=== PATIENT | female | born 1955 | race African-American/Black ===

== ENCOUNTER 2017-08-17 18:23 | Observation (INO) | payer SELFPAY ==
[2017-08-17 18:47] LABS: Bilirubin Negative (Negative); Blood, Urine Trace (Negative); Clarity CLEAR (Clear); Glucose, Urine (Dipstick) >=1000 mg/dL (Negative); Leukocyte Moderate (Negative); Nitrite Negative (Negative); Protein, Urine (Dipstick) Negative (Neg-Trace); Specific Gravity, Urine 1.017 (1.002-1.036); Urobilinogen 0.2 mg/dL (0.2-1.0)
[2017-08-17 18:52] LABS: Bacteria/HPF None Seen HPF (None Seen); Hyaline Casts/LPF 0-3 HYALINE CAST LPF (0-3 Hyaline); Squamous Epithelial 0-3 HPF (0-3)
[2017-08-17 19:12] LABS: #Basophils 0.1 thou/uL (0.0-0.2); #Eosinphils 0.2 thou/uL (0.0-0.7); #Lymphocytes 1.9 thou/uL (1.20-3.40); #Monocytes 1.7 thou/uL (0.11-0.59); #Neutrophils 8.6 thou/uL (1.40-6.50); %Basophils 0.5 % (0.0-1.0); %Eosinophils 1.5 % (0.0-10.0); %Monocytes 13.6 % (0.0-10.0); %Neutrophils 69.3 % (42.0-75.0); Hemoglobin 11.9 g/dL (12.0-16.0); Mean Corpuscular HGB CONC 33.3 g/dL (32.0-36.0); Mean Platelet Volume 9.8 fL (7.4-10.4); Platelet Count 240 thou/uL (130-400); RBC Distribution Width 11.5 % (11.5-14.5); Red Blood Cell (RBC) Count 3.72 mill/uL (4.20-5.40); White Blood Cell (WBC) Count 12.3 thou/uL (4.8-10.8)
[2017-08-17 19:35] LABS: ALT (SGPT) 30 U/L (8-55); AST (SGOT) 19 U/L (5-34); Albumin 3.5 g/dL (3.5-5.0); Alkaline Phosphatase 124 U/L (40-150); Anion Gap 18 mmol/L (10-20); BUN (Urea Nitrogen) 67 mg/dL (9.8-20.1); Bilirubin, Total 0.5 mg/dL (0.2-1.2); Calc. Creatinine Clearance 0 mL/min (70-130); Calcium 9.3 mg/dL (7.8-10.44); Carbon Dioxide 22 mmol/L (22-29); Chloride 90 mmol/L (98-107); Estimated GFR-MDRD 25; Globulin 3.7 g/dL (2.4-3.5); Potassium 4.6 mmol/L (3.5-5.1); Protein, Total 7.2 g/dL (6.0-8.3); Sodium 125 mmol/L (136-145)
[2017-08-17 19:47] LABS: Glucose 789 mg/dL (70-105)
[2017-08-17 21:17] LABS: Base Excess-Venous 0.8 mmol/L (0 (+/- 2.5)); Bicarbonate (HCO3v) 25.6 mmol/L (1.0-85.0); CO2 Tension (PvCO2) 40.6 mmHg (41.0-51.0); Calcium, Ionized 1.04 mmol/L (1.12-1.32); Hemoglobin - Calc 12.4 g/dL (12.0-18.0); O2 Tension (PvO2) 53.8 mmHg (35.0-45.0); Potassium 4.6 mmol/L (3.4-4.7); T. Carbon Dioxide 26.8 mmol/L (1.0-85.0); pH (Venous) 7.407 (7.35-7.45); vO2 Saturation-calc 87.7 % (94-98)
[2017-08-17] MEDS ORDERED: Insulin Regular 300 UNITS/3 ML VIAL ONE (21:44)
[2017-08-17] MEDS ORDERED: cefTRIAXone\\ROCEPHIN 1 GM VIAL ONE (22:46)
[2017-08-17 23:26] LABS: Magnesium 2.3 mg/dL (1.6-2.6); Phosphorus 3.2 mg/dL (2.3-4.7)
[2017-08-18 01:32] VITALS: BMI 29.5
[2017-08-18] MEDS ORDERED: Ondansetron HCl/PF 4 MG/2 ML Vial IVP PRN ×2 (01:46→17:46)
[2017-08-18] MEDS ORDERED: Acetaminophen 325 MG TAB PO PRN ×2 (01:46→17:47)
[2017-08-18] MEDS ORDERED: Ondansetron ODT 4 MG TAB SL PRN ×2 (01:46→17:47)
[2017-08-18] MEDS ORDERED: Dextrose 5% in Water 1,000 ML IV PRN ×2 (01:47→17:48)
[2017-08-18] MEDS ORDERED: Insulin Regular 300 UNITS/3 ML VIAL SC PRN ×4 (01:47→17:49)
[2017-08-18] MEDS ORDERED: Dextrose 50% Abboject 50 ML SYRINGE IVP PRN ×2 (01:47→17:47)
[2017-08-18] MEDS: Sodium Chloride 0.9% 1,000 ML IV SCH ×3 (02:22→18:15)
[2017-08-18] MEDS ORDERED: Insulin Glargine 60 UNITS in Pre-Filled Syringe 1 EACH SC SCH (09:00)
[2017-08-18] MEDS ORDERED: cefTRIAXone\\ROCEPHIN 1 GM in Sodium Chloride 0.9% 100 ML IVPB SCH (10:00)
[2017-08-18] MEDS: HumaLOG 300 UNITS/3 ML VIAL SC SCH ×2 (12:10→17:43)
[2017-08-18] MEDS ORDERED: Sodium Chloride 0.9% 1,000 ML IV SCH (18:00)
[2017-08-18] MEDS: Carvedilol 6.25 MG TAB PO SCH (21:39)
[2017-08-18] MEDS: cefTRIAXone\\ROCEPHIN 1 GM in Sodium Chloride 0.9% 100 ML IVPB SCH (21:40)
--- NOTE | 2017-08-18 21:59 | ULT ---
ULTRASOUND RENAL BILATERAL STANDARD 08/18/17 HISTORY: Urinary tract infection. Right flank pain. FINDINGS: Right kidney measures 11.8 x 4.6 x 4.5 cm and left kidney measures 11.4 x 5 x 4.6 cm. No renal mass, hydronephrosis or abnormal calcifications. Urinary bladder is unremarkable. Left ureteral jets are vi sualized. Bladder volume is 241 mL. IMPRESSION: No evidence for obstructive uropathy. POS: [facility]
[2017-08-19 04:57] LABS: #Eosinphils 0.2 thou/uL (0.0-0.7); #Lymphocytes 3.2 thou/uL (1.20-3.40); #Monocytes 1.3 thou/uL (0.11-0.59); #Neutrophils 6.3 thou/uL (1.40-6.50); %Basophils 0.3 % (0.0-1.0); %Eosinophils 2.2 % (0.0-10.0); %Lymphocytes 28.5 % (21.0-51.0); %Neutrophils 57.1 % (42.0-75.0); Hemoglobin 10.6 g/dL (12.0-16.0); Mean Corpuscular HGB CONC 33.4 g/dL (32.0-36.0); Mean Corpuscular Hemoglobin 31.1 pg (27.0-31.0); Mean Corpuscular Volume 93.3 fl (81.0-99.0); Mean Platelet Volume 9.1 fL (7.4-10.4); Platelet Count 257 thou/uL (130-400); RBC Distribution Width 11.2 % (11.5-14.5); Red Blood Cell (RBC) Count 3.39 mill/uL (4.20-5.40); White Blood Cell (WBC) Count 11.1 thou/uL (4.8-10.8)
[2017-08-19 05:33] LABS: Anion Gap 10 mmol/L (10-20); BUN (Urea Nitrogen) 29 mg/dL (9.8-20.1); Calc. Creatinine Clearance 80 mL/min (70-130); Calcium 8.6 mg/dL (7.8-10.44); Carbon Dioxide 25 mmol/L (22-29); Chloride 109 mmol/L (98-107); Estimated GFR-MDRD 68; Glucose 166 mg/dL (70-105); Potassium 3.8 mmol/L (3.5-5.1); Sodium 140 mmol/L (136-145)
[2017-08-19] MEDS: HumaLOG 300 UNITS/3 ML VIAL SC SCH ×3 (05:36→16:48)
[2017-08-19] MEDS: Sodium Chloride 0.9% 1,000 ML IV SCH ×2 (05:36→15:05)
[2017-08-19] MEDS ORDERED: HumaLOG 300 UNITS/3 ML VIAL SC SCH (06:00)
--- NOTE | 2017-08-19 06:27 | HP ---
DATE OF ADMISSION: 08/17/2017 CHIEF COMPLAINT: Weakness, abdominal pain. HISTORY OF PRESENT ILLNESS: Ms. Soni is a 61-year-old female with past medical history of diabetes mellitus, which is poorly controlled, came with complaining of pain in the back and abdomen and feeling weak as well. The patient states she has been taking her insulin regularly, but does not follow the diet. The patient also has back pain, so came to the emergency room, where she was found to be markedly elevated blood sugar of more than 700 and severely dehydrated. She was started on IV fluid boluses as well as given insulin and she was not in DKA, also found to have urinary tract infection and was admitted for further evaluation and management. PAST MEDICAL HISTORY: 1. Insulin-dependent diabetes mellitus. 2. Hypertension. 3. Cardiomyopathy, nonischemic. 4. Hyperlipidemia. 5. Noncompliant with diet. 6. History of COPD. PAST SURGICAL HISTORY: Nothing significant. CURRENT MEDICATIONS: The patient is on Levemir insulin 60/60 units daily, NovoLog FlexPen 20 units t.i.d., Lasix 40 mg daily, Coreg 6.25 b.i.d., losartan with hydrochlorothiazide 100/12.5 daily, multivitamin daily, spironolactone 100 mg daily. ALLERGIES: LEVOTHYROXINE. FAMILY HISTORY: Nothing of interest. SOCIAL HISTORY: The patient lives alone. No history of smoking. No history of alcohol intake. REVIEW OF SYSTEMS: Unremarkable except for the back pain, flank pain, abdominal pain, and weakness. PHYSICAL EXAMINATION: GENERAL: The patient is alert, awake, oriented x3. VITAL SIGNS: Temperature 98, pulse 100 , respirations 20, blood pressure 120/ 60. HEENT: Head is normocephalic, atraumatic. Pupils are equal and reactive to light. Nasopharynx is pale and dry. Hard and soft palate, no lesions seen. SKIN: Skin turgor decreased. NECK: Supple. No JVD LUNGS: Bilateral air entry present. No rhonchi. HEART: S1, S2 regular. ABDOMEN: Soft, no distention, no diffusely tender. No guarding, no S3, bowel sounds present. RECTAL: Deferred. CENTRAL NERVOUS SYSTEM: No focal deficit. LABORATORY AND X-RAY FINDINGS: CBC shows WBC 12.3, hemoglobin 11.9, hematocrit 33, platelets 240,000. Metabolic panel: Sodium 125, potassium 4.6, chloride 90 , CO2 of 22, BUN 67, creatinine 2.4, glucose 189. Urinalysis showed wbc's greater than 50, leukocyte esterase moderate. ABG shows a pH 7.4, pCO2 of 40, pO2 of 53, saturation of 88 %, beta hydroxybutyrate is 0.42. EKG shows normal sinus rhythm, no acute ST-T wave changes seen. ASSESSMENT: 1. Diabetes mellitus, uncontrolled. 2. Urinary tract infection. 3. Abdominal pain, flank pain, possibly due to urinary tract infection. 4. Severe dehydration with acute kidney injury. 5. Cardiomyopathy. 6. Hypertension. PLAN: 1. Vital signs q.4 hours. 2. Activity: As tolerated. 3. Allergies: LEVAQUIN. 4. ADA diet. 5. IV fluids, normal saline at 100 mL per hour. 6. Accu-Chek a.c. and at bedtime, sliding scale and Rocephin 1 gram IV piggyback b.i.d. 7. Continue home medication. 8. Diabetic education. [facility]
[2017-08-19] MEDS: Spironolactone 25 MG TAB PO SCH ×2 (08:33→17:34)
[2017-08-19] MEDS: Carvedilol 6.25 MG TAB PO SCH (08:33)
[2017-08-19] MEDS: cefTRIAXone\\ROCEPHIN 1 GM in Sodium Chloride 0.9% 100 ML IVPB SCH (08:36)
[2017-08-19] MEDS ORDERED: Insulin Glargine 65 UNITS in Pre-Filled Syringe 1 EACH SC SCH (09:00)
[2017-08-19] MEDS ORDERED: Losartan 25 MG TAB PO SCH (09:00)
[2017-08-19] MEDS ORDERED: Hydrochlorothiazide 25 MG TAB PO SCH (09:00)
[2017-08-19] MEDS ORDERED: Multivitamin W/ Minerals 1 TAB PO SCH (09:00)
[2017-08-19 17:44] VITALS: BP 161/83; TEMP 97.9
--- NOTE | 2017-08-22 10:12 | DIS ---
DATE OF ADMISSION: 08/17/2017 DATE OF DISCHARGE: 08/19/2017 ADMITTING DIAGNOSES: 1. Diabetes mellitus, uncontrolled. 2. Urinary tract infection. 3. Abdominal pain and flank pain due to urinary tract infection. 4. Severe dehydration with acute kidney injury. 5. Cardiomyopathy. 6. Hypertension. FINAL DIAGNOSES: 1. Diabetes mellitus, uncontrolled, improved. 2. Urinary tract infection. 3. Abdominal pain, resolved. 4. Severe dehydration with acute kidney injury, improved. 5. Cardiomyopathy. 6. Hypertension. BRIEF SUMMARY OF HOSPITAL COURSE: Ms. Soni is a 61-year-old female who presented with markedly elevated blood sugar of more than 700. She was also dehydrated. She has evidence of UTI as well. The patient was given an insulin and other medications. Started on antibiotic Rocephin for UTI. Urine cultures were done that revealed no growth. Her Accu-Cheks improved in the next few days after increasing the dose of insulin. It came down from more than 700 to 150, 200. The patient's abdominal pain, flank pain also improved. She did not have any more fever. In view of improvement , patient was discharged. At the time of discharge, she was stable. Her vital signs were stable. Lungs were clear. Heart sounds regular. Abdomen is soft, nontender. Bowel sounds present. DISCHARGE MEDICATIONS: Include Macrobid 100 b.i.d. for 10 days, Levemir insulin 65 units daily, Coreg 6.25 b.i.d., multivitamin daily, NovoLog FlexPen 20 units 3 times daily before meals, losartan with hydrochlorothiazide 100/12.5 daily, spironolactone 25 b.i.d. and the patient was advised to follow strict ADA diet and come for followup in 2 weeks. [facility]
== END 2017-08-19 19:00 | disposition home or self-care (01) ==
LOC: ERS 18:23 → T4-B 23:05
PROVIDERS: ADMIT Internal Medicine; ATTEND Internal Medicine
DX: R10.9 Unspecified abdominal pain (principal); E11.65 Type 2 diabetes mellitus with hyperglycemia; N39.0 Urinary tract infection, site not specified; I11.0 Hypertensive heart disease with heart failure; I50.9 Heart failure, unspecified; I42.8 Other cardiomyopathies; E78.5 Hyperlipidemia, unspecified; J44.9 Chronic obstructive pulmonary disease, unspecified; E86.0 Dehydration; N17.9 Acute kidney failure, unspecified; Z79.4 Long term (current) use of insulin; Z79.899 Other long term (current) drug therapy; Z88.8 Allergy status to other drugs, medicaments and biological substances; Z88.2 Allergy status to sulfonamides
CPT/HCPCS: 36415; 36416; 76770; 80048; 80053; 81003; 81015; 82010; 82330; 82803; 83735; 84100; 85025; 87086; 96361; 96365; 96366; 96372; 96375; A4216; G0378; J0696; J1815; J7050

== ENCOUNTER 2018-01-26 09:55 | Observation (INO) | payer MEDICARE, SELFPAY ==
[2018-01-26 10:29] LABS: #Eosinphils 0.2 thou/uL (0.0-0.7); #Lymphocytes 2.3 thou/uL (1.20-3.40); #Monocytes 0.6 thou/uL (0.11-0.59); #Neutrophils 4.8 thou/uL (1.40-6.50); %Basophils 0.6 % (0.0-1.0); %Lymphocytes 29.5 % (21.0-51.0); %Monocytes 7.1 % (0.0-10.0); %Neutrophils 60.9 % (42.0-75.0); Hemoglobin 11.6 g/dL (12.0-16.0); Mean Corpuscular HGB CONC 32.5 g/dL (32.0-36.0); Mean Corpuscular Hemoglobin 30.9 pg (27.0-31.0); Mean Corpuscular Volume 95.1 fL (78.0-98.0); Mean Platelet Volume 9.4 fL (7.4-10.4); Platelet Count 274 thou/uL (130-400); RBC Distribution Width 12.2 % (11.5-14.5); Red Blood Cell (RBC) Count 3.75 mill/uL (4.20-5.40); White Blood Cell (WBC) Count 7.9 thou/uL (4.8-10.8)
[2018-01-26 10:57] LABS: CKMB 2.6 ng/mL (0-6.6)
[2018-01-26 11:02] LABS: ALT (SGPT) 44 U/L (8-55); AST (SGOT) 33 U/L (5-34); Albumin 3.2 g/dL (3.4-4.8); Alkaline Phosphatase 103 U/L (40-150); Anion Gap 11 mmol/L (10-20); BUN (Urea Nitrogen) 44 mg/dL (9.8-20.1); Bilirubin, Total 0.3 mg/dL (0.2-1.2); CK (CPK) 94 U/L (29-168); Calc. Creatinine Clearance 0 mL/min (70-130); Calcium 8.6 mg/dL (7.8-10.44); Carbon Dioxide 19 mmol/L (23-31); Chloride 111 mmol/L (98-107); Estimated GFR-MDRD 36; Globulin 3.1 g/dL (2.4-3.5); Glucose 278 mg/dL (80-115); Lipase 11 U/L (8-78); Potassium 4.4 mmol/L (3.5-5.1); Protein, Total 6.3 g/dL (6.0-8.3); Sodium 137 mmol/L (136-145)
--- NOTE | 2018-01-26 11:17 | RAD ---
PORTABLE CHEST: Date: 01/26/18 HISTORY: Chest pain. FINDINGS: Lung jones are clear of infiltrate. No evidence of vascular congestion or edema. There is a calcifie d granuloma in the left upper lung and there are calcified left hilar lymph nodes. IMPRESSION: No acute process. POS: [facility]
[2018-01-26 13:52] LABS: Troponin I 0.059 ng/mL (< 0.028)
[2018-01-26 17:04] LABS: Troponin I 0.049 ng/mL (< 0.028)
[2018-01-26] MEDS ORDERED: Dextrose 50% Abboject 50 ML SYRINGE IVP PRN (18:07)
[2018-01-26] MEDS ORDERED: Dextrose 5% in Water 1,000 ML IV PRN (18:07)
[2018-01-26] MEDS ORDERED: Acetaminophen 325 MG TAB PO PRN (18:08)
[2018-01-26] MEDS ORDERED: Carvedilol 25 MG TAB PO SCH (18:15)
[2018-01-26] MEDS ORDERED: Spironolactone 25 MG TAB PO SCH (18:15)
[2018-01-26 19:12] LABS: Glucose Accucheck Confirmation 353 mg/dl (80-115)
[2018-01-26] MEDS: Insulin Regular 300 UNITS/3 ML VIAL SC PRN (21:17)
[2018-01-27] MEDS ORDERED: cloNIDine 0.1 MG TAB PO PRN (00:13)
[2018-01-27 05:28] LABS: Anion Gap 11 mmol/L (10-20); BUN (Urea Nitrogen) 38 mg/dL (9.8-20.1); Calc. Creatinine Clearance 50 mL/min (70-130); Calcium 8.6 mg/dL (7.8-10.44); Carbon Dioxide 20 mmol/L (23-31); Chloride 108 mmol/L (98-107); Estimated GFR-MDRD 38; Glucose 332 mg/dL (80-115); Potassium 4.3 mmol/L (3.5-5.1); Sodium 135 mmol/L (136-145)
[2018-01-27] MEDS: Insulin Regular 300 UNITS/3 ML VIAL SC PRN ×2 (06:14→12:16)
--- NOTE | 2018-01-27 07:44 | HP ---
DATE OF ADMISSION: 01/26/2018 CHIEF COMPLAINT: Chest pain. HISTORY OF PRESENT ILLNESS: Ms. Soni is a 62-year-old, -[place] female with past medical history of diabetes mellitus, hypertension, came because of chest pain developed this morning. The patient says pain in the chest area and pressure-like, nonradiating, associated with some nausea, but no shortness of breath, no diaphoresis. She also had some dizziness. Patient's pain lasted more than 30 minutes, so she called the EMS. The EMS found the patient with chest pain. She was given sublingual nitro as well as aspirin 325 mg and morphine as well by the EMS. She says the chest pain partially resolved by the time she came to the emergency room. Currently, the patient is chest pain free. She was evaluated in the ER and had normal cardiac enzymes and EKG. She was admitted to rule out myocardial infarction. PAST MEDICAL HISTORY: 1. Insulin-dependent diabetes mellitus. 2. Hypertension. 3. Hyperlipidemia. 4. Nonischemic cardiomyopathy by history. 5. History of COPD as well. PAST SURGICAL HISTORY: Nothing contributory. CURRENT MEDICATIONS: The patient is on Coreg 25 mg b.i.d., Lasix 40 mg daily, Levemir insulin 70 units daily, losartan with hydrochlorothiazide 100/12.5 daily , spironolactone 25 b.i.d., and also sliding scale of NovoLog insulin. ALLERGIES: LEVOTHYROXINE. FAMILY HISTORY: Nothing of interest. SOCIAL HISTORY: The patient lives alone. No history of smoking. No history of alcohol intake. REVIEW OF SYSTEMS: Unremarkable except for the chest pain. PHYSICAL EXAMINATION: GENERAL: The patient is alert, awake, oriented x3. VITAL SIGNS: Temperature 98, pulse 85, respiration 20, blood pressure 168/80. HEENT: Head is normocephalic, atraumatic. Pupils equal and reactive to light. Nasopharynx is pink and moist. NECK: Supple. No JVD. LUNGS: Bilateral air entry present, no rales, no rhonchi. CARDIAC: S1, S2 regular. ABDOMEN: Soft, nontender. Bowel sounds present. RECTAL: Deferred. NEUROLOGIC: No focal deficits. LABORATORY AND X-RAY FINDINGS: CBC shows WBC 7.8, hemoglobin 11.7, hematocrit 35, platelets 274. Metabolic panel: Sodium 137, potassium 4.4, chloride 111, CO2 of 19, BUN 44, creatinine 1.7, glucose 278. CK-MB 2.6. Troponin 0.040. Chest x-ray negative. EKG shows normal sinus rhythm, no acute ST-T wave changes. ASSESSMENT: 1. Chest pain, rule out myocardial infarction. 2. Hypertension, uncontrolled. 3. Insulin-dependent diabetes mellitus. 4. Hyperlipidemia. 5. Acute kidney injury. PLAN: 1. Vital signs q.4 hours. 2. Activity: As tolerated. 3. Allergies: LEVOTHYROXINE. 4. Hep-Lock. 5. Diet: ADA cardiac. 6. Troponin I q 6hrs x2. 7. Cardiolite stress test in the morning. 8. Continue home medication. 9. Accu-Chek a.c. and at bedtime, sliding scale, mild with regular insulin. 10. Aspirin 325 mg daily. [facility]D
[2018-01-27] MEDS ORDERED: Naproxen 500 MG TAB PO SCH (09:00)
[2018-01-27] MEDS: Losartan 25 MG TAB PO SCH (09:02)
[2018-01-27] MEDS: Spironolactone 25 MG TAB PO SCH ×2 (09:02→16:19)
[2018-01-27] MEDS: Aspirin 325 MG TAB PO SCH (09:03)
[2018-01-27] MEDS: Carvedilol 25 MG TAB PO SCH ×3 (09:04→16:18)
[2018-01-27 12:59] VITALS: BMI 30.7
--- NOTE | 2018-01-27 13:47 | NM ---
NUCLEAR MEDICINE CARDIAC SPECT WITH EF AND WALL MOTION: History: 62-year-old female presents with chest pain. History of CMP and COPD, prior cardiac cath. Lexiscan Sestamibi study is performed. FINDINGS: Patient was injected with 28.8 mCi Technetium 99M Sestamibi intravenously for stress images and 9.6 m Ci Technetium 99M Sestamibi intravenously for resting images. Multiple SPECT images in the short axis, vertical long axis, and horizontal long axis demonstrates no scan evidence for infarct or ischemia. TID: 0.94 LHR: 0.36 EDV: Elevated at 164 ml EF: 39% MYOCARDIAL PERFUSION WALL MOTION: Wall motion demonstrates some generalized hypokinesis. IMPRESSION: Elevated EDV Of 164 ml with EF of 39% and mild generalized hypokinesis. POS: [facility]
[2018-01-27] MEDS ORDERED: Insulin Regular 300 UNITS/3 ML VIAL SC SCH ×2 (14:45→16:15)
[2018-01-27] MEDS ORDERED: Ketorolac Tromethamine 30 MG/ML VIAL IVP PRN (14:48)
[2018-01-27] MEDS ORDERED: Regadenoson 0.4 MG/5 ML SYRINGE ONE (16:04)
[2018-01-27] MEDS ORDERED: cloNIDine 0.1 MG TAB PO SCH (17:15)
[2018-01-28] MEDS: Insulin Regular 300 UNITS/3 ML VIAL SC PRN (05:38)
[2018-01-28 08:06] VITALS: BP 155/70; TEMP 97.7
[2018-01-28] MEDS: Carvedilol 25 MG TAB PO SCH (08:26)
[2018-01-28] MEDS: Losartan 25 MG TAB PO SCH (08:26)
[2018-01-28] MEDS: Spironolactone 25 MG TAB PO SCH (08:26)
[2018-01-28] MEDS: Aspirin 325 MG TAB PO SCH (08:26)
--- NOTE | 2018-01-30 13:34 | STRESS ---
Acquisition Time: 2018-01-27 10:35:42 Total Exercise Time: 00:01:00 Test Indications: CHEST PAIN Medications: Protocol: LEXISCAN Max HR: 103 BPM 64% of Pred: 159 BPM Max BP: 170/080 mmHG Max Work Load: 1.0 METS RESTING ECG: NORMAL SINUS RHYTHM AT 75 BPM WITH NON-SPECIFIC T-WAVE CHANGES SYMPTOMS: DYSPNEA NORMAL BP RESPONSE ECTOPY: NONE ECG STRESS: NO SIGNIFICANT CHANGES INTERPRETATION: AWAIT NUCLEAR IMAGES FOR DEFINITIVE DIAGNOSIS Confirmed by ALLAN MIN ([id number]), editor trade journal DIEGO CALDERON ([id number]) on 01/30/2018 1:34:34 PM Referred By: MD Yocasta WALSH Confirmed By:ALLAN MIN
--- NOTE | 2018-01-30 14:40 | DIS ---
DATE OF ADMISSION: 01/26/2018 DATE OF DISCHARGE: 01/28/2018 ADMITTING DIAGNOSES: 1. Chest pain, rule out myocardial infarction. 2. Hypertension, uncontrolled. 3. Insulin-dependent diabetes mellitus, uncontrolled. 4. Hyperlipidemia. 5. Acute kidney injury. FINAL DIAGNOSES: 1. Chest pain, atypical. No evidence of acute myocardial infarction, negative stress test. 2. Hypertension, uncontrolled, improved. 3. Insulin-dependent diabetes mellitus, uncontrolled, improved. 4. Hyperlipidemia. 5. Acute kidney injury, improved. BRIEF SUMMARY OF HOSPITAL COURSE: Ms. Soni is a 62-year-old - [place] female admitted because of chest pain. The patient had multiple risk factors and the patient was admitted to rule out [place]. Serial cardiac enzymes are normal. Cardiolite stress test was reported as negative for ischemia, but had EF decreased to around 39% with mild generalized hypokinesis, which is due to her cardiomyopathy. The patient's blood pressure was markedly elevated, but it came down since she missed her doses. After, we starting her medication, her blood pressure improved. Blood sugar was also elevated secondary to not getting insulin due to the patient being n.p.o. After given insulin, the patient's blood sugar also improved. In view of improvement, the patient is being discharged. At the time of discharge, she was stable. Her vital signs stable. Lungs clear. Heart sounds regular. Abdomen is soft, nontender. Bowel sounds present. DISCHARGE MEDICATIONS: Include Lasix 40 mg daily, spironolactone 25 mg b.i.d., losartan/hydrochlorothiazide 100/12.5 daily, Coreg 25 b.i.d., Tylenol p.r.n., Levemir insulin 70 units daily. Also, NovoLog FlexPen regular insulin 20 units before each meal. The patient will continue ADA diet and come for followup next week and we will check her blood pressure again at that time and blood sugar as well. [facility]
== END 2018-01-28 10:19 | disposition home or self-care (01) ==
LOC: ERS 09:55 → ERHOLD 12:30 → 2SW 15:28
PROVIDERS: ADMIT Internal Medicine; ATTEND Internal Medicine
DX: R07.9 Chest pain, unspecified (principal); I10 Essential (primary) hypertension; E11.9 Type 2 diabetes mellitus without complications; E78.5 Hyperlipidemia, unspecified; N17.9 Acute kidney failure, unspecified; Z79.82 Long term (current) use of aspirin; Z79.899 Other long term (current) drug therapy
CPT/HCPCS: 71045; 78452; 80048; 80053; 82550; 82553; 82947; 82962 ×3; 83690; 84484 ×2; 85025; 90686; 90732; 93005; 93017; 94760; 96360; 99285; A9500; G0008; G0009; G0378 ×2; 36415; 36416; 90471; J2785

== ENCOUNTER 2018-05-03 18:44 | Emergency (ER) | payer MEDICARE ==
[2018-05-03 20:33] LABS: #Basophils 0.1 thou/uL (0.0-0.2); #Eosinphils 0.3 thou/uL (0.0-0.7); #Lymphocytes 2.5 thou/uL (1.20-3.40); #Monocytes 0.8 thou/uL (0.11-0.59); #Neutrophils 5.3 thou/uL (1.40-6.50); %Eosinophils 3.6 % (0.0-10.0); %Lymphocytes 27.4 % (21.0-51.0); %Monocytes 8.4 % (0.0-10.0); %Neutrophils 59.6 % (42.0-75.0); Hemoglobin 11.9 g/dL (12.0-16.0); Mean Corpuscular HGB CONC 33.5 g/dL (32.0-36.0); Mean Corpuscular Hemoglobin 31.5 pg (27.0-31.0); Mean Corpuscular Volume 93.9 fL (78.0-98.0); Mean Platelet Volume 10.1 fL (7.4-10.4); Platelet Count 291 thou/uL (130-400); RBC Distribution Width 12.2 % (11.5-14.5); Red Blood Cell (RBC) Count 3.78 mill/uL (4.20-5.40)
--- NOTE | 2018-05-03 20:51 | RAD ---
FRONTAL VIEW CHEST: Date: 05/03/18 COMPARISON: 01/26/18. INDICATION: Shortness of breath. CHF. FINDINGS: Stable high density nodule at the left upper lung zone favors granulomatous calcification. There is e nlargement of the cardiac silhouette. No consolidation, effusion, or pneumothorax. IMPRESSION: 1. Prominent cardiac silhouette. 2. No lobar consolidation. POS: H
[2018-05-03 20:57] LABS: ALT (SGPT) 25 U/L (8-55); AST (SGOT) 21 U/L (5-34); Albumin 2.9 g/dL (3.4-4.8); Alkaline Phosphatase 125 U/L (40-150); Anion Gap 13 mmol/L (10-20); BUN (Urea Nitrogen) 48 mg/dL (9.8-20.1); Bilirubin, Total 0.2 mg/dL (0.2-1.2); CK (CPK) 195 U/L (29-168); Calc. Creatinine Clearance 0 mL/min (70-130); Calcium 8.8 mg/dL (7.8-10.44); Carbon Dioxide 23 mmol/L (23-31); Chloride 105 mmol/L (98-107); Estimated GFR-MDRD 24; Globulin 3.4 g/dL (2.4-3.5); Glucose 439 mg/dL (80-115); Potassium 3.9 mmol/L (3.5-5.1); Protein, Total 6.3 g/dL (6.0-8.3); Sodium 137 mmol/L (136-145)
[2018-05-03 21:17] LABS: CKMB 3.5 ng/mL (0-6.6)
[2018-05-03] MEDS ORDERED: Furosemide 40 MG/4 ML VIAL ONE (21:54)
[2018-05-03] MEDS ORDERED: cloNIDine 0.1 MG TAB ONE (22:43)
== END 2018-05-03 23:22 | disposition home or self-care (01) ==
LOC: ERS 18:44
DX: I11.0 Hypertensive heart disease with heart failure (principal); I50.9 Heart failure, unspecified; E11.9 Type 2 diabetes mellitus without complications; J44.9 Chronic obstructive pulmonary disease, unspecified; Z79.4 Long term (current) use of insulin; Z79.899 Other long term (current) drug therapy
CPT/HCPCS: 36415; 71045; 80053; 82550; 82553; 83880; 84484; 85025; 93005; 96374; J1940

== ENCOUNTER 2018-08-07 20:49 | Inpatient (IN) | payer MEDICARE ==
--- NOTE | 2018-08-07 21:28 | RAD ---
XR Chest Pa Lat STANDARD History: [Cough] Comparison: Radiograph May 03, 2018 Findings: New left upper lobe airspace opacity. Remainder the lungs are clear. Cardiac silhouette and mediastinal contours are similar. Calcified granuloma left upper lobe. Impression: New left upper lobe airspace opacity concerning for infection. Follow-up after treatment recommended.
[2018-08-08 00:16] LABS: Band 1 % (5-11); Eosinophils 7 % (0-10); Hemoglobin 10.9 g/dL (12.0-16.0); Lymphocytes 26 % (21-51); MDiff Complete? YES; Mean Corpuscular Hemoglobin 30.6 pg (27.0-31.0); Mean Corpuscular Volume 92.8 fL (78.0-98.0); Mean Platelet Volume 9.7 fL (7.4-10.4); Monocytes 20 % (0-10); Neutrophil 46 % (42-75); Platelet Count 213 thou/uL (130-400); Platelet Morphology Comment Appears Adequate; RBC Distribution Width 12.1 % (11.5-14.5); Red Blood Cell (RBC) Count 3.55 mill/uL (4.20-5.40); White Blood Cell (WBC) Count 7.7 thou/uL (4.8-10.8)
[2018-08-08 00:34] LABS: ALT (SGPT) 29 U/L (8-55); AST (SGOT) 23 U/L (5-34); Albumin 2.9 g/dL (3.4-4.8); Alkaline Phosphatase 130 U/L (40-150); Anion Gap 14 mmol/L (10-20); BUN (Urea Nitrogen) 44 mg/dL (9.8-20.1); Bilirubin, Total 0.4 mg/dL (0.2-1.2); Calc. Creatinine Clearance 0 mL/min (70-130); Calcium 8.5 mg/dL (7.8-10.44); Carbon Dioxide 21 mmol/L (23-31); Chloride 109 mmol/L (98-107); Estimated GFR-MDRD 22; Glucose 306 mg/dL (80-115); Potassium 3.7 mmol/L (3.5-5.1); Protein, Total 5.9 g/dL (6.0-8.3); Sodium 140 mmol/L (136-145)
[2018-08-08 01:25] LABS: CKMB 3.1 ng/mL (0-6.6)
[2018-08-08] MEDS ORDERED: Azithromycin 500 MG VIAL ONE (02:27)
[2018-08-08 03:28] LABS: Bilirubin Negative (Negative); Blood, Urine Moderate (Negative); Clarity CLEAR (Clear); Glucose, Urine (Dipstick) 500 mg/dL (Negative); Leukocyte Trace (Negative); Nitrite Negative (Negative); Protein, Urine (Dipstick) > or equal to 300 mg/dL (Neg-Trace); Specific Gravity, Urine 1.017 (1.002-1.036); pH, Urine 6.5 (5.0-9.0)
[2018-08-08 03:31] LABS: Bacteria/HPF None Seen HPF (None Seen); Hyaline Casts/LPF 7-10 HYALINE CAST LPF (0-3 Hyaline); Pathc Cast-AUWi Flag 1.76 (0-2.49); RBC/HPF 21-50 HPF (0-3); Squamous Epithelial 0-3 HPF (0-3)
[2018-08-08 03:52] LABS: Oval Fat Bodies/HPF None Seen HPF (None Seen); Renal Epithelial None Seen HPF (0-3); Sperm/HPF None Seen HPF (None Seen); Transitional Epithelial NONE SEEN HPF (0-3); Trichomonas/HPF None Seen HPF (None Seen); Yeast-All Forms None Seen HPF (None Seen)
[2018-08-08] MEDS ORDERED: cefTRIAXone\\ROCEPHIN 1 GM VIAL ONE (05:50)
--- NOTE | 2018-08-08 07:46 | CT ---
CT CHEST WITHOUT CONTRAST: Date: 08/08/18 HISTORY: Lung mass. COMPARISON: Radiograph prior day. FINDINGS: There are multifocal opacities within the left upper lobe, as well as of the superior segment left lo wer lobe. Calcified granuloma left upper lobe. Small left effusion. Multiple calcified left hilar lymph nodes. No mediastinal adenopathy. Small volume of pericardial fluid. Limited evaluation of the upper abdomen appears unremarkable. No thoracic spine compression deformity . No acute osseous abnormality. IMPRESSION: Findings most suggestive of multifocal left upper lobe and left lower lobe bronchopneumonia. Follow-u p after treatment is recommended to resolution. POS: [facility]
[2018-08-08 10:20] VITALS: BMI 34.6
[2018-08-08] MEDS ORDERED: Dextrose 50% Abboject 50 ML SYRINGE IVP PRN (12:30)
[2018-08-08] MEDS ORDERED: Dextrose 5% in Water 1,000 ML IV PRN (12:30)
[2018-08-08] MEDS: Sodium Chloride 0.45% 1,000 ML IV SCH (12:39)
[2018-08-08] MEDS ORDERED: HumaLOG 300 UNITS/3 ML VIAL ONE (13:51)
[2018-08-08] MEDS: HumaLOG 300 UNITS/3 ML VIAL SC PRN (13:54)
[2018-08-08] MEDS: cefTRIAXone\\ROCEPHIN 2 GM in Sodium Chloride 0.9% 100 ML IVPB SCH (17:16)
[2018-08-08] MEDS: Spironolactone 25 MG TAB PO SCH (17:21)
[2018-08-08] MEDS ORDERED: cloNIDine 0.1 MG TAB PO SCH (19:00)
[2018-08-08] MEDS: Carvedilol 25 MG TAB PO SCH (19:32)
[2018-08-09] MEDS: Sodium Chloride 0.45% 1,000 ML IV SCH ×3 (01:38→17:02)
[2018-08-09] MEDS: Azithromycin 500 MG in Sodium Chloride 0.9% 250 ML 250 ML IVPB SCH (03:35)
[2018-08-09] MEDS: Acetaminophen 325 MG TAB PO PRN ×3 (04:45→20:20)
[2018-08-09] MEDS: HumaLOG 300 UNITS/3 ML VIAL SC PRN ×2 (05:21→13:38)
[2018-08-09 06:17] LABS: #Monocytes 0.7 thou/uL (0.11-0.59); #Neutrophils 7.5 thou/uL (1.40-6.50); %Basophils 0.1 % (0.0-1.0); %Eosinophils 0.5 % (0.0-10.0); %Lymphocytes 10.7 % (21.0-51.0); %Monocytes 7.7 % (0.0-10.0); Hemoglobin 10.2 g/dL (12.0-16.0); Mean Corpuscular Hemoglobin 31.6 pg (27.0-31.0); Mean Corpuscular Volume 92.7 fL (78.0-98.0); Mean Platelet Volume 9.8 fL (7.4-10.4); Platelet Count 196 thou/uL (130-400); Red Blood Cell (RBC) Count 3.24 mill/uL (4.20-5.40); White Blood Cell (WBC) Count 9.2 thou/uL (4.8-10.8)
[2018-08-09 06:41] LABS: Anion Gap 16 mmol/L (10-20); BUN (Urea Nitrogen) 37 mg/dL (9.8-20.1); Calc. Creatinine Clearance 37 mL/min (70-130); Calcium 8.2 mg/dL (7.8-10.44); Carbon Dioxide 18 mmol/L (23-31); Chloride 109 mmol/L (98-107); Estimated GFR-MDRD 24; Glucose 302 mg/dL (80-115); Potassium 3.7 mmol/L (3.5-5.1); Sodium 139 mmol/L (136-145)
--- NOTE | 2018-08-09 07:34 | HP ---
CHIEF COMPLAINT: Cough, shortness of breath, feeling weak. HISTORY OF PRESENT ILLNESS: Ms. Soni is a 62-year-old female with past medical history of hypertension, diabetes, started having cough, fever, few weeks ago. Cough is productive of a greenish sputum and she has been feeling very weak for the last 2-3 days and she has some shortness of breath as well. She has some pleuritic chest pain while coughing. Because of her worsening cough, feeling weak, the patient decided to come to the hospital. In the ER, the patient was evaluated and found to have pneumonia in the left lung, also elevated D-dimer. She also had hypertensive emergency with blood pressure of 220/112. The patient received Rocephin and Zithromax and fluids in the ER. She was also found to have acute kidney injury. The patient is admitted for further evaluation and management. PAST MEDICAL HISTORY: 1. Hypertension. 2. Diabetes mellitus. 3. Nonischemic cardiomyopathy with a decrease in LV function with ejection fraction of 39%. 4. Hyperlipidemia. 5. History of chronic obstructive pulmonary disease. PAST SURGICAL HISTORY: Nothing contributory. CURRENT MEDICATIONS: The patient is on: 1. Coreg 25 b.i.d. 2. Lasix 40 mg daily. 3. Levemir insulin 70 units daily. 4. Losartan/hydrochlorothiazide 100/12.5 mg daily. 5. Spironolactone 25 b.i.d. 6. NovoLog FlexPen 20 units before each meal. 7. Tylenol p.r.n. ALLERGIES: LEVOTHYROXINE. FAMILY HISTORY: Nothing contributory. SOCIAL HISTORY: Lives alone. No history of smoking, no history of alcohol. REVIEW OF SYSTEMS: CARDIOVASCULAR: Has pleuritic chest pain and shortness of breath. RESPIRATORY: Cough, fever and weakness. GASTROINTESTINAL: No nausea or vomiting. CENTRAL NERVOUS SYSTEM: No headache. PHYSICAL EXAMINATION: GENERAL: The patient is alert, awake, oriented x3. VITAL SIGNS: Temperature 99, pulse 108, respiratory rate 20, blood pressure 180/90. HEENT: Head is normocephalic and atraumatic. Nasopharynx is pale and dry. Hard and soft palate. No lesions. SKIN: Turgor decreased. NECK: Supple. No JVD. LUNGS: Breath sounds diminished bilaterally. Percussion dull bilaterally. cardiac Normal is skin turgor is decreased. NECK: Supple. No JVD. LUNGS: Sound diminished bilaterally dull bilaterally. Crackles present on left side. HEART: S1, S2. Regular. ABDOMEN: Soft. No distention. No tenderness. Normal bowel sounds. RECTAL: Deferred. CENTRAL NERVOUS SYSTEM: No focal neurological deficits. LABORATORY DATA: CBC shows WBC 7.7, hemoglobin 10.9, hematocrit 33, and platelets 213. D-dimer 1.24. Metabolic panel; sodium 140, potassium 3.7, chloride 109, CO2 of 21, BUN 44, creatinine 2.6, glucose 306. Troponin I 0.084. Urinalysis negative. IMAGING: Chest x-ray, left upper lobe opacity. CT scan of the chest revealed left upper and lower lobe bronchopneumonia and also showed left upper lobe granuloma, calcified. EKG shows normal sinus rhythm. No acute ST-T changes seen, but showed left ventricular hypertrophy. ASSESSMENT: 1. Pneumonia, left lung. Possible bronchopneumonia left upper lobe and left lower lobe. 2. Diabetes mellitus. 3. Hypertensive emergency with uncontrolled hypertension. 4. Diabetes mellitus, uncontrolled. 5. Nonischemic cardiomyopathy with a decreased EF of 39%. 6. Echo done about 2-3 years ago, it was done in 2016. 7. Elevated D-dimer, rule out pulmonary embolus. 8. Elevated troponin I, rule out myocardial infarction. PLAN: 1. Vital signs q.4 hours. 2. Activity as tolerated. 3. Allergies: Levothyroxine. 4. Diet, ADA. 5. IV fluids, half normal at 60 mL/hour. 6. Rocephin 2 g IV piggyback daily. 7. Azithromycin 500 mg IV piggyback daily. 8. Continue Accu-Chek a.c. and at bedtime with sliding scale mildly with regular insulin. 9. Continue home medications. 10. Troponin I q.6 hours x2. 11. Echocardiogram. 12. V/Q scan. 13. Clonidine p.r.n. 14. BMP and CBC in the morning. Job ID: [id number]
[2018-08-09] MEDS: Hydrochlorothiazide 25 MG TAB PO SCH (08:55)
[2018-08-09] MEDS: Carvedilol 25 MG TAB PO SCH ×2 (08:56→20:20)
[2018-08-09] MEDS: Spironolactone 25 MG TAB PO SCH ×2 (08:56→20:20)
[2018-08-09] MEDS: Losartan 25 MG TAB PO SCH (08:56)
[2018-08-09] MEDS ORDERED: Insulin Glargine 75 UNITS in Pre-Filled Syringe 1 EACH SC SCH (09:00)
[2018-08-09] MEDS ORDERED: Furosemide 40 MG TAB PO SCH (09:00)
--- NOTE | 2018-08-09 13:44 | RAD ---
CHEST TWO VIEWS: 08/09/2018 HISTORY: Respiratory distress. COMPARISON: 08/07/2018 TECHNIQUE: PA and lateral views of the chest are obtained. FINDINGS: PA and lateral views chest demonstrates interval development of increasing air space opacities in the right upper lobe and right lung base, as well as left hilar regions. The left hilar opacity has inc reased, while the right lung air space opacities have developed in the interim. IMPRESSION: Increasing bilateral air space opacities, compatible with pneumonia. POS: [facility]
--- NOTE | 2018-08-09 15:34 | NM ---
VENTILATION PERFUSION LUNG SCAN: HISTORY: Lung mass, pneumonia. FINDINGS: VENTILATION SCAN: The patient inhaled 19.1 mCi Xenon 133 gas. Patchy inhalation with some initial decreased ventilatio n in the left mid lung with some patchy mid lung zone trapping, left greater than right. PERFUSION LUNG SCAN: The patient was injected with 5.4 mCi Technetium 99m-MAA intravenously. Very patchy tracer distribut ion noted bilaterally with some overall decreased perfusion in a nonsegmental distribution in the lef t mid lung zone and also in the right mid lung zone particularly. These areas appear to be at least partially matched to the abnormal opacity changes on x-ray. IMPRESSION: Intermediate to indeterminate probability of acute PE with some patchy ventilation and perfusion defi cits bilaterally in a nonsegmental distribution. If there is clinical concern for acute PE, followup CT angiogram chest should be considered. POS: [facility]
[2018-08-09] MEDS ORDERED: Enoxaparin Sodium 100 MG/ML SYRINGE SC SCH (17:00)
[2018-08-09] MEDS: cefTRIAXone\\ROCEPHIN 2 GM in Sodium Chloride 0.9% 100 ML IVPB SCH (17:04)
[2018-08-09] MEDS: cloNIDine 0.1 MG TAB PO PRN (18:09)
[2018-08-09] MEDS ORDERED: Furosemide 40 MG/4 ML VIAL SLOW IVP SCH (18:15)
--- NOTE | 2018-08-09 18:26 | RAD ---
XR Chest 1 View Portable History: [Pulmonary embolism.] Comparison: Radiograph same day Findings: Patchy airspace infiltrates the lungs. No pneumothorax. No effusion. Impression: Slight interval increase bilateral pneumonia.
--- NOTE | 2018-08-10 00:05 | CT ---
CT Abdomen Pelvis WO Con History: [Right upper quadrant pain] Comparison: None. Findings: Multifocal bronchopneumonia in both lung bases. Moderate bilateral parapneumonic effusions. No pericardial effusion. Normal proximal small bowel rotation. No nephroureterolithiasis or hydronephrosis. No secondary evidence of a recently passed stone. Phlebo liths in the pelvis. No dilated loops of large or small bowel. The appendix is visualized and is normal. No retroperitoneal adenopathy. Noncontrast evaluation of the liver, spleen, pancreas are unremarkable. Advanced degenerative changes of the facets at L4/L5 with a circumferential disc bulge and narrowing of the thecal sac to approximately 4 mm. No acute osseous abnormality. Impression: Multifocal bronchopneumonia. No acute inflammatory process in the abdomen or pelvis. No n ephroureterolithiasis or hydronephrosis. No secondary evidence of a recently passed stone.
[2018-08-10] MEDS: Acetaminophen 325 MG TAB PO PRN ×2 (02:55→10:30)
[2018-08-10] MEDS: Azithromycin 500 MG in Sodium Chloride 0.9% 250 ML 250 ML IVPB SCH (02:55)
[2018-08-10 05:02] LABS: #Eosinphils 0.1 thou/uL (0.0-0.7); #Lymphocytes 1.4 thou/uL (1.20-3.40); #Neutrophils 5.5 thou/uL (1.40-6.50); %Basophils 0.2 % (0.0-1.0); %Eosinophils 1.6 % (0.0-10.0); %Lymphocytes 16.8 % (21.0-51.0); %Monocytes 12.7 % (0.0-10.0); %Neutrophils 68.7 % (42.0-75.0); Hemoglobin 9.3 g/dL (12.0-16.0); Mean Corpuscular HGB CONC 33.4 g/dL (32.0-36.0); Mean Corpuscular Hemoglobin 31.6 pg (27.0-31.0); Mean Corpuscular Volume 94.7 fL (78.0-98.0); Mean Platelet Volume 9.6 fL (7.4-10.4); Platelet Count 176 thou/uL (130-400); Red Blood Cell (RBC) Count 2.95 mill/uL (4.20-5.40)
[2018-08-10 05:05] LABS: INR-International Normal Ratio 1.3; Prothrombin Time 15.9 SEC (12.0-14.7)
[2018-08-10 05:17] LABS: Anion Gap 12 mmol/L (10-20); BUN (Urea Nitrogen) 37 mg/dL (9.8-20.1); Calc. Creatinine Clearance 34 mL/min (70-130); Calcium 7.9 mg/dL (7.8-10.44); Carbon Dioxide 21 mmol/L (23-31); Chloride 112 mmol/L (98-107); Estimated GFR-MDRD 21; Glucose 82 mg/dL (80-115); Potassium 3.2 mmol/L (3.5-5.1); Sodium 142 mmol/L (136-145)
[2018-08-10] MEDS ORDERED: Enoxaparin Sodium 100 MG/ML SYRINGE SC SCH (09:00)
[2018-08-10] MEDS: Insulin Glargine 40 UNITS in Pre-Filled Syringe SC SCH (09:35)
[2018-08-10] MEDS: Losartan 25 MG TAB PO SCH (09:38)
[2018-08-10] MEDS: Potassium Chloride 20 MEQ TAB PO SCH ×2 (09:39→13:16)
[2018-08-10] MEDS: Carvedilol 25 MG TAB PO SCH ×2 (09:39→21:23)
[2018-08-10] MEDS: Spironolactone 25 MG TAB PO SCH ×2 (09:40→21:23)
[2018-08-10] MEDS: Cefepime 1 GM in Sodium Chloride 0.9% 100 ML IVPB SCH ×2 (09:40→21:24)
[2018-08-10] MEDS: methylPREDNISolone Sod Succ 40 MG VIAL IVP SCH ×2 (09:40→21:24)
[2018-08-10] MEDS: Ketorolac Tromethamine 30 MG/ML VIAL IVP PRN (09:40)
--- NOTE | 2018-08-10 09:47 | ULT ---
Sonogram right upper quadrant HISTORY: Right upper quadrant pain. FINDINGS: Echogenic material layers within the dependent portion of the gallbladder lumen. No gallbla dder wall thickening or pericholecystic fluid. Common duct is 0.5 cm. Liver unremarkable without focal mass or intrahepatic biliary dilatation. No free fluid. IMPRESSION: Biliary sludge, consistent with chronic gallbladder dyskinesis. No evidence of acute bili christine obstruction.
--- NOTE | 2018-08-10 09:50 | CON ---
DATE OF CONSULTATION: HISTORY OF PRESENT ILLNESS: Yonis Soni is a 62-year-old female, who was admitted on the Tuesday, today is . I have been consulted after she was transferred to the MICU with significant right upper quadrant pain, hemoptysis, and cough. She initially presented to the ER on the day of admission 08/08, with greenish sputum. Worsening cough for 3 days, pleuritic chest pain, but no fever or chills. On the course of 3 days now, she has been complaining of bloody hemoptysis and apparently significant right upper quadrant pain, which now she states has been there since admission. Former smoker. She denies any difficulty breathing, leg pain. PAST MEDICAL HISTORY: Pertinent for congestive heart failure, EF is 35% to 40%, history of hypertension, history of diabetes, and history of renal failure. PAST SURGICAL HISTORY: Previous surgeries otherwise none. HOME MEDICATIONS: Apparently includes: 1. Insulin Levemir 75. 2. Lasix 40. 3. Coreg 25 b.i.d. 4. Tylenol. 5. Aldactone 25 twice a day. 6. Losartan one tablet a day. ALLERGIES: LEVAQUIN AND SULFA. SOCIAL HISTORY: Tobacco, a pack a day, quit smoking 3 years ago. Alcohol, none. REVIEW OF SYSTEMS: Otherwise, unremarkable. PHYSICAL EXAMINATION: GENERAL: She has significant pain. VITAL SIGNS: Temperature 97, blood pressure 163/78, saturations 90%, respiratory rate 25, and pulse 80. CHEST: Bilateral rhonchi and crackles. CARDIAC: Sinus tach. ABDOMEN: Tenderness in the right upper quadrant and epigastric area. EXTREMITIES: No edema. NEUROLOGIC: Awake, alert, and responsive. LABORATORY DATA: White count 8000, H and H 9 and 27, platelet count 176. Creatinine is 2.7 and glucose is 78. BNP is 806. DIAGNOSTIC DATA: She had emergently CT DONE of the abdomen last night, which showed evidence of pneumonia, but apparently no acute abnormalities were seen. X-ray showed bilateral bronchopneumonia. Lung scan shows indeterminate scan matched defects in both lungs. IMPRESSION: 1. Bilateral bronchopneumonia. 2. Congestive heart failure. 3. Renal failure, right upper quadrant pain, rule out gallbladder disease. PLAN: Antibiotic has been adjusted. Continue neb treatments, supportive care. Add steroids. If pain persists, will ask Surgery to evaluate her process. Consultation note, 70 minutes, 50% direct patient care. Job ID: [id number]
[2018-08-10] MEDS: Hydrochlorothiazide 25 MG TAB PO SCH (10:14)
[2018-08-10] MEDS: Clindamycin/D5W 600 MG in Premix Bag 1 BAG IVPB SCH ×2 (13:16→22:59)
[2018-08-10] MEDS: cloNIDine 0.1 MG TAB PO PRN (13:29)
[2018-08-10] MEDS: HumaLOG 300 UNITS/3 ML VIAL SC PRN ×2 (17:38→21:25)
[2018-08-10] MEDS ORDERED: Furosemide 40 MG/4 ML VIAL SLOW IVP SCH (17:45)
[2018-08-10] MEDS ORDERED: Potassium Chloride 20 MEQ TAB PO SCH (18:00)
[2018-08-10] MEDS: Enoxaparin Sodium 40 MG/0.4 ML SYRINGE SC SCH (21:24)
[2018-08-11] MEDS: Azithromycin 500 MG in Sodium Chloride 0.9% 250 ML 250 ML IVPB SCH (03:23)
[2018-08-11 05:54] LABS: #Monocytes 0.5 thou/uL (0.11-0.59); #Neutrophils 6.8 thou/uL (1.40-6.50); %Basophils 0.2 % (0.0-1.0); %Lymphocytes 11.6 % (21.0-51.0); %Monocytes 5.6 % (0.0-10.0); %Neutrophils 82.4 % (42.0-75.0); Mean Corpuscular Hemoglobin 31.3 pg (27.0-31.0); Mean Corpuscular Volume 94.9 fL (78.0-98.0); Platelet Count 198 thou/uL (130-400); RBC Distribution Width 12.1 % (11.5-14.5); White Blood Cell (WBC) Count 8.2 thou/uL (4.8-10.8)
[2018-08-11 06:12] LABS: Anion Gap 13 mmol/L (10-20); BUN (Urea Nitrogen) 49 mg/dL (9.8-20.1); Calc. Creatinine Clearance 27 mL/min (70-130); Carbon Dioxide 18 mmol/L (23-31); Chloride 108 mmol/L (98-107); Estimated GFR-MDRD 18; Glucose 365 mg/dL (80-115); Potassium 4.3 mmol/L (3.5-5.1); Sodium 135 mmol/L (136-145)
[2018-08-11] MEDS: Clindamycin/D5W 600 MG in Premix Bag 1 BAG IVPB SCH ×3 (06:37→21:11)
[2018-08-11] MEDS: HumaLOG 300 UNITS/3 ML VIAL SC PRN ×4 (06:38→21:20)
[2018-08-11] MEDS: Cefepime 1 GM in Sodium Chloride 0.9% 100 ML IVPB SCH ×2 (09:11→20:50)
[2018-08-11] MEDS: methylPREDNISolone Sod Succ 40 MG VIAL IVP SCH ×2 (09:12→20:50)
[2018-08-11] MEDS: Losartan 25 MG TAB PO SCH (09:12)
[2018-08-11] MEDS: Hydrochlorothiazide 25 MG TAB PO SCH (09:13)
[2018-08-11] MEDS: Insulin Glargine 40 UNITS in Pre-Filled Syringe SC SCH (09:15)
[2018-08-11] MEDS: Carvedilol 25 MG TAB PO SCH ×2 (09:15→20:50)
[2018-08-11] MEDS: Spironolactone 25 MG TAB PO SCH ×2 (09:15→20:50)
[2018-08-11] MEDS: Furosemide 40 MG/4 ML VIAL SLOW IVP SCH (09:15)
[2018-08-11] MEDS: Potassium Chloride 20 MEQ TAB PO SCH (09:15)
--- NOTE | 2018-08-11 10:03 | PRG ---
DATE OF SERVICE: 08/11/2018 SUBJECTIVE: The patient is doing better, had no acute complaints. OBJECTIVE: VITAL SIGNS: Temperature 99.2, pulse 94, blood pressure 145/74, O2 sat 99%. HEENT: Unremarkable. NECK: No JVD. LUNGS: Few crackles heard posteriorly. CARDIAC: S1 and S2. Regular. ABDOMEN: Soft. EXTREMITIES: No edema. LABORATORY DATA: White blood cell count 8.2, hematocrit 30, platelet count 198. Sodium 135, potassium 4.3, chloride 108, CO2 of 18, BUN 49, creatinine 3.2, and glucose 365. ASSESSMENT: 1. Pneumonia. 2. Diastolic cardiac dysfunction. 3. Possible chronic cholelithiasis. PLAN: 1. She can transfer to the medical floor. 2. Continue antibiotics. 3. Wean steroids. 4. Increase activity as tolerated. 5. Awaiting general surgical opinion. Job ID: [id number]
--- NOTE | 2018-08-11 15:04 | PQF ---
CLINICAL DOCUMENTATION IMPROVEMENT CLARIFICATION FORM: ICD-10 Updated PLEASE DO AN ADDENDUM TO THE PROGRESS NOTE WITH ANY DOCUMENTATION UPDATES OR ADDITIONS AND CARRY THROUGH TO DC SUMMARY. THANK YOU. DATE: 08/11/2018 ATTN: Dr. Seth Please exercise your independent, professional judgment in responding to the clarification form. Clinical indicators are provided on the bottom of this form for your review Please check appropriate box(s): HEART FAILURE: A. TYPE: [y ] Systolic / HFrEF [ ] Diastolic / HFpEF [ ] Combined Systolic / Diastolic B. ACUITY [ ] Acute [ y ] Acute on Chronic [ ] Chronic [ ] Other diagnosis [ ] Unable to determine In addition, please specify: Present on Admission (POA): [ y ] Yes [ ] No [ ] Unable to determine For continuity of documentation, please document condition throughout progress notes and discharge summary. Thank You. CLINICAL INDICATORS - SIGNS / SYMPTOMS / LABS 08/10 ([place]) PMH: EF is 35% to 40% BNP 806 Congestive heart failure RISKS: H&P: Hypertensive emergency with uncontrolled hypertension. DM. Nonischemic cardiomyopathy with a decreased EF of 39% TREATMENT: MAR: Order 08/10 Lasix 40 mg slow IVP daily Order 08/08 Coreg 25mg po BID Order 08/08 Aldactone 25 mg po BID Thank you, Kaylah (This form is maintained as a part of the permanent medical record) 2014 [employer]. All Rights Reserved Kaylah Alvares RN, [email or web address] [email or web address] Office: [phone] [facility]
--- NOTE | 2018-08-11 15:40 | NM ---
HEPATOBILIARY SCAN: HISTORY:Right upper quadrant pain, biliary sludge an ultrasound of previous day. RADIOPHARMACEUTICAL: 5.1 mCi Technetium 99m Mebrofenin injected intravenously FINDINGS: There is normal tracer extraction by the liver with normal excretion into the biliary tracts and smal l bowel loops and normal filling of the gallbladder. The calculated gallbladder ejection fraction following an oral fatty meal measures 33%. IMPRESSION: 1. No evidence of cystic duct obstruction or acute cholecystitis. 2. Borderline gallbladder ejection fraction.
[2018-08-11] MEDS: Enoxaparin Sodium 40 MG/0.4 ML SYRINGE SC SCH (20:52)
--- NOTE | 2018-08-11 21:55 | CON ---
DATE OF CONSULTATION: 08/11/2018 SURGEON: Geo Avalos DO CONSULTING PHYSICIAN: None. HISTORY OF PRESENT ILLNESS: Surgery service was consulted for the patient because she reported right upper quadrant pain around the time of admission. The patient reports that she did not previously have this type of discomfort at home. She had been tolerating a regular diet up until this morning when she was made n.p.o. by the surgical service. Her last bowel movement was yesterday. She denies nausea, vomiting, or diarrhea. REVIEW OF SYSTEMS: All additional 10-point review of systems negative except as indicated above. PAST MEDICAL HISTORY: Diabetes, hypertension, nonischemic cardiomyopathy with LVEF 39%, hyperlipidemia, and COPD. PAST SURGICAL HISTORY: None. SOCIAL HISTORY: The patient denies tobacco, drug, or alcohol abuse. She lives alone. MEDICATIONS: 1. Coreg. 2. Lasix. 3. Levemir insulin. 4. Losartan/hydrochlorothiazide. 5. Spironolactone. 6. NovoLog FlexPen. 7. Tylenol p.r.n. ALLERGIES: LEVOFLOXACIN AND SULFA DRUGS. PHYSICAL EXAMINATION: VITAL SIGNS: Temperature 97.4, heart rate 81, respirations 20, oxygen saturation 100% on room air, blood pressure 130/72. GENERAL: A well-appearing, middle-aged female, sitting up in bed with no signs of acute distress. CARDIAC: Regular rate and rhythm. No murmurs, gallops, or rubs. GASTROINTESTINAL: Soft, mildly tender to palpation of the right upper quadrant and nondistended. Positive active bowel sounds. PULMONARY: Equal chest rise and fall. Clear breath sounds bilaterally. No signs of acute respiratory distress. EXTREMITIES: 2+ pulses in all extremities. No significant swelling noted. Gross motor and sensation intact in all extremities. NEURO: GCS is 15. Pupils equal, round, reactive to light bilaterally. LABORATORY FINDINGS: White count 8.2, hemoglobin 10.0, hematocrit 30.4, platelets 198. Sodium 135, potassium 4.3, chloride 108, carbon dioxide 18, BUN 49, creatinine 3.15, glucose 365. DIAGNOSTIC FINDINGS: CT of the abdomen and pelvis completed on August 09 demonstrates multifocal bronchial pneumonia. No acute inflammatory process in the abdomen or pelvis. No nephrolithiasis or hydronephrosis. No secondary evidence of recently passed stones. Ultrasound of the abdomen completed on August 10, 2018, demonstrates biliary sludge consistent with chronic gallbladder dyskinesia. No evidence of acute biliary obstruction. ASSESSMENT: 1. Right upper quadrant tenderness, rule out acute cholecystitis. 2. Left upper lobe and left lower lobe bronchial pneumonia. 3. Acute kidney injury. 4. History of diabetes, hypertension, cardiomyopathy, hyperlipidemia, and chronic obstructive pulmonary disease. PLAN/RECOMMENDATIONS: The patient was placed n.p.o. this morning. She already had breakfast at that time. Surgery has ordered a HIDA scan for further evaluation of her gallbladder. We will make further operative interventions after the HIDA scan is completed. Please refrain from giving the patient morphine until the HIDA scan is completed. The patient was seen and examined by Dr. Avalos and myself this morning during rounds. Job ID: [id number]
[2018-08-12] MEDS: Azithromycin 500 MG in Sodium Chloride 0.9% 250 ML 250 ML IVPB SCH (02:03)
[2018-08-12] MEDS: methylPREDNISolone Sod Succ 40 MG VIAL IVP SCH (02:03)
[2018-08-12] MEDS: Clindamycin/D5W 600 MG in Premix Bag 1 BAG IVPB SCH ×2 (05:18→13:33)
[2018-08-12] MEDS: HumaLOG 300 UNITS/3 ML VIAL SC PRN ×4 (05:20→20:46)
[2018-08-12] MEDS ORDERED: predniSONE 20 MG TAB PO SCH (08:00)
[2018-08-12] MEDS: Losartan 25 MG TAB PO SCH (08:57)
[2018-08-12] MEDS: Potassium Chloride 20 MEQ TAB PO SCH (08:57)
[2018-08-12] MEDS: Spironolactone 25 MG TAB PO SCH ×2 (08:57→20:45)
[2018-08-12] MEDS: Carvedilol 25 MG TAB PO SCH ×2 (08:58→20:45)
[2018-08-12] MEDS: Furosemide 40 MG/4 ML VIAL SLOW IVP SCH (08:58)
[2018-08-12] MEDS: Cefepime 1 GM in Sodium Chloride 0.9% 100 ML IVPB SCH ×2 (08:58→20:45)
[2018-08-12] MEDS: Hydrochlorothiazide 25 MG TAB PO SCH (08:58)
[2018-08-12] MEDS: Insulin Glargine 40 UNITS in Pre-Filled Syringe SC SCH (08:58)
--- NOTE | 2018-08-12 12:15 | RAD ---
Chest AP view INDICATION: Pneumonia COMPARISON: August 09, 2018 FINDINGS: Lungs:Airspace opacities have improved. Mild residual opacities remain within the left suprahilar reg ion and left infrahilar region.. Cardiac silhouette pulmonary vasculature:Cardiomegaly persists. Pleural spaces:Small bilateral pleural effusions are again seen. Upper abdomen:No abnormality seen. Osseous structures: No acute osseous abnormality. Additional findings:None. IMPRESSION: Improving pneumonia. Left perihilar opacities still remain. Bilateral pleural effusions p ersist. Continued radiographic follow-up is recommended.
[2018-08-12] MEDS ORDERED: Insulin Glargine 20 UNITS in Pre-Filled Syringe SC SCH (12:45)
[2018-08-12] MEDS ORDERED: hydrALAZINE 25 MG TAB PO SCH (15:15)
--- NOTE | 2018-08-12 16:01 | PRG ---
DATE OF SERVICE: 08/12/2018 SUBJECTIVE: Ms. Soni has no complaints. She states she is feeling better when came in. OBJECTIVE: VITAL SIGNS: She is afebrile. Heart rate is 90, respiratory rate is 18, oximetry is 97% on room air, blood pressure is 154/84. LUNGS: Lung jones are clear. HEART: Regular rhythm. ABDOMEN: Soft. DIAGNOSTIC FINDINGS: Chest x-ray just shows faint infiltrate and I believe in the left base. Blood glucoses have been high at 466 this afternoon. IMPRESSION: Pneumonia. PLAN: She remains on cefepime and azithromycin. She can be converted to p.o. antimicrobial therapy. Her radiograph will take 2 to 4 weeks to return to normal. ADDENDUM: I went back in and requestioned Mr. Cameron. He says he took INH and B6 for many months, but he says he has never been told he had active tuberculosis or had a past pulmonary infection that was tuberculosis. He does report having pneumonia in the past. Job ID: [id number]
--- NOTE | 2018-08-12 19:38 | EKG ---
Test Reason : COUGH SOB Blood Pressure : / mmHG Vent. Rate : 094 BPM Atrial Rate : 094 BPM P-R Int : 126 ms QRS Dur : 094 ms QT Int : 366 ms P-R-T Axes : 061 009 137 degrees QTc Int : 457 ms Normal sinus rhythm Possible Left atrial enlargement Left ventricular hypertrophy Cannot rule out Septal infarct , age undetermined Abnormal ECG Confirmed by BRANDEN ROMEO DO ([id number]), makeup editor MAX BECKETT ([id number]) on 08/12/2018 7:37:21 PM Referred By: Confirmed By:BRANDEN ROMEO DO
[2018-08-12] MEDS: Enoxaparin Sodium 40 MG/0.4 ML SYRINGE SC SCH (20:45)
[2018-08-12] MEDS: hydrALAZINE 25 MG TAB PO SCH (20:45)
[2018-08-12] MEDS ORDERED: Cefdinir 300 MG CAP PO SCH (21:00)
--- NOTE | 2018-08-12 23:03 | PRG ---
DATE OF SERVICE: 08/12/2018 SUBJECTIVE: Ms. Soni is a 62-year-old woman, who is seen by my service in consultation regarding right upper quadrant abdominal pain. Recent abdominal ultrasound reveals no gallstones, pericholecystic fluid, gallbladder wall thickening or dilated common bile duct. HIDA scan was obtained, which revealed no evidence of biliary obstruction; however, ejection fraction was noted at 33%. In the interim, the patient is tolerating a general diet. She reports no abdominal pain at the time of my evaluation. She has no nausea or emesis in the last 24 hours. OBJECTIVE: VITAL SIGNS: This morning include blood pressure 145/74, pulse 81, respiratory rate is 25, temperature 98.1 degrees Fahrenheit, maximum temperature in the last 24 hours 99 degrees Fahrenheit, oxygen saturation 100% on room air. HEENT: She has no scleral icterus present. HEART: Reveals regular rate and rhythm. LUNGS: Clear to auscultation bilaterally. Her breathing is regular and nonlabored. ABDOMEN: Soft, nontender, nondistended. NEUROLOGIC: Reveals no focal deficits present. IMPRESSION: 1. Resolved right upper quadrant abdominal pain. 2. Biliary dyskinesia with no evidence of acute cholecystitis. RECOMMENDATIONS: 1. There is no acute surgical indication for this patient at this time. 2. She may be discharged home at the discretion of the primary service. 3. The patient may follow up with General Surgery on an outpatient basis with any recurrence of abdominal pain; at which time, consideration might be given to a laparoscopic cholecystectomy for presumed chronic acalculous cholecystitis. Above findings and plan has been discussed with the patient, who indicates understanding of information given. I have answered her questions. Job ID: [id number]
[2018-08-13 06:04] LABS: #Basophils 0.1 thou/uL (0.0-0.2); #Lymphocytes 1.8 thou/uL (1.20-3.40); #Monocytes 1.6 thou/uL (0.11-0.59); %Basophils 0.3 % (0.0-1.0); %Eosinophils 0.1 % (0.0-10.0); %Lymphocytes 11.4 % (21.0-51.0); %Monocytes 10.5 % (0.0-10.0); %Neutrophils 77.7 % (42.0-75.0); Hemoglobin 10.4 g/dL (12.0-16.0); Mean Corpuscular HGB CONC 33.5 g/dL (32.0-36.0); Mean Corpuscular Hemoglobin 30.7 pg (27.0-31.0); Mean Corpuscular Volume 91.8 fL (78.0-98.0); Mean Platelet Volume 10.1 fL (7.4-10.4); Platelet Count 267 thou/uL (130-400); RBC Distribution Width 11.9 % (11.5-14.5); Red Blood Cell (RBC) Count 3.38 mill/uL (4.20-5.40); White Blood Cell (WBC) Count 15.5 thou/uL (4.8-10.8)
[2018-08-13 06:18] LABS: Anion Gap 14 mmol/L (10-20); BUN (Urea Nitrogen) 69 mg/dL (9.8-20.1); Calc. Creatinine Clearance 31 mL/min (70-130); Calcium 8.3 mg/dL (7.8-10.44); Carbon Dioxide 18 mmol/L (23-31); Chloride 109 mmol/L (98-107); Estimated GFR-MDRD 20; Glucose 178 mg/dL (80-115); Sodium 137 mmol/L (136-145)
[2018-08-13] MEDS ORDERED: predniSONE 20 MG TAB PO SCH (08:00)
[2018-08-13] MEDS: Cefepime 1 GM in Sodium Chloride 0.9% 100 ML IVPB SCH (08:09)
[2018-08-13] MEDS: Hydrochlorothiazide 25 MG TAB PO SCH (08:10)
[2018-08-13] MEDS: Potassium Chloride 20 MEQ TAB PO SCH (08:10)
[2018-08-13] MEDS: Losartan 25 MG TAB PO SCH (08:10)
[2018-08-13] MEDS: Spironolactone 25 MG TAB PO SCH ×2 (08:11→20:08)
[2018-08-13] MEDS: hydrALAZINE 25 MG TAB PO SCH ×2 (08:11→20:08)
[2018-08-13] MEDS: Carvedilol 25 MG TAB PO SCH ×2 (08:12→20:08)
[2018-08-13] MEDS ORDERED: Insulin Glargine 60 UNITS in Pre-Filled Syringe SC SCH (09:00)
[2018-08-13] MEDS: HumaLOG 300 UNITS/3 ML VIAL SC PRN ×3 (12:36→20:13)
[2018-08-13] MEDS: Ketorolac Tromethamine 30 MG/ML VIAL IVP PRN (12:56)
--- NOTE | 2018-08-13 16:09 | PRG ---
DATE OF SERVICE: 08/13/2018 SUBJECTIVE: Ms. Soni went down for a HIDA scan. HIDA that did not show any biliary obstruction. General Surgery is recommended advancing her diet. She is having no pulmonary issues. Gas exchange indicates she will not need oxygen at home. OBJECTIVE: VITAL SIGNS: Her saturations are 95% to 100% on room air. Her vital signs have been stable. Blood pressure 146/87, heart rate is in 80s. She is afebrile. ASSESSMENT/PLAN: There is no change. Otherwise, she can be discharged home from a pulmonary standpoint. Job ID: [id number]
[2018-08-13] MEDS: Amoxicillin/Potassium Clav 875 MG TAB PO SCH (20:08)
[2018-08-13] MEDS: Enoxaparin Sodium 40 MG/0.4 ML SYRINGE SC SCH (20:12)
[2018-08-14 07:04] LABS: #Eosinphils 0.1 thou/uL (0.0-0.7); #Lymphocytes 2.9 thou/uL (1.20-3.40); #Monocytes 1.7 thou/uL (0.11-0.59); #Neutrophils 10.9 thou/uL (1.40-6.50); %Basophils 0.1 % (0.0-1.0); %Eosinophils 0.4 % (0.0-10.0); %Lymphocytes 18.5 % (21.0-51.0); %Monocytes 10.6 % (0.0-10.0); %Neutrophils 70.5 % (42.0-75.0); Hemoglobin 10.4 g/dL (12.0-16.0); Mean Corpuscular HGB CONC 33.1 g/dL (32.0-36.0); Mean Corpuscular Volume 93.7 fL (78.0-98.0); Mean Platelet Volume 9.1 fL (7.4-10.4); Platelet Count 287 thou/uL (130-400); RBC Distribution Width 12.1 % (11.5-14.5); Red Blood Cell (RBC) Count 3.35 mill/uL (4.20-5.40); White Blood Cell (WBC) Count 15.5 thou/uL (4.8-10.8)
[2018-08-14 07:22] LABS: Anion Gap 12 mmol/L (10-20); BUN (Urea Nitrogen) 74 mg/dL (9.8-20.1); Calc. Creatinine Clearance 31 mL/min (70-130); Calcium 8.3 mg/dL (7.8-10.44); Carbon Dioxide 19 mmol/L (23-31); Chloride 110 mmol/L (98-107); Estimated GFR-MDRD 21; Glucose 173 mg/dL (80-115); Sodium 137 mmol/L (136-145)
[2018-08-14] MEDS ORDERED: predniSONE 20 MG TAB PO SCH (08:00)
[2018-08-14] MEDS: Hydrochlorothiazide 25 MG TAB PO SCH (08:00)
[2018-08-14] MEDS: Potassium Chloride 20 MEQ TAB PO SCH (08:00)
[2018-08-14] MEDS: Carvedilol 25 MG TAB PO SCH (08:01)
[2018-08-14] MEDS: Amoxicillin/Potassium Clav 875 MG TAB PO SCH (08:01)
[2018-08-14] MEDS: Losartan 25 MG TAB PO SCH (08:01)
[2018-08-14] MEDS: hydrALAZINE 25 MG TAB PO SCH (08:02)
[2018-08-14] MEDS: Spironolactone 25 MG TAB PO SCH (08:02)
[2018-08-14] MEDS ORDERED: Insulin Glargine 70 UNITS in Pre-Filled Syringe SC SCH (09:00)
--- NOTE | 2018-08-14 10:20 | PRG ---
DATE OF SERVICE: 08/14/2018 SUBJECTIVE: She continues to complain of right upper quadrant abdominal pain. It is worse when she takes deep breath. PHYSICAL EXAMINATION: VITAL SIGNS: Temperature 98.3, pulse 88, blood pressure 134/75, and O2 saturations 100% on room air. HEENT: Unremarkable. NECK: No JVD. LUNGS: Clear to auscultation anteriorly. CARDIAC: S1 and S2. Regular. ABDOMEN: Point tenderness on palpating underneath the right costal margin. Abdomen is otherwise soft. EXTREMITIES: No edema. ASSESSMENT: 1. Suspected biliary dyskinesia with chronic right upper quadrant pain. 2. Pneumonia. 3. Diastolic cardiac dysfunction. PLAN: She is stable for discharge. She should be treated with antibiotics for about 10 days. No further Pulmonary recommendations. We will sign off. Job ID: [id number]
[2018-08-14 12:27] VITALS: BP 143/85; TEMP 97.7
--- NOTE | 2018-08-15 09:36 | DIS ---
DATE OF ADMISSION: 08/08/2018 DATE OF DISCHARGE: 08/14/2018 ADMITTING DIAGNOSES: 1. Pneumonia, left lung; possible bronchopneumonia, left upper lobe and left lower lobe. 2. Diabetes mellitus. 3. Hypertensive emergency with uncontrolled hypertension. 4. Diabetes mellitus. 5. Nonischemic cardiomyopathy with a decrease in LV function with ejection fraction of 39%. Echo done 2 to 3 years ago. 6. Elevated D-dimer, rule out pulmonary embolism. 7. Elevated troponin, rule out myocardial infarction. FINAL DIAGNOSES: 1. Pneumonia, bilateral bronchopneumonia. 2. Nonischemic cardiomyopathy, congestive heart failure. 3. Acute kidney injury. 4. Right upper quadrant pain due to chronic gallbladder disease, resolved. 5. Elevated D-dimer, but no evidence of pulmonary embolism. 6. Hypertension, uncontrolled, improved. 7. Diabetes mellitus, uncontrolled, improved. 8. Elevated troponin, no evidence of acute myocardial infarction. BRIEF SUMMARY OF HOSPITAL COURSE: Ms. Soni is a 62-year-old female admitted because of cough, shortness of breath, fever; the patient in respiratory distress initially, but improved later on. She was found to have pneumonia, bilateral. She had lot of pain in the chest from coughing. With the elevated D-dimers, the patient underwent V/Q scan, which was reported as indeterminate. Because of the respiratory distress, the patient was transferred from medical floor to [facility] for close monitoring. The patient was seen by Pulmonary. He felt that the patient has bronchopneumonia bilaterally and possible CHF. The patient was continued on two antibiotics and she was given few doses of Lasix in view of CHF. The patient also had acute kidney injury, so her Lasix dose was held and the renal function improved after that. The patient's shortness of breath improved, hypoxia improved, so she was transferred back to medical floor. The patient did have right upper quadrant pain and epigastric pain. Ultrasound revealed sludge. Surgical consult was obtained by Dr. Avalos. He suggested HIDA scan, which was done and showed no evidence of acute cholecystitis. Abdominal pain gradually resolved. The patient's shortness of breath improved, cough improved. Her blood pressure was uncontrolled; hydralazine was added, after which her blood pressure was better controlled. In view of symptoms, the patient was discharged. PHYSICAL EXAMINATION: GENERAL: At the time of discharge, she was stable. VITAL SIGNS: Stable. LUNGS: Clear. HEART: Heart sounds regular. ABDOMEN: Soft, nontender. Bowel sounds present. DISCHARGE MEDICATIONS: Include; 1. Lasix 40 mg daily. 2. Spironolactone 25 b.i.d. 3. Losartan with hydrochlorothiazide 100/12.5 daily. 4. Coreg 25 b.i.d. 5. Tylenol p.r.n. 6. Levemir insulin 75 units daily. 7. Augmentin 875 b.i.d. for 7 days. 8. Hydralazine 25 b.i.d. The patient will come for followup in a week. Job ID: [id number]
== END 2018-08-14 12:40 | disposition home or self-care (01) | DRG 291 ==
LOC: ERS 20:49 → ERHOLD 08-08 01:17 → OBSVTOIN 08-08 01:17 → T4-A 08-08 16:04 → IMCU/EMU 08-09 17:39 → T4-A 08-11 17:54
PROVIDERS: ADMIT Internal Medicine; ATTEND Internal Medicine
DX: I11.0 Hypertensive heart disease with heart failure (principal); J18.9 Pneumonia, unspecified organism; I16.1 Hypertensive emergency; J44.0 Chronic obstructive pulmonary disease with (acute) lower respiratory infection; N17.9 Acute kidney failure, unspecified; I50.23 Acute on chronic systolic (congestive) heart failure; I42.9 Cardiomyopathy, unspecified; E11.9 Type 2 diabetes mellitus without complications; K82.8 Other specified diseases of gallbladder; E78.5 Hyperlipidemia, unspecified; Z79.4 Long term (current) use of insulin; Z79.899 Other long term (current) drug therapy; Z88.1 Allergy status to other antibiotic agents; Z87.891 Personal history of nicotine dependence; Z88.2 Allergy status to sulfonamides
CPT/HCPCS: 36415; 36416; 71045; 71046; 71250; 74176; 76705; 78227; 78582; 80048; 80053; 81003; 81015; 82553; 83690; 83880; 84484; 85025; 85379; 85610; 93005; 93306; 94640; 96361; 96365; 96367; A9537; A9540; A9558; J0456; J0692; J0696; J1650; J1825; J1885; J1940; J2920; J3490; J7050; J7512; J7620

== ENCOUNTER 2019-05-09 06:32 | Inpatient (IN) | payer MEDICARE ==
[2019-05-09] MEDS ORDERED: Propofol 1,000 MG/100 ML VIAL IV ONE (06:40)
[2019-05-09 07:02] LABS: #Eosinphils 0.2 thou/uL (0.0-0.7); #Lymphocytes 1.1 thou/uL (1.20-3.40); #Monocytes 0.5 thou/uL (0.11-0.59); #Neutrophils 5.9 thou/uL (1.40-6.50); %Basophils 0.4 % (0.0-1.0); %Eosinophils 2.3 % (0.0-10.0); %Monocytes 6.4 % (0.0-10.0); Mean Corpuscular HGB CONC 32.5 g/dL (32.0-36.0); Mean Corpuscular Volume 95.3 fL (78.0-98.0); Mean Platelet Volume 10.2 fL (7.4-10.4); Platelet Count 306 thou/uL (130-400); RBC Distribution Width 12.9 % (11.5-14.5); Red Blood Cell (RBC) Count 2.58 mill/uL (4.20-5.40); White Blood Cell (WBC) Count 7.6 thou/uL (4.8-10.8)
[2019-05-09 07:04] LABS: Actual Bicarbonate (HCO3a) 17.4 mEq/L (22-28); Analyzer IN Cardio ER; Base Excess (BEa) -7.8 mEq/L (-2.0 to +3.0); CO2 Tension 34.4 mmHg (35.0-45.0); Calcium, Ionized 1.12 mmol/L (1.12-1.30); Carboxyhemoglobin (COHb) 0.3 gm% (0.0-3.0); Hemoglobin (Hb) 9.6 g/dL (12.0-16.0); O2 Tension (PaO2) 72.5 mmHg (> 80.0); Potassium - ABG Lab 5.03 mmol/L (3.70-5.30); Puncture Site RRA; pH, Arterial 7.32 (7.35-7.45)
[2019-05-09 07:19] LABS: ALT (SGPT) 25 U/L (8-55); AST (SGOT) 44 U/L (5-34); Albumin 2.8 g/dL (3.4-4.8); Alkaline Phosphatase 151 U/L (40-110); Anion Gap 13 mmol/L (10-20); BUN (Urea Nitrogen) 51 mg/dL (9.8-20.1); Bilirubin, Total 0.3 mg/dL (0.2-1.2); Calc. Creatinine Clearance 0 mL/min (70-130); Calcium 7.6 mg/dL (7.8-10.44); Carbon Dioxide 17 mmol/L (23-31); Chloride 119 mmol/L (98-107); Estimated GFR-MDRD 14; Globulin 2.8 g/dL (2.4-3.5); Glucose 181 mg/dL (80-115); Potassium 5.1 mmol/L (3.5-5.1); Protein, Total 5.6 g/dL (6.0-8.3); Sodium 144 mmol/L (136-145)
[2019-05-09 07:23] LABS: Troponin I 0.032 ng/mL (< 0.028)
[2019-05-09] MEDS ORDERED: Furosemide 40 MG/4 ML VIAL ONE (07:45)
[2019-05-09] MEDS ORDERED: Nitroglycerin 50 MG/250 ML BOT 250 ML ONE (08:13)
--- NOTE | 2019-05-09 08:13 | RAD ---
SINGLE VIEW OF THE CHEST: COMPARISON: 04/17/2019. HISTORY: Chest pain and shortness of breath. FINDINGS: A single view of the chest shows a cardiomediastinal silhouette which is upper limits of normal in si ze. There is an endotracheal tube with its tip approximately 1.4 cm from the bello. An NG tube cou rses off the inferior aspect of the film. There is a veil-like opacity overlying the right chest whi ch likely represents a layering moderate-sized pleural effusion. IMPRESSION: 1. Slightly low-lying endotracheal tube. Recommend withdrawing approximately 1 cm. 2. Moderate right pleural effusion. POS: CET
[2019-05-09 08:18] LABS: Actual Bicarbonate (HCO3a) 17.7 mEq/L (22-28); Analyzer IN Cardio ER; Base Excess (BEa) -6.7 mEq/L (-2.0 to +3.0); CO2 Tension 30.6 mmHg (35.0-45.0); Calcium, Ionized 1.11 mmol/L (1.12-1.30); Carboxyhemoglobin (COHb) 0.3 gm% (0.0-3.0); Hemoglobin (Hb) 8.6 g/dL (12.0-16.0); O2 Tension (PaO2) 120.1 mmHg (> 80.0); pH, Arterial 7.38 (7.35-7.45)
[2019-05-09 08:19] LABS: Puncture Site LRA
[2019-05-09] MEDS ORDERED: Ventilator Sedation Protocol 1 EACH FS ONE (08:50)
[2019-05-09] MEDS ORDERED: Lorazepam 2 MG/ML VIAL SLOW IVP PRN (08:58)
[2019-05-09] MEDS ORDERED: Propofol BOLUS 1,000 MG/100 ML VIAL IV PRN (08:58)
[2019-05-09] MEDS ORDERED: Morphine 2 MG/ML SYRINGE SLOW IVP PRN (08:58)
[2019-05-09] MEDS ORDERED: Fentanyl BOLUS 250 ML IVPB PRN (08:58)
[2019-05-09] MEDS ORDERED: Sodium Chloride 0.9% (PF) 10 ML VIAL FS PRN (08:58)
[2019-05-09] MEDS ORDERED: fentaNYL Citrate/PF 2,000 MCG in Sodium Chloride 0.9% 60 ML IV SCH (08:58)
[2019-05-09] MEDS ORDERED: DISCONTINUE PREVIOUS NARCOTIC PAIN MEDICATIONS AND BENZODIAZEPINES FS SCH (08:58)
[2019-05-09] MEDS ORDERED: Pantoprazole 40 MG VIAL IVP SCH ×2 (09:00)
[2019-05-09] MEDS ORDERED: niCARdipine 40MG In NaCl 40 MG/200 ML BAG IVPB SCH (09:00)
--- NOTE | 2019-05-09 09:26 | CON ---
DATE OF CONSULTATION: 05/09/2019 TIME SPENT: 35 minutes of critical care time. REASON FOR CONSULTATION: Acute respiratory failure related to pulmonary edema. HISTORY OF PRESENT ILLNESS: The patient is a 63-year-old female, who was intubated en route by EMS after demonstrating respiratory distress from hypertension and acute pulmonary edema. She is currently intubated and cannot give history. What I have is obtained from reading old records. She was recently in the hospital for severe hypertension. She is also noted to have chronic kidney disease. She has been intubated in the past for diastolic heart failure. PAST MEDICAL HISTORY: 1. Diastolic heart failure with EF 55% to 60% on recent echo with concentric left ventricular hypertrophy. 2. Diabetes mellitus. 3. Hypertension. 4. Hyperlipidemia. PAST SURGICAL HISTORY: None listed at this time. SOCIAL HISTORY: Formerly smoked one pack per day. Does not smoke in her most recent hospitalization. Does not consume alcohol. ALLERGIES: BACTRIM. MEDICATIONS: At discharge from last hospitalization; 1. Insulin sliding scale. 2. Levemir insulin 40 units daily. 3. Sodium bicarbonate 650 mg t.i.d. 4. Protonix 40 mg daily. 5. Minoxidil 5 mg daily. 6. Iron sulfate 325 mg b.i.d. 7. Clonidine 0.1 mg b.i.d. 8. Cipro 500 mg b.i.d. 9. Tylenol as needed. REVIEW OF SYSTEMS: Cannot be obtained as the patient is intubated on mechanical ventilation. PHYSICAL EXAMINATION: VITAL SIGNS: Temperature 95.1, pulse 95, blood pressure 223/125, O2 saturation 98%, and respiratory rate 22. GENERAL: The patient is currently intubated, paralyzed and sedated. HEENT: Pupils are 4 mm and reactive. Sclerae are anicteric. Oropharynx clear. NECK: She has no obvious JVD. She has full thyroid. LUNGS: Coarse rhonchi bilaterally. CARDIOVASCULAR: S1 and S2. Regular with summation gallop. ABDOMEN: Soft and nontender to palpation. EXTREMITIES: No clubbing or cyanosis. She has 3+ edema from her knees downward. LABORATORY DATA: Sodium 144, potassium 5.1, chloride 119, CO2 of 17, BUN 51, creatinine 3.8, glucose 181, AST 44, and ALT 25. Troponin 0.032. BNP 157. Albumin 2.8. PH of 7.38, pCO2 of 30, pO2 of 120 on SIMV rate 20, tidal volume 500, PEEP 5, pressure support 10, and FiO2 of 50%. White blood cell count of 7.6, hematocrit 24.6, and platelet count 306. IMAGING DATA: Chest x-ray shows bilateral pulmonary edema, right greater than left. ASSESSMENT: 1. Acute respiratory failure, requiring mechanical ventilation. 2. Acute diastolic heart failure. 3. Malignant hypertension, hypertensive emergency. 4. Chronic kidney disease, stage 4. PLAN: 1. The patient needs better hypertensive control. I will place her on a nicardipine drip with a goal systolic blood pressure between 170 and 180, not to lower it too much. 2. IV diuresis. 3. Continue mechanical ventilation until she is diuresed some. 4. Likely extubate tomorrow if she is stable. 5. Protonix for GI prophylaxis. 6. Heparin for DVT prophylaxis. Job ID: [id number]
[2019-05-09] MEDS: Furosemide 40 MG/4 ML VIAL SLOW IVP SCH ×2 (11:03→22:13)
[2019-05-09] MEDS: Heparin 5,000 UNITS/ML VIAL SC SCH ×2 (11:03→22:13)
[2019-05-09 11:05] LABS: Troponin I 0.038 ng/mL (< 0.028)
[2019-05-09] MEDS: niCARdipine 50 MG in Sodium Chloride 0.9% 250 ML 230 ML IVPB SCH (11:05)
[2019-05-09] MEDS ORDERED: Nitroglycerin 50 MG/250 ML BOT 250 ML IVPB SCH (11:15)
[2019-05-09] MEDS ORDERED: Dextrose 5% in Water 1,000 ML IV PRN (11:56)
[2019-05-09] MEDS ORDERED: Dextrose 50% Abboject 50 ML SYRINGE IVP PRN (11:56)
[2019-05-09] MEDS: Propofol 1,000 MG/100 ML VIAL IV PRN ×3 (12:57→22:13)
[2019-05-09] MEDS: Insulin Regular 300 UNITS/3 ML VIAL SC PRN ×2 (13:25→17:19)
[2019-05-09 13:38] LABS: Troponin I 0.032 ng/mL (< 0.028)
--- NOTE | 2019-05-09 14:46 | CON ---
DATE OF CONSULTATION: HISTORY OF PRESENT ILLNESS: The patient is a 63-year-old woman, who presented with dyspnea and was emergently intubated. The patient has a history of nonischemic cardiomyopathy. She underwent a cardiac catheterization in 2005 and was found to have a severe decrease in left ventricular systolic function with normal coronary arteries. The patient was placed on medical therapy. She also suffers from chronic poorly controlled hypertension and chronic renal insufficiency. She underwent a stress test in January of 2018, which revealed her ejection fraction improved to 39% and no evidence of ischemia. She was hospitalized recently with dyspnea. She underwent an echocardiogram, which revealed normal left ventricular systolic function, ejection fraction 55% to 60% with severe left ventricular hypertrophy. The patient presents again with increasing dyspnea and was noted to be markedly hypertensive. The patient was emergently intubated. The patient is unable to give a coherent history. PAST MEDICAL HISTORY: 1. History of cardiomyopathy. 2. Diabetes mellitus. 3. Poorly controlled hypertension. 4. Chronic renal failure. 5. Dyslipidemia. PAST SURGICAL HISTORY: None. SOCIAL HISTORY: Former smoker. ALLERGIES: BACTRIM. MEDICATIONS: See nursing list. REVIEW OF SYSTEMS: Not obtainable. PHYSICAL EXAMINATION: GENERAL: Intubated woman. VITAL SIGNS: With a blood pressure of 154/81. NECK: Showed no jugular venous distention. LUNGS: Have crackles in the right base. HEART: Regular rate and rhythm. Normal S1 and S2. ABDOMEN: Nondistended. EXTREMITIES: Showed moderate edema. LABORATORY RESULTS: White blood cell count 7.6, hemoglobin 8.0, hematocrit 24.6 , and platelets 306. Sodium was 144, potassium 5.1, chloride 119, bicarbonate 17 , BUN 51, and creatinine 3.88. Troponin 1.032 and BNP 157. Chest x-ray revealed a right-sided pleural effusion with EKG revealed a normal sinus rhythm with poor R-wave progression. No acute ST-T wave changes. IMPRESSION AND PLAN: 1. Hypertensive crisis. 2. History of cardiomyopathy. 3. Diabetes mellitus. 4. Renal failure, acute on chronic. 5. Dyslipidemia. 6. History of tobacco abuse. 7. Anemia. 8. Pleural effusion. 9. History of tobacco abuse. This patient presents with hypertensive crisis. She was emergently intubated and in congestive heart failure. The patient is being diuresed with Lasix. We will continue to use IV nitroglycerin to keep her blood pressure between 140 and 160. We will follow this patient with you through her hospitalization. Critical care time is 30 minutes. Job ID: [id number] MTDD
--- NOTE | 2019-05-09 19:50 | HP ---
CHIEF COMPLAINT: Respiratory failure, dyspnea. HISTORY OF PRESENT ILLNESS: Ms. Soni is a 63-year-old female with past medical history of hypertension, diabetes mellitus, diastolic heart failure, came with shortness of breath. The patient started having shortness of breath an hour ago, which got worse and within the short time, started having some wheezing as well. She did not have any chest pain, nausea, vomiting and EMS was called. EMS found the patient with respiratory distress with rales bilaterally and wheezing. They tried CPAP, but the patient did not tolerate, so she was intubated on the site and they brought to the ER, where she was found to have acute diastolic heart failure. She was then put on ventilator and received Lasix IV as well as the patient was found to be markedly elevated blood pressure of 233/120. The patient was started on nitroglycerin infusion to control the blood pressure. She is admitted for further evaluation and management. The patient also received Diprivan. According to family history, she did not have any chest pain, nausea, or vomiting. No headache. The patient was seen in the office 2 to 3 days ago. Did have some leg edema at that time, but no shortness of breath. PAST MEDICAL HISTORY: 1. Diastolic heart failure. 2. Cardiomyopathy. 3. Insulin-dependent diabetes mellitus. 4. Hypertension. 5. Hyperlipidemia. 6. Chronic kidney disease stage 4. PAST SURGICAL HISTORY: Nothing significant. CURRENT MEDICATIONS: The patient is on: 1. Clonidine 0.1 b.i.d. 2. Sodium bicarbonate 650 t.i.d. 3. Protonix 40 mg daily. 4. Minoxidil 5 mg daily. 5. Levemir insulin 40 units daily. 6. Lasix 40 mg daily. 7. Ferrous sulfate daily. 8. Coreg 25 b.i.d. 9. Tylenol p.r.n. ALLERGIES: LEVOFLOXACIN, SULFA. FAMILY HISTORY: Nothing contributory. SOCIAL HISTORY: The patient lives alone. No history of smoking. No history of alcohol or drug abuse. REVIEW OF SYSTEMS: Unable to obtain because the patient is intubated and sedated. PHYSICAL EXAMINATION: GENERAL: The patient is sedated. VITAL SIGNS: Temperature 98, pulse 95, respirations 20, blood pressure 220/ 125. HEENT: Head is normocephalic, atraumatic. Pupils equal and reactive. LUNGS: Rales present bilaterally. HEART: S1 and S2 regular. ABDOMEN: Soft. No distention. No tenderness. No organomegaly. Bowel sounds present. RECTAL: Deferred. CENTRAL NERVOUS SYSTEM: No focal deficits. LABORATORY DATA: CBC shows WBC 7.6, hemoglobin 8, hematocrit 24, platelets 306. Metabolic panel; sodium 144, potassium 5, chloride 119, CO2 17, BUN 15, creatinine 3.8, Troponin I 0.032. BNP 157. ABG showed pH 7.3, pCO2 34, PO2 72, saturation 92%. Chest x-ray shows pulmonary edema. Also showed right pleural effusion. EKG showed normal sinus rhythm, no acute ST-T changes seen. ASSESSMENT: 1. Hypertensive crisis. 2. Acute respiratory failure. 3. Acute on chronic diastolic heart failure. 4. Cardiomyopathy. 5. Acute on chronic renal failure. 6. Diabetes mellitus. 7. Dyslipidemia. 8. Chronic anemia. 9. Pleural effusion, right. 10. Tobacco abuse. PLAN: 1. Activity as tolerated. 2. Ventilator support. 3. Lasix 40 IVP daily. 4. Accu-Chek q.6 hours. 5. Sliding scale mild with regular insulin. 6. Sedation protocol. 7. Heparin for DVT prophylaxis, Protonix for GI prophylaxis. 8. Labetalol 20 IVP q.6 p.r.n. 9. Cardene infusion. 10. Consultation with Cardiology. 11. Consultation with Nephrology. Job ID: [id number] LUKAS
[2019-05-10] MEDS: Labetalol HCl 100 MG/20 ML VIAL SLOW IVP PRN (00:45)
[2019-05-10 04:07] LABS: #Eosinphils 0.2 thou/uL (0.0-0.7); #Lymphocytes 1.4 thou/uL (1.20-3.40); #Monocytes 1.2 thou/uL (0.11-0.59); #Neutrophils 8.2 thou/uL (1.40-6.50); %Basophils 0.2 % (0.0-1.0); %Lymphocytes 12.4 % (21.0-51.0); %Monocytes 10.9 % (0.0-10.0); %Neutrophils 74.5 % (42.0-75.0); Hemoglobin 8.5 g/dL (12.0-16.0); Mean Corpuscular HGB CONC 32.1 g/dL (32.0-36.0); Mean Corpuscular Hemoglobin 30.8 pg (27.0-31.0); Mean Platelet Volume 9.9 fL (7.4-10.4); Platelet Count 345 thou/uL (130-400); RBC Distribution Width 12.8 % (11.5-14.5); Red Blood Cell (RBC) Count 2.76 mill/uL (4.20-5.40)
[2019-05-10 04:32] LABS: Anion Gap 14 mmol/L (10-20); BUN (Urea Nitrogen) 53 mg/dL (9.8-20.1); Calc. Creatinine Clearance 24 mL/min (70-130); Calcium 8.3 mg/dL (7.8-10.44); Carbon Dioxide 19 mmol/L (23-31); Chloride 117 mmol/L (98-107); Estimated GFR-MDRD 14; Glucose 136 mg/dL (80-115); Magnesium 1.7 mg/dL (1.6-2.6); Phosphorus 4.3 mg/dL (2.3-4.7); Potassium 4.8 mmol/L (3.5-5.1); Sodium 145 mmol/L (136-145)
[2019-05-10] MEDS: niCARdipine 50 MG in Sodium Chloride 0.9% 250 ML 230 ML IVPB SCH (04:57)
[2019-05-10 07:05] LABS: Actual Bicarbonate (HCO3a) 18.2 mEq/L (22-28); Base Excess (BEa) -5.9 mEq/L (-2.0 to +3.0); CO2 Tension 30.5 mmHg (35.0-45.0); Carboxyhemoglobin (COHb) 0.7 gm% (0.0-3.0); Hemoglobin (Hb) 8.6 g/dL (12.0-16.0); O2 Tension (PaO2) 71.8 mmHg (> 80.0); Potassium - ABG Lab 4.45 mmol/L (3.70-5.30); pH, Arterial 7.39 (7.35-7.45)
[2019-05-10 07:07] LABS: Puncture Site RRA
[2019-05-10 07:08] LABS: ALV-art Gradient 175.275 (0-20)
[2019-05-10] MEDS ORDERED: DC Sedation Protocol FS ONE (07:22)
--- NOTE | 2019-05-10 07:38 | PRG ---
DATE OF SERVICE: 05/10/2019 TIME SPENT: 35 minutes of critical care time. SUBJECTIVE: The patient remains intubated on mechanical ventilation. She will wake up and follow commands. OBJECTIVE: VITAL SIGNS: Temperature 99.8, pulse 108, blood pressure 150/65, and O2 saturation 94%. Intake for 24 hours 776, output 3510. HEENT: Unremarkable. NECK: No adenopathy. No JVD. LUNGS: Clear to auscultation. CARDIAC: S1 and S2. Slightly tachycardic. ABDOMEN: Soft and nontender. EXTREMITIES: No clubbing or cyanosis. 1+ edema throughout. LABORATORY DATA: White blood cell count 11, hematocrit 26.5, and platelet count 345. PH of 7.39, pCO2 of 30, and pO2 of 71. Sodium 145, potassium 4.8, chloride 117, CO2 of 19, BUN 53, creatinine 3.9, and glucose 136. IMAGING STUDIES: Chest x-ray shows cardiomegaly, bilateral pulmonary edema, and small pleural effusions. ASSESSMENT: 1. Acute respiratory failure, requiring mechanical ventilation. 2. Acute diastolic heart failure. 3. Chronic kidney disease, stage 4. 4. Malignant hypertension with hypertensive emergency. PLAN: 1. Restart minoxidil and Coreg. 2. Extubate. 3. Increase activity as tolerated. Job ID: [id number]
--- NOTE | 2019-05-10 07:44 | RAD ---
XR Chest 1 View Portable HISTORY: Pneumonia. Respiratory failure COMPARISON: 08/22/2019 FINDINGS: Endotracheal and nasogastric tubes remain in place. The heart size is stable. No pneumothor aces are seen. There is consolidation/atelectatic changes at the left lung base with accompanying small bilateral pleural effusions. Evidence of old granulomatous disease is again seen.
[2019-05-10] MEDS: Furosemide 40 MG/4 ML VIAL SLOW IVP SCH ×2 (08:10→20:58)
[2019-05-10] MEDS: Minoxidil 2.5 MG TAB PO SCH (08:10)
[2019-05-10] MEDS: Heparin 5,000 UNITS/ML VIAL SC SCH ×2 (08:11→20:58)
[2019-05-10] MEDS: Ferrous Sulfate 325 MG TAB PO SCH ×2 (08:11→17:52)
[2019-05-10] MEDS: Carvedilol 25 MG TAB PO SCH ×2 (08:11→20:58)
--- NOTE | 2019-05-10 08:42 | PDOC.CPN ---
- Subjective Date: 05/10/19 Time: 08:39 Interval history: Awake and intubated. No complaints. BP better. On cardene - Objective Allergies/Adverse Reactions: Allergies Allergy/AdvReac Type Severity Reaction Status Date / Time levofloxacin [From Levaquin] Allergy Verified 05/09/19 16:51 Sulfa (Sulfonamide Allergy Verified 05/09/19 16:50 Antibiotics) Visit Medications: Current Medications Carvedilol (Coreg) 25 mg PO BID [facility] Last Admin: 05/10/19 08:11 Dose: 25 mg Dextrose/Water (Dextrose 50%) 25 gm IVP PRN PRN PRN Reason: HYPOGLYCEMIA PROTOCOL Ferrous Sulfate (Feosol) 325 mg PO BID-[facility] Last Admin: 05/10/19 08:11 Dose: 325 mg Furosemide (Lasix) 40 mg SLOW IVP BID [facility] Last Admin: 05/10/19 08:10 Dose: 40 mg Glucagon (Glucagon) 1 mg IM PRN PRN PRN Reason: HYPOGLYCEMIA PROTOCOL Heparin Sodium (Porcine) (Heparin) 5,000 units SC BID [facility] Last Admin: 05/10/19 08:11 Dose: 5,000 units Nicardipine HCl 50 mg/ Sodium (Chloride) 250 mls @ 0 mls/hr IVPB INF [facility]; Protocol Last Admin: 05/10/19 04:57 Dose: 250 mls Nitroglycerin/Dextrose (Nitroglycerin 50 Mg/250 Ml Bot) 250 mls @ 0 mls/hr IVPB INF [facility]; Protocol Dextrose/Water (D5w) 1,000 mls @ 0 mls/hr IV INF PRN PRN Reason: HYPOGLYCEMIA PROTOCOL Influenza Virus Vaccine Quadrival (Fluzone Quad Syringe) 60 mcg IM .ONCE ONE Stop: 05/10/19 16:16 Insulin Human Regular (Humulin R) 0 units SC .MODERATE SLIDING SC PRN; Protocol PRN Reason: MODERATE SLIDING SCALE Last Admin: 05/09/19 17:19 Dose: 2 units Labetalol HCl (Normodyne) 20 mg SLOW IVP Q6H PRN PRN Reason: SBP>180 Last Admin: 05/10/19 00:45 Dose: 20 mg Minoxidil (Minoxidil) 5 mg PO DAILY [facility] Last Admin: 05/10/19 08:10 Dose: 5 mg Pantoprazole Sodium (Protonix) 40 mg PO DAILY [facility] Last Admin: 05/10/19 08:10 Dose: 40 mg Pneumococcal Polyvalent Vaccine (Pneumovax 23) 0.5 ml IM .ONCE ONE Stop: 05/10/19 16:16 Sodium Chloride (Normal Saline Pf) 10 ml FS PRN PRN PRN Reason: RECONSTITUTION Vital Signs & Weight: Vital Signs Temp Pulse Resp BP 05/10/19 06:50 108 H 05/10/19 06:00 15 05/10/19 04:00 99.8 F H 14 05/10/19 02:00 14 05/10/19 00:45 93 175/92 H 05/10/19 00:00 14 05/09/19 22:00 13 Weight 219 lb 12.814 oz - Physical Exam General: alert & oriented x3 (intubated), no apparent distress, other (intubated ) Neck: no thromegaly - Labs Result Diagrams: 05/10/19 03:25 05/10/19 03:25 Troponin/CKMB Troponin I 0.032 ng/mL (< 0.028) H 05/09/19 13:00 - Telemetry Sinus rhythms and dysrhythmias: sinus rhythm - Assessment/Plan Assessment/Plan: Hypertensive urgency CKD stage 4 BP monitored by renal minoxodil restarted; on coreg Compliance has been a concern in the past Discussed with Dr. Ernst on seeking a secondary cause such as TERESA. Suspicion is it is CKD secondary to HTN and not felt to be TERESA. EF normal in the past with moderate to severe LVH on echo
--- NOTE | 2019-05-10 09:41 | CON ---
DATE OF CONSULTATION: SERVICE: Renal Medicine. HISTORY OF PRESENT ILLNESS: Ms. Soni is a 63-year-old black female with known history of chronic renal failure secondary to a presumed diabetic nephropathy. She was admitted due to acute respiratory failure and labile hypertension. She was noted to be in florid CHF and she was intubated. Her blood pressure was controlled with nicardipine drip. In addition, her pulmonary status is improving. She is now extubated. We are now being consulted for her chronic renal failure as well as labile hypertension. REVIEW OF SYSTEMS: Not obtainable since the patient is still semi-sedated. PAST MEDICAL HISTORY: 1. The patient has history of status post CHF from diastolic dysfunction. 2. Longstanding history of hypertension. 3. Chronic renal failure from diabetic nephropathy. 4. Type 2 diabetes mellitus, hyperlipidemia/cardiomyopathy. PAST SURGICAL HISTORY: No significant surgeries. SOCIAL HISTORY: The patient lives in [place]. She is single. She has 6 children, but lives with her daughter. She is medically disabled. 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 Smoked for 25 years at least 3/4 pack a day. Alcohol none. No IV drug abuse. Education, high school. ALLERGIES: BACTRIM. TRAUMA: None. IMMUNIZATIONS: Up-to-date. HOSPITALIZATIONS: Please see past medical history. PHYSICAL EXAMINATION: VITAL SIGNS: Blood pressure is currently at 135/70, heart rate is 70, respiratory rate 12. GENERAL: The patient is lethargic, not in overt distress. She is extubated. SKIN: Adequate turgor. HEENT: She has slightly pale conjunctivae. Anicteric sclerae. NECK: No neck mass. No carotid bruits. No JVD. CHEST: No deformities. LUNGS: Clear breath sounds. HEART: Normal sinus rhythm. No murmurs, gallops, or rubs. ABDOMEN: Globular, soft, nontender. No masses. EXTREMITIES: She does have edema, but no deformities. LABORATORY DATA: Laboratories of May 10, 2019; white count 11, hemoglobin 8.5. Sodium 145, potassium 4.8, chloride 117, carbon dioxide is 19, BUN is 53, creatinine 3.89, GFR is 14 mL/minute, phosphorus is 4.3, magnesium 1.7. Urinalysis of April 19, 2019, showed protein of 300. Chest x-ray of May 10, 2019, showed evidence of small bilateral pleural effusions. No overt CHF. Evidence of granulomatous disease. ASSESSMENT AND PLAN: 1. Labile hypertension-recheck renal ultrasound with Doppler studies. Continue current blood pressure medications. Minoxidil has been restarted. She was taking clonidine as an outpatient. My advice is to restart clonidine 0.1 mg p.o. b.i.d. 2. Status post acute respiratory failure, resolved. The patient is now extubated. 3. Chronic renal failure-higher creatinine. There may be a superimposed prerenal azotemia. She has underlying diabetic nephropathy. At this point in time, there is no indication for any dialytic intervention. Overall, agree with current management. Job ID: [id number]
[2019-05-10] MEDS ORDERED: FLU VACC QS2019-20(6MOS UP)/PF 60 MCG/0.5 ML SYRINGE IM ONE (16:15)
[2019-05-10] MEDS: cloNIDine 0.1 MG TAB PO SCH (20:58)
[2019-05-11 03:44] LABS: #Eosinphils 0.2 thou/uL (0.0-0.7); #Lymphocytes 2.4 thou/uL (1.20-3.40); #Monocytes 1.1 thou/uL (0.11-0.59); #Neutrophils 6.8 thou/uL (1.40-6.50); %Basophils 0.3 % (0.0-1.0); %Eosinophils 2.4 % (0.0-10.0); %Lymphocytes 23.1 % (21.0-51.0); %Monocytes 9.9 % (0.0-10.0); %Neutrophils 64.3 % (42.0-75.0); Hemoglobin 7.4 g/dL (12.0-16.0); Mean Corpuscular HGB CONC 31.9 g/dL (32.0-36.0); Mean Corpuscular Hemoglobin 30.4 pg (27.0-31.0); Mean Corpuscular Volume 95.2 fL (78.0-98.0); Mean Platelet Volume 9.6 fL (7.4-10.4); Platelet Count 330 thou/uL (130-400); RBC Distribution Width 12.6 % (11.5-14.5); Red Blood Cell (RBC) Count 2.43 mill/uL (4.20-5.40); White Blood Cell (WBC) Count 10.5 thou/uL (4.8-10.8)
[2019-05-11 04:05] LABS: Phosphorus 4.4 mg/dL (2.3-4.7)
[2019-05-11 04:08] LABS: Anion Gap 13 mmol/L (10-20); BUN (Urea Nitrogen) 55 mg/dL (9.8-20.1); Calc. Creatinine Clearance 20 mL/min (70-130); Calcium 7.7 mg/dL (7.8-10.44); Carbon Dioxide 19 mmol/L (23-31); Chloride 116 mmol/L (98-107); Estimated GFR-MDRD 12; Glucose 215 mg/dL (80-115); Magnesium 1.7 mg/dL (1.6-2.6); Potassium 4.4 mmol/L (3.5-5.1); Sodium 144 mmol/L (136-145)
[2019-05-11] MEDS: Insulin Regular 300 UNITS/3 ML VIAL SC PRN ×3 (06:35→17:45)
--- NOTE | 2019-05-11 07:46 | PDOC.CPN ---
- Subjective Date: 05/11/19 Time: 09:11 Interval history: Pt extubated No complaints BP better overall States she is taking meds and BP at home but no diary No CP noted - Objective Allergies/Adverse Reactions: Allergies Allergy/AdvReac Type Severity Reaction Status Date / Time levofloxacin [From Levaquin] Allergy Verified 05/09/19 16:51 Sulfa (Sulfonamide Allergy Verified 05/09/19 16:50 Antibiotics) Visit Medications: Current Medications Carvedilol (Coreg) 25 mg PO BID [facility] Last Admin: 05/10/19 20:58 Dose: 25 mg Clonidine (Catapres) 0.1 mg PO BID [facility] Last Admin: 05/10/19 20:58 Dose: 0.1 mg Dextrose/Water (Dextrose 50%) 25 gm IVP PRN PRN PRN Reason: HYPOGLYCEMIA PROTOCOL Ferrous Sulfate (Feosol) 325 mg PO BID[facility] Last Admin: 05/10/19 17:52 Dose: 325 mg Furosemide (Lasix) 40 mg SLOW IVP BID [facility] Last Admin: 05/10/19 20:58 Dose: 40 mg Glucagon (Glucagon) 1 mg IM PRN PRN PRN Reason: HYPOGLYCEMIA PROTOCOL Heparin Sodium (Porcine) (Heparin) 5,000 units SC BID [facility] Last Admin: 05/10/19 20:58 Dose: 5,000 units Nicardipine HCl 50 mg/ Sodium (Chloride) 250 mls @ 0 mls/hr IVPB INF [facility]; Protocol Last Admin: 05/10/19 04:57 Dose: 250 mls Nitroglycerin/Dextrose (Nitroglycerin 50 Mg/250 Ml Bot) 250 mls @ 0 mls/hr IVPB INF [facility]; Protocol Dextrose/Water (D5w) 1,000 mls @ 0 mls/hr IV INF PRN PRN Reason: HYPOGLYCEMIA PROTOCOL Insulin Human Regular (Humulin R) 0 units SC .MODERATE SLIDING SC PRN; Protocol PRN Reason: MODERATE SLIDING SCALE Last Admin: 05/11/19 06:35 Dose: 4 units Labetalol HCl (Normodyne) 20 mg SLOW IVP Q6H PRN PRN Reason: SBP>180 Last Admin: 05/10/19 00:45 Dose: 20 mg Minoxidil (Minoxidil) 5 mg PO DAILY [facility] Last Admin: 05/10/19 08:10 Dose: 5 mg Pantoprazole Sodium (Protonix) 40 mg PO DAILY [facility] Last Admin: 05/10/19 08:10 Dose: 40 mg Sodium Chloride (Normal Saline Pf) 10 ml FS PRN PRN PRN Reason: RECONSTITUTION Vital Signs & Weight: Vital Signs Temp BP 05/11/19 03:00 99.9 F H 05/10/19 20:58 186/89 H Weight 219 lb 12.814 oz - Physical Exam General: no apparent distress Neck: no JVD/HJR, no masses Cardiac: regular rate, regular rhythm Lungs: normal exam Neuro: grossly intact Abdomen: no masses, no pulsations/bruits Extremities: no edema Musculoskeletal: no pain - Labs Result Diagrams: 05/11/19 03:22 05/11/19 03:22 Troponin/CKMB Troponin I 0.032 ng/mL (< 0.028) H 05/09/19 13:00 - Telemetry Sinus rhythms and dysrhythmias: sinus rhythm - Assessment/Plan Assessment/Plan: Hypertensive urgency CKD stage 4 Anemia Respiratory failure Plan 05/11 HTN management per renal given renal dysfunction Anemia secondary to renal dysfunction Pt extubated EF normal with diastolic dysfunction on most recent echo Renal US pending No further CV recommendations I will be regional production manager this weekend if other questions arise Plan is to fu as outpatient Plan: 2/ BP monitored by renal minoxodil restarted; on coreg Compliance has been a concern in the past Discussed with Dr. Ernst on seeking a secondary cause such as TERESA. Suspicion is it is CKD secondary to HTN and not felt to be TERESA. EF normal in the past with moderate to severe LVH on echo
--- NOTE | 2019-05-11 08:35 | PRG ---
DATE OF SERVICE: 05/11/2019 SUBJECTIVE: The patient was extubated yesterday, so far has done well. She complains of edema. OBJECTIVE: VITAL SIGNS: Temperature 99.9, pulse 102, blood pressure 132/74, O2 saturation 96%. She is off the Cardene drip. Intake for 24 hours 795, output 1865. HEENT: Unremarkable. NECK: No adenopathy or JVD. LUNGS: Clear without wheezing or rhonchi. CARDIAC: S1 and S2, regular. ABDOMEN: Soft and nontender. EXTREMITIES: Trace edema in her arms. LABORATORY DATA: White blood cell count 10.5, hematocrit 23.1, and platelet count 330. Sodium 144, potassium 4.4, chloride 116, CO2 of 19, BUN 55, creatinine 4.5, and glucose 215. ASSESSMENT: 1. Hypertensive emergency. 2. Status post respiratory failure related to diastolic heart failure. 3. Chronic kidney disease, stage 4. PLAN: She will be transferred out to the telemetry floor. She seems to be doing well from a pulmonary standpoint. Further care will be per Internal Medicine and Cardiology. Pulmonary will be available as needed. Job ID: [id number]
[2019-05-11] MEDS: Furosemide 20 MG TAB PO SCH (09:44)
[2019-05-11] MEDS ORDERED: EPOETIN ALFA-EPBX (ESRD) 4,000 UNIT/ML VIAL SC SCH (09:45)
[2019-05-11] MEDS: Minoxidil 2.5 MG TAB PO SCH (09:45)
[2019-05-11] MEDS: cloNIDine 0.1 MG TAB PO SCH ×2 (09:45→21:55)
[2019-05-11] MEDS: Ferrous Sulfate 325 MG TAB PO SCH ×2 (09:46→17:43)
[2019-05-11] MEDS: Carvedilol 25 MG TAB PO SCH ×2 (09:46→21:55)
[2019-05-11] MEDS: Heparin 5,000 UNITS/ML VIAL SC SCH ×2 (09:46→21:55)
--- NOTE | 2019-05-11 10:04 | PRG ---
DATE OF SERVICE: 05/11/2019 SUBJECTIVE: Ms. Soni is a 63-year-old black female with chronic renal failure from diabetic nephropathy and was admitted for acute respiratory failure. She was also severely hypertensive that time. She went into acute respiratory failure and was intubated. She is doing better from pulmonary point of view. She has been extubated. We are following her up for her chronic renal failure. Her creatinine has been noted to have worsen from yesterday of 3.89 to 4.49. This could simply be a reflection of the current diuretic regimen and hemodynamic instability. Here, furosemide has been decreased by our peer feed mill lab technician. My bias is to give her albumin infusion. OBJECTIVE: VITAL SIGNS: Blood pressure is 135/68, heart rate 102, respiratory rate 19, and O2 sat 96%. GENERAL: The patient is awake, alert, comfortable, not in distress. SKIN: Adequate turgor. HEENT: She has a slightly pale conjunctivae. Anicteric sclerae. NECK: No neck mass. No carotid bruits. No JVD. CHEST: No deformities. LUNGS: Clear breath sounds. HEART: Normal sinus rhythm. No murmurs. No gallops. No rubs. ABDOMEN: Globular, soft, and nontender. No masses. EXTREMITIES: Trace edema. MEDICATIONS: Medications of May 11, 2019, was reviewed. LABORATORY DATA: May 11, 2019; white count 10.5, hemoglobin 7.4, sodium 144, potassium 4.4, chloride 116, carbon dioxide 19, BUN 55, and creatinine 4.49. Magnesium 1.7. ASSESSMENT AND PLAN: 1. Acute kidney injury/chronic renal failure, superimposed prerenal azotemia. Start albumin 25 g IV q.6. Agree with decreased dose of Lasix. 2. Anemia. We will start Epogen and iron supplementation. 3. Acute respiratory failure, resolved. 4. Labile hypertension, much improved. Continue current BP medications. Job ID: [id number]
[2019-05-11] MEDS: Albumin 25% 25 GM/100 ML BOT IVPB SCH ×3 (12:18→23:55)
[2019-05-12 05:23] LABS: Anion Gap 15 mmol/L (10-20); BUN (Urea Nitrogen) 50 mg/dL (9.8-20.1); Calc. Creatinine Clearance 22 mL/min (70-130); Calcium 8.6 mg/dL (7.8-10.44); Carbon Dioxide 17 mmol/L (23-31); Chloride 118 mmol/L (98-107); Estimated GFR-MDRD 13; Glucose 202 mg/dL (80-115); Potassium 4.4 mmol/L (3.5-5.1); Sodium 146 mmol/L (136-145)
[2019-05-12] MEDS: Albumin 25% 25 GM/100 ML BOT IVPB SCH ×3 (05:55→22:39)
[2019-05-12] MEDS: Carvedilol 25 MG TAB PO SCH ×2 (08:20→21:15)
[2019-05-12] MEDS: Heparin 5,000 UNITS/ML VIAL SC SCH ×2 (08:20→21:15)
[2019-05-12] MEDS: Furosemide 20 MG TAB PO SCH (08:20)
[2019-05-12] MEDS: Ferrous Sulfate 325 MG TAB PO SCH ×2 (08:20→15:39)
[2019-05-12] MEDS: Minoxidil 2.5 MG TAB PO SCH (08:20)
[2019-05-12] MEDS: cloNIDine 0.1 MG TAB PO SCH ×3 (08:21→21:14)
[2019-05-12] MEDS ORDERED: Sodium Bicarbonate Tab 325 MG TAB PO SCH (09:15)
[2019-05-12] MEDS: Insulin Regular 300 UNITS/3 ML VIAL SC PRN ×3 (09:28→16:58)
--- NOTE | 2019-05-12 11:22 | PRG ---
DATE OF SERVICE: 05/12/2019 SERVICE: Nephrology. SUBJECTIVE: A 63-year-old female with known history of hypertension and CKD, admitted due to respiratory failure as well as generalized edema, requiring intubation. Nephrology is seeing the patient for [id number]-[id number] renal failure as well as electrolyte derangements. The patient is feeling better. Complains of sore throat. Oral intake remains poor. Denied chest pain or fever. OBJECTIVE: VITAL SIGNS: Temperature 98.3, pulse 106, respiratory rate 18, SpO2 of 92 on room air, and blood pressure is 179/81. GENERAL: Middle-aged female, fatigued, but afebrile and anicteric. HEENT: Normocephalic and atraumatic. Oral mucosa is moist. CARDIOVASCULAR: Regular rhythm and rate, but tachycardic. RESPIRATORY: Fair air entry bilaterally with some transmitted breath sounds and crackles. work of breathing is increased mildly GI: Full, soft, nontender, and nondistended with normal bowel sounds. EXTREMITIES: Wkwhxiue-rl-vqsdbx edema of the extremities especially lower extremities noted. No erythema appreciated. RETAIL STORE MANAGER: Conscious, alert, and oriented x3 with appropriate mental status. Cranial nerves 2 through 12 are grossly intact. DIAGNOSTIC DATA: Chemistry today showed sodium 146, potassium 4.4, chloride 118 , CO2 of 17, BUN 50, creatinine 4.24, glucose 202, and calcium 8.6. ASSESSMENT: 1. Acute kidney injury, most likely due to hemodynamic factors. 2. Chronic kidney disease, stage 4. 3. Acute respiratory failure: Improved. 4. Metabolic acidosis: Due to renal failure. 5. Hypernatremia: Due to poor free water intake as well as diuretic therapy. 6. Anasarca: Due to hypoalbuminemia. 7. Hypertension: Control is suboptimal. PLAN: 1. We will increase clonidine to 0.1 mg t.i.d. to get better BP control. 2. We will continue diuretics. However, we will add albumin. [place] free water intake advised due to hypernatremia 3. We will also start the patient on sodium bicarbonate orally given metabolic acidosis. 4. We will recheck renal function test in the morning. Further treatment to follow depending on hospital course. Job ID: [id number] [facility]
[2019-05-12] MEDS: Cepastat Lozenges 1 LOZ PO PRN (11:35)
[2019-05-12] MEDS: Sodium Bicarbonate Tab 325 MG TAB PO SCH ×2 (15:39→21:20)
[2019-05-12] MEDS ORDERED: Hydrocortisone Sod Succ/PF 100 mg/2 ml Vial ONE (17:59)
[2019-05-12] MEDS ORDERED: Furosemide 40 MG/4 ML VIAL ONE (17:59)
[2019-05-12] MEDS ORDERED: Magnesium 5 GM/10 ML Abboject SYRINGE ONE (18:00)
[2019-05-12] MEDS ORDERED: Nitroglycerin 50 MG/250 ML BOT 250 ML ONE (18:01)
[2019-05-12] MEDS ORDERED: Propofol 1,000 MG/100 ML VIAL IV ONE (18:05)
[2019-05-12] MEDS ORDERED: Lorazepam 2 MG/ML VIAL ONE (18:12)
[2019-05-12] MEDS ORDERED: methylPREDNISolone Sod Succ/PF 125 MG/2 ML VIAL IVP SCH (18:15)
--- NOTE | 2019-05-12 18:28 | RAD ---
PORTABLE CHEST: 05/12/19 at 5:54 p.m. HISTORY: Respiratory failure. COMPARISON: 05/10/19. FINDINGS/IMPRESSION: The endotracheal and nasogastric tubes remain in place. The heart size is normal. Consolidation/atele ctatic change in the left lung base shows mild improvement. Small right pleural effusion is again see n. There is a calcified granuloma in the left upper lobe. There is mild pulmonary vascular congestion . No pneumothoraces are seen. POS: OFF
[2019-05-12 19:06] LABS: Actual Bicarbonate (HCO3a) 21.2 mEq/L (22-28); Base Excess (BEa) -4.3 mEq/L (-2.0 to +3.0); CO2 Tension 40.6 mmHg (35.0-45.0); Calcium, Ionized 1.17 mmol/L (1.12-1.30); Carboxyhemoglobin (COHb) 0.2 gm% (0.0-3.0); Hemoglobin (Hb) 8.9 g/dL (12.0-16.0); O2 Tension (PaO2) 107.6 mmHg (> 80.0); Potassium - ABG Lab 3.93 mmol/L (3.70-5.30); pH, Arterial 7.34 (7.35-7.45)
[2019-05-12] MEDS ORDERED: Fentanyl BOLUS 250 ML IVPB PRN (19:15)
[2019-05-12] MEDS ORDERED: Propofol BOLUS 1,000 MG/100 ML VIAL IV PRN (19:15)
[2019-05-12] MEDS ORDERED: DISCONTINUE PREVIOUS NARCOTIC PAIN MEDICATIONS AND BENZODIAZEPINES FS SCH (19:15)
[2019-05-12] MEDS ORDERED: Morphine 2 MG/ML SYRINGE SLOW IVP PRN (19:15)
[2019-05-12] MEDS ORDERED: Lorazepam 2 MG/ML VIAL SLOW IVP PRN (19:15)
[2019-05-12] MEDS ORDERED: fentaNYL Citrate/PF 2,000 MCG in Sodium Chloride 0.9% 60 ML IV SCH (19:15)
[2019-05-12 19:18] LABS: Puncture Site RRADIAL
[2019-05-12] MEDS ORDERED: Sodium Chloride 0.9% (PF) 10 ML VIAL FS PRN (19:25)
[2019-05-12] MEDS ORDERED: Dextrose 50% Abboject 50 ML SYRINGE IVP PRN (19:25)
[2019-05-12] MEDS ORDERED: Insulin Regular 300 UNITS/3 ML VIAL SC PRN (19:25)
[2019-05-12] MEDS ORDERED: Dextrose 5% in Water 1,000 ML IV PRN (19:25)
[2019-05-12] MEDS: Propofol 1,000 MG/100 ML VIAL IV PRN (21:56)
--- NOTE | 2019-05-13 01:26 | HP ---
This is a rapid response code green note. I responded from the emergency room to code green upstairs. When we arrived, the patient was just being pushed into the CCU by the nursing staff. She was in acute respiratory distress. She was not responsive to verbal stimuli or painful stimuli. She was breathing on her own with a significant increased work of breathing. She had a nonrebreather mask on. When we got into one of the CCU rooms, it was evident that she needed to have her airway controlled and we started getting set up to get her intubated. Prior to intubation, as I said before, her mental status was significantly decreased. She had a significant increased work of breathing. She had some very tight wheezing in her upper airways bilaterally with significant rales in both bases and then clinically in her lower extremities, she did also look fluid overload. We got a second IV established on her. She was given Solu-Medrol and magnesium and we got a nitro drip started for flash pulmonary edema. Her O2 sats during this whole process were unreadable. She was then intubated, so she was sedated with etomidate and succinylcholine. She was laid flat and intubated with a video laryngoscope on one attempt. She had a 7.5 ET tube, which was at 24 at the teeth. She had good quality breath sounds bilateral. Her O2 saturations appeared to have better waveform and were in the low 90s and she was easy to ventilate. She was placed on, as said before, a nitro drip and given multiple DuoNebs. I discussed this patient with Dr. Howell on the phone while I was in the CCU and he started talking to the nurses in taking care of the patient. The patient's blood pressure was significantly elevated while I was up there and will be monitored by him further. Job ID: [id number]
[2019-05-13 03:58] LABS: #Lymphocytes 0.6 thou/uL (1.20-3.40); #Monocytes 0.3 thou/uL (0.11-0.59); #Neutrophils 11.6 thou/uL (1.40-6.50); %Basophils 0.2 % (0.0-1.0); %Eosinophils 0.1 % (0.0-10.0); %Lymphocytes 4.7 % (21.0-51.0); %Monocytes 2.2 % (0.0-10.0); %Neutrophils 92.8 % (42.0-75.0); Hemoglobin 6.8 g/dL (12.0-16.0); Mean Corpuscular HGB CONC 33.5 g/dL (32.0-36.0); Mean Corpuscular Hemoglobin 32.3 pg (27.0-31.0); Mean Corpuscular Volume 96.2 fL (78.0-98.0); Mean Platelet Volume 9.4 fL (7.4-10.4); Platelet Count 278 thou/uL (130-400); RBC Distribution Width 12.4 % (11.5-14.5); Red Blood Cell (RBC) Count 2.09 mill/uL (4.20-5.40); White Blood Cell (WBC) Count 12.4 thou/uL (4.8-10.8)
[2019-05-13 04:19] LABS: Albumin 3.6 g/dL (3.4-4.8); Anion Gap 20 mmol/L (10-20); BUN (Urea Nitrogen) 52 mg/dL (9.8-20.1); BUN/Creatinine Ratio 11.71; Calc. Creatinine Clearance 20 mL/min (70-130); Calcium 8.8 mg/dL (7.8-10.44); Carbon Dioxide 17 mmol/L (23-31); Chloride 112 mmol/L (98-107); Estimated GFR-MDRD 12; Glucose 306 mg/dL (80-115); Magnesium 2.3 mg/dL (1.6-2.6); Phosphorus 4.4 mg/dL (2.3-4.7); Potassium 4.4 mmol/L (3.5-5.1); Sodium 145 mmol/L (136-145)
[2019-05-13] MEDS: Insulin Regular 300 UNITS/3 ML VIAL SC PRN ×4 (05:13→20:52)
[2019-05-13] MEDS: Propofol 1,000 MG/100 ML VIAL IV PRN (05:13)
[2019-05-13] MEDS: Nitroglycerin 50 MG/250 ML BOT 250 ML IVPB PRN ×4 (05:13→22:05)
[2019-05-13] MEDS: Albumin 25% 25 GM/100 ML BOT IVPB SCH ×3 (05:34→22:05)
[2019-05-13] MEDS: Ferrous Sulfate 325 MG TAB PO SCH ×2 (07:53→17:54)
[2019-05-13] MEDS: Minoxidil 2.5 MG TAB PO SCH (08:02)
[2019-05-13] MEDS: Heparin 5,000 UNITS/ML VIAL SC SCH ×2 (08:03→20:28)
[2019-05-13] MEDS: cloNIDine 0.1 MG TAB PO SCH ×3 (08:03→20:28)
[2019-05-13] MEDS: Carvedilol 25 MG TAB PO SCH ×2 (08:03→20:28)
[2019-05-13] MEDS: Pantoprazole 40 MG VIAL IVP SCH (08:04)
[2019-05-13] MEDS: Sodium Bicarbonate Tab 325 MG TAB PO SCH ×3 (08:07→20:28)
[2019-05-13 08:23] LABS: Actual Bicarbonate (HCO3a) 17.9 mEq/L (22-28); Base Excess (BEa) -6.6 mEq/L (-2.0 to +3.0); CO2 Tension 31.2 mmHg (35.0-45.0); Calcium, Ionized 1.17 mmol/L (1.12-1.30); Carboxyhemoglobin (COHb) 1.5 gm% (0.0-3.0); Hemoglobin (Hb) 6.7 g/dL (12.0-16.0); O2 Tension (PaO2) 68.9 mmHg (> 80.0); Potassium - ABG Lab 3.87 mmol/L (3.70-5.30); pH, Arterial 7.38 (7.35-7.45)
[2019-05-13 08:29] LABS: Puncture Site RR
[2019-05-13] MEDS ORDERED: Furosemide 40 MG/4 ML VIAL SLOW IVP SCH ×4 (09:00→23:00)
[2019-05-13] MEDS: Labetalol HCl 100 MG/20 ML VIAL SLOW IVP PRN (09:10)
[2019-05-13] MEDS ORDERED: EPOETIN ALFA-EPBX (ESRD) 10,000 UNIT/ML VIAL SC SCH (10:00)
[2019-05-13] MEDS ORDERED: Iron, Sodium Ferric Gluconate 250 MG in Sodium Chloride 0.9% 100 ML IVPB SCH (10:00)
[2019-05-13] MEDS ORDERED: Iron Sucrose Complex 200 MG in Sodium Chloride 0.9% 250 ML 250 ML IVPB SCH (10:00)
--- NOTE | 2019-05-13 10:07 | PRG ---
DATE OF SERVICE: 05/13/2019 SERVICE: Nephrology. SUBJECTIVE: This is a 63-year-old female with known history of hypertension and CKD, admitted due to respiratory failure with hypoxia and generalized weakness requiring intubation. The patient is seen in followup for acute on chronic renal failure. The patient developed worsening shortness of breath yesterday as well as mental status change and was subsequently reintubated and transferred to the ICU. The patient is currently somnolent due to sedatives. OBJECTIVE: VITAL SIGNS: Temperature 97.8, pulse 85, respiratory rate 14, SpO2 100 on the ventilator, and blood pressure is 170/79. GENERAL: Somnolent female, in no distress. Afebrile. HEENT: Normocephalic, atraumatic. ET tube is in place. CARDIOVASCULAR: Regular rhythm and rate with normal heart sounds 1 and 2. RESPIRATORY: Ventilator transmitted breath sounds heard in all lung zones. GI: Full, soft, nondistended with normal bowel sounds. EXTREMITIES: Dawqnkxr-gj-akrjoj edema of all the extremities noted especially lower extremities. BLOOD BANK SPECIALIST: The patient is somnolent. DIAGNOSTIC DATA: CBC showed WBC count of 12.4, hemoglobin of 6.8, MCV of 96.2, platelet of 278. Renal function panel showed sodium 144, potassium 4.4, chloride 112, CO2 of 17, BUN 52, creatinine 4.4, glucose 306, calcium 8.8, phosphorus 4.4, magnesium 2.3, and albumin 3.6. ASSESSMENT: 1. Acute kidney injury: Due to hemodynamic factors related to cardiac decompensation. 2. Chronic kidney disease stage 4. 3. Acute respiratory failure with recurrent pulmonary congestion requiring reintubation. 4. Mental status change. 5. Metabolic acidosis. 6. Hyponatremia, resolved. 7. Anasarca, due to hypoalbuminemia and chronic heart failure. 8. Hypertension, control is still suboptimal. PLAN: 1. We will continue nitroglycerin infusion. We will also continue oral antihypertensives with a view to weaning of IV nitroglycerin. 2. We will also continue albumin and diuretics. We will actually increase diuretic dose as patient is still edematous. We will recheck renal function test in the morning. 3. Further treatment to follow depending on hospital course. 4. We will continue erythrocyte stimulating agent and iron as needed. Blood transfusion as per primary attending. Job ID: [id number]
[2019-05-13 10:26] LABS: Iron 13 ug/dL (50-170); Iron Binding Capacity, Total 123 mcg/dL (265-497)
[2019-05-13] MEDS ORDERED: DC Sedation Protocol FS ONE (10:50)
[2019-05-13] MEDS: methylPREDNISolone Sod Succ 40 MG VIAL IVP SCH ×3 (11:12→23:16)
--- NOTE | 2019-05-13 11:18 | RAD ---
PORTABLE CHEST: HISTORY: Shortness of breath. COMPARISON: 05/12/2019 FINDINGS: Heart size is enlarged. Pulmonary edema changes are improved, as compared to the prior study. Endotra cheal and NG tubes have been removed. There is still persistent dyspnea in the basis, probably relate d to some layering of effusion. IMPRESSION: Resolving pulmonary edema change. POS: [facility]
--- NOTE | 2019-05-13 11:20 | PRG ---
DATE OF SERVICE: 05/13/2019 SUBJECTIVE: Yonis Soni is a 63-year-old female, who was extubated on telemetry, but a code green was called. She was in severe distress. Saturations were 83%, agonal respirations as per the ER doctor. Intubated by the ER physician. I was called subsequently thereafter. Blood gases were obtained, which showed adequate oxygenation. OBJECTIVE: GENERAL: This morning, she is awake, alert, and responsive. VITAL SIGNS: Pulse is 97, blood pressure 110/80, saturations 90%, and respirations 24. CHEST: Extensive rhonchi and crackles. CARDIAC: Normal S1 and S2. No gallops. ABDOMEN: No masses. LABORATORY DATA: X-ray shows pulmonary edema. A pO2 was 68, pCO2 31, and pH of 7.38, this morning rate of 10. White count 12,000, H and H 6.8 and 20, and platelet count is normal. Creatinine is 4.4. IMPRESSION AND PLAN: Respiratory failure, congestive heart failure, renal failure, chronic obstructive pulmonary disease, and hypertension. Lasix has been increased and a chest x-ray being ordered. I am going to wean and extubate. I have started nocturnal BiPAP for few days. Neb treatments and steroids. One-half hour of critical care time. Job ID: [id number]
[2019-05-14] MEDS: Nitroglycerin 50 MG/250 ML BOT 250 ML IVPB PRN (03:25)
[2019-05-14 04:06] LABS: Anion Gap 16 mmol/L (10-20); BUN (Urea Nitrogen) 63 mg/dL (9.8-20.1); BUN/Creatinine Ratio 12.96; Calc. Creatinine Clearance 18 mL/min (70-130); Calcium 8.8 mg/dL (7.8-10.44); Carbon Dioxide 21 mmol/L (23-31); Chloride 107 mmol/L (98-107); Estimated GFR-MDRD 11; Glucose 437 mg/dL (80-115); Phosphorus 4.3 mg/dL (2.3-4.7); Potassium 3.9 mmol/L (3.5-5.1); Sodium 140 mmol/L (136-145)
[2019-05-14] MEDS: Labetalol HCl 100 MG/20 ML VIAL SLOW IVP PRN (04:51)
[2019-05-14] MEDS: Albumin 25% 25 GM/100 ML BOT IVPB SCH (05:53)
[2019-05-14] MEDS: methylPREDNISolone Sod Succ 40 MG VIAL IVP SCH (05:54)
[2019-05-14] MEDS: Insulin Regular 300 UNITS/3 ML VIAL SC PRN ×4 (06:30→21:50)
[2019-05-14] MEDS ORDERED: niCARdipine 40MG In NaCl 40 MG/200 ML BAG IVPB SCH (07:45)
[2019-05-14] MEDS: cloNIDine 0.1 MG TAB PO SCH ×3 (07:55→21:53)
[2019-05-14] MEDS: Ferrous Sulfate 325 MG TAB PO SCH ×2 (07:55→16:37)
[2019-05-14] MEDS: Cepastat Lozenges 1 LOZ PO PRN (07:56)
[2019-05-14] MEDS: Minoxidil 2.5 MG TAB PO SCH (07:56)
[2019-05-14] MEDS: Carvedilol 25 MG TAB PO SCH ×2 (07:56→21:53)
[2019-05-14] MEDS ORDERED: methylPREDNISolone Sod Succ 40 MG VIAL IVP SCH (08:00)
[2019-05-14] MEDS: niCARdipine 50 MG in Sodium Chloride 0.9% 250 ML 230 ML IVPB SCH ×2 (08:10→19:08)
[2019-05-14] MEDS: Heparin 5,000 UNITS/ML VIAL SC SCH ×2 (08:12→21:47)
[2019-05-14] MEDS: Furosemide 40 MG/4 ML VIAL SLOW IVP SCH ×2 (08:12→21:47)
[2019-05-14] MEDS: Pantoprazole 40 MG VIAL IVP SCH (08:12)
--- NOTE | 2019-05-14 08:21 | PRG ---
DATE OF SERVICE: 05/14/2019 SUBJECTIVE: The patient was extubated yesterday. She has been on a nitroglycerin drip. She does have little bit of a headache. Her breathing is okay. OBJECTIVE: VITAL SIGNS: On exam, temperature is 98.6, pulse 94, and blood pressure 146/77. A 24-hour intake 2454, output 1424. HEENT: Unremarkable. NECK: No adenopathy or JVD. LUNGS: Fairly clear anteriorly. CARDIAC: S1 and S2. Regular. ABDOMEN: Soft. EXTREMITIES: No edema. LABORATORY DATA: CBC is pending. Sodium 140, potassium 3.9, chloride 107, CO2 of 21, BUN 63, creatinine 4.8, and glucose 437. ASSESSMENT: 1. Diastolic heart failure. 2. Acute on chronic kidney injury. 3. Status post 2 episodes respiratory failure, requiring mechanical ventilation. 4. Steroid-induced hyperglycemia. PLAN: 1. Switch nitroglycerin to nicardipine as nitroglycerin will not have much effect on her blood pressure. 2. Add Norvasc to her antihypertensive regimen. 3. Stop the steroids. 4. Advance diet. Job ID: [id number]
[2019-05-14] MEDS: Sodium Bicarbonate Tab 325 MG TAB PO SCH ×3 (08:54→21:47)
[2019-05-14] MEDS ORDERED: Amlodipine 10 MG TAB PO SCH (09:00)
--- NOTE | 2019-05-14 09:26 | PRG ---
DATE OF SERVICE: 05/14/2019 SUBJECTIVE: Events over the weekend were reviewed and noted. We continued to follow up this patient for her chronic renal failure secondary to underlying diabetic nephropathy. Please note that she continues to have labile hypertension. We will be ordering a repeat renal ultrasound with Doppler studies with this patient. No other complaints today. She is feeling a little better. OBJECTIVE: VITAL SIGNS: Blood pressure is noted at 170/70 with a heart rate of 97, respiratory rate 18, O2 sats 94%. GENERAL: The patient is awake, alert, comfortable, not in overt distress. SKIN: Adequate turgor. HEENT: She has pale conjunctivae. Anicteric sclerae. No neck mass. No carotid bruits. No JVD. CHEST: No deformities. LUNGS: Clear breath sounds. HEART: Normal sinus rhythm. No murmur. No gallops. No rubs. ABDOMEN: Globular, soft, nontender, no masses. EXTREMITIES: No edema. No deformities. MEDICATIONS: Medications of May 14, 2019, was reviewed. LABORATORY DATA: Laboratories of May 14, 2019; sodium 140, potassium 3.9, chloride 107, carbon dioxide 21, BUN 63, creatinine 4.86, calcium 8.8, phosphorus 4.3, ferritin 606, albumin 4.0. ASSESSMENT AND PLAN: 1. Chronic renal failure-from diabetic nephropathy, fluctuating creatinine. Creatinine continues to worsen. I have discussed about dialysis with this patient. She would like to think about it. No indication for emergent hemodialysis. 2. Labile hypertension. Continue current BP medications. We will order renal ultrasound with Doppler studies to rule out renal artery stenosis. 3. Status post congestive heart failure, clinically improved. On diuretics. Continue supportive care. Recheck CBC and basic metabolic panel in a.m. Job ID: [id number]
[2019-05-14 10:09] LABS: #Lymphocytes 0.7 thou/uL (1.20-3.40); #Monocytes 1.1 thou/uL (0.11-0.59); #Neutrophils 15.3 thou/uL (1.40-6.50); %Basophils 0.1 % (0.0-1.0); %Eosinophils 0.2 % (0.0-10.0); %Monocytes 6.3 % (0.0-10.0); %Neutrophils 89.4 % (42.0-75.0); Hemoglobin 6.7 g/dL (12.0-16.0); Mean Corpuscular HGB CONC 33.6 g/dL (32.0-36.0); Mean Corpuscular Hemoglobin 31.8 pg (27.0-31.0); Mean Corpuscular Volume 94.8 fL (78.0-98.0); Mean Platelet Volume 9.4 fL (7.4-10.4); Platelet Count 280 thou/uL (130-400); RBC Distribution Width 12.6 % (11.5-14.5); White Blood Cell (WBC) Count 17.1 thou/uL (4.8-10.8)
--- NOTE | 2019-05-14 10:12 | ULT ---
BILATERAL RENAL ULTRASOUND WITH DOPPLER: HISTORY: Chronic renal failure. TECHNIQUE: Grayscale, color flow, Doppler imaging and spectral waveform analysis performed of the left or right kidney. COMPARISON: 04/19/2019. FINDINGS: Right kidney: Normal cortical echotexture. No hydronephrosis. Right kidney measurements: 4.5 x 11.3 x 5.8 cm. Left kidney: Normal cortical echotexture. No hydronephrosis. Left kidney measurements 10.6 x 4.9 x 4.6 cm. Urinary bladder: Normal mucosa. Renal Doppler: Right renal artery velocity is 90.9 cm/s. Left renal artery velocity 64.2 cm/s. Aorta velocity is 298.9 cm/s. Right renal artery to aorta ratio 0.31. Left renal artery to aorta ratio 0.22 Arcuate artery resistive indexes: Right kidney: Upper pole 0.74, midpole 0.74, lower pole 0.77. Left kidney: Upper pole 0.64, midpole 0.65, lower pole 0.69. IMPRESSION: 1. No hydronephrosis. 2. Increase arcuate artery resistive index in the right kidney. Correlate for medical renal disease. 3. Markedly increased velocity of the aorta. Positive aortic stenosis cannot be excluded. Further jayesh luation with CT angiogram may be beneficial. Transcribed Date/Time: 05/14/2019 10:55 AM
[2019-05-14] MEDS ORDERED: Nitroglycerin 0.4 MG TAB (25 Tab Bottle) ONE (16:53)
[2019-05-14] MEDS ORDERED: Nitroglycerin 0.4 MG TAB (25 Tab Bottle) SL PRN (17:00)
[2019-05-14] MEDS: Insulin Glargine 40 UNITS in Pre-Filled Syringe 1 EACH SC SCH (21:47)
[2019-05-15 05:46] LABS: Band 19 % (5-11); Hemoglobin 7.6 g/dL (12.0-16.0); Lymphocytes 1 % (21-51); MDiff Complete? YES; Mean Corpuscular HGB CONC 33.2 g/dL (32.0-36.0); Mean Corpuscular Hemoglobin 31.2 pg (27.0-31.0); Mean Corpuscular Volume 93.9 fL (78.0-98.0); Mean Platelet Volume 8.8 fL (7.4-10.4); Metamyelocyte 3 % (0-0); Monocytes 14 % (0-10); Neutrophil 63 % (42-75); Nucleated RBC 2 % (0); Platelet Count 220 thou/uL (130-400); Platelet Morphology Comment Appears Adequate; Red Blood Cell (RBC) Count 2.43 mill/uL (4.20-5.40); White Blood Cell (WBC) Count 30.7 thou/uL (4.8-10.8)
[2019-05-15 05:48] LABS: Albumin 3.7 g/dL (3.4-4.8); Anion Gap 17 mmol/L (10-20); BUN (Urea Nitrogen) 77 mg/dL (9.8-20.1); BUN/Creatinine Ratio 13.32; Calc. Creatinine Clearance 15 mL/min (70-130); Calcium 8.4 mg/dL (7.8-10.44); Carbon Dioxide 20 mmol/L (23-31); Chloride 108 mmol/L (98-107); Estimated GFR-MDRD 9; Glucose 174 mg/dL (80-115); Phosphorus 2.6 mg/dL (2.3-4.7); Potassium 3.4 mmol/L (3.5-5.1); Sodium 142 mmol/L (136-145)
[2019-05-15] MEDS: Insulin Regular 300 UNITS/3 ML VIAL SC PRN ×4 (06:20→20:17)
[2019-05-15] MEDS: Minoxidil 2.5 MG TAB PO SCH (08:44)
[2019-05-15] MEDS: Ferrous Sulfate 325 MG TAB PO SCH ×2 (08:45→16:38)
[2019-05-15] MEDS: Furosemide 40 MG/4 ML VIAL SLOW IVP SCH ×2 (08:45→20:04)
[2019-05-15] MEDS: Carvedilol 25 MG TAB PO SCH ×2 (08:45→20:04)
[2019-05-15] MEDS: Heparin 5,000 UNITS/ML VIAL SC SCH ×2 (08:45→20:04)
[2019-05-15] MEDS: Sodium Bicarbonate Tab 325 MG TAB PO SCH ×3 (08:46→20:04)
[2019-05-15] MEDS: cloNIDine 0.1 MG TAB PO SCH ×3 (08:46→21:49)
[2019-05-15] MEDS ORDERED: Pantoprazole 40 MG GRANULES PACKET PO SCH (09:00)
--- NOTE | 2019-05-15 09:02 | PRG ---
DATE OF SERVICE: 05/15/2019 35 minutes critical time. SUBJECTIVE: The patient remains in the CCU. She is requiring no IV antihypertensives at this time. However, urine output has fallen off precipitously as her blood pressure has come down. OBJECTIVE: VITAL SIGNS: Her T-max is 100 currently, temperature 98.7, pulse 85, blood pressure 110/63, O2 saturation 98%. GENERAL: She appears to be in no distress. HEENT: Unremarkable. NECK: No adenopathy or JVD. CHEST: Clear. CARDIAC: S1 and S2. Regular. ABDOMEN: Soft. EXTREMITIES: No edema. LABORATORY DATA: White blood cell count is up to 30, hemoglobin 7.6, hematocrit 22.8, and platelet count 220. Sodium 142, potassium 3.4, chloride 108, CO2 of 20, BUN 77, creatinine 5.7, and glucose 174. ASSESSMENT: 1. Malignant hypertension. 2. Diastolic heart failure. 3. Acute on chronic kidney injury. 4. Declining urine output with declining blood pressure. 5. Bandemia with elevated white blood cell count. PLAN: 1. Since she has been in the hospital for so long, I will go ahead and draw cultures and start empiric cefepime. 2. Check a chest x-ray to rule out pneumonia. 3. Hold amlodipine. I would like her blood pressure to drift up a little bit more to see if her urine output will sisal picker. 4. Leave in the ICU for the time being because of her tenuous renal situation. Job ID: [id number]
--- NOTE | 2019-05-15 09:44 | PRG ---
DATE OF SERVICE: 05/15/2019 SERVICE: Renal Medicine. SUBJECTIVE: Ms. Soni is a 63-year-old black female, followed up by the Renal Service for her acute kidney injury/chronic renal failure. Renal function has been fluctuating. She also has labile hypertension. She has gone to flash pulmonary edema and was reintubated one time. She is currently extubated. However, renal function continues to worsen. No acute complaints today. She is feeling a little tired. OBJECTIVE: VITAL SIGNS: Blood pressure is 110/63, heart rate 85, respiratory rate 21, O2 saturation 97%. GENERAL: She is noted to be awake, sitting comfortable, not in overt distress. SKIN: Adequate turgor. HEENT: She has slightly pale conjunctivae. Anicteric sclerae. NECK: No neck mass. No carotid bruits. No JVD. CHEST: No deformities. LUNGS: Decreased breath sounds. No wheezing. No crackles. HEART: Normal sinus rhythm. No murmur. No gallops. No rubs. ABDOMEN: Globular, soft, nontender. No masses. EXTREMITIES: No edema. No deformities. MEDICATIONS: Medications of May 15, 2019, were reviewed. LABORATORY DATA: Laboratories of May 15, 2019; white count 30.7, hemoglobin 7.6. Sodium 142, potassium 3.4, chloride 108, carbon dioxide 20, BUN 77, creatinine 5.78, glucose 174, calcium 8.4, phosphorus 2.6, albumin 3.7. May 14, 2019, renal ultrasound with Doppler revealed no hydronephrosis. Increased arcuate resistive index in the right kidney. Markedly increased velocity of the aorta. ASSESSMENT AND PLAN: 1. Acute kidney injury/chronic renal failure, worsening renal dysfunction. Due to the recent episode of pulmonary edema/congestive heart failure, I will not discontinue the Lasix. I did discuss with the patient that she may need to have a dialytic intervention. She would like to think about it. She will discuss this with her daughter. 2. Hypertension, much improved. Continue current blood pressure medications. 3. Pulmonary edema/congestive heart failure, clinically much improved. Continue current diuretic regimen. 4. Anemia. Currently, on weekly Epogen. Continue current management. We will re-evaluate again in a.m. to see if the patient has agreed to proceed with dialysis. Job ID: [id number]
[2019-05-15] MEDS: Cefepime 1 GM in Sodium Chloride 0.9% 100 ML IVPB SCH (09:50)
--- NOTE | 2019-05-15 09:51 | RAD ---
EXAM: Single view of the chest HISTORY: Sepsis COMPARISON: 05/13/2019 FINDINGS: Single view of the chest shows an enlarged cardiomediastinal silhouette. There are bilater al pleural effusions, right greater than left with adjacent atelectasis. There is no evidence of consolidation, mass, or pleural effusion. The bones are unremarkable. IMPRESSION: Bilateral pleural effusions.
[2019-05-15] MEDS: Cepastat Lozenges 1 LOZ PO PRN (16:40)
[2019-05-15] MEDS: Insulin Glargine 40 UNITS in Pre-Filled Syringe 1 EACH SC SCH (20:04)
[2019-05-16 07:11] LABS: Anion Gap 16 mmol/L (10-20); BUN (Urea Nitrogen) 91 mg/dL (9.8-20.1); Calc. Creatinine Clearance 13 mL/min (70-130); Carbon Dioxide 21 mmol/L (23-31); Chloride 107 mmol/L (98-107); Estimated GFR-MDRD 7; Glucose 108 mg/dL (80-115); Potassium 3.7 mmol/L (3.5-5.1); Sodium 140 mmol/L (136-145)
--- NOTE | 2019-05-16 07:53 | PRG ---
DATE OF SERVICE: 05/16/2019 SUBJECTIVE: The patient refused to use BiPAP last night. She did fairly well. OBJECTIVE: VITAL SIGNS: On exam, temperature is 99.1, pulse 80, blood pressure 138/66, and O2 saturation 100%. I did not see any big blood pressure spikes yesterday. A 24-hour intake 900, output 261. HEENT: Unremarkable. NECK: No adenopathy or JVD. LUNGS: Clear without wheezing. CARDIAC: S1 and S2. Regular. ABDOMEN: Soft. EXTREMITIES: Edematous. LABORATORY DATA: Sodium 140, potassium 3.7, chloride 107, CO2 of 21, BUN 91, creatinine 7.1, and glucose 108. Cultures show gram-negative rods. ASSESSMENT: 1. Gram-negative sepsis. 2. Acute on chronic renal failure. 3. Hypertensive crisis. 4. Hypertensive nephropathy. PLAN: 1. The patient was started on antibiotics yesterday. She will remain on such, and her white blood cell count will be repeated tomorrow. 2. She will get up into a chair today. 3. May end up needing dialysis. Job ID: [id number]
[2019-05-16] MEDS: Ferrous Sulfate 325 MG TAB PO SCH ×2 (09:00→15:58)
[2019-05-16] MEDS: cloNIDine 0.1 MG TAB PO SCH ×2 (09:00→21:00)
[2019-05-16] MEDS: Heparin 5,000 UNITS/ML VIAL SC SCH ×2 (09:00→21:00)
[2019-05-16] MEDS: Furosemide 40 MG/4 ML VIAL SLOW IVP SCH ×2 (09:00→21:00)
[2019-05-16] MEDS: Minoxidil 2.5 MG TAB PO SCH (09:00)
[2019-05-16] MEDS: Carvedilol 25 MG TAB PO SCH ×2 (09:01→21:00)
[2019-05-16] MEDS: Sodium Bicarbonate Tab 325 MG TAB PO SCH ×3 (09:04→20:59)
[2019-05-16] MEDS: Cefepime 1 GM in Sodium Chloride 0.9% 100 ML IVPB SCH (09:05)
--- NOTE | 2019-05-16 09:19 | PRG ---
DATE OF SERVICE: 05/16/2019 SERVICE: Renal Medicine. SUBJECTIVE: Ms. Soni is a 63-year-old black female with known history of chronic renal failure from diabetic nephropathy, labile hypertension, and was initially admitted for acute respiratory failure. She was intubated. The patient's renal function continues to worsen. Her urine output has decreased. The patient is still undecided on dialysis. I do recommend to the patient to proceed with dialysis. She will call her daughter today and then she will make a final decision. I did leave a message with the nurse that the daughter can speak with me any time. Once they finalized their decision, we will proceed with dialysis today. No other complaints today. No chest pain or any worsening shortness of breath. OBJECTIVE: VITAL SIGNS: Blood pressure is 138/66, heart rate 79, respiratory rate 21, pulse ox 93%. GENERAL: The patient is awake, alert, comfortable, not in overt distress. SKIN: Adequate turgor. HEENT: She has slightly pale conjunctivae. Anicteric sclerae. NECK: No neck mass. No carotid bruits. No JVD. CHEST: No deformities. LUNGS: Decreased breath sounds. HEART: Normal sinus rhythm. No murmur. No gallops. No rubs. ABDOMEN: Globular, soft, nontender. No masses. EXTREMITIES: Positive for edema. MEDICATIONS: Medications of May 16, 2019, was reviewed. LABORATORY DATA: Laboratories of May 15, 2019; hemoglobin was 7.6. On May 16, 2019; sodium 140, potassium 3.7, chloride 107, carbon dioxide 21, BUN 91, creatinine 7.05, GFR 7 mL/minute, calcium 8. ASSESSMENT AND PLAN: 1. Acute kidney injury/chronic renal failure, worsening renal dysfunction. The patient most likely will need dialysis. Again, I had long discussion with the patient to consider dialysis. She will again talk with her children regarding dialysis. Once the patient finalized decision, we will consult surgery for placement of a temporary dialysis catheter. 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 2. Labile hypertension, much improved. Continue current BP medications-adjust BP medications as needed. 3. Overall agree with current management. Job ID: [id number]
--- NOTE | 2019-05-16 14:43 | ULT ---
BILATERAL RENAL ULTRASOUND WITH DOPPLER: HISTORY: Chronic renal failure. TECHNIQUE: Grayscale, color flow, Doppler imaging and spectral waveform analysis performed of the left or right kidney. COMPARISON: 04/19/2019. FINDINGS: Right kidney: Normal cortical echotexture. No hydronephrosis. Right kidney measurements: 4.5 x 11.3 x 5.8 cm. Left kidney: Normal cortical echotexture. No hydronephrosis. Left kidney measurements 10.6 x 4.9 x 4.6 cm. Urinary bladder: Normal mucosa. Renal Doppler: Right renal artery velocity is 90.9 cm/s. Left renal artery velocity 64.2 cm/s. Aorta velocity is 298.9 cm/s. Right renal artery to aorta ratio 0.31. Left renal artery to aorta ratio 0.22 Arcuate artery resistive indexes: Right kidney: Upper pole 0.74, midpole 0.74, lower pole 0.77. Left kidney: Upper pole 0.64, midpole 0.65, lower pole 0.69. IMPRESSION: 1. No hydronephrosis. 2. Increase arcuate artery resistive index in the right kidney. Correlate for medical renal disease. 3. Markedly increased velocity of the aorta. Possibility of aortic stenosis cannot be excluded. Furth er evaluation with CT angiogram may be beneficial. Transcribed Date/Time: 05/16/2019 2:43 PM
[2019-05-16] MEDS: Insulin Regular 300 UNITS/3 ML VIAL SC PRN ×2 (17:05→20:59)
[2019-05-16] MEDS: Insulin Glargine 40 UNITS in Pre-Filled Syringe 1 EACH SC SCH (20:58)
[2019-05-16] MEDS: Acetaminophen 325 MG TAB PO PRN (21:00)
[2019-05-17 04:14] LABS: Anion Gap 16 mmol/L (10-20); BUN (Urea Nitrogen) 99 mg/dL (9.8-20.1); Calc. Creatinine Clearance 13 mL/min (70-130); Calcium 8.4 mg/dL (7.8-10.44); Carbon Dioxide 21 mmol/L (23-31); Chloride 108 mmol/L (98-107); Estimated GFR-MDRD 7; Glucose 119 mg/dL (80-115); Potassium 3.5 mmol/L (3.5-5.1); Sodium 141 mmol/L (136-145)
[2019-05-17 04:17] LABS: Band 4 % (5-11); Eosinophils 1 % (0-10); Hemoglobin 7.3 g/dL (12.0-16.0); Lymphocytes 5 % (21-51); MDiff Complete? YES; Mean Corpuscular Hemoglobin 27.1 pg (27.0-31.0); Mean Corpuscular Volume 95.2 fL (78.0-98.0); Mean Platelet Volume 10.4 fL (7.4-10.4); Monocytes 6 % (0-10); Neutrophil 84 % (42-75); Platelet Count 190 thou/uL (130-400); Platelet Morphology Comment Appears Adequate; Red Blood Cell (RBC) Count 2.69 mill/uL (4.20-5.40); White Blood Cell (WBC) Count 26.5 thou/uL (4.8-10.8)
--- NOTE | 2019-05-17 08:53 | PRG ---
DATE OF SERVICE: 05/17/2019 SUBJECTIVE: She remains in the ICU. She is slightly confused. She has apparently said she will do dialysis, but does not sign a consent form yet, and therefore, has no catheter in place. OBJECTIVE: VITAL SIGNS: Temperature 99.2, pulse 75, blood pressure 135/67. Intake 1020, output 1265. HEENT: Unremarkable. NECK: No JVD. LUNGS: Clear anteriorly. CARDIOVASCULAR: S1 and S2. Regular. ABDOMEN: Soft. EXTREMITIES: Infected-looking lesion on the back of her left hand. LABORATORY DATA: White blood cell count 26.5, hemoglobin 7.3, hematocrit 25.6, platelet count 190. Sodium 141, potassium 3.5, chloride 108, CO2 of 21, BUN 99, creatinine 6.9, glucose 119. ASSESSMENT: 1. [id number] renal failure with slightly improved urine output compared to yesterday. 2. Gram-negative sepsis. 3. Anemia. 4. Status post hypertensive crisis. 5. Hypertensive nephropathy. PLAN: 1. Continue cefepime for Enterobacter sepsis. Follow up culture results and change antibiotics as indicated. 2. Hopefully, we will start dialysis soon. 3. Continue to follow labs. 4. Be very judicious with blood pressure control as she seems to do very poorly with low blood pressures. Job ID: [id number]
--- NOTE | 2019-05-17 09:08 | PRG ---
DATE OF SERVICE: 05/17/2019 SUBJECTIVE: Ms. Soni is a 63-year-old black female, followed up by the Renal Service for her chronic renal failure from diabetic nephropathy. This has been progressive in nature. For that reason, we have offered hemodialysis with this patient and she has finally agreed with the dialysis. Surgical consult has been done for placement of dialysis catheter. No acute events noted. Her hospitalization has also been marred by labile hypertension as well as congestive heart failure. At one time, she was intubated. No new complaints today. OBJECTIVE: VITAL SIGNS: Blood pressure 135/67, heart rate 75, respiratory rate 19, O2 saturation 95%. GENERAL: The patient is awake, lethargic, not in distress. SKIN: Adequate turgor. HEENT: She has slightly pale conjunctivae. Anicteric sclerae. NECK: No neck mass. No carotid bruits. No JVD. CHEST: No deformities. LUNGS: Decreased breath sounds. HEART: Normal sinus rhythm. No murmur. No gallops. No rubs. ABDOMEN: Globular. Soft. Nontender. No masses. EXTREMITIES: Positive for edema. No deformities. MEDICATIONS: Medications of May 17, 2019, reviewed. LABORATORY DATA: Laboratories of May 15, 2019, blood culture showed gram negative rods. Urine C and S showed gram-negative rods. White count 26.5, hemoglobin 7.3, sodium 141, potassium 3.5, chloride 108, carbon dioxide 21, BUN 99, creatinine 6.93. Calcium 8.4. ASSESSMENT AND PLAN: 1. Leukocytosis/bacteremia-patient shows enterobacter on the blood culture. 2. Acute kidney injury/chronic renal failure, progressive azotemia. We will initiate dialysis. Surgical consult will be done for placement of a temporary dialysis catheter. 3. Labile hypertension, stable. Adjust BP medications. 4. Status post congestive heart failure. Due to initiation of dialysis, we will discontinue furosemide. 5. Initiate IV antibiotics for the enterobacter bacteremia. Job ID: [id number]
[2019-05-17] MEDS ORDERED: Heparin 10,000 UNITS/ 10 ML VIAL ONE (09:56)
[2019-05-17] MEDS: Heparin 5,000 UNITS/ML VIAL SC SCH ×2 (10:00→22:57)
[2019-05-17] MEDS: cloNIDine 0.1 MG TAB PO SCH ×2 (10:00→22:57)
[2019-05-17] MEDS: Minoxidil 2.5 MG TAB PO SCH (10:01)
[2019-05-17] MEDS: Ferrous Sulfate 325 MG TAB PO SCH ×2 (10:01→17:45)
[2019-05-17] MEDS: Carvedilol 25 MG TAB PO SCH ×2 (10:01→22:57)
[2019-05-17] MEDS: Cefepime 1 GM in Sodium Chloride 0.9% 100 ML IVPB SCH (10:43)
[2019-05-17 11:16] LABS: HBSAB Concentration 1.69 mIU/mL; Hep B Core Total Ab Non-Reactive (NonReactive); Hep B Core Total Index 0.03 S/CO (0-0.79); Hep B Surf AB Non-Reactive (NonReactive); Hep B Surf Ag Non-Reactive S/CO (NonReactive)
[2019-05-17 11:30] LABS: Hep C IgG Ab Reflex HepC Qnt (NonReactive); Hep C Index 14.94 S/CO (0-0.79)
[2019-05-17] MEDS ORDERED: Propofol 1,000 MG/100 ML VIAL IV ONE (12:53)
[2019-05-17] MEDS ORDERED: Meropenem 1 GM in Sodium Chloride 0.9% 100 ML IVPB PRN (14:44)
[2019-05-17] MEDS ORDERED: Meropenem 1 GM in Sodium Chloride 0.9% 100 ML IVPB SCH (15:00)
[2019-05-17] MEDS ORDERED: MEROPENEM 1 GM/50 ML 1 GM in Premix Bag 1 BAG IVPB PRN (15:45)
[2019-05-17] MEDS ORDERED: MEROPENEM 1 GM/50 ML 1 GM in Premix Bag 1 BAG IVPB SCH (15:45)
--- NOTE | 2019-05-17 16:53 | PDOC.OP ---
Operative Note - Operative Note Operative Note: PROCEDURE: Femoral hemodialysis catheter with ultrasound guidance SURGEON: Moncho Alejandre M.D. DATE: 05/17/2019 PREOPERATIVE DIAGNOSIS: Renal failure POSTOPERATIVE DIAGNOSIS: Renal failure HISTORY: Patient with renal failure requiring immediate dialysis. Femoral dialysis catheter has been requested by the patients respiratory care practitioner for this purpose. PROCEDURE: After informed consent was obtained the patient was prepped and draped in standard sterile fashion and placed in supine position. A sterile ultrasound probe was used to identify the patent femoral vein and local anesthesia was infused the skin and subcutaneous tissues overlying this. The vein was accessed under direct ultrasound guidance and a wire threaded through the needle. The needle was removed leaving the wire in place which was confirmed by ultrasound to be within the patent compressible vein. The skin was incised and the tract was dilated. A hemodialysis catheter was placed over the wire and secured to the skin with suture. An occlusive chlorhexidine dressing was placed. All ports easily aspirated dark venous nonpulsatile blood and easily flushed without resistance. There were no immediate complications. Estimated blood loss is minimal. There were no specimens. The inpatient dialysis nurse was alerted that the patient had dialysis access in place.
--- NOTE | 2019-05-17 22:37 | CON ---
DATE OF CONSULTATION: REASON FOR CONSULT: Need for dialysis access. HISTORY OF PRESENT ILLNESS: Ms. Soni is a 63-year-old woman with acute on chronic renal failure. She presented in respiratory distress and had to be briefly intubated in the ICU. She has been extubated for several days and seems to be improving from a respiratory standpoint, but her renal failure has not shown much improvement and she is still fluid overloaded. She has underlying heart failure as well as diabetic nephropathy and it is felt that it is a combination of these factors, which has led to her current illness. She was recently diagnosed with entero bacteremia and is on empiric antibiotics for this and pending final culture results. She also has gram-negative rods in her urine, which is presumably the source. PAST MEDICAL HISTORY: Diabetes, diastolic heart failure with cardiomyopathy, hypertension, hyperlipidemia, and acute on chronic kidney failure. PAST SURGICAL HISTORY: None. SOCIAL HISTORY: The patient is a former smoker, but does not have any history of drug or alcohol abuse. ALLERGIES: SHE HAS REPORTED ALLERGY TO BACTRIM. MEDICATIONS: Include, 1. Coreg. 2. Clonidine. 3. Epogen. 4. Iron. 5. Sliding scale insulin. 6. Subcu heparin. 7. Meropenem. 8. Minoxidil. 9. Pantoprazole. 10. Multiple p.r.n. medications. The patient is unable to tell me her home medications, but according to the chart, she is on, 1. Clonidine. 2. Lasix. 3. 40 units of Levemir. 4. Protonix. 5. Sodium bicarbonate. 6. Carvedilol. 7. Iron. 8. Minoxidil. 9. Ciprofloxacin. REVIEW OF SYSTEMS: Ten system review of systems is negative except per HPI. The patient denies any current shortness of breath, although she is more comfortable sitting with her head up. No chest pains, fevers, or chills. She does not report any dramatic changes in her urine output prior to her current illness. PHYSICAL EXAMINATION: VITAL SIGNS: The patient is afebrile. She did have some low-grade fevers on the 10th and 11th up to 100 degrees Fahrenheit. Heart rate is 79, respirations 14, she is 92% saturated on room air. Her blood pressure is 180/76. GENERAL: Reveals a pleasant woman, in no acute distress. She is not flushed or toxic in appearance. She is not jaundiced or icteric. She is not able to give much history, but she is cooperative and able to follow directions. HEENT: Unremarkable. NECK: Supple without lymphadenopathy or palpable thyroid nodules, although she was not able to swallow to command. HEART: Regular in its rate and rhythm without murmurs, rubs, or gallops. LUNGS: Clear to auscultation bilaterally. ABDOMEN: Soft, nontender, and nondistended. EXTREMITIES: Warm and well perfused. She does not have much edema at the ankles. Her thighs look swollen and both of her arms are markedly edematous. She does have a small palpable blood clot and a former peripheral site on her lateral dorsal hand on the left, but no erythema. She has a left forearm IV in place. NEUROLOGIC: No focal deficits. PSYCHIATRIC: Alert and oriented to self and place. LABORATORY DATA: [place] [address], hematocrit is 25, platelets 190. BUN and creatinine are 99 and 6.9, potassium is normal at 3.5, bicarb is slightly low at 21, and blood sugars have ranged between 158 and 284 in the past 24 hours. She has a Pandya catheter in place, which has clear yellow urine. Renal ultrasound showed no hydronephrosis, but increased arcuate artery resistive index on the right kidney and markedly increased velocity of the aorta. ASSESSMENT: Acute on chronic renal failure of unclear etiology, likely a combination of diabetic nephropathy and heart failure. She requires access for dialysis and a femoral catheter was placed today as described under separate cover. The patient tolerated this well and is being sent to dialysis. Her recent renal ultrasound showed increased aortic velocity, which will require further evaluation. I did not appreciate a harsh murmur on exam, but aortic stenosis is within the differential diagnosis and could be contributing to her recent illness. I will follow peripherally and see how she tolerates dialysis. If she does not have return of renal function and permanent access is required, we will schedule this in the next week or two. Job ID: [id number]
[2019-05-17] MEDS: Acetaminophen 325 MG TAB PO PRN (22:57)
[2019-05-17] MEDS: Insulin Glargine 40 UNITS in Pre-Filled Syringe 1 EACH SC SCH (22:58)
[2019-05-18] MEDS: Acetaminophen 325 MG TAB PO PRN ×2 (02:36→18:53)
[2019-05-18 06:15] LABS: Anion Gap 13 mmol/L (10-20); BUN (Urea Nitrogen) 74 mg/dL (9.8-20.1); Calc. Creatinine Clearance 18 mL/min (70-130); Calcium 8.2 mg/dL (7.8-10.44); Carbon Dioxide 27 mmol/L (23-31); Chloride 106 mmol/L (98-107); Estimated GFR-MDRD 11; Glucose 129 mg/dL (80-115); Potassium 3.2 mmol/L (3.5-5.1); Sodium 143 mmol/L (136-145)
[2019-05-18 06:47] LABS: Band 12 % (5-11); Eosinophils 4 % (0-10); Hemoglobin 8.4 g/dL (12.0-16.0); Lymphocytes 11 % (21-51); MDiff Complete? YES; Mean Corpuscular HGB CONC 33.6 g/dL (32.0-36.0); Mean Corpuscular Hemoglobin 31.5 pg (27.0-31.0); Mean Platelet Volume 9.9 fL (7.4-10.4); Monocytes 8 % (0-10); Neutrophil 65 % (42-75); Platelet Count 205 thou/uL (130-400); RBC Distribution Width 12.7 % (11.5-14.5); Red Blood Cell (RBC) Count 2.67 mill/uL (4.20-5.40)
--- NOTE | 2019-05-18 08:47 | PRG ---
DATE OF SERVICE: 05/18/2019 SUBJECTIVE: She underwent dialysis catheter placement yesterday and had her first session of dialysis. She says she is doing okay today. OBJECTIVE: VITAL SIGNS: Temperature is 98.2, pulse 79, respirations 18, O2 saturation 96% on 1.5 L oxygen, blood pressure 170/74. HEENT: Unremarkable. NECK: No adenopathy or JVD. LUNGS: Clear anteriorly. CARDIAC: S1, S2 regular. ABDOMEN: Soft. EXTREMITIES: No edema. The patient had slightly resistant enterobacter grow out of her blood, the etiology of which is not clear. ASSESSMENT: 1. Hypertensive, emergency resolved. 2. Chronic renal failure with creatinine down to 4.9 after first session of dialysis yesterday. 3. Sepsis syndrome. PLAN: 1. The patient has been switched to meropenem per pharmacy's recommendations. She will need to have seven days of that. 2. Continue hemodialysis. 3. We will continue to follow. Job ID: [id number]
--- NOTE | 2019-05-18 09:53 | PRG ---
DATE OF SERVICE: 05/18/2019 SERVICE: Renal Medicine. SUBJECTIVE: Ms. Soni is a 63-year-old black female, seen by the Renal Service for her worsening renal dysfunction. She has underlying chronic renal failure from diabetic nephropathy. We have initiated her on dialysis yesterday. She underwent a 1-hour treatment. Her renal function has been worsening in the last several days. She was also found to be bacteremic. Currently on IV antibiotics. As per recommendation from pharmacy, IV antibiotics was changed to meropenem. She is currently tolerating hemodialysis at the present time. No other complaints. OBJECTIVE: VITAL SIGNS: Blood pressure 170/74, heart rate 71, respiratory rate 18, temperature 98.2, and pulse ox 96%. GENERAL: Noted to be awake, alert, comfortable, not in distress. SKIN: Adequate turgor. HEENT: Slightly pale conjunctivae. Anicteric sclerae. NECK: No neck mass. No carotid bruits. No JVD. CHEST: No deformities. LUNGS: Clear breath sounds. HEART: Normal sinus rhythm. No murmur. No gallops. No rubs. ABDOMEN: Globular, soft, and nontender. No masses. EXTREMITIES: No edema. No deformities. MEDICATIONS: Medications of May 18, 2019, were reviewed. LABORATORY DATA: Laboratories of May 18, 2019; white count 18, hemoglobin 8.4. Sodium 143, potassium 3.2, chloride 106, carbon dioxide 27, BUN 74, creatinine 4.97, glucose 129, and calcium 8.2. ASSESSMENT AND PLAN: 1. Chronic renal failure secondary to diabetic nephropathy - worsening renal dysfunction. For this reason, we have initiated hemodialysis. Fluid removal only as tolerated. 2. Anemia. Continue weekly Epogen and daily ferrous sulfate. 3. Enterobacter bacteremia, currently on IV antibiotics. IV antibiotics has been switched to meropenem. Agree with current management. Job ID: [id number]
--- NOTE | 2019-05-18 10:25 | ULT ---
BILATERAL UPPER EXTREMITY VENOUS DOPPLER ULTRASOUND FOR VEIN MAPPING AND DIALYSIS ACCESS: HISTORY: Renal failure. FINDINGS: RIGHT UPPER EXTREMITY: Right cephalic vein measures 3.5 mm in the proximal arm, 2.5 mm in the mid arm, 1.1 mm in the distal arm, 2.9 mm in the cubital fossa, 1.6 mm in the proximal forearm, and 1.5 mm in the mid and distal fo rearm. The right basilic vein measures 8.9 mm in the proximal arm, 6.4 mm in the mid arm, 6.5 mm in the dist al arm, 5 mm in the cubital fossa, 3.7 mm in the proximal forearm, 3.4 mm in the mid forearm, and 2.9 mm in the distal forearm. The right brachial artery measures 6.7 mm, radial artery 4.2 mm, and ulnar artery 3.7 mm. LEFT UPPER EXTREMITY: The left cephalic vein measures 3 mm in the proximal arm, 2.2 mm in the mid arm, 2.5 mm in the distal arm, 2.6 mm in the cubital fossa, 1.5 mm in the proximal forearm, and 3.5 mm in the distal forearm w ith a noncompressible thrombus in the mid forearm. The left basilic vein measures 8.2 mm in the proximal arm, 6.5 mm in the mid arm, 6.9 mm in the dista l arm, 5.5 mm in the cubital fossa, 3.4 mm in the proximal forearm, 2.7 mm in the mid forearm, and 2. 5 mm in the distal forearm. POS: [facility]
[2019-05-18] MEDS: Ferrous Sulfate 325 MG TAB PO SCH ×2 (12:09→18:49)
[2019-05-18] MEDS: Minoxidil 2.5 MG TAB PO SCH (12:09)
[2019-05-18] MEDS: cloNIDine 0.1 MG TAB PO SCH ×2 (12:10→20:54)
[2019-05-18] MEDS: Carvedilol 25 MG TAB PO SCH ×2 (12:10→20:52)
[2019-05-18] MEDS ORDERED: Heparin 10,000 UNITS/ 10 ML VIAL ONE (12:24)
[2019-05-18] MEDS: Heparin 5,000 UNITS/ML VIAL SC SCH ×2 (13:55→20:53)
[2019-05-18] MEDS: EPOETIN ALFA-EPBX (ESRD) 10,000 UNIT/ML VIAL SC SCH (15:55)
[2019-05-18] MEDS: MEROPENEM 1 GM/50 ML 1 GM in Premix Bag 1 BAG IVPB SCH (16:51)
[2019-05-18] MEDS: Insulin Glargine 40 UNITS in Pre-Filled Syringe 1 EACH SC SCH (20:52)
[2019-05-19 05:48] LABS: Anion Gap 13 mmol/L (10-20); BUN (Urea Nitrogen) 51 mg/dL (9.8-20.1); Calc. Creatinine Clearance 23 mL/min (70-130); Calcium 8.5 mg/dL (7.8-10.44); Carbon Dioxide 29 mmol/L (23-31); Chloride 106 mmol/L (98-107); Estimated GFR-MDRD 14; Glucose 115 mg/dL (80-115); Potassium 3.3 mmol/L (3.5-5.1); Sodium 145 mmol/L (136-145)
[2019-05-19 06:02] LABS: Hemoglobin 8.4 g/dL (12.0-16.0); Mean Corpuscular HGB CONC 33.3 g/dL (32.0-36.0); Mean Corpuscular Hemoglobin 31.8 pg (27.0-31.0); Mean Corpuscular Volume 95.5 fL (78.0-98.0); Mean Platelet Volume 10.8 fL (7.4-10.4); Platelet Count 192 thou/uL (130-400); Red Blood Cell (RBC) Count 2.65 mill/uL (4.20-5.40); White Blood Cell (WBC) Count 16.7 thou/uL (4.8-10.8)
[2019-05-19 06:32] LABS: Band 7 % (5-11); Eosinophils 1 % (0-10); Large Platelets SLIGHT; Lymphocytes 10 % (21-51); MDiff Complete? YES; Monocytes 9 % (0-10); Myelocyte 2 % (0-0); Neutrophil 71 % (42-75); Platelet Morphology Comment Appears Adequate
--- NOTE | 2019-05-19 10:50 | PRG ---
DATE OF SERVICE: 05/19/2019 SUBJECTIVE: Ms. Soni is a 63-year-old black female, being followed by the Renal Service for her worsening renal dysfunction. She has been initiated on hemodialysis due to progressive azotemia as well as volume overload. She is currently undergoing dialysis. I am doing a 3-hour hemodialysis with her today with fluid removal. She is tolerating said treatment. She was also noted to be having Enterobacter bacteremia, currently on IV antibiotics. She denies any chest pain or shortness of breath. OBJECTIVE: VITAL SIGNS: Blood pressure 184/81, heart rate 76, respiratory rate 19, temperature 98.7, and pulse ox 98%. GENERAL: Awake, supine, comfortable, not in distress. SKIN: Adequate turgor. HEENT: Slightly pale conjunctivae. Anicteric sclerae. NECK: No neck mass. No carotid bruits. No JVD. CHEST: No deformities. LUNGS: Clear breath sounds. HEART: Normal sinus rhythm. No murmurs, gallops, or rubs. ABDOMEN: Globular. Soft. Nontender. No masses. EXTREMITIES: Positive for edema. No deformities. MEDICATIONS: Medications of May 19, 2019, reviewed. LABORATORY DATA: Laboratories of May 19, 2019; white count 16.7, hemoglobin 8.4, sodium 145, potassium 3.3, chloride 106, carbon dioxide 29, BUN 51, creatinine 3.85, glucose 115, calcium 8.5. ASSESSMENT AND PLAN: 1. Chronic renal failure/end-stage renal disease, continuing hemodialysis regimen. Tolerating said treatment. Fluid removal is also being tolerated. Next dialysis will be a Tuesday, Tuesday, and Tuesday schedule. No changes to be made with the current dialysis plans. 2. Anemia. Continue weekly Epogen and iron supplementation. 3. Hypertension. Adjust BP medications as needed. 4. Bacteremia. Currently on IV meropenem. Job ID: [id number]
[2019-05-19] MEDS: Ferrous Sulfate 325 MG TAB PO SCH ×2 (11:46→18:00)
[2019-05-19] MEDS: Carvedilol 25 MG TAB PO SCH ×2 (11:47→21:06)
[2019-05-19] MEDS: Minoxidil 2.5 MG TAB PO SCH (11:47)
[2019-05-19] MEDS: Heparin 5,000 UNITS/ML VIAL SC SCH ×2 (11:47→21:06)
--- NOTE | 2019-05-19 12:02 | EKG ---
Test Reason : Blood Pressure : / mmHG Vent. Rate : 095 BPM Atrial Rate : 095 BPM P-R Int : 122 ms QRS Dur : 086 ms QT Int : 400 ms P-R-T Axes : 072 036 063 degrees QTc Int : 502 ms Normal sinus rhythm Septal infarct , age undetermined Abnormal ECG Confirmed by GEORGE MOORE ([id number]), photolettering machine operator NATHAN OLVERA ([id number]) on 05/19/2019 12:02:05 PM Referred By: Confirmed By:GEORGE MOORE
[2019-05-19] MEDS ORDERED: Heparin 10,000 UNITS/ 10 ML VIAL ONE (12:27)
[2019-05-19 13:10] LABS: HCV log10 6.732 (.); Hep C PCR-Quant 5390000 IU/mL (.)
[2019-05-19] MEDS: cloNIDine 0.1 MG TAB PO SCH ×2 (13:20→21:20)
[2019-05-19] MEDS: MEROPENEM 1 GM/50 ML 1 GM in Premix Bag 1 BAG IVPB SCH (15:25)
[2019-05-19] MEDS: Acetaminophen 325 MG TAB PO PRN (15:37)
--- NOTE | 2019-05-19 16:55 | PRG ---
DATE OF SERVICE: 05/19/2019 SUBJECTIVE: Ms. Soni did well overnight. She got up out of bed today, walked to the door and back. She is still quite weak. OBJECTIVE: VITAL SIGNS: She is afebrile. Heart rate is 91, respiratory rate 16, oximetry is 97% on room air. LUNGS: Clear. HEART: Regular rhythm. ABDOMEN: Soft. EXTREMITIES: Without edema. IMPRESSION: 1. Hypertensive emergency. 2. Chronic kidney disease, getting dialyzed. 3. Clinical sepsis with Enterobacter growing from two blood cultures and then E coli growing from the urine culture. The source of the enterobacter is unclear. Continue with supportive care. Job ID: [id number]
[2019-05-19] MEDS: Insulin Glargine 40 UNITS in Pre-Filled Syringe 1 EACH SC SCH (21:07)
[2019-05-20] MEDS: Acetaminophen 325 MG TAB PO PRN ×2 (04:02→21:34)
[2019-05-20 04:58] LABS: Anion Gap 12 mmol/L (10-20); BUN (Urea Nitrogen) 30 mg/dL (9.8-20.1); Calc. Creatinine Clearance 25 mL/min (70-130); Calcium 8.9 mg/dL (7.8-10.44); Carbon Dioxide 29 mmol/L (23-31); Chloride 104 mmol/L (98-107); Estimated GFR-MDRD 16; Glucose 75 mg/dL (80-115); Potassium 3.2 mmol/L (3.5-5.1); Sodium 142 mmol/L (136-145)
[2019-05-20 05:20] LABS: Mean Corpuscular Volume 95.7 fL (78.0-98.0)
[2019-05-20 06:06] LABS: Hemoglobin 8.7 g/dL (12.0-16.0); Mean Corpuscular HGB CONC 32.9 g/dL (32.0-36.0); Mean Corpuscular Hemoglobin 31.5 pg (27.0-31.0); Mean Platelet Volume 10.8 fL (7.4-10.4); Platelet Count 202 thou/uL (130-400); RBC Distribution Width 13.4 % (11.5-14.5); Red Blood Cell (RBC) Count 2.75 mill/uL (4.20-5.40); White Blood Cell (WBC) Count 19.4 thou/uL (4.8-10.8)
[2019-05-20 06:46] LABS: Band 9 % (5-11); Eosinophils 3 % (0-10); Lymphocytes 19 % (21-51); MDiff Complete? YES; Monocytes 7 % (0-10); Neutrophil 59 % (42-75); Reactive Lymphocytes 3 % (0-10)
[2019-05-20] MEDS: Minoxidil 2.5 MG TAB PO SCH (08:47)
[2019-05-20] MEDS: cloNIDine 0.1 MG TAB PO SCH ×2 (08:48→21:34)
[2019-05-20] MEDS: Heparin 5,000 UNITS/ML VIAL SC SCH ×2 (08:49→21:34)
[2019-05-20] MEDS: Ferrous Sulfate 325 MG TAB PO SCH ×2 (08:49→17:26)
[2019-05-20] MEDS: Carvedilol 25 MG TAB PO SCH ×2 (08:49→21:34)
[2019-05-20] MEDS ORDERED: Potassium Chloride 20 MEQ TAB PO SCH (10:15)
--- NOTE | 2019-05-20 10:40 | PRG ---
DATE OF SERVICE: 05/20/2019 SUBJECTIVE: Ms. Soni is a 63-year-old black female, being followed by the Renal Service for her acute kidney injury on top of her chronic renal failure. She has undergone hemodialysis due to volume overload. She is also noted to be bacteremic, currently on IV antibiotics. This morning, she is feeling better. Denies any chest pain or shortness of breath. No dialysis has been scheduled for today. We will resume dialysis next week on three times a week schedule. OBJECTIVE: VITAL SIGNS: Blood pressure is 161/74, heart rate 82, respiratory rate 12, O2 saturation 92% on room air. GENERAL: Awake, alert, comfortable, not in distress. SKIN: Adequate turgor. HEENT: Slightly pale conjunctivae. Anicteric sclerae. NECK: No neck mass. No carotid bruits. No JVD. CHEST: No deformities. LUNGS: Decreased breath sounds. HEART: Normal sinus rhythm. No murmur. No gallops or rubs. ABDOMEN: Globular. Soft. Nontender. No masses. EXTREMITIES: Positive for edema. MEDICATIONS: Medications of May 20, 2019, were reviewed. LABORATORIES: May 20, 2019; white count 19.4, hemoglobin 8.7, sodium 142, potassium 3.2, chloride 104, carbon dioxide 29, BUN 30, creatinine 3.42, glucose 75, calcium 8.9. ASSESSMENT AND PLAN: 1. Acute kidney injury on top of chronic renal failure-the patient most likely has superimposed acute tubular necrosis on top of her chronic renal failure. Please note, she has underlying diabetic nephropathy. We are continuing 3 times a week hemodialysis with this patient. Continue current management. Fluid removal as tolerated by the patient. 2. Labile hypertension, stable. Continue current BP medications. 3. Hypokalemia-KCl 40 mEq one tab now. 4. Enterobacter bacteremia, on IV antibiotics. Continue supportive care. 5. Recheck CBC and basic metabolic panel in a.m. Job ID: [id number]
[2019-05-20] MEDS ORDERED: Tuberculin PPD 0.1 ML VIAL I-DERMAL SCH (13:15)
[2019-05-20] MEDS ORDERED: Iopamidol 370 76% 100 ML VIAL ONE (13:41)
[2019-05-20] MEDS: MEROPENEM 1 GM/50 ML 1 GM in Premix Bag 1 BAG IVPB SCH (15:52)
--- NOTE | 2019-05-20 15:53 | PRG ---
DATE OF SERVICE: 05/20/2019 SUBJECTIVE: Ms. Soni has only complaints about her left hand. She appears to have a thrombosed vein in the dorsum of her left hand from a past IV site. OBJECTIVE: VITAL SIGNS: Blood pressure 161/74, heart rate 88. She is afebrile. Oximetry is 95% on room air. LUNGS: Clear. HEART: Regular rhythm. ABDOMEN: Soft. LABORATORY DATA: White count 19.4, hemoglobin 8.7, platelets 202. Sodium 142, potassium 3.2, chloride 104, bicarb 29, BUN 30, and creatinine 3.42. IMPRESSION: 1. Status post hypertensive emergency. 2. Thrombosed superficial vein in her left hand. 3. Chronic kidney disease, now on dialysis. 4. Enterobacter bacteremia. 5. Escherichia coli cystitis. PLAN: Continue supportive care and physical therapy. Job ID: [id number]
[2019-05-20] MEDS: Ondansetron PF 4 MG/2 ML Vial SLOW IVP PRN (17:26)
[2019-05-20] MEDS: Insulin Glargine 40 UNITS in Pre-Filled Syringe 1 EACH SC SCH (21:38)
--- NOTE | 2019-05-20 22:05 | CON ---
DATE OF CONSULTATION: REASON FOR CONSULTATION: Bacteremia. 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 She had a catheter placed in the groin on May 17. Before that, a few days before, she developed inflammatory process with neutrophilia, bandemia, and transient temperature elevation with 2 sets of blood cultures positive for Enterobacter cloacae. At the same time, a urine culture was positive for E coli and this was a pure culture of E coli in the urine. The patient did not have a urinalysis during this culture sample draw. She was treated with meropenem and was transferred to the floor, had a Trialysis catheter placed two days after the blood cultures were drawn and has been dialyzed with progressive improvement. She continues complaining of pain in the right upper quadrant with tenderness on palpation. No headaches, visual symptoms, sore throat, odynophagia, or dysphagia. No cough, sputum production, or chest pain. No back pain or maybe moderate back pain mostly in the lower back, which seems to be a chronic ongoing problem. She still has significant urine output in the Pandya catheter. Pandya catheter was removed 2 days ago and now she is voiding without difficulty. Has a peripheral IV access. Never had another central line placed since admission. 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 The patient had a previous cardiac catheterization in August 2015, which showed ejection fraction 20% to 25%. No critical coronary artery obstruction. Her last echocardiogram from April with an EF 55% to 60% with left ventricular hypertrophy and no significant valvular abnormalities. SOCIAL HISTORY: She lives in [place] with family and a former smoker until just a few years ago quit smoking. No alcoholic beverage use or drug use. She is disabled, has not worked in many years. ALLERGIES: BACTRIM WITH SKIN ERUPTION. LEVOFLOXACIN WITH HIVES. FAMILY HISTORY: Type 2 diabetes and heart disease. CURRENT MEDICATIONS: 1. P.r.n. medications. 2. Inhalers. 3. Coreg. 4. Catapres. 5. Epoetin,. 6. Ferrous sulfate. 7. Insulin. 8. Meropenem adjusted for renal function. 9. Minoxidil. 10. Pantoprazole. PHYSICAL EXAMINATION: VITAL SIGNS: T-max 100 on May 15. She has been afebrile since. BP 160/74, pulse 88, respirations 19, O2 saturation 95%. SKIN: No areas of skin breakdown. The patient has a right-sided groin Trialysis catheter and no lymphadenopathy. HEENT: Ocular movements conjugate. Oral cavity with still quite a few teeth in place with some decay and gum disease. No oral mucosal lesion noted. NECK: Supple. No jugular vein distention . LUNGS: With symmetric air entry. No obvious crackles or wheezing. ABDOMEN: There is tenderness in the right upper quadrant at least moderate. No rebound tenderness. Bowel sounds are present. No distention. No ascites. No bladder distention. EXTREMITIES: No joint inflammatory activity. 1+ edema in lower extremities. Pulses are 1+ in the dorsalis pedis. Plantar responses are flexor. Moves extremities equally. No clonus. NEUROLOGICAL: She is awake, oriented, follows commands. Speech appears to be normal. LABORATORY DATA: White cell count 17,000 up to 30,000 on the and now steadily decreasing down to 16,000 and now is little bit up to 19,000 on May 20, 59% neutrophils. The patient had 19% bands on the , which has reduced now to normal. Sodium 144, creatinine 3.88, and lowest creatinine was from 2018 when it was 1, has been above 3 since. An AST was 44, which is higher than her baseline. ALT 25, alkaline phosphatase 151, albumin 2.8. Hepatitis C serology was positive with 5,290,000 viral copies per mL. IMAGING STUDIES: Include an abdomen and pelvis ultrasound with no hydronephrosis. No other findings of significance. The patient had abdomen and pelvis CT from August 2018. This was a no contrast study with multifocal bronchopneumonia. No active inflammatory process in the abdomen. There is a chest x-ray from May 15 with bilateral pleural effusions. ASSESSMENT: 1. Type 2 diabetes. 2. Cardiomyopathy. 3. Chronic kidney disease, stage 4 to 5. 4. Volume overload with pulmonary edema, which required intubation and eventually initiation of hemodialysis through a Trialysis catheter. 5. Enterobacter bacteremia of unclear primary source associated with the right upper quadrant abdominal pain and abnormal liver function tests. 6. Chronic hepatitis C. DISCUSSION: The Enterobacter bacteremia is of unclear primary source. The urinary tract sample had a different organism isolated. She does have persistent pain in the right upper quadrant, so we will evaluate that area further with a contrast abdomen CT study. The other possibility of that might explain the bacteremia as if she has a liver cirrhosis from the chronic hepatitis C and then might have had translocation finally and a pneumonic process is another consideration. She does have back pain, which seems to be chronic and we may have to image her back if we do not find any other source in the back pain persists. It does not appear that the vascular access was the source of the bacteremia since she did not have any central line inserted until 2 days later. In terms of antimicrobial therapy, the duration will depend on the nature of the process that led to the bacteremia. If we cannot identify any process, then I would consider discontinuing antimicrobials upon discharge. Job ID: [id number]
[2019-05-21 04:57] LABS: Anion Gap 12 mmol/L (10-20); BUN (Urea Nitrogen) 35 mg/dL (9.8-20.1); Calc. Creatinine Clearance 22 mL/min (70-130); Calcium 8.7 mg/dL (7.8-10.44); Carbon Dioxide 28 mmol/L (23-31); Chloride 106 mmol/L (98-107); Estimated GFR-MDRD 14; Glucose 92 mg/dL (80-115); Potassium 3.6 mmol/L (3.5-5.1); Sodium 142 mmol/L (136-145)
[2019-05-21 05:36] LABS: Hemoglobin 8.3 g/dL (12.0-16.0); Mean Corpuscular HGB CONC 32.4 g/dL (32.0-36.0); Mean Corpuscular Hemoglobin 31.2 pg (27.0-31.0); Mean Corpuscular Volume 96.1 fL (78.0-98.0); Mean Platelet Volume 10.6 fL (7.4-10.4); Platelet Count 219 thou/uL (130-400); RBC Distribution Width 13.2 % (11.5-14.5); Red Blood Cell (RBC) Count 2.65 mill/uL (4.20-5.40); White Blood Cell (WBC) Count 14.9 thou/uL (4.8-10.8)
[2019-05-21 05:44] LABS: Band 5 % (5-11); Eosinophils 1 % (0-10); Lymphocytes 26 % (21-51); MDiff Complete? YES; Metamyelocyte 1 % (0-0); Monocytes 9 % (0-10); Myelocyte 1 % (0-0); Neutrophil 56 % (42-75); Reactive Lymphocytes 1 % (0-10)
[2019-05-21] MEDS ORDERED: Heparin 10,000 UNITS/ 10 ML VIAL ONE (08:54)
--- NOTE | 2019-05-21 09:14 | PRG ---
DATE OF SERVICE: 05/21/2019 SUBJECTIVE: Ms. Soni is a 63-year-old black female, followed up for her acute kidney injury/chronic renal failure. She was admitted for sepsis. She was also noted to have a UTI and was bacteremic. She is on empiric IV antibiotics. ID consult has been done with Dr. Stiles. This morning, she is complaining of some abdominal pain. For that reason, a CAT scan of the abdomen has been ordered. No complaints of chest pain or shortness of breath. OBJECTIVE: VITAL SIGNS: Blood pressure is 165/72, heart rate 80, respiratory rate 18, temperature 98.1, and pulse ox 94%. GENERAL: Noted to be awake, alert, comfortable, not in overt distress. SKIN: Adequate turgor. HEENT: She has a slightly pale conjunctivae. Anicteric sclerae. NECK: No neck mass. No carotid bruits. No JVD. CHEST: No deformities. LUNGS: Clear breath sounds. HEART: Normal sinus rhythm. No murmur. No gallops. No rubs. ABDOMEN: Globular, soft, and nontender. No masses. EXTREMITIES: No edema. No deformities. MEDICATIONS: Medications of May 21, 2019, reviewed. LABORATORY DATA: Laboratories of May 21, 2019, white count 14.9 and hemoglobin 8.3. Sodium 142, potassium 3.6, chloride 106, carbon dioxide 28, BUN 35, creatinine 3.93, and calcium 8.7. ASSESSMENT AND PLAN: 1. Urinary tract infection/bacteremia - on IV antibiotics. Infectious Disease following for imaging of the abdomen and pelvis. 2. Right upper quadrant pain - CAT scan of the abdomen has been ordered. 3. Chronic renal failure/end-stage renal disease/acute kidney injury - currently on maintenance hemodialysis. We will continue 3 times a week hemodialysis with fluid removal as tolerated. 4. Anemia. Continuing weekly Epogen and iron supplementation with the patient. 5. Labile hypertension, stable. Continue current BP medications. Job ID: [id number]
--- NOTE | 2019-05-21 10:44 | CT ---
EXAM: CT ABDOMEN AND PELVIS HISTORY: Abdominal pain. Bacteremia. COMPARISON: 08/09/2018 Procedure: Multiple contiguous axial images were obtained and a CT of the abdomen and pelvis with IV contrast. C oronal reformats were performed. FINDINGS: Lower Chest: Redemonstration of bilateral pleural effusions. Adjacent consolidation may represent ate lectasis, pneumonia or aspiration. Vessels: Normal caliber aorta. No periaortic fat stranding Heart: Enlarged heart. There is moderate pericardial fluid. Abdomen: Portal vein:Patent Gallbladder: No calcified gallstones. Normal caliber wall. Liver: within normal limits. Pancreas: within normal limits. Spleen: within normal limits. Adrenals: within normal limits. Kidneys: Symmetric enhancement. No obstructive uropathy. Peritoneum: No ascites or free air, no fluid collection. Bowel: No evidence of bowel obstruction. Ileocecal junction is unremarkable. Normal caliber appendix. Scattered fecal material in a nondistended, nondilated colon. Mesentery and Retroperitoneum: No enlarged mesenteric or retroperitoneal lymph nodes. Abdominal Wall: within normal limits. Pelvis: Reproductive Organs: Reproductive organs are unremarkable. Pelvis: No mass, lymphadenopathy, free air or free fluid. Bladder: There is air in the nondependent portion of the urinary bladder. Correlate for recent Pandya catheterization. Vascular catheter: There is a right femoral vein catheter which terminates in the infrarenal inferior vena cava. Bones: within normal limits. IMPRESSION: 1. Bilateral pleural effusion with bibasilar consolidation which may represent atelectasis, pneumonia or aspiration. 2. Cardiomegaly with moderate pericardial fluid. 3. No acute abnormality with regards to the solid organs or alimentary canal. 4. Air in the nondependent portion of the urinary bladder. Correlate for recent Pandya catheterization
--- NOTE | 2019-05-21 11:23 | PRG ---
DATE OF SERVICE: 05/21/2019 SUBJECTIVE: She was seen in dialysis. She says she is feeling better and her blood pressure has been under better control. OBJECTIVE: VITAL SIGNS: Temperature 98.1, pulse 80, respirations 18, O2 saturation 94% on room air, blood pressure 160/72. HEENT: Unremarkable. NECK: No adenopathy or JVD. CHEST: Clear anteriorly. CARDIAC: S1, S2 regular. ABDOMEN: Soft. EXTREMITIES: No edema. LABORATORY DATA: White blood cell count 14.9, hematocrit 25.5, and platelet count 219. Sodium 142, potassium 3.6, chloride 106, CO2 of 28, BUN 35, creatinine 3.9, glucose 92. ASSESSMENT: 1. Malignant hypertension. 2. Status post multiple episodes of respiratory failure, requiring mechanical ventilation related to flash pulmonary edema. 3. Chronic renal failure. 4. Enterobacter sepsis. PLAN: She seems to be improving on current treatment. I would advise at least seven full days of antibiotics or whatever Dr. Stiles' recommends. There is no further pulmonary critical care recommendation. I will go ahead and sign off. Please recall if further assistance is needed. Job ID: [id number]
[2019-05-21] MEDS: Heparin 5,000 UNITS/ML VIAL SC SCH ×2 (15:50→20:36)
[2019-05-21] MEDS: Carvedilol 25 MG TAB PO SCH ×2 (15:50→20:35)
[2019-05-21] MEDS: Ferrous Sulfate 325 MG TAB PO SCH ×2 (15:50→15:56)
[2019-05-21] MEDS: cloNIDine 0.1 MG TAB PO SCH ×2 (15:51→20:35)
[2019-05-21] MEDS: MEROPENEM 1 GM/50 ML 1 GM in Premix Bag 1 BAG IVPB SCH (15:55)
[2019-05-21] MEDS: Minoxidil 2.5 MG TAB PO SCH (15:56)
--- NOTE | 2019-05-21 18:29 | PRG ---
DATE OF SERVICE: 05/21/2019 SUBJECTIVE: Still pain in the right flank area. No respiratory symptoms. Voiding without difficulty. No vomiting. No diarrhea. OBJECTIVE: VITAL SIGNS: T-max 98.6, BP 130/60, pulse 89, respirations 16, O2 saturation 96. GENERAL: Ms. Soni does not appear in distress. She does have tenderness on palpation of the right flank region. LUNGS: Clear. HEART: S1 and S2, regular rate. ABDOMEN: With tenderness in the right flank, otherwise not distended. Bowel sounds are present. : No bladder distention. She is voiding in the bedside commode. LABORATORY DATA: White cell count is at 14.9, hemoglobin 8.3, platelets 209, with 56% neutrophils, 5% bands, this is an improvement compared with prior values. The creatinine is stable at 3.93. Microbiology with Enterobacter cloacae complex. Abdomen and pelvis CT performed this morning, with bilateral pleural effusion, bibasilar consolidation, and cardiomegaly with moderate pericardial fluid. No acute abnormality regarding the solid organs of alimentary canal. Air in the nondependent portion of urinary bladder, probably from prior Pandya catheterization. ASSESSMENT AND DISCUSSION: Type 2 diabetes; cardiomyopathy; chronic kidney disease, stage 4 to 5; volume overload with pulmonary edema with intubation and then initiation of hemodialysis through a Trialysis catheter; Enterobacter bacteremia; chronic hepatitis C; pericardial effusion, moderate; and right flank pain. The possibility of pyelonephritis with organism that did not grow out of the bladder due to overgrowth from Escherichia coli is a possibility. The pericardial effusion is probably related to the volume overload associated with her chronic kidney disease and should improve going forward. She probably needs an echocardiogram followup to verify that process of resolution. It is possible that pyelonephritis then is the culprit here. The difference in the microbiology may reflect the different anatomic location of the isolates. She may have had the Enterobacter in the bladder, but the Escherichia coli may have overgrown it. In that regard, I would probably have to recommend extending the treatment course until there is resolution of the inflammatory process, return to normal of the white cell count and improvement of the pain in the right flank region. She has received meropenem since May 17, so she has another 5 days approximately to complete therapy Job ID: [id number]
[2019-05-21] MEDS: Acetaminophen 325 MG TAB PO PRN (20:35)
[2019-05-21] MEDS: Insulin Glargine 40 UNITS in Pre-Filled Syringe 1 EACH SC SCH (20:36)
[2019-05-22] MEDS: Minoxidil 2.5 MG TAB PO SCH (08:59)
[2019-05-22] MEDS: cloNIDine 0.1 MG TAB PO SCH ×2 (08:59→21:35)
[2019-05-22] MEDS: Carvedilol 25 MG TAB PO SCH ×2 (08:59→21:36)
[2019-05-22] MEDS: Ferrous Sulfate 325 MG TAB PO SCH ×2 (08:59→18:02)
--- NOTE | 2019-05-22 09:03 | PRG ---
DATE OF SERVICE: 05/22/2019 SERVICE: Renal Medicine. SUBJECTIVE: Ms. Soni is a 63-year-old black female, who was seen by Renal Service for her acute kidney injury on top of her chronic renal failure. Due to volume overload, she was initiated on dialysis. In addition, she was also noted to have been bacteremic, currently on IV antibiotics. She is tolerating said dialysis. This morning, she voices no new complaints. OBJECTIVE: VITAL SIGNS: Blood pressure is noted at 151/70, heart rate 88, respiratory rate 18, temperature 98.3, pulse ox 94%-room air. GENERAL: Noted to be awake, comfortable, sitting, not in distress. SKIN: Adequate turgor. HEENT: She has a slightly pale conjunctivae. Anicteric sclerae. NECK: No neck mass. No carotid bruits. No JVD. CHEST: No deformities. LUNGS: Clear breath sounds. No wheezing. No crackles. HEART: Normal sinus rhythm. No murmurs, no gallops, no rubs. ABDOMEN: Globular, soft, nontender. No masses. EXTREMITIES: Trace edema. MEDICATIONS: Medications of May 22, 2019, was reviewed. LABORATORY DATA: Laboratories of May 21, 2019, white count 14.9, hemoglobin 8.3. On May 22, 2019, glucose 144. On May 21, 2019, chemistries reviewed. ASSESSMENT AND PLAN: 1. Chronic renal failure/end-stage renal disease, continuing 3 times a week hemodialysis. Fluid removal only as tolerated. 2. Anemia, continuing weekly Epogen. 3. Bacteremia, on IV antibiotics. 4. Labile hypertension, much improved. Continue current BP medications. Our plan is to consult Surgery for placement of a tunneled dialysis catheter as well as AV fistula. I feel that this patient may have reached ESRD. Job ID: [id number]
[2019-05-22] MEDS: Heparin 5,000 UNITS/ML VIAL SC SCH ×2 (10:58→21:34)
[2019-05-22] MEDS: READ PPD TEST SITE PO SCH (12:14)
[2019-05-22] MEDS: MEROPENEM 1 GM/50 ML 1 GM in Premix Bag 1 BAG IVPB SCH (15:33)
[2019-05-22] MEDS ORDERED: CEFAZOLIN 2 GM in Premix Bag 1 BAG IVPB SCH (19:00)
[2019-05-22] MEDS: Insulin Glargine 40 UNITS in Pre-Filled Syringe 1 EACH SC SCH (21:35)
[2019-05-22] MEDS: Acetaminophen 325 MG TAB PO PRN (21:46)
[2019-05-23] MEDS: Carvedilol 25 MG TAB PO SCH ×2 (05:12→20:44)
[2019-05-23 05:24] LABS: #Basophils 0.1 thou/uL (0.0-0.2); #Eosinphils 0.3 thou/uL (0.0-0.7); #Lymphocytes 2.2 thou/uL (1.20-3.40); #Monocytes 1.2 thou/uL (0.11-0.59); #Neutrophils 7.2 thou/uL (1.40-6.50); %Basophils 0.5 % (0.0-1.0); %Eosinophils 2.8 % (0.0-10.0); %Lymphocytes 19.9 % (21.0-51.0); %Monocytes 11.1 % (0.0-10.0); %Neutrophils 65.7 % (42.0-75.0); Hemoglobin 8.4 g/dL (12.0-16.0); Mean Corpuscular Hemoglobin 30.8 pg (27.0-31.0); Mean Corpuscular Volume 96.1 fL (78.0-98.0); Mean Platelet Volume 9.4 fL (7.4-10.4); Platelet Count 270 thou/uL (130-400); Red Blood Cell (RBC) Count 2.74 mill/uL (4.20-5.40)
[2019-05-23 05:41] LABS: Anion Gap 13 mmol/L (10-20); BUN (Urea Nitrogen) 33 mg/dL (9.8-20.1); Calc. Creatinine Clearance 15 mL/min (70-130); Calcium 8.8 mg/dL (7.8-10.44); Carbon Dioxide 29 mmol/L (23-31); Chloride 104 mmol/L (98-107); Estimated GFR-MDRD 10; Glucose 71 mg/dL (80-115); Potassium 3.8 mmol/L (3.5-5.1); Sodium 142 mmol/L (136-145)
--- NOTE | 2019-05-23 08:30 | PRG ---
DATE OF SERVICE: 05/23/2019 SERVICE: Renal Medicine. SUBJECTIVE: Ms. Soni is a 63-year-old black female, seen by the Renal Service for her chronic renal failure - currently on hemodialysis. She was also seen for labile hypertension and blood pressure is much improved. Subsequent workup showed she also had bacteremia. Currently, on IV meropenem. Surgery has been consulted for placement of tunneled dialysis catheter. During the initial workup for hepatitis, she was found to be positive for hepatitis C. No other complaints today. No chest pain or shortness of breath. OBJECTIVE: VITAL SIGNS: Blood pressure 132/60, heart rate 80, respiratory rate 17, temperature 98.5, and pulse ox 95%. GENERAL: Noted to be awake, alert, comfortable, not in overt distress. SKIN: Adequate turgor. HEENT: She has slightly pale conjunctivae. Anicteric sclerae. NECK: No neck mass. No carotid bruits. No JVD. CHEST: No deformities. LUNGS: Clear breath sounds. No wheezing. No crackles. HEART: Normal sinus rhythm. No murmur. No gallops. No rubs. ABDOMEN: Globular, soft, and nontender. No masses. EXTREMITIES: No edema. No deformities. MEDICATIONS: Medications of May 23, 2019, were reviewed. LABORATORY DATA: Laboratories of May 23, 2019; sodium 142, potassium 3.8, chloride 104, carbon dioxide 29, BUN 33, creatinine 5.23, glucose 71, and calcium 8.8. White count 11, hemoglobin 8.4. Hepatitis C antibody positive. Hepatitis C RNA shows 5,390,000. ASSESSMENT AND PLAN: 1. Chronic renal failure/end-stage renal disease, continuing 3 times a week hemodialysis. Fluid removal as tolerated. Surgical consult has been done with Dr. Alejandre for placement of a tunneled dialysis catheter. 2. Bacteremia - Enterobacter - on IV meropenem - for now, she will receive this for another 4 to 5 days. 3. Chronic hepatitis C - GI consultation has been done. 4. Anemia. Continue weekly Epogen. P.r.n. blood transfusion. 5. Labile hypertension, much improved. Continue current BP medications. Job ID: [id number]
[2019-05-23] MEDS: Ferrous Sulfate 325 MG TAB PO SCH ×2 (09:15→17:44)
[2019-05-23] MEDS: Minoxidil 2.5 MG TAB PO SCH (09:15)
[2019-05-23] MEDS: cloNIDine 0.1 MG TAB PO SCH ×2 (09:16→20:44)
[2019-05-23] MEDS: Heparin 5,000 UNITS/ML VIAL SC SCH ×2 (10:37→20:44)
--- NOTE | 2019-05-23 10:42 | PDOC.GSPN ---
Surgery Progress Note: Subj - Subjective Narrative: Patient feels okay this morning. She had a few questions about tunneled dialysis catheter placement. I talked with her yesterday about this and the AV fistula. We were going to try to get her on for both of these procedures before she leaves the hospital but unfortunately there is no OR time this week to do the fistula so we will just do the tunneled catheter and bring her back as an outpatient for the fistula. She has a blood clot in her left cephalic vein so we will probably plan for an AV fistula on the right even though she is right- handed. She will need to have a peripheral IV placed for completion of her IV antibiotics. She'll probably only need a few more days so Dr. Ernst does not want a central line or Gallegos for this. We will plan to place the peripheral IV in her left forearm since she has a clot in that location making the vein likely unusable for dialysis in the future. Today I reiterated the operative plan for tunneled dialysis catheter including the risks, including but not limited to bleeding, infection, risks of anesthesia, hemothorax, pneumothorax, DVT, and need for other procedures. She expressed understanding and wants to proceed. All of her questions were answered. Surgery Progress Note: Obj - Vital signs Vital signs: Vital Signs - Most Recent Temp Pulse Resp BP Pulse Ox 98.5 F 80 17 152/72 H 95 05/23/19 07:38 05/23/19 07:38 05/23/19 07:38 05/23/19 09:16 05/23/19 07:38 Surgery Progress Note: Results - Labs Result Diagrams: 05/23/19 05:05 05/23/19 05:05 Lab results: Laboratory Results - last 24 hr 05/23/19 05/23/19 05/23/19 05:05 05:05 06:09 WBC 11.0 H RBC 2.74 L Hgb 8.4 L Hct 26.4 L MCV 96.1 MCH 30.8 MCHC 32.0 RDW 13.0 Plt Count 270 MPV 9.4 Neutrophils % 65.7 Lymphocytes % 19.9 L Monocytes % 11.1 H Eosinophils % 2.8 Basophils % 0.5 Neutrophils # 7.2 H Lymphocytes # 2.2 Monocytes # 1.2 H Eosinophils # 0.3 Basophils # 0.1 Sodium 142 Potassium 3.8 Chloride 104 Carbon Dioxide 29 Anion Gap 13 BUN 33 H Creatinine 5.23 H Estimated GFR (MDRD) 10 Glucose 71 L POC Glucose 77 Calcium 8.8
[2019-05-23] MEDS ORDERED: PROPOFOL 200 MG/20 ML VIAL ONE (11:04)
[2019-05-23] MEDS ORDERED: Bupivacaine 0.25% HCL 30 ML VIAL ONE (12:52)
[2019-05-23] MEDS ORDERED: Sodium Chloride 0.9% 30 ML ONE (12:52)
[2019-05-23] MEDS ORDERED: Heparin 10,000 UNITS/1 ML VIAL ONE (12:52)
[2019-05-23] MEDS ORDERED: Lidocaine 1% w/Epinephrine 1:100K 20 ML VIAL ONE (12:52)
[2019-05-23] MEDS ORDERED: Fentanyl 100 MCG/2 ML VIAL ONE (12:54)
[2019-05-23] MEDS ORDERED: Propofol 500 MG/50 ML VIAL ONE (12:54)
[2019-05-23] MEDS ORDERED: Ondansetron HCl/PF 4 MG/2 ML Vial IVP PRN (13:59)
--- NOTE | 2019-05-23 14:18 | RAD ---
Portable frontal chest radiograph: 05/23/2019 COMPARISON: 05/09/2019 HISTORY: Hemodialysis catheter placement FINDINGS: New right-sided hemodialysis catheter with distal tip overlying the region of the cavoatria l junction. No pneumothorax or pleural fluid. No focal consolidation or alveolar edema. Stable heart and mediastinal contours. IMPRESSION: Right-sided dialysis catheter as above. No evidence for pneumothorax.
[2019-05-23] MEDS: READ PPD TEST SITE PO SCH (14:19)
[2019-05-23] MEDS: MEROPENEM 1 GM/50 ML 1 GM in Premix Bag 1 BAG IVPB SCH (14:56)
[2019-05-23] MEDS: Acetaminophen 325 MG TAB PO PRN ×2 (15:03→22:09)
[2019-05-23] MEDS: traMADol HCl 50 MG TAB PO PRN (17:39)
[2019-05-23] MEDS: cloNIDine 0.1 MG TAB PO PRN (17:45)
[2019-05-23] MEDS: Morphine 2 MG/ML SYRINGE SLOW IVP PRN (20:42)
[2019-05-23] MEDS: Insulin Glargine 40 UNITS in Pre-Filled Syringe 1 EACH SC SCH (20:44)
--- NOTE | 2019-05-23 22:56 | CON ---
DATE OF CONSULTATION: 05/23/2019 CHIEF COMPLAINT: Abdominal pain. HISTORY OF PRESENT ILLNESS: Ms. Soni is a 63-year-old woman, who was readmitted on 05/09/2019 with respiratory failure and volume overload. She was in the hospital from April 17 to April 23 prior to that. During that hospitalization, Dr. Thomas evaluated her for right upper quadrant abdominal pain and performed upper endoscopy. The upper endoscopy was negative except for mild erosive gastritis. Biopsies were positive for H pylori, which she has not yet been treated for. She has developed acute on chronic renal failure as well and this hospitalization, she has started dialysis. She has been followed by Nephrology, Cardiology, Infectious Disease, Internal Medicine, and Pulmonology. She has had urine culture that was positive for E coli and blood cultures are positive for Enterobacter. Dr. Stiles was evaluating for source for the input enterobacter, but obvious source has not yet been identified. She had another CT scan of the abdomen and pelvis on 05/21/2019 that was negative for any abnormality in the right upper quadrant or abdomen. No nodularity was reported to the liver. She did have some bibasilar consolidation in the lungs. She has a history of hepatitis C, which was diagnosed last week. Hepatitis B surface antigen was negative. Lately, she has had bowel movements couple times per day with formed normal stool and no blood in the stool. She states her abdominal pain does not improve at all after bowel movement. Her abdominal pain is not affected by eating at all. It is not really affected by body position. She does have tenderness to palpation in the right upper quadrant, however. PAST MEDICAL HISTORY: Diabetes mellitus type 2, ischemic cardiomyopathy, hyperlipidemia, chronic kidney disease progressed, end-stage renal disease, hypertension. PAST SURGICAL HISTORY: She had upper endoscopy last month with Dr. Thomas. She has had a dialysis catheter placed this hospital stay. FAMILY HISTORY: Negative for GI malignancy. SOCIAL HISTORY: She is a former smoker. No drugs or alcohol. ALLERGIES: LEVOFLOXACIN, SULFA. MEDICATIONS: Currently include: 1. Carvedilol. 2. Clonidine. 3. Epoetin. 4. Ferrous sulfate. 5. Heparin. 6. Minoxidil. 7. Pantoprazole. REVIEW OF SYSTEMS: Negative x10 systems reviewed, except as stated in history of present illness. PHYSICAL EXAMINATION: VITAL SIGNS: Temperature 97.8, pulse 75, blood pressure 195/85. GENERAL: She is in no acute distress. Alert and oriented x3. LUNGS: Clear to auscultation bilaterally. HEART: Regular rate and rhythm without murmur. Eyes have no scleral icterus. Oropharynx is clear without lesions. No cervical or supraclavicular lymphadenopathy. ABDOMEN: Soft and nontender in the left abdomen. She has tenderness in the right upper quadrant without guarding, but is quite tender in that area. Bowel sounds are present. EXTREMITIES: No lower extremity edema. LABORATORY DATA: Her hepatitis C RNA level is 5,390,000. Hepatitis B surface antigen is negative. White blood cell count 11.0, hemoglobin 8.4, platelets 270. INR 1.3. Iron 13, TIBC 123, ferritin 606. Creatinine is 5.23, bilirubin 0.3, AST 44, ALT 25, alkaline phosphatase 151, albumin 2.8. IMAGING: CT scan of the abdomen and pelvis shows no ascites. She does have significant amount of stool over in the right colon around the right upper quadrant to the transverse colon. The left colon is decompressed. IMPRESSION: 1. Right upper quadrant abdominal pain. This has been chronic at least over the last couple of months. She was evaluated by Dr. Thomas for this last month and HIDA scan was performed, which was negative. Abdominal ultrasound was negative for signs of cholecystitis or cholelithiasis. CT scan of the abdomen and pelvis shows no obvious source for the pain, however, she does have a significant amount of stool over in the right colon and transverse colon up around the right upper quadrant, which could be causing significant amount of the right upper quadrant pain. She states that her pain does not improve with bowel movement, however, the left side of the colon is decompressed. We will add daily MiraLAX, see if this helps. The upper endoscopy is negative for source for the right upper quadrant pain. 2. Helicobacter pylori gastritis. Upper endoscopy did show mild erosive gastritis and biopsies were positive for Helicobacter pylori. This should be treated in the future as an outpatient when she could take a full 14-day course of antibiotics without interruption and after completing all other current medications. 3. Chronic hepatitis C. The hepatitis C viral load is significantly elevated, consistent with diagnosis of chronic hepatitis C. she does not have obvious signs of portal hypertension by imaging. Her platelets are normal. There is no obvious evidence of cirrhosis based on imaging without nodularity of the liver. Her albumin is normal. Her bilirubin is normal. Transaminases have been normal. She can follow up in the office in the future to discuss treatment of chronic hepatitis C after more acute issues have been resolved. 4. Bacteremia, which is being treated and evaluated by Dr. Stiles. 5. Acute on chronic kidney disease for which she is starting hemodialysis. RECOMMENDATIONS: 1. Start MiraLAX 17 g daily. 2. After resolution of her more acute issues, then she can follow up in the office with Dr. Thomas. Treatment of the H pylori and hepatitis C can be evaluated as an outpatient. 3. Screening colonoscopy should also be performed again after resolution of her more acute inpatient issues. 4. I will sign off for now. Please call if GI can be of assistance. Job ID: [id number]
[2019-05-24] MEDS: Ondansetron PF 4 MG/2 ML Vial SLOW IVP PRN (05:35)
--- NOTE | 2019-05-24 08:47 | PRG ---
DATE OF SERVICE: 05/24/2019 SERVICE: Renal Medicine. SUBJECTIVE: Ms. Soni is a 63-year-old black female, who was seen by the Renal Service for acute kidney injury on top of her chronic renal failure. She has been initiated with hemodialysis due to volume overload. She also was found to be bacteremic, currently on IV antibiotics. A cuffed hemodialysis catheter was placed yesterday. She is currently scheduled for dialysis today. No other complaints. No chest pain or shortness of breath. OBJECTIVE: VITAL SIGNS: Blood pressure 156/70, heart rate 78, respiratory rate 14, temperature 98.1, and pulse ox 94%. GENERAL: The patient is awake, alert, comfortable, not in distress. SKIN: Adequate turgor. HEENT: Pinkish conjunctivae. Anicteric sclerae. NECK: No neck mass. No carotid bruits. No JVD. CHEST: No deformities. LUNGS: Clear breath sounds. HEART: Normal sinus rhythm. No murmur. No gallops. No rubs. ABDOMEN: Globular, soft, and nontender. No masses. EXTREMITIES: No edema. No deformities. MEDICATIONS: Medications of May 24, 2019, were reviewed. LABORATORY DATA: Laboratories of May 23, 2019; white count 11, hemoglobin 8.4. Sodium 142, potassium 3.8, chloride 104, carbon dioxide 29, BUN 33, creatinine 5.23, and calcium 8.8. ASSESSMENT AND PLAN: 1. End-stage renal disease/chronic renal failure. No evidence of renal recovery. Continue 3 times a week hemodialysis regimen. Fluid removal as tolerated. 2. Anemia, stable. Continue weekly Epogen. Recheck CBC in a.m. 3. Gram-negative bacteremia, on IV antibiotics. ID following. 4. Hypertension, much improved. Continue current BP medications. Recheck CBC and basic metabolic panel in a.m. Job ID: [id number]
[2019-05-24] MEDS ORDERED: Heparin 10,000 UNITS/ 10 ML VIAL ONE (09:01)
[2019-05-24 14:25] VITALS: BMI 30.2
--- NOTE | 2019-05-24 15:13 | PQF ---
CLINICAL DOCUMENTATION IMPROVEMENT CLARIFICATION FORM: ICD-10 Updated PLEASE DO AN ADDENDUM TO THE PROGRESS NOTE WITH ANY DOCUMENTATION UPDATES OR ADDITIONS AND CARRY THROUGH TO DC SUMMARY. THANK YOU. DATE: 05/24/19 ATTN: DR. KRISHNA Please exercise your independent, professional judgment in responding to the clarification form. Clinical indicators are provided on the bottom of this form for your review Please check appropriate box(es): [ ] Sepsis due to: (Pna, UTI, gangrenous gall bladder, etc.) Due to: [ ] Device (please specify) [ ] Implant [ ] Graft [ ] Infusion [ ] SIRS due to non-infectious process (please specify etiology) [ ] with organ dysfunction [ ] without organ dysfunction [ ] Severe sepsis with acute organ dysfunction of: (Examples: respiratory failure, encephalopathy, acute kidney failure, other) [ y ] Septic Shock [ ] Localized infection without sepsis [ ] Other diagnosis [ ] Unable to determine In addition, please specify: Present on Admission (POA): [ ] Yes [ y ] No [ ] Unable to determine For continuity of documentation, please document condition throughout progress notes and discharge summary. Thank You. CLINICAL INDICATORS - SIGNS / SYMPTOMS / LABS / RESULTS AND LOCATION IN MR PROGRESS NOTE 05/19 (PULMONARY): "CLINICAL SEPSIS WITH ENTEROBACTER" WBC 05/13: 12.4 WBC 05/15: 30.7 WBC 05/17: 26.5 CRITICORE TEMP IN ER: 95.4 PULSE 100 RISKS: ENTEROBACTER GROWING FROM TWO BLOOD CULTURES (PULMONARY PROGRESS NOTE 05/19) ECOLI GROWING FROM URINE CULTURE (PULMONARY PROGRESS NOTE 05/19) H/O DIABETES (ID CONSULTATION REPORT 05/21) VASCULAR ACCESS (ID CONSULT 05/21) TREATMENT: PLACED ON VENT IN ER INFECTIOUS DISEASE CONSULT MEROPENEM (05/18-PRESENT) IV ANCEF (05/23) BLOOD CULTURES (05/09, 05/15) (This form is maintained as a part of the permanent medical record) 2014 [employer] All Rights Reserved [email or web address] Office: [phone] [facility]
[2019-05-24] MEDS: cloNIDine 0.1 MG TAB PO SCH ×2 (15:26→22:01)
[2019-05-24] MEDS: traMADol HCl 50 MG TAB PO PRN (15:27)
[2019-05-24] MEDS: Heparin 5,000 UNITS/ML VIAL SC SCH ×2 (16:01→22:01)
[2019-05-24] MEDS: Carvedilol 25 MG TAB PO SCH ×2 (16:16→22:01)
[2019-05-24] MEDS: Minoxidil 2.5 MG TAB PO SCH (16:17)
[2019-05-24] MEDS: Polyethylene Glycol 3350 17 GM Packet PO SCH (16:17)
[2019-05-24] MEDS: Ferrous Sulfate 325 MG TAB PO SCH ×2 (16:17→17:04)
[2019-05-24] MEDS: Morphine 2 MG/ML SYRINGE SLOW IVP PRN (16:49)
[2019-05-24] MEDS: MEROPENEM 1 GM/50 ML 1 GM in Premix Bag 1 BAG IVPB SCH (16:50)
[2019-05-24] MEDS: Insulin Glargine 40 UNITS in Pre-Filled Syringe 1 EACH SC SCH (22:00)
[2019-05-24] MEDS: Acetaminophen 325 MG TAB PO PRN (22:11)
[2019-05-25 04:35] LABS: #Basophils 0.1 thou/uL (0.0-0.2); #Eosinphils 0.3 thou/uL (0.0-0.7); #Lymphocytes 2.5 thou/uL (1.20-3.40); #Monocytes 0.8 thou/uL (0.11-0.59); #Neutrophils 6.1 thou/uL (1.40-6.50); %Basophils 1.5 % (0.0-1.0); %Eosinophils 3.3 % (0.0-10.0); %Lymphocytes 25.6 % (21.0-51.0); %Monocytes 8.2 % (0.0-10.0); %Neutrophils 61.4 % (42.0-75.0); Hemoglobin 9.3 g/dL (12.0-16.0); Mean Corpuscular HGB CONC 32.5 g/dL (32.0-36.0); Mean Corpuscular Hemoglobin 31.3 pg (27.0-31.0); Mean Corpuscular Volume 96.2 fL (78.0-98.0); Mean Platelet Volume 8.7 fL (7.4-10.4); Platelet Count 283 thou/uL (130-400); RBC Distribution Width 13.1 % (11.5-14.5); Red Blood Cell (RBC) Count 2.96 mill/uL (4.20-5.40); White Blood Cell (WBC) Count 9.9 thou/uL (4.8-10.8)
[2019-05-25 05:03] LABS: Anion Gap 12 mmol/L (10-20); BUN (Urea Nitrogen) 16 mg/dL (9.8-20.1); Calc. Creatinine Clearance 19 mL/min (70-130); Calcium 8.8 mg/dL (7.8-10.44); Carbon Dioxide 28 mmol/L (23-31); Chloride 104 mmol/L (98-107); Estimated GFR-MDRD 13; Glucose 108 mg/dL (80-115); Potassium 4.2 mmol/L (3.5-5.1); Sodium 140 mmol/L (136-145)
[2019-05-25] MEDS ORDERED: Heparin 10,000 UNITS/ 10 ML VIAL ONE (10:38)
[2019-05-25] MEDS: Minoxidil 2.5 MG TAB PO SCH (12:16)
[2019-05-25] MEDS: Ferrous Sulfate 325 MG TAB PO SCH ×2 (12:16→17:05)
[2019-05-25] MEDS: Carvedilol 25 MG TAB PO SCH ×2 (12:16→21:16)
[2019-05-25] MEDS: Heparin 5,000 UNITS/ML VIAL SC SCH ×2 (12:17→21:17)
[2019-05-25] MEDS: Polyethylene Glycol 3350 17 GM Packet PO SCH (12:17)
[2019-05-25] MEDS: cloNIDine 0.1 MG TAB PO SCH ×2 (12:17→21:16)
[2019-05-25] MEDS: EPOETIN ALFA-EPBX (ESRD) 10,000 UNIT/ML VIAL SC SCH (13:45)
[2019-05-25] MEDS: MEROPENEM 1 GM/50 ML 1 GM in Premix Bag 1 BAG IVPB SCH (17:05)
--- NOTE | 2019-05-25 17:59 | PRG ---
DATE OF SERVICE: 05/25/2019 SERVICE: Renal Medicine. SUBJECTIVE: Ms. Soni is a 63-year-old black female with known history of chronic renal failure. She was admitted to the hospital for a fever and subsequent finding of bacteremia. Currently, on IV meropenem. As per recommendation by ID, the patient will need another three days to five days of IV antibiotics. She also developed acute kidney injury. Currently, she is on maintenance hemodialysis. No other complaints today. No chest pain or shortness of breath. OBJECTIVE: VITAL SIGNS: Blood pressure 149/78, heart rate 93, respiratory rate 18, temperature 98.4, pulse ox 95%. GENERAL: The patient is awake, alert, comfortable, not in overt distress. SKIN: Adequate turgor. HEENT: Pinkish conjunctivae. Anicteric sclerae. NECK: No neck mass. No carotid bruits. No JVD. CHEST: No deformities. LUNGS: Clear breath sounds. HEART: Normal sinus rhythm. No murmur. No gallops. No rubs. ABDOMEN: Globular, soft, nontender. No masses. EXTREMITIES: No edema. No deformities. MEDICATIONS: Medications of May 25, 2019, reviewed. LABORATORY DATA: Laboratories of May 25, 2019, white count 9.9, hemoglobin 9.3. Sodium 140, potassium 4.2, chloride 104, carbon dioxide 28, BUN 16, creatinine 4.08, glucose 108, calcium 8.8. ASSESSMENT AND PLAN: 1. Chronic hepatitis C-GI consult has been done. The patient has been evaluated by Dr. Fay. 2. ESRD-continue current hemodialysis regimen three times a week. Fluid removal only as tolerated. 3. Anemia. Continue weekly Epogen. 4. Labile hypertension. Continue current supportive care. Continue current BP medications. 5. Bacteremia, on IV antibiotics. 6. This Tuesday, she is to have possible AV fistula placement by Dr. Alejandre. Recheck basic metabolic profile and CBC in a.m. Job ID: [id number]
[2019-05-25] MEDS: traMADol HCl 50 MG TAB PO PRN (19:26)
[2019-05-25] MEDS: Insulin Glargine 40 UNITS in Pre-Filled Syringe 1 EACH SC SCH (22:23)
[2019-05-26 07:06] LABS: #Basophils 0.1 thou/uL (0.0-0.2); #Eosinphils 0.3 thou/uL (0.0-0.7); #Lymphocytes 2.4 thou/uL (1.20-3.40); #Monocytes 0.8 thou/uL (0.11-0.59); #Neutrophils 5.2 thou/uL (1.40-6.50); %Basophils 0.8 % (0.0-1.0); %Eosinophils 3.9 % (0.0-10.0); %Lymphocytes 27.3 % (21.0-51.0); %Monocytes 9.2 % (0.0-10.0); %Neutrophils 58.7 % (42.0-75.0); Hemoglobin 9.7 g/dL (12.0-16.0); Mean Corpuscular HGB CONC 32.8 g/dL (32.0-36.0); Mean Corpuscular Hemoglobin 31.3 pg (27.0-31.0); Mean Corpuscular Volume 95.6 fL (78.0-98.0); Platelet Count 283 thou/uL (130-400); RBC Distribution Width 12.9 % (11.5-14.5); White Blood Cell (WBC) Count 8.8 thou/uL (4.8-10.8)
[2019-05-26 07:25] LABS: Anion Gap 13 mmol/L (10-20); BUN (Urea Nitrogen) 15 mg/dL (9.8-20.1); Calc. Creatinine Clearance 19 mL/min (70-130); Calcium 9.1 mg/dL (7.8-10.44); Carbon Dioxide 27 mmol/L (23-31); Chloride 105 mmol/L (98-107); Estimated GFR-MDRD 13; Glucose 128 mg/dL (80-115); Potassium 4.5 mmol/L (3.5-5.1); Sodium 140 mmol/L (136-145)
[2019-05-26] MEDS: Carvedilol 25 MG TAB PO SCH ×2 (08:09→20:46)
[2019-05-26] MEDS: cloNIDine 0.1 MG TAB PO SCH ×2 (08:09→20:46)
[2019-05-26] MEDS: Polyethylene Glycol 3350 17 GM Packet PO SCH (08:10)
[2019-05-26] MEDS: Ferrous Sulfate 325 MG TAB PO SCH ×2 (08:10→16:42)
[2019-05-26] MEDS: Heparin 5,000 UNITS/ML VIAL SC SCH ×2 (08:10→20:47)
[2019-05-26] MEDS: Minoxidil 2.5 MG TAB PO SCH (11:15)
--- NOTE | 2019-05-26 11:22 | PRG ---
DATE OF SERVICE: 05/26/2019 SUBJECTIVE: Ms. Soni is a 63-year-old black female with known history of acute kidney injury on top of chronic renal failure. Due to hyperkalemia and worsening renal dysfunction, she was initiated on dialysis. In the interim, she had a cuffed hemodialysis catheter placed. She is tolerating said dialysis. She has also have been found to be bacteremic, currently on IV antibiotics. No new complaints today except for some postop pain around the dialysis catheter site. OBJECTIVE: VITAL SIGNS: Blood pressure 146/82, heart rate 88, respiratory rate 16, temperature 98.2, and pulse ox 95%. GENERAL: Noted to be awake, alert, and comfortable, sitting, not in distress. SKIN: Adequate turgor. HEENT: Slightly pale conjunctivae. Anicteric sclerae. NECK: No neck mass. No carotid bruits. No JVD. CHEST: No deformities. LUNGS: Clear breath sounds. HEART: Normal sinus rhythm. No murmur. No gallops. No rubs. ABDOMEN: Globular, soft, and nontender. No masses. EXTREMITIES: No edema. No deformities. MEDICATIONS: Medications of May 26, 2019, were reviewed. LABORATORY DATA: Laboratories on May 26, 2019; white count 8.8, hemoglobin 9.7. Sodium 140, potassium 4.5, chloride 105, carbon dioxide 27, BUN 15, creatinine 4.09, and calcium 9.1. ASSESSMENT AND PLAN: 1. Acute kidney injury/chronic renal failure-the patient may have reached end-stage renal disease stage. Continue current hemodialysis. We will continue Tuesday, Tuesday, and Tuesday dialysis regimen with this patient. 2. Enterobacter bacteremia-currently on IV meropenem. The patient will still receive IV antibiotics for the next few days. 3. Anemia, continuing weekly Epogen. Agree with current management. Job ID: [id number]
[2019-05-26] MEDS: MEROPENEM 1 GM/50 ML 1 GM in Premix Bag 1 BAG IVPB SCH (15:01)
[2019-05-26] MEDS: cloNIDine 0.1 MG TAB PO PRN (17:34)
[2019-05-26] MEDS: Insulin Glargine 40 UNITS in Pre-Filled Syringe 1 EACH SC SCH (20:48)
[2019-05-27] MEDS: Heparin 5,000 UNITS/ML VIAL SC SCH ×2 (08:05→20:39)
[2019-05-27] MEDS: cloNIDine 0.1 MG TAB PO SCH ×2 (08:05→20:38)
[2019-05-27] MEDS: Polyethylene Glycol 3350 17 GM Packet PO SCH (08:06)
[2019-05-27] MEDS: Ferrous Sulfate 325 MG TAB PO SCH ×2 (08:06→16:29)
[2019-05-27] MEDS: Carvedilol 25 MG TAB PO SCH ×2 (08:06→20:38)
[2019-05-27] MEDS: Minoxidil 2.5 MG TAB PO SCH (08:12)
--- NOTE | 2019-05-27 11:41 | PRG ---
DATE OF SERVICE: 05/27/2019 SERVICE: Renal Medicine. SUBJECTIVE: Ms. Soni is a 63-year-old black female, who was seen by the Renal Service for acute kidney injury secondary to an ATN on top of her chronic renal failure. She was initially on dialysis due to volume overload and hyperkalemia, doing well with the maintenance hemodialysis. No evidence of renal recovery. She may have reached ESRD. She was also noted to be bacteremic and for that reason, is on IV antibiotics. The antibiotics will be finished by early next week. We have made arrangements for outpatient dialysis with this patient. OBJECTIVE: VITAL SIGNS: Blood pressure 134/77, heart rate 88, respiratory rate 18, temperature 98.1, pulse ox 98%. GENERAL: Noted to be awake, alert, comfortable, not in distress. SKIN: Adequate turgor. HEENT: She has pinkish conjunctivae. Anicteric sclerae. NECK: No neck mass. No carotid bruits. No JVD. CHEST: No deformities. LUNGS: Clear breath sounds. No wheezing. No crackles. HEART: Normal sinus rhythm. No murmur. No gallops. No rubs. ABDOMEN: Globular, soft, nontender. No masses. EXTREMITIES: No edema. No deformities. MEDICATIONS: Medications of May 27, 2019, were reviewed. LABORATORY DATA: Laboratories of May 26, 2019; white count 8.8, hemoglobin 9.7. Sodium 140, potassium 4.5, chloride 105, carbon dioxide 27, BUN 15, creatinine 4.09, glucose 120, calcium 9.1. ASSESSMENT AND PLAN: 1. End-stage renal disease/chronic renal failure, continuing 3 times a week hemodialysis. Fluid removal as tolerated. The patient has a new cuffed hemodialysis catheter placed on her last week. 2. Anemia. P.r.n. blood transfusion. Continue weekly Epogen and iron supplementation. 3. Enterobacter bacteremia, on IV antibiotics. Recheck basic metabolic panel and CBC in a.m. Job ID: [id number]
[2019-05-27] MEDS: MEROPENEM 1 GM/50 ML 1 GM in Premix Bag 1 BAG IVPB SCH (14:25)
[2019-05-27] MEDS: traMADol HCl 50 MG TAB PO PRN (20:36)
[2019-05-27] MEDS ORDERED: Insulin Glargine 30 UNITS in Pre-Filled Syringe 1 EACH SC SCH (21:00)
[2019-05-28 05:45] LABS: #Basophils 0.1 thou/uL (0.0-0.2); #Eosinphils 0.3 thou/uL (0.0-0.7); #Lymphocytes 2.7 thou/uL (1.20-3.40); #Monocytes 0.8 thou/uL (0.11-0.59); #Neutrophils 4.6 thou/uL (1.40-6.50); %Basophils 1.4 % (0.0-1.0); %Lymphocytes 31.4 % (21.0-51.0); %Monocytes 9.1 % (0.0-10.0); Hemoglobin 9.3 g/dL (12.0-16.0); Mean Corpuscular HGB CONC 32.8 g/dL (32.0-36.0); Mean Corpuscular Hemoglobin 31.6 pg (27.0-31.0); Mean Corpuscular Volume 96.6 fL (78.0-98.0); Mean Platelet Volume 8.8 fL (7.4-10.4); Platelet Count 313 thou/uL (130-400); RBC Distribution Width 13.3 % (11.5-14.5); Red Blood Cell (RBC) Count 2.95 mill/uL (4.20-5.40); White Blood Cell (WBC) Count 8.5 thou/uL (4.8-10.8)
[2019-05-28 06:07] LABS: Anion Gap 14 mmol/L (10-20); BUN (Urea Nitrogen) 30 mg/dL (9.8-20.1); Calc. Creatinine Clearance 18 mL/min (70-130); Calcium 8.9 mg/dL (7.8-10.44); Carbon Dioxide 27 mmol/L (23-31); Chloride 105 mmol/L (98-107); Estimated GFR-MDRD 12; Glucose 121 mg/dL (80-115); Potassium 4.3 mmol/L (3.5-5.1); Sodium 142 mmol/L (136-145)
--- NOTE | 2019-05-28 09:18 | PRG ---
DATE OF SERVICE: 05/28/2019 SERVICE: Renal Medicine. SUBJECTIVE: Ms. Soni is a 63-year-old black female, seen by the Renal Service for acute kidney injury secondary to superimposed ATN. She also has underlying chronic renal failure. I think she may have reached ESRD stage. She also was diagnosed to have Enterobacter bacteremia. Currently, on IV antibiotics. No new complaints today. She is undergoing hemodialysis and tolerating said treatment. OBJECTIVE: VITAL SIGNS: Blood pressure is 134/77, heart rate 83, respiratory rate 20, temperature 98, and pulse ox 98%. GENERAL: The patient is awake, alert, comfortable, not in distress. SKIN: Adequate turgor. HEENT: She has slightly pale conjunctivae. Anicteric sclerae. NECK: No neck mass. No carotid bruits. No JVD. CHEST: No deformities. LUNGS: Clear breath sounds. HEART: Normal sinus rhythm. No murmurs, gallops, or rubs. ABDOMEN: Globular, soft, nontender. No masses. EXTREMITIES: No edema. No deformities. MEDICATIONS: Medications of May 28, 2019, were reviewed. LABORATORY DATA: Laboratories of May 28, 2019; white count 8.5, hemoglobin 9.3. Sodium 142, potassium 4.3, chloride 105, carbon dioxide 27, BUN 30, creatinine 4.51, glucose 121, calcium 8.9. ASSESSMENT AND PLAN: 1. Chronic renal failure/end-stage renal disease-continue supportive dialysis. Continue Tuesday, Tuesday, and Tuesday hemodialysis. Fluid removal as tolerated. 2. Enterobacter bacteremia-on IV antibiotics. 3. Anemia. Continue weekly Epogen. P.r.n. blood transfusion. 4. Labile hypertension, much improved. Continue current blood pressure medications. Job ID: [id number]
[2019-05-28] MEDS ORDERED: Heparin 10,000 UNITS/ 10 ML VIAL ONE (10:49)
[2019-05-28] MEDS: cloNIDine 0.1 MG TAB PO SCH (11:41)
[2019-05-28] MEDS: Carvedilol 25 MG TAB PO SCH (11:41)
[2019-05-28] MEDS: Polyethylene Glycol 3350 17 GM Packet PO SCH (11:42)
[2019-05-28] MEDS: Ferrous Sulfate 325 MG TAB PO SCH ×2 (11:42→17:01)
[2019-05-28] MEDS: Heparin 5,000 UNITS/ML VIAL SC SCH (11:42)
[2019-05-28] MEDS: Minoxidil 2.5 MG TAB PO SCH (12:54)
[2019-05-28] MEDS: MEROPENEM 1 GM/50 ML 1 GM in Premix Bag 1 BAG IVPB SCH (17:01)
[2019-05-28 18:45] VITALS: BP 132/77; TEMP 98.9
--- NOTE | 2019-05-31 13:33 | PDOC.OP ---
Operative Note - Operative Note Operative Note: DATE OF PROCEDURE: 05/23/2019 PROCEDURE: Placement of right internal jugular tunneled hemodialysis catheter with ultrasound and fluoroscopic guidance. SURGEON: Moncho Alejandre M.D. PREOPERATIVE DIAGNOSIS: Acute/Chronic renal failure. POSTOPERATIVE DIAGNOSIS: Acute/Chronic renal failure. HISTORY: Patient with renal failure. A tunneled hemodialysis catheter for ongoing dialysis has been requested by the patients tents assembler. PROCEDURE: After informed consent was obtained and appropriate preoperative antibiotics were administered, the patient was taken to the Operating Room, placed in the supine position and monitored anesthesia care was administered. The neck and chest were prepped and draped in a standard sterile fashion and the patient placed in Trendelenburg position. A sterile ultrasound probe was used to identify the patent compressible right IJ vein which was accessed under direct ultrasound guidance. A wire was threaded through the needle and confirmed by ultrasound to be within the patent compressible vessel with the tip in the vena cava by fluoroscopy. Local anesthesia was infused to the skin and subcutaneous tissues of the right neck and chest. An infraclavicular incision was made and a catheter tunneled from the infraclavicular to the right IJ access site. The right IJ was sequentially dilated over the wire following which a dilator and sheath were placed over the wire and the dilator and wire removed leaving the sheath in place. The catheter was tunneled through the sheath which was then split and removed leaving the catheter in place. This was confirmed by fluoroscopy to be in good position in the superior vena cava with no kinking of the course of the catheter. Both ports easily aspirated dark venous nonpulsatile blood and easily flushed without resistance. Heparin was instilled to the quantity specified on the hub, and the hub was secured to the skin with 3-0 nylon sutures. The skin incision at the neck was closed in two layers with 4-0 Monocryl suture and Dermabond dressings were placed. The skin at the exit site was snugged up around the catheter with 4-0 Monocryl suture and Dermabond was placed there as well. Once the Dermabond was dry, a Biopatch and Tegaderm dressing was placed at the exit site. The patient was taken to Recovery in good condition. Estimated blood loss was minimal. There were no complications. There were no specimens.
== END 2019-05-28 19:29 | disposition home or self-care (01) | DRG 208 ==
LOC: ERS 06:32 → CCU 07:43 → 2NO 05-11 20:08 → CCU 05-12 18:07 → 2NO 05-17 14:41 → T4-B 05-25 15:28
PROVIDERS: ADMIT Internal Medicine; ATTEND Internal Medicine
PROC: 0BH17EZ Insertion of Endotracheal Airway into Trachea, Via Natural or Artificial Opening (ICD-10-PCS; principal; 2019-05-09)
PROC: 5A1935Z Respiratory Ventilation, Less than 24 Consecutive Hours (ICD-10-PCS; 2019-05-09)
PROC: 0BH17EZ Insertion of Endotracheal Airway into Trachea, Via Natural or Artificial Opening (ICD-10-PCS; 2019-05-12)
PROC: 5A1935Z Respiratory Ventilation, Less than 24 Consecutive Hours (ICD-10-PCS; 2019-05-12)
PROC: 06HN33Z Insertion of Infusion Device into Left Femoral Vein, Percutaneous Approach (ICD-10-PCS; 2019-05-17)
PROC: 5A1D70Z Performance of Urinary Filtration, Intermittent, Less than 6 Hours Per Day (ICD-10-PCS; 2019-05-17)
PROC: B54CZZA Ultrasonography of Left Lower Extremity Veins, Guidance (ICD-10-PCS; 2019-05-17)
PROC: 02HV33Z Insertion of Infusion Device into Superior Vena Cava, Percutaneous Approach (ICD-10-PCS; 2019-05-17)
DX: J96.01 Acute respiratory failure with hypoxia (principal); I50.33 Acute on chronic diastolic (congestive) heart failure; R65.21 Severe sepsis with septic shock; A41.59 Other Gram-negative sepsis; N18.6 End stage renal disease; N17.0 Acute kidney failure with tubular necrosis; I13.2 Hypertensive heart and chronic kidney disease with heart failure and with stage 5 chronic kidney disease, or end stage renal disease; I16.1 Hypertensive emergency; E87.2 Acidosis; E87.0 Hyperosmolality and hypernatremia; E87.1 Hypo-osmolality and hyponatremia; I82.612 Acute embolism and thrombosis of superficial veins of left upper extremity; I31.3 Pericardial effusion (noninflammatory); I25.5 Ischemic cardiomyopathy; E78.5 Hyperlipidemia, unspecified; E11.22 Type 2 diabetes mellitus with diabetic chronic kidney disease; D63.1 Anemia in chronic kidney disease; B18.2 Chronic viral hepatitis C; J44.9 Chronic obstructive pulmonary disease, unspecified; E87.5 Hyperkalemia; E88.09 Other disorders of plasma-protein metabolism, not elsewhere classified; E11.65 Type 2 diabetes mellitus with hyperglycemia; T38.0X5A Adverse effect of glucocorticoids and synthetic analogues, initial encounter; E87.6 Hypokalemia; B96.20 Unspecified Escherichia coli [E. coli] as the cause of diseases classified elsewhere; N30.90 Cystitis, unspecified without hematuria; B96.81 Helicobacter pylori [H. pylori] as the cause of diseases classified elsewhere; K29.60 Other gastritis without bleeding; Z88.1 Allergy status to other antibiotic agents; Z88.2 Allergy status to sulfonamides; Z79.4 Long term (current) use of insulin; Z79.899 Other long term (current) drug therapy; Z87.891 Personal history of nicotine dependence
CPT/HCPCS: 36415; 36416; 36430; 51702; 71045; 74177; 76770; 80048; 80053; 80069; 82040; 82728; 82805; 83540; 83550; 83605; 83735; 83880; 84100; 84484; 85025; 86580; 86704; 86706; 86803; 86850; 86900; 86901; 87040; 87077; 87086; 87149; 87186; 87340; 87522; 90935; 93005; 93010; 93798; 93970; 93975; 94002; 94003; 94640; 94660; 96365; 96366; 96374; 96375; 99292; C1752; C1769; C9113; G0257; G0365; J0690; J0692; J1610; J1644; J1720; J1815; J1940; J2060; J2185; J2270; J2405; J2704; J2916; J2920; J2930; J3010; J3475; J3490; J7050; J7620; P9016; P9047; Q5105; Q9967; S0020

== ENCOUNTER 2019-09-24 06:41 | Outpatient (CLI) | payer MEDICARE, OTHER ==
[2019-09-24 18:23] LABS: #Basophils 0.1 thou/uL (0.0-0.2); #Eosinphils 0.3 thou/uL (0.0-0.7); #Lymphocytes 2.6 thou/uL (1.20-3.40); #Monocytes 0.9 thou/uL (0.11-0.59); #Neutrophils 4.8 thou/uL (1.40-6.50); %Basophils 0.8 % (0.0-1.0); %Eosinophils 3.7 % (0.0-10.0); %Lymphocytes 30.1 % (21.0-51.0); %Monocytes 9.9 % (0.0-10.0); %Neutrophils 55.5 % (42.0-75.0); Hemoglobin 13.4 g/dL (12.0-16.0); MDiff Complete? YES; Mean Corpuscular HGB CONC 33.7 g/dL (32.0-36.0); Mean Corpuscular Hemoglobin 31.6 pg (27.0-31.0); Mean Platelet Volume 10.3 fL (7.4-10.4); Platelet Count 191 thou/uL (130-400); Platelet Morphology Comment Appears Adequate; Polychromasia SLIGHT = 2-3 cells (100X) (0-2/hpf); RBC Distribution Width 13.5 % (11.5-14.5); Red Blood Cell (RBC) Count 4.25 mill/uL (4.20-5.40); White Blood Cell (WBC) Count 8.7 thou/uL (4.8-10.8)
[2019-09-24 18:29] LABS: Anion Gap 15 mmol/L (10-20); BUN (Urea Nitrogen) 25 mg/dL (9.8-20.1); Calc. Creatinine Clearance 0 mL/min (70-130); Calcium 8.6 mg/dL (7.8-10.44); Carbon Dioxide 27 mmol/L (23-31); Chloride 101 mmol/L (98-107); Estimated GFR-MDRD 16; Glucose 217 mg/dL (80-115); Potassium 3.5 mmol/L (3.5-5.1); Sodium 139 mmol/L (136-145)
[2019-09-25 13:48] LABS: SARS-CoV-2 MS2 Positive; SARS-CoV-2 N Gene Negative; SARS-CoV-2 S Gene Negative; SARS-CoV-2 orf1ab Negative
== END 2019-09-24 06:42 | disposition home or self-care (01) ==
LOC: LABBT 06:41
PROVIDERS: ATTEND Surgery
DX: Z01.812 Encounter for preprocedural laboratory examination (principal); Z11.59 Encounter for screening for other viral diseases; N18.6 End stage renal disease
CPT/HCPCS: 80048; 85025; U0003; 87635

== ENCOUNTER 2019-09-27 06:16 | Day surgery (SDC) | payer MEDICARE ==
[2019-09-12 09:36] VITALS: BMI 29.6
[2019-09-27] MEDS ORDERED: Fentanyl 100 MCG/2 ML VIAL ONE ×2 (06:28→06:30)
[2019-09-27] MEDS ORDERED: Midazolam HCl 2 mg/2 ml Vial ONE (06:30)
[2019-09-27] MEDS ORDERED: Propofol 1,000 MG/100 ML VIAL IV ONE (06:30)
[2019-09-27] MEDS ORDERED: Protamine Sulfate 50 MG/5 ML VIAL ONE (06:41)
[2019-09-27] MEDS ORDERED: Heparin 5,000 UNITS/ML VIAL ONE (06:41)
[2019-09-27] MEDS ORDERED: Bupivacaine 0.25% HCL 30 ML VIAL ONE (06:41)
[2019-09-27] MEDS ORDERED: Lidocaine 1% w/Epinephrine 1:100K 20 ML VIAL ONE (06:41)
[2019-09-27] MEDS ORDERED: Bupivacaine HCl 0.5%/Epinephrine 1:200,000/PF 30 ml Vial ONE (10:34)
[2019-09-27] MEDS ORDERED: Labetalol HCl 100 MG/20 ML VIAL ONE (11:21)
[2019-09-27] MEDS ORDERED: hydrALAZINE 20 MG/ML VIAL ONE (11:50)
--- NOTE | 2019-09-28 12:59 | PDOC.OP ---
Operative Note - Operative Note Operative Note: DATE OF PROCEDURE: PROCEDURE: Left upper arm radial basilic AV fistula. SURGEON: Moncho Alejandre M.D. PREOPERATIVE DIAGNOSIS: End-stage renal failure. POSTOPERATIVE DIAGNOSIS: End-stage renal failure. HISTORY: Patient with end-stage renal failure who requires permanent access for ongoing hemodialysis. After reviewing vein mapping the decision was made to proceed with a primary fistula on the left arm. She had previously had a nonocclusive thrombus in the left cephalic vein but on preoperative ultrasound in the clinic this was now patent.. PROCEDURE: After informed consent was obtained and appropriate preoperative antibiotics administered, the patient was taken to the operating room and was placed in supine position and anesthesia was administered. A preoperative block had been administered and adequacy of block was confirmed. An incision was made at the wrist and the cephalic vein at the level of the wrist was dissected out. This appeared to be of adequate caliber, but on interrogation with dilators she was found to have a stenosis in her lower forearm. Attention was then turned to the upper arm. The palpable antecubital vein was marked on the skin as was the palpable brachial pulse. An incision was made between these 2 structures and dissection carried down to the antecubital vein complex. The upper arm cephalic vein appeared somewhat small but there was a connection to the basilic vein from the antecubital vein complex and there was a large perforating branch proceeding down towards the radial artery. The vein was spatulated between these 2 branches and interrogated with cardiac dilators and easily accepted up to a 3 mm dilator so this was ligated and divided to allow more mobility to the vein. The vein was flushed with heparinized saline and clamped. The patient was found to have a rather small but otherwise healthy and patent radial artery. The brachial artery was larger, but unfortunately the vein would not reach to this without tension. The radial artery was dissected free circumferentially. Heparin was administered systemically and allowed to circulate for 3 minutes. After the heparin had circulated for 3 minutes, the radial artery was clamped proximally and distally. An anterior arteriotomy was created with an 11 blade and extended with Burgess scissors. The vein was spatulated and an end-to-side anastomosis was created with excellent technical result. Prior to tying down the anastomosis, the arterial inflow was released flushing the anastomosis. The anastomosis was then secured and hemostasis was verified. Flow was established first through the fistula following which flow was restored through the artery. The patient had a palpable thrill in the basilic outflow, as well as a good Doppler signal in the same distribution. The wound was irrigated and examined for hemostasis was again confirmed to be excellent. The subcutaneous tissues were reapproximated with a running 3-0 Monocryl sutures and the skin was closed with running 4-0 subcuticular Monocryl suture. The wrist incision was closed in the same way. Dermabond dressings were placed. Prior to leaving the operating room the fistula was again examined by Doppler and a good bruit confirmed. The patient was then taken to recovery in good condition. Estimated blood loss was minimal. There were no complications. There were no specimens.
== END 2019-09-27 12:45 | disposition home or self-care (01) ==
LOC: SDC 06:16
PROVIDERS: ATTEND Surgery
PROC: 031C0ZF Bypass Left Radial Artery to Lower Arm Vein, Open Approach (ICD-10-PCS; principal; 2019-09-27)
DX: I13.2 Hypertensive heart and chronic kidney disease with heart failure and with stage 5 chronic kidney disease, or end stage renal disease (principal); E11.22 Type 2 diabetes mellitus with diabetic chronic kidney disease; N18.6 End stage renal disease; I50.30 Unspecified diastolic (congestive) heart failure; E78.5 Hyperlipidemia, unspecified; Z87.891 Personal history of nicotine dependence; Z79.4 Long term (current) use of insulin; Z79.899 Other long term (current) drug therapy; Z88.1 Allergy status to other antibiotic agents; Z88.2 Allergy status to sulfonamides; Z99.2 Dependence on renal dialysis
CPT/HCPCS: 36416; J0360; J0670; J0690; J1644; J2250; J2704; J2720; J3010; S0020

== ENCOUNTER 2019-10-29 10:54 | Observation (INO) | payer MEDICARE, OTHER ==
[2019-10-29 12:31] LABS: #Lymphocytes 1.6 thou/uL (1.20-3.40); #Monocytes 0.9 thou/uL (0.11-0.59); #Neutrophils 5.7 thou/uL (1.40-6.50); %Basophils 0.1 % (0.0-1.0); %Eosinophils 0.3 % (0.0-10.0); %Lymphocytes 19.1 % (21.0-51.0); %Neutrophils 69.5 % (42.0-75.0); Hemoglobin 11.8 g/dL (12.0-16.0); Mean Corpuscular HGB CONC 33.2 g/dL (32.0-36.0); Mean Corpuscular Hemoglobin 31.4 pg (27.0-31.0); Mean Corpuscular Volume 94.7 fL (78.0-98.0); Mean Platelet Volume 9.5 fL (7.4-10.4); Platelet Count 215 thou/uL (130-400); RBC Distribution Width 12.7 % (11.5-14.5); Red Blood Cell (RBC) Count 3.76 mill/uL (4.20-5.40); White Blood Cell (WBC) Count 8.2 thou/uL (4.8-10.8)
[2019-10-29 12:48] LABS: Bilirubin Small (Negative); Blood, Urine Moderate (Negative); Glucose, Urine (Dipstick) 500 mg/dL (Negative); Ketone, Urine Trace mg/dL (Negative); Leukocyte Negative (Negative); Nitrite Negative (Negative); Protein, Urine (Dipstick) > or equal to 300 mg/dL (Neg-Trace)
[2019-10-29 12:49] LABS: ALT (SGPT) 9 U/L (8-55); AST (SGOT) 14 U/L (5-34); Albumin 2.3 g/dL (3.4-4.8); Alkaline Phosphatase 49 U/L (40-110); Anion Gap 13 mmol/L (10-20); BUN (Urea Nitrogen) 50 mg/dL (9.8-20.1); Bilirubin, Total 0.3 mg/dL (0.2-1.2); CK (CPK) 112 U/L (29-168); Calc. Creatinine Clearance 0 mL/min (70-130); Calcium 7.7 mg/dL (7.8-10.44); Carbon Dioxide 24 mmol/L (23-31); Chloride 105 mmol/L (98-107); Estimated GFR-MDRD 6; Globulin 2.7 g/dL (2.4-3.5); Glucose 270 mg/dL (80-115); Magnesium 1.9 mg/dL (1.6-2.6); Sodium 139 mmol/L (136-145)
[2019-10-29 12:50] LABS: Clarity Hazy (Clear)
--- NOTE | 2019-10-29 12:50 | RAD ---
Chest AP view INDICATION: Chest pain COMPARISON: May 23, 2019 FINDINGS: Lungs: No acute airspace opacity is evident. Stable calcified granuloma the left upper lobe. Cardiac silhouette: Stable mild cardiomegaly. Stable right IJ dialysis catheter. Pulmonary vasculature: Normal Pleural spaces: No pleural effusion or pneumothorax is demonstrated. Upper abdomen: No abnormality seen. Osseous structures: No acute osseous abnormality. Additional findings: None. IMPRESSION: No acute cardiopulmonary abnormality.
[2019-10-29 12:56] LABS: Potassium 2.9 mmol/L (3.5-5.1)
[2019-10-29 12:57] LABS: Bacteria/HPF Rare-Few HPF (None Seen)
[2019-10-29 13:16] LABS: CKMB 2.3 ng/mL (0-6.6)
[2019-10-29] MEDS ORDERED: Potassium Chloride 40 MEQ in Sodium Chloride 0.9% 250 ML 250 ML IVPB SCH (16:00)
[2019-10-29] MEDS ORDERED: Senokot S 8.6-50 MG TAB PO PRN (20:14)
[2019-10-29] MEDS ORDERED: Acetaminophen 325 MG TAB PO PRN (20:14)
[2019-10-29 20:18] VITALS: BMI 27.6
[2019-10-29] MEDS ORDERED: cloNIDine 0.1 MG TAB PO PRN (20:32)
[2019-10-29] MEDS: Heparin 5,000 UNITS/ML VIAL SC SCH (20:46)
[2019-10-29] MEDS: Famotidine 20 MG TAB PO SCH (20:46)
[2019-10-29 20:56] LABS: Troponin I 0.159 ng/mL (< 0.028)
[2019-10-29] MEDS ORDERED: Dextrose 5% in Water 1,000 ML IV PRN (21:10)
[2019-10-29] MEDS ORDERED: HumaLOG 300 UNITS/3 ML VIAL SC PRN (21:10)
[2019-10-29] MEDS ORDERED: Dextrose 50% Abboject 50 ML SYRINGE SLOW IVP PRN (21:10)
[2019-10-30 00:07] LABS: Troponin I 0.153 ng/mL (< 0.028)
[2019-10-30] MEDS ORDERED: hydrALAZINE 20 MG/ML VIAL SLOW IVP PRN (00:22)
--- NOTE | 2019-10-30 02:53 | HP ---
PRIMARY CARE PHYSICIAN: Dr. Seth, but he has moved and the patient has not established another PCP. CHIEF COMPLAINT: Weakness. HISTORY OF PRESENT ILLNESS: Ms. Soni is a 64-year-old female who reported to the emergency room today because she was too weak to go to dialysis. Reports that she has felt this way for several days. She normally goes on Tuesday, Tuesday, Tuesday. Dr. Ernst is her screen tender. The patient has a past medical history pertinent for end-stage renal disease with dialysis, hypertension, diabetes, diastolic heart failure, cardiomyopathy, hyperlipidemia. Last echocardiogram was done in April of this year with an EF of 55% to 60%. The patient reports that she was in her normal state of health until recently. She started having a cough yesterday, had some phlegm and felt weak. She also reports that her blood sugar was a little on the high side, which is abnormal for her. Today, when we checked it, her glucose was 270 and then it came down to 162 at 2050 hours. They found in the emergency room as well that her potassium was 2.9, BUN was 50, creatinine was 7.95, calcium 7.7. Her troponin x3 are in the indeterminate range at 0.164, 0.159, and 0.153. She will be admitted to the telemetry unit for further management. REVIEW OF SYSTEMS: The patient reports generalized weakness. Reports that her blood sugar is higher than normal. Feels unsteady. Denies any abdominal pain. Reports a loss of appetite. Reports a cough that is productive. All other systems are reviewed and are negative unless mentioned in the HPI. ALLERGIES: TO LEVOFLOXACIN, SULFA. CURRENT MEDICATIONS: 1. Coreg 25 mg p.o. b.i.d. 2. NovoLog as needed for elevated blood sugar, sliding scale. 3. Tylenol 650 mg p.o. q.6 p.r.n. 4. Clonidine 0.1 mg p.o. b.i.d. 5. Ferrous sulfate 325 mg p.o. b.i.d. 6. Insulin 40 units subcu daily. PAST MEDICAL HISTORY: As stated in the HPI. PAST SURGICAL HISTORY: Has a dialysis catheter in the right upper chest, has a fistula, new one in the left upper arm. PSYCHIATRIC HISTORY: None. SOCIAL HISTORY: Denies any alcohol or drug use, has no smoking history. PHYSICAL EXAMINATION: VITAL SIGNS: Temp is 99, pulse is 90, respiratory rate is 18, O2 saturations are 97% on room air, blood pressure is 190/106. CONSTITUTIONAL: The patient is ill-appearing, but nontoxic. She appears pain free. She is oriented to person, place, and time. HEENT: Head is atraumatic and normocephalic. Eyes, pupils are equally round and reactive to light. Extraocular muscles are intact. ENT, mouth exam is normal. Mucous membranes are moist. NECK: Supple. Normal range of motion. Trachea is midline. RESPIRATORY/CHEST: Breath sounds are clear. Chest expansion is equal. CARDIOVASCULAR: Regular rate and rhythm. Heart sounds are normal. ABDOMEN: Nontender. Bowel sounds are heard. BACK: Normal range of motion. No tenderness. EXTREMITIES: Upper extremities, normal sensation. Motor strength is normal. She does have a healing incision on her left upper and lower arms. Lower extremities, inspection is normal, range of motion is normal. Pedal pulses are normal. NEURO: The patient is oriented to person, place, and time. Speech is normal. SKIN: Warm and dry, normal in color. DIAGNOSTIC DATA: shows normal sinus rhythm, beats per minute 80, possible left atrial enlargement, prolonged QT is 446, 514. ASSESSMENT AND PLAN: 1. Elevated troponin, weakness with a history of cardiomyopathy and diastolic heart dysfunction with a relatively normal echo within the last year. Dr. Harris would like the patient to have a stress test. The patient is also hypokalemic with a potassium of 2.9. ER has added replacement for that. We will recheck it in the morning. We will also recheck an EKG with the second troponin. Ask PT to consult. Orthostatic vitals. 2. History of end-stage renal disease with dialysis. The patient did not have her dialysis on Tuesday, as scheduled. We have asked Dr. Ernst to consult and he may want to go ahead and schedule dialysis and she did not have it today. 3. History of hypertension. Restarted her home medications. We will add p.r.n. medications as needed. 4. History of diabetes, type 2, before meals and at bedtime Accu-Cheks sliding scale. We will restart her home medications. 5. Hypokalemia. Please see #1. 6. Gastrointestinal and deep venous thrombosis prophylaxis started. 7. Case discussed with Dr. Harris. Orders placed per her request. 8. COVID-19 testing has been ordered and was received. We are waiting for those results. 9. Hospital course dependent on clinical findings. Job ID: [id number]
[2019-10-30 04:29] LABS: #Eosinphils 0.1 thou/uL (0.0-0.7); #Lymphocytes 1.7 thou/uL (1.20-3.40); #Monocytes 0.8 thou/uL (0.11-0.59); #Neutrophils 4.4 thou/uL (1.40-6.50); %Basophils 0.5 % (0.0-1.0); %Eosinophils 1.4 % (0.0-10.0); %Lymphocytes 24.2 % (21.0-51.0); %Monocytes 11.2 % (0.0-10.0); %Neutrophils 62.8 % (42.0-75.0); Hemoglobin 11.8 g/dL (12.0-16.0); Mean Corpuscular HGB CONC 31.5 g/dL (32.0-36.0); Mean Corpuscular Hemoglobin 30.5 pg (27.0-31.0); Mean Corpuscular Volume 96.8 fL (78.0-98.0); Mean Platelet Volume 9.3 fL (7.4-10.4); Platelet Count 236 thou/uL (130-400); RBC Distribution Width 12.9 % (11.5-14.5); Red Blood Cell (RBC) Count 3.85 mill/uL (4.20-5.40)
[2019-10-30 04:50] LABS: ALT (SGPT) 10 U/L (8-55); AST (SGOT) 16 U/L (5-34); Albumin 2.2 g/dL (3.4-4.8); Alkaline Phosphatase 50 U/L (40-110); Anion Gap 16 mmol/L (10-20); BUN (Urea Nitrogen) 52 mg/dL (9.8-20.1); Bilirubin, Total 0.2 mg/dL (0.2-1.2); Calc. Creatinine Clearance 9 mL/min (70-130); Calcium 7.7 mg/dL (7.8-10.44); Carbon Dioxide 18 mmol/L (23-31); Chloride 109 mmol/L (98-107); Estimated GFR-MDRD 6; Globulin 2.9 g/dL (2.4-3.5); Glucose 270 mg/dL (80-115); Potassium 3.3 mmol/L (3.5-5.1); Protein, Total 5.1 g/dL (6.0-8.3); Sodium 140 mmol/L (136-145)
[2019-10-30] MEDS ORDERED: INSULIN DETEMIR 40 UNIT SC SCH (09:00)
--- NOTE | 2019-10-30 09:24 | CON ---
DATE OF CONSULTATION: HISTORY OF PRESENT ILLNESS: Ms. Soni is a 64-year-old black female with ESRD - on hemodialysis 3 times a week, was admitted for generalized malaise. She was also noted to be hypokalemic at that time, this was replaced. The feeling was that she may have had some volume depletion when she was empirically given volume. In addition, she had an indeterminate troponin-I and she is now admitted for further management of this. She has a scheduled stress test. We are now being consulted for her maintenance hemodialysis. REVIEW OF SYSTEMS: Positive for generalized malaise. No chest pain or shortness of breath. No nausea. No vomiting. Appetite is decreased. Energy level is decreased. No headache. No gross hematuria. No dysuria. No urinary frequency. No hematochezia. No melena. No abdominal pain. No headache. No fever or chills. HOME MEDICATIONS: Include; 1. Coreg 25 mg p.o. b.i.d. 2. NovoLog sliding scale. 3. Tylenol 650 mg q.6h p.r.n. 4. Clonidine 0.1 mg p.o. b.i.d. 5. Ferrous sulfate 325 mg p.o. b.i.d. 6. Insulin 40 units subcu daily. PAST MEDICAL HISTORY: 1. ESRD from a presumed hypertensive nephropathy. 2. Longstanding hypertension. 3. Type-2 diabetes mellitus, status post CHF from diastolic dysfunction. 4. Diabetic nephropathy. 5. Hyperlipidemia. 6. ? of cardiomyopathy. PAST SURGICAL HISTORY: 1. Status post cuffed hemodialysis catheter placement. 2. Status post AV fistula placement. SOCIAL HISTORY: The patient lives in [place]. She is single. She has 6 children, but lives with her daughter. She is medically disabled. 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 Smoked for 25 years at least 3/4-pack a day. Alcohol none. No IV drug abuse. Status post blood transfusion. Education, high school. ALLERGIES: BACTRIM. TRAUMA: None. IMMUNIZATIONS: Up to date. HOSPITALIZATIONS: Please see past medical history. FAMILY HISTORY: No family history of ESRD. PHYSICAL EXAMINATION: VITAL SIGNS: Blood pressure is noted at 180/86, heart rate 87, respiratory rate 16, temperature 97.7, O2 saturation 100%. GENERAL: The patient is awake, alert, comfortable, not in overt distress. SKIN: Adequate turgor. HEENT: She has a pinkish conjunctivae. Anicteric sclerae. No neck mass. No carotid bruits. No JVD. CHEST: No deformities. LUNGS: Clear breath sounds. No wheezing. No crackles. HEART: Normal sinus rhythm. No murmurs, no gallops, no rubs. ABDOMEN: Globular, soft, nontender. No masses. EXTREMITIES: No edema. No deformities. NEUROLOGICAL: Awake, oriented to 3 spheres. Moving all extremities. No tremors. No asterixis. No ataxia. LABORATORY DATA: Laboratories of October 30, 2019; white count is 7, hemoglobin 11.8, hematocrit 37.3. Sodium 140, potassium 3.3, chloride 109, carbon dioxide 18, BUN 52, creatinine 8.22, glucose 270, calcium 7.7. Troponin-I 0.153. ASSESSMENT AND PLAN: 1. Generalized malaise - cardiac workup is being done for this patient to re-examine her ejection fraction. 2. End-stage renal disease, stable. We will continue current 3 times a week hemodialysis. The patient did miss dialysis yesterday and for that reason, she has been scheduled for her regular dialysis session today. 3. Hypertension. Continue current BP medications. The patient is scheduled for cardiac stress test. Recheck basic metabolic and CBC in a.m. Job ID: [id number]
[2019-10-30] MEDS ORDERED: Heparin 10,000 UNITS/ 10 ML VIAL ONE (11:04)
[2019-10-30 12:18] LABS: SARS-CoV-2 MS2 Positive; SARS-CoV-2 N Gene Positive; SARS-CoV-2 S Gene Positive; SARS-CoV-2 by NAA DETECTED (NotDetected); SARS-CoV-2 orf1ab Positive
[2019-10-30] MEDS ORDERED: Senokot S 8.6-50 MG TAB PO PRN (12:30)
[2019-10-30] MEDS: Ferrous Sulfate 325 MG TAB PO SCH ×2 (13:26→16:23)
[2019-10-30] MEDS: Heparin 5,000 UNITS/ML VIAL SC SCH ×3 (13:27→21:26)
[2019-10-30] MEDS: cloNIDine 0.1 MG TAB PO SCH ×2 (13:31→21:25)
[2019-10-30] MEDS: Insulin Glargine 40 UNITS in Pre-Filled Syringe 1 EACH SC SCH (13:31)
[2019-10-30] MEDS: Carvedilol 25 MG TAB PO SCH ×2 (13:31→21:26)
[2019-10-30 13:49] LABS: Ferritin 997.19 ng/mL (10-291)
[2019-10-30 13:54] LABS: HBSAg Index 0.16 S/CO (0-0.99); Hep B Surf Ag Non-Reactive S/CO (NonReactive)
--- NOTE | 2019-10-30 17:21 | PDOC.HOSPP ---
- Subjective Encounter Date: 10/30/19 Encounter Time: 14:00 Subjective: pt up in bed states that she has been feeling weak for the past few days. she denies any cp or sob. she is unable to tell me when her weakness started. - Objective Vital Signs & Weight: Vital Signs (12 hours) Temp Pulse Resp BP Pulse Ox Pulse Ox 10/30/19 16:30 98.3 F 89 17 145/70 H 98 10/30/19 14:50 100 10/30/19 12:40 98.6 F 92 17 196/95 H 100 10/30/19 08:00 97.7 F 87 16 180/86 H 100 Weight Weight 187 lb I&O: 10/29/19 10/30/19 10/31/19 06:59 06:59 06:59 Intake Total 1320 Output Total 425 Balance 895 Result Diagrams: 10/30/19 03:51 10/30/19 03:51 Additional Labs: Accuchecks 10/30/19 10/30/19 10/29/19 11:41 05:56 20:50 POC Glucose 169 H 249 H 162 H Hospitalist ROS - Review of Systems Cardiovascular: denies: chest pain, palpitations, orthopnea, paroxysmal noc. dyspnea, edema, light headedness, other Gastrointestinal: denies: nausea, vomiting, abdominal pain, diarrhea, constipation, melena, hematochezia, other Genitourinary: denies: dysuria, frequency, incontinence, hematuria, retention, other - Medication Medications: Active Medications Generic Name Dose Route Start Last Admin Trade Name Freq PRN Reason Stop Dose Admin Carvedilol 25 mg 10/30/19 09:00 10/30/19 13:31 Coreg PO 25 mg BID MAE Administration Clonidine 0.1 mg 10/29/19 20:32 10/29/19 21:37 Catapres PO 0.1 mg Q4H PRN Administration Hypertension Clonidine 0.1 mg 10/30/19 09:00 10/30/19 13:31 Catapres PO 0.1 mg BID MAE Administration Famotidine 20 mg 10/29/19 21:00 10/29/19 20:46 Pepcid PO Not Given QPM MAE Ferrous Sulfate 325 mg 10/30/19 08:00 10/30/19 16:23 Feosol PO 325 mg BID-WM MAE Administration Heparin Sodium (Porcine) 5,000 units 10/29/19 21:00 10/30/19 16:22 Heparin SC 5,000 units TID MAE Administration Insulin Glargine 40 units/ 0.4 mls @ 0 mls/hr 10/30/19 09:00 10/30/19 13:31 Miscellaneous Medication SC 0.4 mls DAILY MAE Administration - Exam Neck: negative: supple, symmetric, no JVD, no thyromegaly, no lymphadenopathy, no carotid bruit, JVD Heart: negative: RRR, no murmur, no gallops, no rubs, normal peripheral pulses, irregular, diminshed peripheral pulses, murmur present, II/IV, III/IV Respiratory: negative: CTAB, no wheezes, no rales, no ronchi, normal chest expansion, no tachypnea, normal percussion, rales, rhonchi, tachypneic, wheezes Gastrointestinal: negative: soft, non-tender, non-distended, normal bowel sounds , no palpable masses, no hepatomegaly, no splenomegaly, no bruit, no guarding, no rigidity, tender to palpation, distended, diminished bowl sounds, voluntary guarding Hosp A/P (1) Generalized weakness Code(s): R53.1 - WEAKNESS Status: Acute (2) T wave inversion in EKG Code(s): R94.31 - ABNORMAL ELECTROCARDIOGRAM [ECG] [EKG] Status: Acute (3) COVID-19 Code(s): U07.1 - COVID-19 Status: Acute (4) ESRD (end stage renal disease) Code(s): N18.6 - END STAGE RENAL DISEASE Status: Acute (5) DM type 2 (diabetes mellitus, type 2) Status: Chronic - Plan pt's has significant twave changes in her ekg compared to her ekg in 05/24. Her weakness could be cardiac related or her being covid positive. Pt is unable to tell me when her weakness worsen. she states that she has been having weakness which she associated with her being on dialysis but when her son came to pick her up for dialysis she was unable to walk and had generalized weakness so she was brought in. PT recommended rehab she cannot qualify since she is covid positive. will reevaluate her in am. will add bp meds since her bp is not controlled.
[2019-10-30] MEDS ORDERED: NIFEdipine XL 30 MG TAB PO SCH (17:30)
[2019-10-30] MEDS ORDERED: Aspirin 81 mg Enteric Coated Tablet PO SCH (17:30)
[2019-10-30] MEDS ORDERED: Potassium Chloride 20 MEQ TAB PO SCH (18:00)
[2019-10-30] MEDS: HumaLOG 300 UNITS/3 ML VIAL SC PRN (18:06)
--- NOTE | 2019-10-30 18:32 | CON ---
DATE OF CONSULTATION: 10/30/2019 PRIMARY CANAL BOAT CAPTAIN: Gavin Arreguin MD REASON FOR CONSULTATION: Indeterminate troponins. HISTORY OF PRESENT ILLNESS: Ms. Soni is a 64-year-old female, who comes to the hospital for feeling weak. She is unable to give an accurate story of how long she has felt weak. However, she was brought in for further evaluation. She was diagnosed with COVID-19. Cardiology is being consulted for her troponins, which are indeterminate range. PAST MEDICAL HISTORY: 1. End-stage renal disease, on hemodialysis. 2. Type 2 diabetes. 3. Hypertension. 4. History of nonischemic cardiomyopathy, but normalized EF since. OUTPATIENT MEDICATIONS: 1. Coreg 25 mg b.i.d. 2. NovoLog. 3. Tylenol. 4. Clonidine. 5. Ferrous sulfate. 6. Insulin. PAST SURGICAL HISTORY: 1. Dialysis catheter in right upper chest. 2. Left upper arm fistula. SOCIAL HISTORY: No alcohol, tobacco, or drugs. FAMILY HISTORY: Noncontributory. REVIEW OF SYSTEMS: A 12-point review of systems was done and was all negative unless stated in the history of present illness. PHYSICAL EXAMINATION: VITAL SIGNS: Temperature 98.3, pulse 89, respiratory rate 17, saturating 98% on room air, blood pressure 145/70. Rest of the physical exam was secondary to the patient having an active COVID-19 infection . LABORATORY DATA: Laboratory work was reviewed. Hematology; white count of 7, hemoglobin 11, hematocrit 37, platelet count 236. Chemistries with a sodium of 140, potassium 3.3, chloride 109, carbon dioxide of 18, anion gap of 16, BUN of 52, creatinine 8.2, GFR of 6, glucose of 200s, ferritin of 997. Troponin-I was 0.1, 0.1, and 0.1, and looking back all her visits, she has had indeterminate troponins every single time. This is consistent with history of chronic renal insufficiency and end-stage renal disease. Albumin was 2.2. UA was reviewed. COVID-19 serologies were positive. Most recent echocardiogram was done in April of 2019 of this year and showed a normal EF of 55% to 60%. ASSESSMENT/PLAN: 1. Indeterminate troponins. 2. General malaise, likely related to COVID-19 acute infection. 3. End-stage renal disease, on hemodialysis. PLAN: 1. No further cardiac workup is indicated at this time. More than likely, her malaise, which probably started in the last few days is related to her acute COVID-19 infection. 2. Her indeterminate troponins are more than likely related to her end-stage renal disease. It is typical for the patient with end-stage renal disease having this level of troponin leak and this is the same leak that she has had during all her admissions. Not in acute coronary syndrome. Thank you for letting us to participate in this patient's care. Dr. Arreguin, her primary landscape artist, will follow up in the morning. Job ID: [id number]
[2019-10-30] MEDS: Famotidine 20 MG TAB PO SCH (21:25)
[2019-10-30] MEDS: Atorvastatin Calcium 20 MG TAB PO SCH (21:26)
[2019-10-31 04:40] LABS: Anion Gap 12 mmol/L (10-20); BUN (Urea Nitrogen) 35 mg/dL (9.8-20.1); Calc. Creatinine Clearance 12 mL/min (70-130); Calcium 7.9 mg/dL (7.8-10.44); Carbon Dioxide 24 mmol/L (23-31); Cardiac Risk 5.3 (Less than 4.5); Chloride 110 mmol/L (98-107); Cholesterol 190 mg/dl (< 200 Desired); Estimated GFR-MDRD 8; Glucose 114 mg/dL (80-115); HDL Cholesterol 36 mg/dL (>60 Neg Risk); LDL Cholesterol, Calculated 123 mg/dL; Potassium 3.7 mmol/L (3.5-5.1); Sodium 142 mmol/L (136-145); Triglycerides 154 mg/dL (Less than 150)
[2019-10-31 04:50] LABS: Band 1 % (5-11); Hemoglobin 11.9 g/dL (12.0-16.0); Hypochromia SLIGHT = 6-15 cells (100X) (0-5/hpf); Lymphocytes 41 % (21-51); MDiff Complete? YES; Mean Corpuscular Hemoglobin 29.7 pg (27.0-31.0); Mean Corpuscular Volume 95.9 fL (78.0-98.0); Mean Platelet Volume 9.2 fL (7.4-10.4); Monocytes 5 % (0-10); Neutrophil 53 % (42-75); Platelet Count 253 thou/uL (130-400); Platelet Morphology Comment Appears Adequate; RBC Distribution Width 12.9 % (11.5-14.5); White Blood Cell (WBC) Count 6.6 thou/uL (4.8-10.8)
--- NOTE | 2019-10-31 08:51 | PRG ---
DATE OF SERVICE: 10/31/2019 SUBJECTIVE: Ms. Soni is a 64-year-old black female with known history of ESRD and was admitted for generalized malaise. She was tested for COVID and she was found to be positive. She is currently undergoing hemodialysis today. No new complaints. No chest pain or shortness of breath. OBJECTIVE: VITAL SIGNS: Blood pressure 119/60, heart rate 85, respiratory rate 20, temperature 98.9, O2 saturation 99%. GENERAL: Noted to be awake, alert, comfortable, not in distress. SKIN: Adequate turgor. HEENT: Pinkish conjunctivae. Anicteric sclerae. NECK: No neck mass. No carotid bruits. No JVD. CHEST: No deformities. LUNGS: Clear breath sounds. HEART: Normal sinus rhythm. No murmur. No gallops. No rubs. ABDOMEN: Globular, soft, nontender. No masses. EXTREMITIES: No edema. No deformities. MEDICATIONS: Medications of October 31, 2019, was reviewed. LABORATORY DATA: Laboratories of October 31, 2019; white count 6.6, hemoglobin 11.9, sodium 142, potassium 3.7, chloride 110, carbon dioxide 24, BUN 35, creatinine 6.57, glucose 114, calcium 7.9. ASSESSMENT AND PLAN: 1. Generalized malaise - secondary to a COVID-19 infection. Continue supportive care. The patient remains afebrile and pulmonary status is stable. 2. End-stage renal failure, stable. We will continue current Tuesday, Tuesday, and Tuesday hemodialysis. Tolerating said treatment. Please note, she receive extra dialysis yesterday since she missed her dialysis on Tuesday. 3. Overall, agree with current management. Job ID: [id number]
[2019-10-31] MEDS ORDERED: Heparin 10,000 UNITS/ 10 ML VIAL ONE (10:22)
[2019-10-31] MEDS: NIFEdipine XL 30 MG TAB PO SCH ×2 (12:26→13:49)
[2019-10-31] MEDS: Aspirin 81 mg Enteric Coated Tablet PO SCH (12:27)
[2019-10-31] MEDS: Ferrous Sulfate 325 MG TAB PO SCH ×2 (12:27→18:39)
[2019-10-31] MEDS: cloNIDine 0.1 MG TAB PO SCH ×3 (12:27→20:35)
[2019-10-31] MEDS: Carvedilol 25 MG TAB PO SCH ×2 (12:27→20:35)
[2019-10-31] MEDS: Heparin 5,000 UNITS/ML VIAL SC SCH ×3 (12:28→20:35)
[2019-10-31] MEDS: Insulin Glargine 40 UNITS in Pre-Filled Syringe 1 EACH SC SCH (12:29)
[2019-10-31] MEDS ORDERED: Sodium Chloride 0.9% 500 ML IVPB SCH (15:14)
--- NOTE | 2019-10-31 16:58 | PDOC.HOSPP ---
- Subjective Encounter Date: 10/31/19 Encounter Time: 11:30 Subjective: pt up in bed states she feels well. - Objective Vital Signs & Weight: Vital Signs (12 hours) Temp Pulse Pulse Pulse Pulse Pulse Resp 10/31/19 14:47 10/31/19 13:59 90 92 93 93 10/31/19 12:45 98.8 F 104 H 17 10/31/19 08:33 98.9 F 88 17 BP BP BP BP BP BP BP 10/31/19 14:47 128/93 H 115/58 L 10/31/19 13:59 136/71 128/98 H 115/58 L 127/69 10/31/19 12:45 124/65 10/31/19 08:33 149/75 H BP Pulse Ox Pulse Ox Pulse Ox Pulse Ox Pulse Ox 10/31/19 14:47 136/71 10/31/19 13:59 100 100 100 100 10/31/19 12:45 100 10/31/19 08:33 100 Weight Weight 187 lb I&O: 10/30/19 10/31/19 11/01/19 06:59 06:59 06:59 Intake Total 1320 840 Output Total 425 Balance 895 840 Result Diagrams: 10/31/19 04:04 10/31/19 04:04 Additional Labs: Accuchecks 10/31/19 10/31/19 10/30/19 12:45 06:25 21:37 POC Glucose 197 H 123 H 124 H 10/30/19 16:59 POC Glucose 242 H Hospitalist ROS - Review of Systems Respiratory: denies: cough, dry, shortness of breath, hemoptysis, SOB with excertion, pleuritic pain, sputum, wheezing, other Cardiovascular: denies: chest pain, palpitations, orthopnea, paroxysmal noc. dyspnea, edema, light headedness, other Gastrointestinal: denies: nausea, vomiting, abdominal pain, diarrhea, constipation, melena, hematochezia, other - Medication Medications: Active Medications Generic Name Dose Route Start Last Admin Trade Name Freq PRN Reason Stop Dose Admin Aspirin 81 mg 10/31/19 09:00 10/31/19 12:27 Ecotrin PO 81 mg DAILY MAE Administration Atorvastatin Calcium 20 mg 10/30/19 21:00 10/30/19 21:26 Lipitor PO 20 mg HS MAE Administration Carvedilol 25 mg 10/30/19 09:00 10/31/19 12:27 Coreg PO 25 mg BID MAE Administration Clonidine 0.1 mg 10/29/19 20:32 10/29/19 21:37 Catapres PO 0.1 mg Q4H PRN Administration Hypertension Clonidine 0.1 mg 10/30/19 09:00 10/31/19 13:49 Catapres PO Not Given BID MAE Famotidine 20 mg 10/29/19 21:00 10/30/19 21:25 Pepcid PO 20 mg QPM MAE Administration Ferrous Sulfate 325 mg 10/30/19 08:00 10/31/19 12:27 Feosol PO 325 mg BID-WM MAE Administration Heparin Sodium (Porcine) 5,000 units 10/29/19 21:00 10/31/19 13:25 Heparin SC Not Given TID MAE Insulin Glargine 40 units/ 0.4 mls @ 0 mls/hr 10/30/19 09:00 10/31/19 12:29 Miscellaneous Medication SC 0.4 mls DAILY MAE Administration Insulin Human Lispro 0 units 10/29/19 21:10 10/30/19 18:06 Humalog SC 3 unit .MILD SLIDING SCALE PRN Administration Mild Correctional Scale Nifedipine 30 mg 10/31/19 09:00 10/31/19 13:49 Procardia Xl PO Not Given DAILY [facility] Sodium Chloride 10 ml 10/29/19 20:14 10/30/19 21:26 Flush - Normal Saline IVF 10 ml PRN PRN Administration Saline Flush - Exam Heart: negative: RRR, no murmur, no gallops, no rubs, normal peripheral pulses, irregular, diminshed peripheral pulses, murmur present, II/IV, III/IV Respiratory: negative: CTAB, no wheezes, no rales, no ronchi, normal chest expansion, no tachypnea, normal percussion, rales, rhonchi, tachypneic, wheezes Gastrointestinal: negative: soft, non-tender, non-distended, normal bowel sounds , no palpable masses, no hepatomegaly, no splenomegaly, no bruit, no guarding, no rigidity, tender to palpation, distended, diminished bowl sounds, voluntary guarding Hosp A/P (1) Generalized weakness Code(s): R53.1 - WEAKNESS Status: Acute (2) T wave inversion in EKG Code(s): R94.31 - ABNORMAL ELECTROCARDIOGRAM [ECG] [EKG] Status: Acute (3) COVID-19 Code(s): U07.1 - COVID-19 Status: Acute (4) ESRD (end stage renal disease) Code(s): N18.6 - END STAGE RENAL DISEASE Status: Acute (5) DM type 2 (diabetes mellitus, type 2) Status: Chronic - Plan pt's has significant twave changes in her ekg compared to her ekg in 05/24. Her weakness could be cardiac related or her being covid positive. Pt is unable to tell me when her weakness worsen. she states that she has been having weakness which she associated with her being on dialysis but when her son came to pick her up for dialysis she was unable to walk and had generalized weakness so she was brought in. PT recommended rehab she cannot qualify since she is covid positive. will reevaluate her in am. will add bp meds since her bp is not controlled. 10/30 I spoke with PT who states that pt was very dizzy. I spoke with the patient and she states that she gets dizzy at times. we check orthostatic and they were positive. will give her ns 500. Her dialysis has to be rearranged since pt now is covid positive. she is asymptomatic. will get MRI brain if this does not improve.
[2019-10-31] MEDS: Atorvastatin Calcium 20 MG TAB PO SCH (20:34)
[2019-10-31] MEDS: Famotidine 20 MG TAB PO SCH (20:35)
[2019-11-01] MEDS: HumaLOG 300 UNITS/3 ML VIAL SC PRN (06:30)
[2019-11-01] MEDS: Aspirin 81 mg Enteric Coated Tablet PO SCH (10:10)
[2019-11-01] MEDS: NIFEdipine XL 30 MG TAB PO SCH (10:10)
[2019-11-01] MEDS: Carvedilol 25 MG TAB PO SCH ×2 (10:10→20:27)
[2019-11-01] MEDS: Ferrous Sulfate 325 MG TAB PO SCH ×2 (10:11→15:52)
[2019-11-01] MEDS: Heparin 5,000 UNITS/ML VIAL SC SCH ×3 (10:11→20:28)
[2019-11-01] MEDS: cloNIDine 0.1 MG TAB PO SCH ×2 (10:11→20:27)
[2019-11-01] MEDS: Insulin Glargine 40 UNITS in Pre-Filled Syringe 1 EACH SC SCH (10:12)
--- NOTE | 2019-11-01 18:00 | PDOC.HOSPP ---
- Subjective Encounter Date: 11/01/19 Encounter Time: 12:30 Subjective: pt up in bed states that she gets dizzy when she gets up but then resolves. - Objective Vital Signs & Weight: Vital Signs (12 hours) Temp Pulse Resp BP BP BP BP 11/01/19 16:00 87 17 140/91 H 11/01/19 12:08 98.9 F 86 130/95 H 11/01/19 07:48 98.4 F 87 16 176/93 H 167/111 H 144/79 H 176/92 H Pulse Ox 11/01/19 16:00 100 11/01/19 12:08 86 L 11/01/19 07:48 100 Weight Weight 187 lb I&O: 10/31/19 11/01/19 11/02/19 06:59 06:59 06:59 Intake Total 840 750 240 Output Total 100 Balance 840 650 240 Result Diagrams: 10/31/19 04:04 10/31/19 04:04 Additional Labs: Accuchecks 11/01/19 11/01/19 11/01/19 17:14 11:58 05:28 POC Glucose 113 H 167 H 158 H 10/31/19 10/31/19 20:22 17:58 POC Glucose 108 93 Hospitalist ROS - Review of Systems Cardiovascular: reports: light headedness Gastrointestinal: denies: nausea, vomiting, abdominal pain, diarrhea, constipation, melena, hematochezia, other Genitourinary: denies: dysuria, frequency, incontinence, hematuria, retention, other - Medication Medications: Active Medications Generic Name Dose Route Start Last Admin Trade Name Davinq PRN Reason Stop Dose Admin Aspirin 81 mg 10/31/19 09:00 11/01/19 10:10 Ecotrin PO 81 mg DAILY MAE Administration Atorvastatin Calcium 20 mg 10/30/19 21:00 10/31/19 20:34 Lipitor PO 20 mg HS MAE Administration Carvedilol 25 mg 10/30/19 09:00 11/01/19 10:10 Coreg PO 25 mg BID MAE Administration Clonidine 0.1 mg 10/29/19 20:32 10/29/19 21:37 Catapres PO 0.1 mg Q4H PRN Administration Hypertension Clonidine 0.1 mg 10/30/19 09:00 11/01/19 10:11 Catapres PO 0.1 mg BID MAE Administration Famotidine 20 mg 10/29/19 21:00 10/31/19 20:35 Pepcid PO 20 mg QPM MAE Administration Ferrous Sulfate 325 mg 10/30/19 08:00 11/01/19 15:52 Feosol PO 325 mg BID-WM MAE Administration Heparin Sodium (Porcine) 5,000 units 10/29/19 21:00 11/01/19 15:51 Heparin SC 5,000 units TID MAE Administration Insulin Glargine 40 units/ 0.4 mls @ 0 mls/hr 10/30/19 09:00 11/01/19 10:12 Miscellaneous Medication SC 0.4 mls DAILY MAE Administration Insulin Human Lispro 0 units 10/29/19 21:10 11/01/19 06:30 Humalog SC 2 unit .MILD SLIDING SCALE PRN Administration Mild Correctional Scale Nifedipine 30 mg 10/31/19 09:00 11/01/19 10:10 Procardia Xl PO 30 mg DAILY MAE Administration Sodium Chloride 10 ml 10/29/19 20:14 10/30/19 21:26 Flush - Normal Saline IVF 10 ml PRN PRN Administration Saline Flush - Exam Neck: negative: supple, symmetric, no JVD, no thyromegaly, no lymphadenopathy, no carotid bruit, JVD Heart: negative: RRR, no murmur, no gallops, no rubs, normal peripheral pulses, irregular, diminshed peripheral pulses, murmur present, II/IV, III/IV Respiratory: negative: CTAB, no wheezes, no rales, no ronchi, normal chest expansion, no tachypnea, normal percussion, rales, rhonchi, tachypneic, wheezes Gastrointestinal: negative: soft, non-tender, non-distended, normal bowel sounds , no palpable masses, no hepatomegaly, no splenomegaly, no bruit, no guarding, no rigidity, tender to palpation, distended, diminished bowl sounds, voluntary guarding Hosp A/P (1) Generalized weakness Code(s): R53.1 - WEAKNESS Status: Acute (2) T wave inversion in EKG Code(s): R94.31 - ABNORMAL ELECTROCARDIOGRAM [ECG] [EKG] Status: Acute (3) COVID-19 Code(s): U07.1 - COVID-19 Status: Acute (4) ESRD (end stage renal disease) Code(s): N18.6 - END STAGE RENAL DISEASE Status: Acute (5) DM type 2 (diabetes mellitus, type 2) Status: Chronic - Plan pt's has significant twave changes in her ekg compared to her ekg in 05/24. Her weakness could be cardiac related or her being covid positive. Pt is unable to tell me when her weakness worsen. she states that she has been having weakness which she associated with her being on dialysis but when her son came to pick her up for dialysis she was unable to walk and had generalized weakness so she was brought in. PT recommended rehab she cannot qualify since she is covid positive. will reevaluate her in am. will add bp meds since her bp is not controlled. 10/30 I spoke with PT who states that pt was very dizzy. I spoke with the patient and she states that she gets dizzy at times. we check orthostatic and they were positive. will give her ns 500. Her dialysis has to be rearranged since pt now is covid positive. she is asymptomatic. will get MRI brain if this does not improve. 10/31 I did order MRI but radiology did not warrant the MRI. pt is an overall poor historian. I was present when PT worked with pt and she denied any dizziness. will continue to monitor. pt's dialysis will be set up kristal. Her orthostatic are much better. wanted to get a MRI to rule out stroke.
[2019-11-01] MEDS: Famotidine 20 MG TAB PO SCH (20:27)
[2019-11-01] MEDS: Atorvastatin Calcium 20 MG TAB PO SCH (20:27)
[2019-11-02 05:59] LABS: #Eosinphils 0.1 thou/uL (0.0-0.7); #Lymphocytes 1.8 thou/uL (1.20-3.40); #Monocytes 0.9 thou/uL (0.11-0.59); %Basophils 0.6 % (0.0-1.0); %Eosinophils 1.7 % (0.0-10.0); %Lymphocytes 23.3 % (21.0-51.0); %Monocytes 11.3 % (0.0-10.0); %Neutrophils 63.2 % (42.0-75.0); Mean Corpuscular HGB CONC 31.7 g/dL (32.0-36.0); Mean Corpuscular Hemoglobin 30.4 pg (27.0-31.0); Mean Corpuscular Volume 95.7 fL (78.0-98.0); Mean Platelet Volume 9.2 fL (7.4-10.4); Platelet Count 244 thou/uL (130-400); RBC Distribution Width 12.7 % (11.5-14.5); Red Blood Cell (RBC) Count 3.96 mill/uL (4.20-5.40); White Blood Cell (WBC) Count 7.9 thou/uL (4.8-10.8)
[2019-11-02 06:23] LABS: ALT (SGPT) 10 U/L (8-55); AST (SGOT) 14 U/L (5-34); Albumin 2.5 g/dL (3.4-4.8); Alkaline Phosphatase 52 U/L (40-110); Anion Gap 14 mmol/L (10-20); BUN (Urea Nitrogen) 35 mg/dL (9.8-20.1); Bilirubin, Total 0.2 mg/dL (0.2-1.2); CRP (Inflammatory) 0.71 mg/dL (= or < 0.5); Calc. Creatinine Clearance 11 mL/min (70-130); Calcium 8.5 mg/dL (7.8-10.44); Carbon Dioxide 25 mmol/L (23-31); Chloride 106 mmol/L (98-107); Estimated GFR-MDRD 7; Globulin 3.2 g/dL (2.4-3.5); Glucose 130 mg/dL (80-115); Potassium 3.6 mmol/L (3.5-5.1); Protein, Total 5.7 g/dL (6.0-8.3); Sodium 141 mmol/L (136-145)
[2019-11-02] MEDS: Ferrous Sulfate 325 MG TAB PO SCH ×2 (07:52→09:05)
[2019-11-02] MEDS: cloNIDine 0.1 MG TAB PO SCH ×2 (07:52→09:05)
[2019-11-02] MEDS: Carvedilol 25 MG TAB PO SCH ×2 (07:52→09:05)
[2019-11-02] MEDS: Aspirin 81 mg Enteric Coated Tablet PO SCH ×2 (07:52→09:05)
[2019-11-02] MEDS: NIFEdipine XL 30 MG TAB PO SCH ×2 (07:53→09:05)
[2019-11-02] MEDS: Heparin 5,000 UNITS/ML VIAL SC SCH ×2 (07:53→14:07)
--- NOTE | 2019-11-02 09:01 | PRG ---
DATE OF SERVICE: 11/02/2019 SERVICE: Renal Medicine. SUBJECTIVE: Ms. Soni is a 64-year-old black female with ESRD, who was initially admitted for generalized malaise. She was checked for COVID-19 infection. She was turned to be positive. We are following her up for management of her ESRD. This morning, she is feeling better and she is currently undergoing hemodialysis. We will attempt fluid removal as tolerated by the patient. OBJECTIVE: VITAL SIGNS: Blood pressure is 178/99, heart rate 83, respiratory rate 18, temperature 97.5, O2 saturation 100% on room air. GENERAL: The patient is awake, alert, comfortable, not in overt distress. SKIN: Adequate turgor. HEENT: Pinkish conjunctivae. Anicteric sclerae. NECK: No neck mass. No carotid bruits. No JVD. CHEST: No deformities. LUNGS: Clear breath sounds. No wheezing. No crackles. HEART: Normal sinus rhythm. No murmur. No gallops. No rubs. ABDOMEN: Globular, soft, nontender. No masses. EXTREMITIES: No edema. No deformities. MEDICATIONS: On November 02, 2019, were reviewed. LABORATORY DATA: On November 02, 2019; white count 7.9, hemoglobin 12. Sodium 141, potassium 3.6, chloride 106, carbon dioxide 25, BUN 35, creatinine 6.92, glucose 130, calcium 8.5, AST 14, ALT 10, albumin 2.5. ASSESSMENT AND PLAN: 1. End-stage renal disease, stable. We will continue current Tuesday, Tuesday, and Tuesday hemodialysis. We will remove fluid removal as tolerated by the patient. 2. COVID-19 infection-supportive care. Clinically stable. Plan is to discharge her once there is an outpatient dialysis slot available at [place]. She is being transferred to [place] due to the fact that she is COVID-19 positive. Job ID: [id number]
[2019-11-02] MEDS: Insulin Glargine 40 UNITS in Pre-Filled Syringe 1 EACH SC SCH (09:21)
[2019-11-02] MEDS ORDERED: Heparin 10,000 UNITS/ 10 ML VIAL ONE (10:55)
[2019-11-02 11:45] VITALS: TEMP 97.7
[2019-11-02 13:18] VITALS: BP 123/78
--- NOTE | 2019-11-02 18:05 | DIS ---
DATE OF ADMISSION: 10/29/2019 DATE OF DISCHARGE: 11/02/2019 DISCHARGE DIAGNOSES: As of the following; 1. COVID positive. 2. Generalized weakness. 3. End-stage renal disease, on dialysis. HOSPITAL COURSE: The patient is a 64-year-old female, who initially presented to the hospital with complaints of generalized weakness. She did not actually tell me, but she stated that to the physical therapist that she was dizzy on ambulation. We initially hydrated her gently with 500 mL of normal saline bolus. She also underwent dialysis. The patient was kept in the hospital few days to set up her new dialysis since she was COVID positive. She had no shortness of breath. She had no hypoxia. She had required no oxygen while she was in the hospital. She was able to tolerate her oral intake. No diarrhea was noted. She was walked by therapy a few times. She stated that her dizziness had resolved. Given her COVID testing, I had initially ordered an MRI, but this was not done given that the fact that she was COVID positive. She was also seen by Cardiology for some changes in her EKG. I recommended just outpatient workup. She also had some mildly elevated troponins. Again, given her COVID positive test, she will not undergo a stress test in the hospital. The patient's dialysis has been set up. She will be discharged home. Her home medications will be; 1. Aspirin 81 mg daily. 2. Atorvastatin 20 mg daily. 3. Coreg 25 b.i.d. 4. Iron 325 twice a day. 5. NovoLog as needed. 6. Levemir 40 units daily. 7. Clonidine 0.1 b.i.d. PHYSICAL EXAMINATION: VITAL SIGNS: On discharge, temperature of 97.7, pulse 85, respiratory rate 16, oxygen saturation 100% on room air, and blood pressure 122/78. GENERAL: She is awake, alert, and oriented x3. Does not appear in distress. CV: S1 and S2 present. No murmurs, rubs, or gallops. ABDOMEN: Soft and nontender. Bowel sounds are present x2. Again, she will be discharged home. She will follow up with her primary. Job ID: [id number]
== END 2019-11-02 16:10 | disposition home or self-care (01) ==
LOC: ERS 10:54 → 2NO 17:05
PROVIDERS: ADMIT Internal Medicine; ATTEND Internal Medicine
DX: U07.1 COVID-19 (principal); R53.81 Other malaise; R53.1 Weakness; I13.0 Hypertensive heart and chronic kidney disease with heart failure and stage 1 through stage 4 chronic kidney disease, or unspecified chronic kidney disease; E11.21 Type 2 diabetes mellitus with diabetic nephropathy; E11.22 Type 2 diabetes mellitus with diabetic chronic kidney disease; N18.6 End stage renal disease; I50.30 Unspecified diastolic (congestive) heart failure; E87.6 Hypokalemia; E78.5 Hyperlipidemia, unspecified; F17.210 Nicotine dependence, cigarettes, uncomplicated; R94.31 Abnormal electrocardiogram [ECG] [EKG]; Z79.4 Long term (current) use of insulin; Z79.82 Long term (current) use of aspirin; Z79.899 Other long term (current) drug therapy; Z88.1 Allergy status to other antibiotic agents; Z88.2 Allergy status to sulfonamides; Z99.2 Dependence on renal dialysis
CPT/HCPCS: 71045; 80048; 80053 ×2; 80061; 82550; 82553; 82728; 82962 ×5; 83735; 84484 ×2; 85025 ×3; 86140 ×2; 87340; 93005; 96361; 96365; 96366; 96372 ×4; 96375; 97110; 97116; 97139 ×9; 97530 ×2; 97535; 99285; G0378 ×6; U0003; 36415; 36416; 81003; 81015; 84443; 87635; 90935; 93010; G0257; J1644; J1815; J3480; J7030; J7050

== ENCOUNTER 2020-03-04 13:29 | Observation (INO) | payer MEDICARE ==
[~2020-03-04 13:29] MED LIST: Iopamidol-370 76% 500 ML 1 ML ONE
--- NOTE | 2020-03-04 13:54 | CT ---
CT BRAIN WITHOUT CONTRAST: HISTORY: slurred speech FINDINGS: No evidence of acute infarct, hemorrhage, midline shift or abnormal extra-axial fluid collections is seen. The ventricular size is appropriate and the basilar cisterns are patent. The bony calvarium is intact. The visualized paranasal sinuses and mastoid air cells are well aerated. IMPRESSION: No CT evidence of acute intracranial process. Discussed over the telephone with ER physician Dr. Kasper at 1:47 PM
[2020-03-04 14:04] LABS: #Basophils 0.1 thou/uL (0.0-0.2); #Eosinphils 0.3 thou/uL (0.0-0.7); #Monocytes 0.8 thou/uL (0.11-0.59); #Neutrophils 5.5 thou/uL (1.40-6.50); %Basophils 0.6 % (0.0-1.0); %Eosinophils 3.1 % (0.0-10.0); %Lymphocytes 23.6 % (21.0-51.0); %Monocytes 9.2 % (0.0-10.0); %Neutrophils 63.6 % (42.0-75.0); Hemoglobin 11.2 g/dL (12.0-16.0); Mean Corpuscular HGB CONC 32.5 g/dL (32.0-36.0); Mean Corpuscular Hemoglobin 30.6 pg (27.0-31.0); Mean Corpuscular Volume 94.1 fL (78.0-98.0); Mean Platelet Volume 8.8 fL (7.4-10.4); Platelet Count 232 thou/uL (130-400); RBC Distribution Width 13.7 % (11.5-14.5); Red Blood Cell (RBC) Count 3.65 mill/uL (4.20-5.40); White Blood Cell (WBC) Count 8.6 thou/uL (4.8-10.8)
[2020-03-04 14:11] LABS: PTT 34.6 sec (22.9-36.1); Prothrombin Time 13.6 sec (12.0-14.7)
[2020-03-04 14:26] LABS: ALT (SGPT) 30 U/L (8-55); AST (SGOT) 24 U/L (5-34); Albumin 3.2 g/dL (3.4-4.8); Alkaline Phosphatase 74 U/L (40-110); Anion Gap 17 mmol/L (10-20); BUN (Urea Nitrogen) 49 mg/dL (9.8-20.1); Bilirubin, Total 0.4 mg/dL (0.2-1.2); Calc. Creatinine Clearance 0 mL/min (70-130); Calcium 9.2 mg/dL (7.8-10.44); Carbon Dioxide 26 mmol/L (23-31); Chloride 103 mmol/L (98-107); Estimated GFR-MDRD 7; Globulin 2.9 g/dL (2.4-3.5); Glucose 371 mg/dL (80-115); Potassium 3.9 mmol/L (3.5-5.1); Protein, Total 6.1 g/dL (6.0-8.3); Sodium 142 mmol/L (136-145)
[2020-03-04 14:47] LABS: CKMB 3.7 ng/mL (0-6.6)
--- NOTE | 2020-03-04 14:52 | CT ---
CTA HEAD WITH CONTRAST CTA NECK WITH CONTRAST: Axial tomograms were obtained through the head and neck following angio protocol with multiplanar rec onstruction and 3D post processing following angio protocol. INDICATION: Stroke protocol. Trouble speaking with slurred speech. FINDINGS: CTA HEAD: The intracranial internal carotid arteries are patent. However, there is evidence of focal stenosis in the intracranial left internal carotid artery in the precavernous region. A web-like stenosis is present within this portion of the left intracranial ICA. The cavernous ICAs are patent and symmetric with mild atherosclerotic calcification. Both middle cerebral arteries are patent and symmetric. No stenosis is seen in either M1 segment. The anterior cerebral arteries are patent. Basilar artery is patent. Posterior cerebral arteries appear patent. Dural venous sinuses appear patent. IMPRESSION: Web-like area of stenosis in the intracranial left internal carotid artery in the precavernous region . Catheter angiogram could be performed with digital angiography for further assessment. CTA NECK: No significant stenosis at the origin of the arch vessels. Common carotid arteries are patent and symmetric. No significant plaque seen of either bulb. Both extracranial internal carotid arteries are patent an d symmetric. No stenosis. Vertebral arteries are patent and symmetric. Review of the soft tissue windows shows enlarged heterogeneous thyroid gland. Calcified granuloma in the left lung apex. IMPRESSION: 1. Unremarkable CTA neck. 2. Enlarged heterogeneous thyroid. POS: AGW
[2020-03-04] MEDS ORDERED: Aspirin 325 MG TAB ONE (15:48)
[2020-03-04] MEDS ORDERED: Ondansetron PF 4 MG/2 ML Vial IVP PRN (15:53)
[2020-03-04] MEDS ORDERED: HumaLOG 300 UNITS/3 ML VIAL SC PRN ×2 (15:53)
[2020-03-04] MEDS ORDERED: Dextrose 5% in Water 1,000 ML IV PRN (15:53)
[2020-03-04] MEDS ORDERED: HYDROcodone/Acetaminophen 5/325 mg Tablet PO PRN (15:53)
[2020-03-04] MEDS ORDERED: Dextrose 50% Abboject 50 ML SYRINGE SLOW IVP PRN (15:53)
[2020-03-04] MEDS ORDERED: Guaifenesin DM 100-10/5 ML UDCUP PO PRN (15:53)
[2020-03-04] MEDS ORDERED: Bisacodyl 10 MG SUPP PR PRN (15:53)
[2020-03-04] MEDS ORDERED: Acetaminophen 325 MG TAB PO PRN (15:53)
[2020-03-04] MEDS ORDERED: Senokot S 8.6-50 MG TAB PO PRN (15:53)
[2020-03-04 16:24] LABS: Bacteria/HPF None Seen HPF (None Seen); Bilirubin Negative (Negative); Blood, Urine 1+ (Negative); Clarity Clear (Clear); Glucose, Urine (Dipstick) Greater than 1000 mg/dL (Negative); Ketone, Urine Negative (Negative); Leukocyte Negative Leu/uL (Negative); Nitrite Negative (Negative); Protein, Urine (Dipstick) Greater than 600 mg/dL (Neg-Trace); RBC/HPF 0-3 HPF (0-3); Specific Gravity, Urine 1.027 (1.002-1.036); Urobilinogen Normal mg/dL (Less than 2)
--- NOTE | 2020-03-04 16:28 | HP ---
REASON FOR ADMISSION: TIA. HISTORY OF PRESENT ILLNESS: The patient gives history of having gone to [facility] for MRI of left shoulder. She has had chronic history of tingling and numbness in the left upper extremity. The patient also has had fistula placed in June and was scheduled for left shoulder MRI. While she was changing her clothes, she got dizzy there. Finally, when the patient got into the machine, she started shaking and felt her mouth to be very dry, developed slurred speech, and was transferred here to the emergency room. She has no complaints of any weakness in any of the extremities. She normally ambulates by herself. The patient gets her dialysis on Tuesday, Tuesday, and Tuesday. She has no complaints of chest pain, palpitation, PND, or orthopnea. No complaints of nausea or vomiting. No abdominal pain. She states she has recovered well from her COVID, which she had in October. PAST MEDICAL AND SURGICAL HISTORY: History of end-stage renal disease, on hemodialysis, Tuesday, Tuesday, and Tuesday; nonischemic cardiomyopathy and sees Dr. Arreguin. She has been on dialysis from June of this year. Has a right subclavian tunneled catheter, has left wrist area AV fistula, diabetes mellitus type 2, obesity, dyslipidemia. CURRENT MEDICATIONS: The patient is on; 1. Clonidine 0.2 mg p.o. twice daily. 2. Carvedilol 50 mg twice daily. 3. NovoLog subcu p.r.n. 4. Levemir 40 units subcu daily. 5. Procardia XL 30 mg p.o. daily. 6. PhosLo 667 mg p.o. three times daily. 7. Lipitor 20 mg p.o. daily. ALLERGIES: ALLERGIC TO LEVAQUIN AND SULFA. PERSONAL HISTORY: Does not abuse alcohol or drugs. No history of smoking. She stays with her children. FAMILY HISTORY: Mother in her 90s from natural causes. Father in his 70s, he had history of prostate cancer. REVIEW OF SYSTEMS: CONSTITUTIONAL: Negative for weight loss or gain, ability to conduct usual activities. SKIN: Negative for rash, itching. EYES: Negative for double vision, pain. ENT/MOUTH: Negative for nose bleeding, neck stiffness, pain, tenderness. CARDIOVASCULAR: Negative for palpitations, dyspnea on exertion, orthopnea. RESPIRATORY: Negative for shortness of breath, wheezing, cough, hemoptysis, fever or night sweats. GASTROINTESTINAL: Negative for poor appetite, abdominal pain, heartburn, nausea, vomiting, constipation, or diarrhea. GENITOURINARY: Negative for urgency, frequency, dysuria, nocturia. MUSCULOSKELETAL: Negative for pain, swelling. NEUROLOGIC/PSYCHIATRIC: Negative for anxiety, depression. ALLERGY/IMMUNOLOGIC: Negative for skin rash, bleeding tendency. PHYSICAL EXAMINATION: GENERAL: The patient is a 64-year-old female, who is currently not in any acute distress. The patient's speech is clear at present. VITAL SIGNS: Blood pressure 178/90, pulse 86 per minute, respiratory rate 18 per minute, temperature 98 degrees Fahrenheit, and saturating 100% on room air. NECK: Supple. No elevated JVD. HEENT: Eyes; extraocular muscles are intact. Pupils are reacting to light. Oral cavity, mucous membranes are dry. No exudates or congestion. CARDIOVASCULAR SYSTEM: S1 and S2 heard. Loud S2. RESPIRATORY SYSTEM: Air entry 1+ bilateral. No rales or rhonchi. ABDOMEN: Soft. Bowel sounds heard. No tenderness, rigidity, or guarding. EXTREMITIES: No peripheral edema or calf tenderness. VASCULAR SYSTEM: Peripheral pulses 1+ bilateral. No ischemic ulcers or gangrene. CENTRAL NERVOUS SYSTEM: No gross focal motor deficits noted. The patient is alert, awake, oriented well. Cranial nerves are grossly intact. Strength is 5/5 in all extremities. Gait was not tested. PSYCHIATRIC SYSTEM: The patient's mood is euthymic. No hallucinations or delusions. LABORATORY DATA: EKG done shows normal sinus rhythm at 84 beats per minute, there is LBBB seen, QRS duration is 132 milliseconds, corrected QT is [address] brain shows no acute intracranial process. CT angio brain, there is question of web-like area of stenosis in the intracranial left internal carotid artery in the pre-cavernous region. CTA neck was unremarkable. White count of 8, hemoglobin and hematocrit are 11 and 34, platelet count 232, MCV is 94. PT, INR, and PTT within normal limits. BUN 49, creatinine 7.3, serum bicarb 26, serum glucose 371. Liver enzymes within normal limits. Albumin 3.2. CLINICAL IMPRESSION AND PLAN: The patient will be under observation on stroke unit for possible transient ischemic attack with difficulty speaking, feeling dizzy when she was trying to get her MRI for the left shoulder this morning. In view of multiple risk factors, the patient will be under observation on stroke unit. We will follow TIA evidence based protocol. She will be on aspirin, Lipitor, half the dose of Coreg and clonidine which she takes at home, and we will continue Lantus at home dosage. Echo with 2D Doppler for LV function and MRI brain without contrast for completion. We will also consult Dr. Martinez for Neurology. Stroke Team will be consulted. Job ID: [id number]
[2020-03-04] MEDS ORDERED: cloNIDine 0.1 MG TAB ONE (18:45)
[2020-03-04] MEDS ORDERED: NIFEdipine XL 30 MG TAB PO SCH (19:00)
[2020-03-04 19:12] LABS: Troponin I 0.107 ng/mL (< 0.028)
[2020-03-04] MEDS ORDERED: Atorvastatin Calcium 40 MG TAB PO SCH (21:00)
[2020-03-04] MEDS ORDERED: Carvedilol 25 MG TAB PO SCH (21:00)
[2020-03-04] MEDS ORDERED: Famotidine 20 MG TAB PO SCH (21:00)
[2020-03-04] MEDS ORDERED: cloNIDine 0.1 MG TAB PO SCH (21:00)
[2020-03-04 22:07] LABS: Troponin I 0.108 ng/mL (< 0.028)
[2020-03-04 23:18] VITALS: BMI 30.2
[2020-03-04] MEDS: Carvedilol 25 MG TAB PO SCH (23:37)
[2020-03-04] MEDS: Ferrous Sulfate 325 MG TAB PO SCH (23:37)
[2020-03-04] MEDS: cloNIDine 0.1 MG TAB PO SCH (23:38)
[2020-03-05 05:26] LABS: #Basophils 0.1 thou/uL (0.0-0.2); #Eosinphils 0.4 thou/uL (0.0-0.7); #Lymphocytes 3.7 thou/uL (1.20-3.40); #Monocytes 1.1 thou/uL (0.11-0.59); #Neutrophils 4.4 thou/uL (1.40-6.50); %Basophils 1.1 % (0.0-1.0); %Eosinophils 3.9 % (0.0-10.0); %Lymphocytes 38.2 % (21.0-51.0); %Monocytes 11.4 % (0.0-10.0); %Neutrophils 45.4 % (42.0-75.0); Mean Corpuscular Hemoglobin 31.3 pg (27.0-31.0); Mean Corpuscular Volume 94.8 fL (78.0-98.0); Mean Platelet Volume 8.7 fL (7.4-10.4); Platelet Count 238 thou/uL (130-400); RBC Distribution Width 13.7 % (11.5-14.5); Red Blood Cell (RBC) Count 3.51 mill/uL (4.20-5.40); White Blood Cell (WBC) Count 9.6 thou/uL (4.8-10.8)
[2020-03-05 05:48] LABS: Anion Gap 18 mmol/L (10-20); BUN (Urea Nitrogen) 61 mg/dL (9.8-20.1); Calc. Creatinine Clearance 10 mL/min (70-130); Carbon Dioxide 24 mmol/L (23-31); Cardiac Risk 2.4 (Less than 4.5); Chloride 105 mmol/L (98-107); Cholesterol 141 mg/dl (< 200 Desired); Estimated GFR-MDRD 6; Glucose 160 mg/dL (80-115); HDL Cholesterol 59 mg/dL (>60 Neg Risk); LDL Cholesterol, Calculated 69 mg/dL; Sodium 143 mmol/L (136-145); Triglycerides 63 mg/dL (Less than 150)
[2020-03-05] MEDS ORDERED: Enoxaparin Sodium 40 MG/0.4 ML SYRINGE SC SCH (09:00)
[2020-03-05] MEDS ORDERED: cloNIDine 0.2 MG TAB PO SCH (09:00)
[2020-03-05] MEDS ORDERED: Non-Formulary Item 1 EACH (Insulin Detemir [Levemir Flextouch] 100 UNIT/ML Insuln.Pen) SC SCH (09:00)
[2020-03-05] MEDS ORDERED: NIFEdipine XL 30 MG TAB PO SCH (09:00)
[2020-03-05] MEDS ORDERED: Insulin Glargine 40 UNITS in Pre-Filled Syringe SC SCH (09:00)
[2020-03-05] MEDS ORDERED: Aspirin 81 mg Enteric Coated Tablet PO SCH (09:00)
--- NOTE | 2020-03-05 09:33 | MRI ---
MRI OF BRAIN WITHOUT CONTRAST: INDICATION: TIA. Slurred speech. COMPARISON: Comparison is made to MRI of brain dated 04/19/2019. FINDINGS: Ventricles have normal size and position. Mild to moderate chronic ischemic white matter changes renetta ear slightly more pronounced than on the prior study. There is no evidence of restricted diffusion. No evidence of acute infarct, mass, or edema. The int racranial internal carotid arteries, cerebral arteries, and dural venous sinuses appear patent exhibi ting expected flow voids. Paranasal sinuses and mastoids are clear. IMPRESSION: Mild to moderate chronic ischemic white matter changes. No acute process identified. POS: AGW
--- NOTE | 2020-03-05 10:01 | PRG ---
DATE OF SERVICE: 03/05/2020 SUBJECTIVE: Ms. Soni is a 64-year-old black female with ESRD from diabetic nephropathy, currently on maintenance hemodialysis Tuesday, Tuesday, and Tuesday. She was admitted for TIA. She has undergone an MRI of the brain and results are currently pending. We are following up this patient for her maintenance hemodialysis. I have scheduled her for hemodialysis today after her MRI. She voices no new complaints today. She feels better. She did mention she had some slurring of speech yesterday. However, speech is much improved. The patient denies any chest pain or shortness of breath. OBJECTIVE: VITAL SIGNS: Blood pressure 162/96, heart rate 88, respiratory rate 16, temperature 98.4, O2 saturation 100% on room air. GENERAL: Awake, alert, comfortable, not in distress. SKIN: Adequate turgor. HEENT: Pinkish conjunctivae. Anicteric sclerae. NECK: No neck mass. No carotid bruits. No JVD. CHEST: No deformities. LUNGS: Clear breath sounds. HEART: Normal sinus rhythm. No murmur. No gallops. No rubs. ABDOMEN: Globular, soft, nontender. No masses. EXTREMITIES: No edema, no deformities. MEDICATIONS: Medications of March 05, 2020, reviewed. LABORATORY DATA: Laboratories of March 05, 2020; white count 9.6, hemoglobin 11. Sodium 143, potassium 4, chloride 105, carbon dioxide 24, BUN 61, creatinine 8.18, glucose 160, and calcium 9. Cholesterol 141. MRI of the brain, currently pending. ASSESSMENT/PLAN: 1. End-stage renal disease, stable. We will continue current Tuesday, Tuesday, and Tuesday hemodialysis. The patient is scheduled for regular dialysis this morning. Fluid removal as tolerated by the patient. 2. Transient ischemic attack, currently brain MRI has been ordered to rule out any underlying cerebrovascular accident. Overall, agree with current management. Job ID: [id number]
[2020-03-05] MEDS ORDERED: Heparin 10,000 UNITS/ 10 ML VIAL ONE (10:11)
--- NOTE | 2020-03-05 10:47 | DIS ---
DATE OF ADMISSION: 03/04/2020 DATE OF DISCHARGE: 03/05/2020 DISCHARGE DISPOSITION: Home. PRIMARY DISCHARGE DIAGNOSES: 1. Possible transient ischemic attack with dizziness, dysarthria. 2. End-stage renal disease, on hemodialysis. 3. Nonischemic cardiomyopathy. 4. Diabetes mellitus, type 2. 5. Obesity. 6. Dyslipidemia. PROCEDURES DONE DURING HOSPITALIZATION: MRI brain without contrast done shows [id number] chronic ischemic white matter changes. No acute process identified. CT angio of brain and neck showed web-like area of stenosis in the intracranial left internal carotid artery in the pre-cavernous region. CT angio neck was unremarkable. CT brain without contrast showed no acute bleed or acute intracranial process. H and H 11 and 33, platelet count 238. INR 1.0. Total cholesterol 141, triglyceride 63, LDL 69, HDL 59. DISCHARGE MEDICATIONS: 1. Aspirin 81 mg p.o. daily. 2. Lipitor 40 mg p.o. at bedtime. 3. Levemir 40 units subcu at bedtime. 4. Ferrous sulfate 325 mg p.o. daily. 5. NovoLog with coverage. 6. Procardia XL 30 mg p.o. daily. 7. Coreg 50 mg twice daily. 8. Clonidine 0.2 mg twice daily. 9. PhosLo 667 mg p.o. 3 times daily. ALLERGIES: SULFA AND LEVAQUIN. DISCHARGE PLAN: The patient is to follow up with her primary care physician at [facility] in 1 week. BRIEF COURSE DURING HOSPITALIZATION: The patient initially came in with complaints of slurred speech and near-syncope while she was getting MRI for the left shoulder. In view of multiple risk factors, the patient was placed under observation on stroke unit. She has had complete neurologic workup done, which does not reveal any acute infarct or bleed. The patient has a fistula in the left upper extremity and also has paresthesias and weakness on that side. She is seeing a pain specialist and Dr. Alejandre who is managing those issues at present. Prior to discharge, she is ambulating and tolerating oral solid diet. She was evaluated by Dr. Martinez from neurology. She will be evaluated by Dr. Martinez as well for Neurology. The patient will have her hemodialysis today and likely will go home after that. Physical therapy has recommended that she get home health with PT and nursing after discharge for a bit of unsteady gait. Please note, I have seen and examined the patient on the day of discharge. Job ID: [id number]
[2020-03-05 12:56] LABS: HBSAg Index 0.14 S/CO (0-0.99); Hep B Surf Ag Non-Reactive S/CO (NonReactive)
[2020-03-05] MEDS: Carvedilol 25 MG TAB PO SCH (15:00)
[2020-03-05] MEDS: Ferrous Sulfate 325 MG TAB PO SCH ×2 (15:00→19:59)
[2020-03-05] MEDS: cloNIDine 0.1 MG TAB PO SCH (15:02)
--- NOTE | 2020-03-05 15:13 | CON ---
NEUROLOGY CONSULTATION DATE OF CONSULTATION: 03/05/2020 REASON FOR CONSULTATION: Transient ischemic attack. HISTORY OF PRESENT ILLNESS: Ms. Soni is a 64-year-old female who presented to the emergency room because of an episode of dizziness while she was changing her clothes. At that time, she was having imaging of the left shoulder at the [facility], the staff has also noted slurred speech, so she was transferred to the ER for further evaluation for TIA. The episode resolved when she was transferred to the emergency room. The patient denies any focal weakness, focal paresthesias, nausea, vomiting, headache, chest pain, abdominal pain, recent illness, but she has recovered well from COVID in October. PAST MEDICAL HISTORY: End-stage renal disease, on hemodialysis Tuesday, Tuesday, and Tuesday; nonischemic cardiomyopathy, sees Dr. Arreguin; diabetes mellitus; dyslipidemia; obesity. PAST SURGICAL HISTORY: Left wrist area AV fistula. REVIEW OF SYSTEMS: All systems reviewed and were negative except the pertinent positives and negatives mentioned in the HPI. CURRENT MEDICATIONS: 1. Clonidine. 2. Carvedilol. 3. NovoLog. 4. Levemir. 5. Procardia. 6. PhosLo. 7. Lipitor. ALLERGIES: LEVAQUIN AND SULFA DRUGS. PERSONAL HISTORY: Patient denies alcohol, illegal drug use. She lives with her children. PHYSICAL EXAMINATION: GENERAL: 64-year-old female in no acute distress. VITAL SIGNS: Blood pressure 178/90, pulse 86, respiratory rate 18. CVS: Regular rate and rhythm. CHEST: Clear. ABDOMEN: Soft. NECK: Supple. NEUROLOGICAL: Mental status, the patient is alert and oriented to person, place, and time. Recent and remote memory intact. Speech is clear. Motor, muscle tone and bulk are normal. Strength 5/5 bilaterally. Sensory intact. Cerebellar, finger-nose testing intact. Gait deferred due to patient's safety reason. Cranial nerves II through XII intact. LABORATORY DATA: I reviewed the CT scan, which was negative for acute intracranial pathology. CTA of the brain showed a questionable web-like area of stenosis in the intracranial left internal cerebral artery in the precavernous situation and CTA of the neck was unremarkable. ASSESSMENT AND PLAN: Ms. Soni is a 64-year-old, consulted for an episode of slurred speech and dizziness, which resolved on its own, most likely TIA. MRI of the brain reviewed, which was negative for acute intracranial pathology. CTA of the head and neck was essentially unremarkable. Continue aspirin and statin for secondary stroke prevention. Neurochecks every 4 hours. Strict control of blood pressure and blood glucose. Telemetry to rule out arrhythmias. She had 2D echocardiogram earlier this year, which showed ejection fraction of 55% to 60%. PT/OT/Speech . DVT prophylaxis plan discussed with the nursing staff. Job ID: [id number] [facility]
[2020-03-05 19:58] VITALS: BP 164/100; TEMP 98.3
[2020-03-05] MEDS ORDERED: FLU VACC QS2020-21(65YR UP)/PF 240 MCG/0.7 ML SYRINGE IM ONE (21:00)
== END 2020-03-05 20:08 | disposition home health service (06) ==
LOC: ERS 13:29 → ERHOLD 15:53 → 2SE 23:11
PROVIDERS: ADMIT Internal Medicine; ATTEND Internal Medicine
DX: R42 Dizziness and giddiness (principal); R47.1 Dysarthria and anarthria; R55 Syncope and collapse; E11.22 Type 2 diabetes mellitus with diabetic chronic kidney disease; N18.6 End stage renal disease; I42.8 Other cardiomyopathies; E78.5 Hyperlipidemia, unspecified; E66.9 Obesity, unspecified; Z68.30 Body mass index [BMI] 30.0-30.9, adult; Z79.4 Long term (current) use of insulin; Z79.899 Other long term (current) drug therapy; Z88.1 Allergy status to other antibiotic agents; Z88.2 Allergy status to sulfonamides; Z86.19 Personal history of other infectious and parasitic diseases; Z87.891 Personal history of nicotine dependence; Z99.2 Dependence on renal dialysis
CPT/HCPCS: 36415; 36416; 70450; 70496; 70498; 70551; 80048; 80053; 80061; 81003; 81015; 82553; 84484; 85025; 85610; 85730; 87340; 90935; 93005; 94760; 96372; G0257; G0378; J1644; J1650; Q9967

== ENCOUNTER 2020-04-25 03:31 | Inpatient (IN) | payer MEDICARE ==
[2020-04-25 04:55] LABS: #Basophils 0.1 thou/uL (0.0-0.2); #Eosinphils 0.5 thou/uL (0.0-0.7); #Monocytes 1.2 thou/uL (0.11-0.59); #Neutrophils 8.9 thou/uL (1.40-6.50); %Basophils 0.6 % (0.0-1.0); %Lymphocytes 15.7 % (21.0-51.0); %Monocytes 9.2 % (0.0-10.0); %Neutrophils 70.5 % (42.0-75.0); Hemoglobin 11.7 g/dL (12.0-16.0); Mean Corpuscular HGB CONC 32.9 g/dL (32.0-36.0); Mean Corpuscular Hemoglobin 31.4 pg (27.0-31.0); Mean Corpuscular Volume 95.3 fL (78.0-98.0); Mean Platelet Volume 10.6 fL (7.4-10.4); Platelet Count 204 thou/uL (130-400); RBC Distribution Width 13.7 % (11.5-14.5); Red Blood Cell (RBC) Count 3.73 mill/uL (4.20-5.40); White Blood Cell (WBC) Count 12.7 thou/uL (4.8-10.8)
[2020-04-25 05:27] LABS: ALT (SGPT) 26 U/L (8-55); AST (SGOT) 29 U/L (5-34); Albumin 3.1 g/dL (3.4-4.8); Alkaline Phosphatase 65 U/L (40-110); Anion Gap 20 mmol/L (10-20); BUN (Urea Nitrogen) 42 mg/dL (9.8-20.1); Bilirubin, Total 0.4 mg/dL (0.2-1.2); Calc. Creatinine Clearance 0 mL/min (70-130); Calcium 9.5 mg/dL (7.8-10.44); Carbon Dioxide 26 mmol/L (23-31); Chloride 103 mmol/L (98-107); Globulin 3.5 g/dL (2.4-3.5); Glucose 196 mg/dL (80-115); Potassium 4.5 mmol/L (3.5-5.1); Protein, Total 6.6 g/dL (5.8-8.1); Sodium 144 mmol/L (136-145)
[2020-04-25 05:42] LABS: CKMB 3.5 ng/mL (0-6.6)
[2020-04-25] MEDS ORDERED: Lidocaine 2% PF 5 ML VIAL ONE (06:51)
[2020-04-25 07:17] LABS: SARS-CoV-2 NAA Rapid Test Not Detected (NotDetected)
[2020-04-25] MEDS ORDERED: Labetalol HCl 100 MG/20 ML VIAL SLOW IVP SCH (07:45)
--- NOTE | 2020-04-25 07:57 | RAD ---
EXAM: CHEST ONE VIEW HISTORY: Chest pain and shortness of breath. COMPARISON: 10/29/2019 FINDINGS: Right-sided tunneled hemodialysis catheter remains in place. Cardiac silhouette is magnified by proje ction but does appear mildly enlarged. Mild increase in right infrahilar patchy interstitial opacities which could be related to volume loss, but developing pneumonia is a possibility. Continued follow-up is recommended. Blunting left lateral costophrenic angle is seen suggesting tiny right pleural effusion. There is questionable minimal patchy densities at the left lung base. Calcified gra nuloma overlies left upper lobe. Vascular calcifications are again seen in the thoracic aorta. IMPRESSION: 1. Mild increased interstitial opacities in the right infrahilar location right lung base which may b e related to developing pneumonia. 2. Tiny right pleural effusion. 3. Mild cardiomegaly.
[2020-04-25] MEDS ORDERED: Cefepime 2 GM VIAL ONE (08:01)
[2020-04-25] MEDS ORDERED: Vancomycin 1 GM/200 ML BAG ONE (08:01)
[2020-04-25] MEDS ORDERED: Ondansetron PF 4 MG/2 ML Vial IVP PRN (08:21)
[2020-04-25] MEDS ORDERED: Acetaminophen 650 MG Suppository PR PRN (08:21)
[2020-04-25] MEDS ORDERED: Ondansetron ODT 4 MG TAB PO PRN (08:21)
[2020-04-25] MEDS ORDERED: Guaifenesin DM 100-10/5 ML UDCUP PO PRN (08:21)
[2020-04-25] MEDS ORDERED: Vancomycin 1 GM in Premix Bag 1 BAG IVPB SCH ×3 (08:30→21:00)
--- NOTE | 2020-04-25 08:33 | PDOC.HHP ---
Hospitalist PAUL IRELAND History of Present Illness: Ms. Soni is a 64-year-old female with a past medical history of CHF, type 2 diabetes mellitus, hypertension, COPD, end-stage renal disease on Tuesday dialysis who presents to the hospital for 1 week of productive cough and shortness of breath. Patient reports that her symptoms of fatigue and cough started proximately 1 week ago and for the past 3 days she has had worsening shortness of breath. Her cough is productive and she is producing thick yellow sputum. She reports she has had pneumonia in the past which was years ago, and has received her Pneumovax shots. She endorses subjective fevers but denies chills or night sweats. She denies any chest pain, palpitations. She denies any changes in her vision, numbness weakness paresthesias. She denies any increased swelling in her lower extremities. In emergency room initial vital signs 193/138, 101, 22, 98.2, 100% on room air. Patient now requiring 2 L nasal cannula to maintain oxygenation saturation. Initial troponin was 0.121. EKG shows NSR with no ischemic changes, BNP 3361, lactic acid 1.5, WBC 12.7. H/H 11.7/35.5. BUN/CR 42/7.17. Sodium 144, potassium 4.5, glucose 196. Chest x-ray showed bilateral infiltrates concerning for pneumonia. Rapid Covid negative. Patient received vancomycin, cefepime and 500 mL of normal saline in the emergency room. Allergies/Adverse Reactions: Allergy/AdvReac Type Severity Reaction Status Date / Time levofloxacin [From Levaquin] Allergy Verified 03/04/20 23:21 Sulfa (Sulfonamide Allergy Verified 03/04/20 23:21 Antibiotics) Home Medications: Medication Instructions Recorded Confirmed Type Acetaminophen [Tylenol Regular 650 mg PO Q6H PRN tab 04/24/19 04/25/20 Rx Strength] Ferrous Sulfate [Feosol] 325 mg PO BID-WM tab 04/24/19 04/25/20 Rx Insulin Detemir [Levemir Flextouch] 40 units SC DAILY #0 04/24/19 04/25/20 Rx Insulin Aspart [Novolog] 0 unit SQ ASDIR PRN 09/12/19 04/25/20 History Aspirin [Ecotrin Low Strength] 81 mg PO DAILY #30 tab 10/31/19 04/25/20 Rx Calcium Acetate 667 mg PO TID-WM 03/04/20 04/25/20 History Carvedilol [Coreg] 50 mg PO BID 03/04/20 04/25/20 History NIFEdipine [Nifedipine ER] 30 mg PO DAILY 03/04/20 04/25/20 History cloNIDine [Catapres] 0.2 mg PO BID 03/04/20 04/25/20 History Atorvastatin Calcium [Lipitor] 40 mg PO HS #30 tab 03/05/20 04/25/20 Rx Hospitalist Exam General Appearance: NAD, awake alert Eye: PERRL, anicteric sclera ENT: normocephalic atraumatic, no oropharyngeal lesions, moist mucosa Neck: supple, symmetric, no JVD, no thyromegaly, no lymphadenopathy, no carotid bruit Heart - other findings: Tachycardic Respiratory: no wheezes, normal chest expansion, no tachypnea Respiratory - other findings: Rales at bilateral bases Gastrointestinal: soft, non-tender, non-distended, normal bowel sounds, no palpable masses, no hepatomegaly, no splenomegaly, no bruit Extremities: no cyanosis, no clubbing, no edema Skin: normal turgor, no lesions, no rashes Neurological: cranial nerve grossly intact, normal sensation to touch, no weakness, no focal deficits, no new deficit Musculoskeletal: normal tone, normal strength, no muscle wasting Psychiatric: normal affect, normal behavior, A&O x 3 Hospitalist Results Result Diagrams: 05/01/20 05:23 05/01/20 05:23 Lab results: WBC 12.7 thou/uL (4.8-10.8) H 04/25/20 04:21 Hgb 11.7 g/dL (12.0-16.0) L 04/25/20 04:21 Hct 35.5 % (36.0-47.0) L 04/25/20 04:21 MCV 95.3 fL (78.0-98.0) 04/25/20 04:21 Plt Count 204 thou/uL (130-400) 04/25/20 04:21 Neutrophils % 70.5 % (42.0-75.0) 04/25/20 04:21 Sodium 144 mmol/L (136-145) 04/25/20 04:21 Potassium 4.5 mmol/L (3.5-5.1) 04/25/20 04:21 Chloride 103 mmol/L (98-107) 04/25/20 04:21 Carbon Dioxide 26 mmol/L (23-31) 04/25/20 04:21 BUN 42 mg/dL (9.8-20.1) H 04/25/20 04:21 Creatinine 7.17 mg/dL (0.6-1.1) H 04/25/20 04:21 Glucose 196 mg/dL (80-115) H 04/25/20 04:21 Lactic Acid 1.5 mmol/L (0.5-2.2) 04/25/20 05:32 Calcium 9.5 mg/dL (7.8-10.44) 04/25/20 04:21 Total Bilirubin 0.4 mg/dL (0.2-1.2) 04/25/20 04:21 AST 29 U/L (5-34) 04/25/20 04:21 ALT 26 U/L (8-55) 04/25/20 04:21 Alkaline Phosphatase 65 U/L (40-110) 04/25/20 04:21 CK-MB (CK-2) 3.5 ng/mL (0-6.6) 04/25/20 04:21 Troponin I 0.121 ng/mL (< 0.028) H 04/25/20 04:21 B-Natriuretic Peptide 3361.0 pg/mL (0-100) H 04/25/20 04:21 Serum Total Protein 6.6 g/dL (5.8-8.1) 04/25/20 04:21 Albumin 3.1 g/dL (3.4-4.8) L 04/25/20 04:21 Hospitalist H&P A/P Plan: 64-year-old female possible history of CHF, type 2 diabetes mellitus, hypertension, COPD, end-stage renal disease on Tuesday dialysis presents with suspected bacterial pneumonia given chest x-ray findings and rapid negative Covid, complicated by sepsis without septic shock, acute CHF exacerbation and hypertensive emergency. Pneumonia 1 week of worsening productive sputum, subjective fevers and worsening shortness of breath. Chest x-ray shows bilateral infiltrates which do not appear in typical pattern for COVID-19. Rapid Covid test negative. WBC 12.7. Patient meets sepsis criteria and was started on Vanc, cefepime. Currently on 2 L nasal cannula to maintain O2 sat. Plan Vanc, cefepime Sputum culture Follow blood cultures Rapid Covid negative, PCR pending Sepsis without septic shock Sepsis criteria without septic shock. WBC 12.7, tachycardic and tachypneic on presentation. Lactic acid 1.5. Known source of pneumonia. We will continue on Vanco, cefepime. Patient did receive small IV bolus given her end-stage renal disease in emergency room. Plan IV Vanco, cefepime Trend WBC, fever curve, lactic acid Treatment as above Hypertensive emergency Patient presents in hypertensive urgency with blood pressure 193/138. BNP elevated 3361. Troponin also elevated at 0.121. No papilledema on exam, patient denies headache or visual changes. Patient received 10 mg of labetalol in the emergency room. Will make as needed antihypertensives available and slowly bring patient's blood pressure down. Plan Labetalol as needed Continue home antihypertensives Closely monitor pressures ensuring not to decrease pressure too quickly Acute CHF exacerbation Patient with history of CHF. Echocardiogram from 1 year ago shows an EF of 55 to 60% with LVH. Patient's BNP elevated to 3361. Troponin 0 0.121. Patient hypertensive at 193/138. Patient is end-stage renal disease and reports she only makes a scant amount of urine. On exam patient does not appear to be in fluid overload. Will consult nephrology for dialysis to see if she needs excess fluid removed. Plan Repeat echocardiogram I/os, daily weights Cardiology consult, nephrology consult Continue home beta-solis Elevation in troponin Troponin elevated at 0.121. EKG normal sinus rhythm with no ischemic changes. Patient denies chest pain. Likely elevated in setting of end-stage renal disease we will continue to trend and monitor for symptoms. Plan Trend troponin ASA, statin Telemetry monitoring Continue to monitor for symptoms End-stage renal disease History of end-stage renal disease on Tuesday dialysis. Follows with Dr. Ernst. We will recheck to Dr. Ernst to set patient up for her regularly scheduled dialysis today. BUNs/CR 42/7.17, sodium 144, potassium 4.5. Plan Nephrology consult, recommendations appreciated Trend kidney function, potassium Type 2 diabetes mellitus History of type 2 diabetes on insulin. Will confirm patient's home insulin dose and restart at half. We will also make ISS available to patient. Plan Carb consistent diet Home insulin at half dose ISS, ACH S glucose checks Hypertension History of hypertension, presents in hypertensive emergency see plan as above Hyperlipidemia We will continue home statin DVT prophylaxisSQ Heparin Full code Case discussed with attending physician, Dr. Rosario.
[2020-04-25] MEDS: Cefepime 2 GM in Sodium Chloride 0.9% 100 ML IVPB SCH ×2 (09:30→21:35)
[2020-04-25 09:50] LABS: CKMB 4.8 ng/mL (0-6.6)
[2020-04-25] MEDS: cloNIDine 0.2 MG TAB PO SCH ×2 (09:52→20:15)
[2020-04-25] MEDS: Carvedilol 25 MG TAB PO SCH ×2 (09:52→20:15)
[2020-04-25] MEDS: Aspirin 81 mg Enteric Coated Tablet PO SCH (09:52)
[2020-04-25] MEDS: Heparin 5,000 UNITS/ML VIAL SC SCH ×3 (09:52→20:16)
[2020-04-25] MEDS: NIFEdipine XL 30 MG TAB PO SCH (09:57)
[2020-04-25 10:01] VITALS: BMI 29.4
[2020-04-25] MEDS ORDERED: Vancomycin HCl 1.25 GM in Sodium Chloride 0.9% 250 ML 250 ML IVPB SCH (11:00)
[2020-04-25] MEDS ORDERED: HOLD VANCOMYCIN FOR LEVEL >20 FS SCH (11:00)
[2020-04-25] MEDS ORDERED: Vancomycin HCl 750 MG in Sodium Chloride 0.9% 250 ML 250 ML IVPB SCH (11:00)
[2020-04-25] MEDS ORDERED: Vancomycin HCl 500 MG in Sodium Chloride 0.9% 100 ML IVPB SCH (11:00)
[2020-04-25 12:13] LABS: Lactic Acid 1.4 mmol/L (0.5-2.2)
[2020-04-25] MEDS ORDERED: Heparin 10,000 UNITS/ 10 ML VIAL ONE (12:49)
[2020-04-25] MEDS: hydrALAZINE 20 MG/ML VIAL SLOW IVP PRN (17:04)
[2020-04-25 18:22] LABS: SARS-CoV-2 PCR by NAA Not Detected (NotDetected)
[2020-04-25 18:25] LABS: Vancomycin, Random 9.4 ug/mL (See Comment)
[2020-04-25] MEDS: Atorvastatin Calcium 40 MG TAB PO SCH (20:15)
--- NOTE | 2020-04-26 00:34 | CON ---
DATE OF CONSULTATION: 04/25/2020 Ms. Soni is a 64-year-old black female with known history of ESRD and was admitted for worsening shortness of breath. This was said to have been associated with productive cough with thick yellow sputum. She denies any associated chest pain. She does admit complaints of chills and night sweats. At the ER, the patient was evaluated, and she was found to most likely have bacterial pneumonia. COVID-19 testing was said to be negative. We are being consulted for further management of her ESRD and maintenance hemodialysis. REVIEW OF SYSTEMS: Positive for mild shortness of breath. Positive for fever. Positive for chills. No syncopal episode. Positive for productive cough. No dysuria. No urinary frequency. No abdominal pain. No headache. No diplopia. No sore throat. No hematochezia. No melena. No hematemesis. Energy level and appetite decreased. Occasional joint pains. PAST MEDICAL HISTORY: Status post CHF, status post COVID-19 pneumonia, type 2 diabetes mellitus, ESRD from diabetic nephropathy, COPD. PAST SURGICAL HISTORY: Includes the following, status post AV fistula placement, status post cuffed hemodialysis catheter placement. SOCIAL HISTORY: The patient lives in [place]. She is single. She has six children but lives with her daughter. She is medically disabled. 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 Smoked for 25 years at least 3/4 pack a day. Alcohol, none. No drug abuse. Status post blood transfusion. Education, high school. ALLERGIES: BACTRIM. TRAUMA: None. IMMUNIZATION: Up to date. HOSPITALIZATIONS: Please see past medical history. FAMILY HISTORY: No family history of ESRD. MEDICATIONS: The patient is currently on, 1. Tylenol 650 mg q.4 p.r.n. 2. Ecotrin 81 mg daily. 3. Lipitor 40 mg tablet at bedtime. 4. Coreg 50 mg p.o. b.i.d. 5. Cefepime 1 g IV q.12. 6. Clonidine 0.2 mg p.o. b.i.d. 7. Heparin 5000 units subcu t.i.d. 8. Procardia XL 30 mg daily. 9. Status post vancomycin. 10. Zofran 4 mg q.6 p.r.n.. PHYSICAL EXAMINATION: VITAL SIGNS: Blood pressure is noted at 159/81, heart rate 82, respiratory rate 20, temperature 98, O2 saturation 97%. GENERAL: Awake, alert, comfortable, not in overt distress. SKIN: Adequate turgor. HEENT: Pinkish conjunctivae. Anicteric sclerae. NECK: No neck mass. No carotid bruits. No JVD. CHEST: No deformities. LUNGS: Decreased breath sounds. No wheezing. No crackles. HEART: Normal sinus rhythm. No murmur. No gallops. No rubs. ABDOMEN: Globular, soft, nontender. No masses. EXTREMITIES: No edema. No deformities. NEUROLOGICAL: Moving all extremities. No tremors. No asterixis. No ataxia. LABORATORY DATA: Laboratories of April 25, 2020, were reviewed. Chest x-ray shows left lower lobe infiltrate. ASSESSMENT AND PLAN: 1. End-stage renal diseae, stable. We will continue current hemodialysis regimen. The patient currently undergoing hemodialysis with fluid removal only as tolerated. 2. Pneumonia, bacterial - patient tested negative for COVID-19. She is currently on empiric IV antibiotics. Overall, agree with current management. Job ID: [id number]
[2020-04-26 06:43] LABS: #Basophils 0.1 thou/uL (0.0-0.2); #Eosinphils 0.3 thou/uL (0.0-0.7); #Lymphocytes 1.6 thou/uL (1.20-3.40); #Monocytes 0.9 thou/uL (0.11-0.59); #Neutrophils 7.5 thou/uL (1.40-6.50); %Basophils 0.6 % (0.0-1.0); %Lymphocytes 15.6 % (21.0-51.0); %Monocytes 8.4 % (0.0-10.0); %Neutrophils 72.3 % (42.0-75.0); Hemoglobin 10.3 g/dL (12.0-16.0); Mean Corpuscular HGB CONC 33.2 g/dL (32.0-36.0); Mean Corpuscular Hemoglobin 31.5 pg (27.0-31.0); Mean Corpuscular Volume 95.1 fL (78.0-98.0); Mean Platelet Volume 10.8 fL (7.4-10.4); Platelet Count 160 thou/uL (130-400); RBC Distribution Width 13.6 % (11.5-14.5); Red Blood Cell (RBC) Count 3.26 mill/uL (4.20-5.40); White Blood Cell (WBC) Count 10.3 thou/uL (4.8-10.8)
[2020-04-26 07:06] LABS: Anion Gap 15 mmol/L (10-20); BUN (Urea Nitrogen) 23 mg/dL (9.8-20.1); Calc. Creatinine Clearance 16 mL/min (70-130); Calcium 8.6 mg/dL (7.8-10.44); Carbon Dioxide 26 mmol/L (23-31); Chloride 102 mmol/L (98-107); Glucose 290 mg/dL (80-115); Potassium 3.8 mmol/L (3.5-5.1); Sodium 139 mmol/L (136-145)
--- NOTE | 2020-04-26 08:23 | PRG ---
DATE OF SERVICE: 04/26/2020 SUBJECTIVE: Ms. Soni is a 64-year-old black female with ESRD, currently on maintenance hemodialysis. She was admitted for bacteria; pneumonia. The patient has been ruled out for COVID-19. She did undergo hemodialysis yesterday without any difficulty. She voices no new complaints today. Her breathing is a little bit better. The patient denies any chest pain. OBJECTIVE: VITAL SIGNS: Blood pressure 127/73, heart rate 86, respiratory rate 18, temperature 98.5, O2 saturation 98%. GENERAL: The patient is awake, sitting comfortable, eating, not in distress. SKIN: Adequate turgor. HEENT: She has pinkish conjunctivae, anicteric sclerae. No neck mass. No carotid bruits. No JVD. CHEST: No deformities. LUNGS: Decreased breath sounds. HEART: Normal sinus rhythm. No murmur. No gallops. No rubs. ABDOMEN: Globular, soft nontender. No masses. EXTREMITIES: No edema, no deformities. MEDICATIONS: From April 26, 2020, reviewed. LABORATORY DATA: From April 26, 2020; white count 10.3, hemoglobin 10.3. Sodium 139, potassium 3.8, chloride 102, carbon dioxide 26, BUN 23, creatinine 4.88, glucose 290, calcium 8.6. ASSESSMENT AND PLAN: 1. End-stage renal disease, stable, tolerating current hemodialysis regimen. We will continue Tuesday, Tuesday, Tuesday dialysis. I do not see any indication for an emergent hemodialysis with this patient. I do not think she is volume overloaded. In addition, her potassium is normal. 2. Borderline anemia. We will simply observe this. 3. Bacterial pneumonia, on IV antibiotics. Continue supportive care. Job ID: [id number]
[2020-04-26] MEDS: cloNIDine 0.2 MG TAB PO SCH ×2 (09:09→21:24)
[2020-04-26] MEDS: Aspirin 81 mg Enteric Coated Tablet PO SCH (09:09)
[2020-04-26] MEDS: Carvedilol 25 MG TAB PO SCH ×2 (09:09→21:24)
[2020-04-26] MEDS: Heparin 5,000 UNITS/ML VIAL SC SCH ×3 (09:09→21:27)
[2020-04-26] MEDS: Cefepime 2 GM in Sodium Chloride 0.9% 100 ML IVPB SCH ×2 (10:36→21:26)
[2020-04-26] MEDS: NIFEdipine XL 30 MG TAB PO SCH (10:42)
[2020-04-26] MEDS ORDERED: Dextrose 50% Abboject 50 ML SYRINGE SLOW IVP PRN (15:49)
[2020-04-26] MEDS ORDERED: Dextrose 5% in Water 1,000 ML IV PRN (15:49)
--- NOTE | 2020-04-26 15:56 | PDOC.HOSPP ---
- Subjective Encounter Date: 04/26/20 Encounter Time: 07:30 Subjective: Patient seen in follow-up for pneumonia. Denies chest pain. - Objective Vital Signs & Weight: Vital Signs (12 hours) Temp Pulse Resp BP BP Pulse Ox 04/26/20 11:34 98.2 F 86 18 132/71 98 04/26/20 10:42 86 129/70 04/26/20 09:09 127/73 04/26/20 08:00 98 04/26/20 07:40 98.5 F 86 18 127/73 98 04/26/20 04:04 98.3 F 92 18 157/75 H 100 Weight Weight 188 lb I&O: 04/25/20 04/26/20 04/27/20 06:59 06:59 06:59 Intake Total 2200 Balance 2200 Result Diagrams: 04/26/20 05:56 04/26/20 05:56 Additional Labs: Accuchecks 04/26/20 04/26/20 04/25/20 11:34 06:02 21:19 POC Glucose 301 H 265 H 212 H I reviewed patient's labs and [facility] Hospitalist ROS - Review of Systems Respiratory: reports: cough, sputum. denies: dry, shortness of breath, hemoptysis, SOB with excertion, pleuritic pain, wheezing Cardiovascular: denies: chest pain, palpitations, orthopnea, paroxysmal noc. dyspnea, edema, light headedness - Medication Medications: Active Medications Generic Name Dose Route Start Last Admin Trade Name Freq PRN Reason Stop Dose Admin Aspirin 81 mg 04/25/20 09:00 04/26/20 09:09 Aspirin 81 Mg Enteric Coated Tablet PO 81 mg DAILY MAE Administration Atorvastatin Calcium 40 mg 04/25/20 21:00 04/25/20 20:15 Atorvastatin Calcium 40 Mg Tab PO 40 mg HS MAE Administration Carvedilol 50 mg 04/25/20 09:00 04/26/20 09:09 Carvedilol 25 Mg Tab PO 50 mg BID MAE Administration Clonidine 0.2 mg 04/25/20 09:00 04/26/20 09:09 Clonidine 0.2 Mg Tab PO 0.2 mg BID MAE Administration Heparin Sodium (Porcine) 5,000 units 04/25/20 09:00 04/26/20 15:14 Heparin 5,000 Units/Ml Vial SC 5,000 units TID MAE Administration Hydralazine HCl 10 mg 04/25/20 16:21 04/25/20 17:04 Hydralazine 20 Mg/Ml Vial SLOW IVP 10 mg Q4H PRN Administration SBP GREATER THAN 160 Cefepime HCl 2 gm/ Sodium 100 mls @ 200 mls/hr 04/25/20 09:00 04/26/20 10:36 Chloride IVPB 100 mls Q12HR MAE Administration Nifedipine 30 mg 04/25/20 09:00 04/26/20 10:42 Nifedipine Xl 30 Mg Tab PO 30 mg DAILY MAE Administration - Exam General Appearance: awake alert Eye: anicteric sclera ENT: normocephalic atraumatic Neck: supple Heart: RRR Respiratory: rales, rhonchi Gastrointestinal: soft, non-tender Skin: no rashes Psychiatric: normal affect, normal behavior Hosp A/P - Plan - Assessment/Plan Pneumonia Continue vancomycin and cefepime. Follow blood cultures. Sepsis without septic shock Secondary to pneumonia. COVID-19 test is negative. Hypertensive emergency Resolved CHF Stable Elevation in troponin No chest pain, troponin elevation likely secondary to end-stage renal disease. End-stage renal disease Nephrology following for maintenance dialysis. Type 2 diabetes mellitus Start Accu-Cheks and insulin sliding scale Hypertension Controlled and stable Hyperlipidemia Continue statin
[2020-04-26] MEDS: HumaLOG 300 UNITS/3 ML VIAL SC PRN (16:54)
[2020-04-26 20:38] LABS: Vancomycin, Random 22.3 ug/mL (See Comment)
[2020-04-26] MEDS: Atorvastatin Calcium 40 MG TAB PO SCH (21:26)
[2020-04-27] MEDS: HumaLOG 300 UNITS/3 ML VIAL SC PRN ×3 (06:16→17:09)
[2020-04-27 06:35] LABS: #Basophils 0.1 thou/uL (0.0-0.2); #Eosinphils 0.5 thou/uL (0.0-0.7); #Lymphocytes 2.2 thou/uL (1.20-3.40); #Monocytes 1.2 thou/uL (0.11-0.59); #Neutrophils 5.1 thou/uL (1.40-6.50); %Eosinophils 5.2 % (0.0-10.0); %Lymphocytes 24.1 % (21.0-51.0); %Monocytes 13.1 % (0.0-10.0); %Neutrophils 56.5 % (42.0-75.0); Hemoglobin 9.8 g/dL (12.0-16.0); Mean Corpuscular HGB CONC 32.8 g/dL (32.0-36.0); Mean Corpuscular Hemoglobin 31.2 pg (27.0-31.0); Mean Corpuscular Volume 95.4 fL (78.0-98.0); Platelet Count 175 thou/uL (130-400); RBC Distribution Width 13.6 % (11.5-14.5); Red Blood Cell (RBC) Count 3.15 mill/uL (4.20-5.40)
[2020-04-27 06:52] LABS: Anion Gap 18 mmol/L (10-20); BUN (Urea Nitrogen) 42 mg/dL (9.8-20.1); Calc. Creatinine Clearance 11 mL/min (70-130); Calcium 8.7 mg/dL (7.8-10.44); Carbon Dioxide 21 mmol/L (23-31); Chloride 104 mmol/L (98-107); Glucose 284 mg/dL (80-115); Potassium 3.9 mmol/L (3.5-5.1); Sodium 139 mmol/L (136-145)
[2020-04-27] MEDS: NIFEdipine XL 30 MG TAB PO SCH (09:06)
[2020-04-27] MEDS: cloNIDine 0.2 MG TAB PO SCH ×2 (09:06→21:25)
[2020-04-27] MEDS: Aspirin 81 mg Enteric Coated Tablet PO SCH (09:07)
[2020-04-27] MEDS: Carvedilol 25 MG TAB PO SCH ×2 (09:07→21:27)
[2020-04-27] MEDS: Heparin 5,000 UNITS/ML VIAL SC SCH ×3 (09:07→21:27)
[2020-04-27] MEDS: Cefepime 0.5 GM in Sodium Chloride 0.9% 100 ML IVPB SCH (11:38)
--- NOTE | 2020-04-27 11:59 | PRG ---
DATE OF SERVICE: 04/27/2020 SUBJECTIVE: Ms. Soni is a 64-year-old black female with ESRD and followed up by the [facility] for maintenance hemodialysis. She is tolerating her hemodialysis. She was admitted for a bacterial pneumonia. She is complaining of some productive cough and occasional hemoptysis. Denies any fever. OBJECTIVE: VITAL SIGNS: Blood pressure 147/70, heart rate 82, respiratory rate 14, temperature 98.1, O2 saturation 100%. GENERAL: Awake, sitting comfortable, not in overt distress. SKIN: Adequate turgor. HEENT: Slightly pale conjunctivae. Anicteric sclerae. NECK: No neck mass. No carotid bruits. No JVD. CHEST: No deformities. LUNGS: Decreased breath sounds. HEART: Normal sinus rhythm. No murmur. No gallops. No rubs. ABDOMEN: Globular, soft, nontender. No masses. EXTREMITIES: No edema. No deformities. MEDICATIONS: Medications of April 27, 2020 reviewed. LABORATORY DATA: On April 27, 2020, white count 9, hemoglobin 9.8. Sodium 139, potassium 3.9, chloride 104, carbon dioxide 21. BUN 42, creatinine 7.27, glucose 284, calcium 8.7. ASSESSMENT AND PLAN: 1. Anemia. Start Epogen 7500 units subcu every week. 2. End-stage renal disease, stable. Continue current hemodialysis regimen. There is no indication for any emergent dialysis with this patient. Potassium is acceptable and the patient is not volume overloaded. 3. Bacterial pneumonia on empiric IV antibiotics. Recheck CBC and base MET in a.m. Job ID: [id number]
[2020-04-27] MEDS ORDERED: EPOETIN ALFA-EPBX (ESRD) 4,000 UNIT/ML VIAL SC SCH (12:00)
--- NOTE | 2020-04-27 14:38 | PDOC.HOSPP ---
- Subjective Encounter Date: 04/27/20 Encounter Time: 08:30 Subjective: Patient seen for follow-up regarding pneumonia. She reports cough, sputum, denies fevers. - Objective Vital Signs & Weight: Vital Signs (12 hours) Temp Pulse Resp BP BP Pulse Ox 04/27/20 11:45 97.9 F 78 14 150/74 H 100 04/27/20 09:06 82 147/70 H 04/27/20 08:00 100 04/27/20 07:05 98.1 F 82 14 147/70 H 100 04/27/20 04:32 98.0 F 81 16 137/77 100 Weight Weight 189 lb 9.561 oz I&O: 04/26/20 04/27/20 04/28/20 06:59 06:59 06:59 Intake Total 2200 2280 Balance 2200 2280 Result Diagrams: 04/27/20 06:14 04/27/20 06:14 Additional Labs: Accuchecks 04/27/20 04/27/20 04/27/20 11:48 06:11 00:22 POC Glucose 326 H 270 H 245 H 04/26/20 04/26/20 21:21 16:13 POC Glucose 161 H 388 H Labs and MAR reviewed by il Hospitalist ROS - Review of Systems Respiratory: reports: cough, SOB with excertion, sputum. denies: dry, shortness of breath, hemoptysis, pleuritic pain, wheezing Cardiovascular: denies: chest pain, palpitations, orthopnea, paroxysmal noc. dyspnea, edema, light headedness - Medication Medications: Active Medications Generic Name Dose Route Start Last Admin Trade Name Davinq PRN Reason Stop Dose Admin Aspirin 81 mg 04/25/20 09:00 04/27/20 09:07 Aspirin 81 Mg Enteric Coated Tablet PO 81 mg DAILY MAE Administration Atorvastatin Calcium 40 mg 04/25/20 21:00 04/26/20 21:26 Atorvastatin Calcium 40 Mg Tab PO 40 mg HS MAE Administration Carvedilol 50 mg 04/25/20 09:00 04/27/20 09:07 Carvedilol 25 Mg Tab PO 50 mg BID MAE Administration Clonidine 0.2 mg 04/25/20 09:00 04/27/20 09:06 Clonidine 0.2 Mg Tab PO 0.2 mg BID MAE Administration Epoetin Tong-epbx 7,500 unit 04/27/20 12:00 04/27/20 12:14 Epoetin Tong-Epbx (Esrd) 4,000 Unit/Ml Vial SC 7,500 unit Q7D MAE Administration Heparin Sodium (Porcine) 5,000 units 04/25/20 09:00 04/27/20 09:07 Heparin 5,000 Units/Ml Vial SC 5,000 units TID MAE Administration Hydralazine HCl 10 mg 04/25/20 16:21 04/25/20 17:04 Hydralazine 20 Mg/Ml Vial SLOW IVP 10 mg Q4H PRN Administration SBP GREATER THAN 160 Cefepime HCl 0.5 gm/ Sodium 100 mls @ 200 mls/hr 04/27/20 10:00 04/27/20 11:38 Chloride IVPB 100 mls Q24HR MAE Administration Insulin Human Lispro 0 units 04/26/20 15:49 04/27/20 12:16 Humalog 300 Units/3 Ml Vial SC 5 unit .MILD SLIDING SCALE PRN Administration Mild Correctional Scale Nifedipine 30 mg 04/25/20 09:00 04/27/20 09:06 Nifedipine Xl 30 Mg Tab PO 30 mg DAILY MAE Administration - Exam General Appearance: awake alert Eye: anicteric sclera ENT: moist mucosa Neck: supple Heart: RRR Respiratory: rhonchi Gastrointestinal: soft, non-tender Skin: no rashes Psychiatric: normal affect Hosp A/P - Plan - Assessment/Plan Pneumonia Patient is on vancomycin and cefepime. Preliminary blood cultures negative. Sepsis without septic shock Secondary to pneumonia. COVID-19 test is negative. Hypertensive emergency Resolved CHF Stable Elevation in troponin Secondary to ESRD. End-stage renal disease Maintenance dialysis per nephrology service. Type 2 diabetes mellitus Blood sugars are high. Start Levemir 40 units daily, change insulin sliding scale to moderate. Hypertension Controlled and stable Hyperlipidemia Patient is on statin
[2020-04-27 20:13] LABS: Vancomycin, Random 18.8 ug/mL (See Comment)
[2020-04-27] MEDS ORDERED: Vancomycin HCl 500 MG in Sodium Chloride 0.9% 100 ML IVPB SCH (20:45)
[2020-04-27] MEDS: Atorvastatin Calcium 40 MG TAB PO SCH (21:26)
[2020-04-27] MEDS: Acetaminophen 325 MG TAB PO PRN (21:26)
[2020-04-28] MEDS: HumaLOG 300 UNITS/3 ML VIAL SC PRN ×3 (06:06→20:48)
[2020-04-28 06:29] LABS: #Basophils 0.1 thou/uL (0.0-0.2); #Eosinphils 0.7 thou/uL (0.0-0.7); #Lymphocytes 2.1 thou/uL (1.20-3.40); #Monocytes 1.1 thou/uL (0.11-0.59); %Basophils 0.7 % (0.0-1.0); %Eosinophils 6.9 % (0.0-10.0); %Lymphocytes 20.6 % (21.0-51.0); %Monocytes 11.3 % (0.0-10.0); %Neutrophils 60.5 % (42.0-75.0); Hemoglobin 9.8 g/dL (12.0-16.0); Mean Corpuscular HGB CONC 32.5 g/dL (32.0-36.0); Mean Corpuscular Hemoglobin 30.7 pg (27.0-31.0); Mean Corpuscular Volume 94.4 fL (78.0-98.0); Mean Platelet Volume 9.6 fL (7.4-10.4); Platelet Count 198 thou/uL (130-400); RBC Distribution Width 13.5 % (11.5-14.5); Red Blood Cell (RBC) Count 3.18 mill/uL (4.20-5.40); White Blood Cell (WBC) Count 9.9 thou/uL (4.8-10.8)
[2020-04-28 06:53] LABS: Anion Gap 17 mmol/L (10-20); BUN (Urea Nitrogen) 51 mg/dL (9.8-20.1); Calc. Creatinine Clearance 9 mL/min (70-130); Calcium 9.1 mg/dL (7.8-10.44); Carbon Dioxide 22 mmol/L (23-31); Chloride 106 mmol/L (98-107); Glucose 233 mg/dL (80-115); Potassium 3.9 mmol/L (3.5-5.1); Sodium 141 mmol/L (136-145)
[2020-04-28] MEDS ORDERED: Non-Formulary Item 1 EACH (Insulin Detemir [Levemir Flextouch] 100 UNIT/ML Insuln.Pen) SC SCH (09:00)
--- NOTE | 2020-04-28 09:06 | PRG ---
DATE OF SERVICE: 04/28/2020 SUBJECTIVE: Ms. Soni is a 64-year-old black female with ESRD, currently on maintenance hemodialysis. She is undergoing hemodialysis. Attempting fluid removal as tolerated. She was initially admitted for bacterial pneumonia. Cough is still occasional, but denies any fever or chills. No complaints of chest pain or shortness of breath. OBJECTIVE: VITAL SIGNS: Blood pressure is 149/78, heart rate 84, respiratory rate 18, temperature 97.1, and O2 saturation 99%. GENERAL: The patient is awake, alert, comfortable, not in distress. SKIN: Adequate turgor. HEENT: Slightly pale conjunctivae. Anicteric sclerae. NECK: No neck mass. No carotid bruits. No JVD. CHEST: No deformities. LUNGS: Decreased breath sounds. HEART: Normal sinus rhythm. No murmurs, gallops, or rubs. ABDOMEN: Globular, soft, nontender. No masses. EXTREMITIES: No edema. No deformities. MEDICATIONS: Of April 28, 2020 reviewed. LABORATORY DATA: Laboratories of April 28, 2020; white count 9.9, hemoglobin 9.8. Sodium 141, potassium 3.9, chloride 106, carbon dioxide 22, BUN 51, creatinine 8.57, glucose is 233, calcium 9.1. ASSESSMENT AND PLAN: 1. End-stage renal disease, currently undergoing hemodialysis and tolerating said treatment. Fluid removal as tolerated. No changes will be made with the current hemodialysis regimen. 2. Bacterial pneumonia, on empiric IV antibiotics. Clinically improving. 3. Chronic anemia. Continuing weekly Epogen. We will recheck CBC and basic metabolic profile in a.m. Job ID: [id number]
[2020-04-28 09:43] LABS: Vancomycin, Random 17.4 ug/mL (See Comment)
[2020-04-28] MEDS ORDERED: Iopamidol-370 76% 500 ML 1 ML ONE (12:13)
[2020-04-28] MEDS ORDERED: Heparin 10,000 UNITS/ 10 ML VIAL ONE (12:44)
[2020-04-28] MEDS: NIFEdipine XL 30 MG TAB PO SCH (12:45)
[2020-04-28] MEDS: Aspirin 81 mg Enteric Coated Tablet PO SCH (12:45)
[2020-04-28] MEDS: cloNIDine 0.2 MG TAB PO SCH ×2 (12:45→20:47)
[2020-04-28] MEDS: Carvedilol 25 MG TAB PO SCH ×2 (12:45→20:48)
[2020-04-28] MEDS: Heparin 5,000 UNITS/ML VIAL SC SCH ×3 (12:45→20:47)
[2020-04-28] MEDS: Insulin Glargine 40 UNITS in Pre-Filled Syringe 1 EACH SC SCH (12:45)
--- NOTE | 2020-04-28 13:15 | CT ---
Exam: Head CT without contrast HISTORY: Mental status change COMPARISON: 04/28/2020 FINDINGS: Hemorrhage: No intraparenchymal hemorrhage or extra-axial hematoma. Brain parenchyma: Cortical mcdonald-white matter differentiation is preserved. No mass effect or midline shift. Basilar cisterns are patent. Ventricular system: Ventricles and sulci are patent and symmetric. Calvarium: Intact. Sinuses and mastoid air cells: Adequate aeration. IMPRESSION: No acute intracranial process.
[2020-04-28] MEDS: hydrALAZINE 20 MG/ML VIAL SLOW IVP PRN ×2 (13:27)
[2020-04-28] MEDS ORDERED: Lorazepam 2 MG/ML VIAL ONE (14:34)
[2020-04-28] MEDS ORDERED: Lorazepam 2 MG/ML VIAL SLOW IVP SCH (14:45)
--- NOTE | 2020-04-28 15:14 | CT ---
CTA of the head with and without IV contrast and 3-D reformatted imaging. CTA of the neck with IV contrast and 3-D reformatted imaging. INDICATION: 64-year-old female with stroke alert, altered mental status, last seen normal at 1300 ankit rs COMPARISON: Noncontrast CT the brain dated 03/04/2020 and 04/28/2019 at 1:04 PM FINDINGS: CTA OF THE HEAD WITH AND WITHOUT CONTRAST: CTA OF THE BRAIN: Right ICA: Patent. Right MCA: Patent. Right PRESLEY: Patent. ACOM: Patent. Left ICA: Patent. Left MCA: Patent. Left PRESLEY: Patent. PCOMs: Patent. Vertebral arteries: Patent. Basilar Artery: Patent. 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 Incidentals: No acute infarct, hemorrhage or hydrocephalus is present. Septum pellucidum and third v entricle are midline. The skull and extra cranial soft tissues appear within normal limits. No abnormal enhancement is demonstrated. CTA OF THE NECK WITH CONTRAST: Right CCA: Patent. Right ICA: Patent. Right Subclavian: Patent. Right Vertebral Artery: Patent. Left CCA: Patent. Left ICA: Patent. Left Subclavian: Patent. Left Vertebral Artery: Patent. Aerodigestive tract: Clear. Parotids/Submandibular/Thyroid glands: There is tiny hypodensities within the thyroid gland. The par otid and submandibular glands are normal appearing. Lymph nodes: No pathologically enlarged lymph nodes. Lung Apices: There are small bilateral pleural effusions. There is calcified granuloma in the left u pper lobe. Bones: No acute osseous abnormality. Incidentals: There is a right IJ central venous catheter. There is small pericardial effusion IMPRESSION: 1. No hemodynamically significant stenosis, occlusion or aneurysmal formation. 2. No acute intracranial abnormality. 3. Bilateral pleural effusions and small pericardial effusion. 4. Findings called to Dr. Cervantes at 3:05 PM on April 28, 2020.
--- NOTE | 2020-04-28 15:50 | CON ---
DATE OF CONSULTATION: 04/28/2020 REASON FOR CONSULTATION: Episode of altered mental status. HISTORY OF PRESENT ILLNESS: Ms. Soni is a 64-year-old female with medical history significant for congestive heart failure, type 2 diabetes mellitus, hypertension, COPD, end-stage renal disease, on hemodialysis three times a week, presented with one week of productive cough and shortness of breath. She came to the hospital because of productive cough and shortness of breath and rapid COVID test was done, which was negative and she was admitted because of management of pneumonia. However, this morning while she was receiving hemodialysis, she has an episode of syncope and Alex Turcios was called. There was a concern about stroke versus seizures, so Neurology was called for further evaluation. The patient has no recollection of the event. REVIEW OF SYSTEMS: The patient denies any focal weakness, focal paresthesias, nausea, vomiting, headache, chest pain, abdominal pain, but she does have shortness of breath and generalized weakness and fatigue. All systems reviewed and were negative except the pertinent positives and negatives mentioned in the HPI. HOME MEDICATIONS: 1. Clonidine. 2. Nifedipine. 3. Insulin. 4. Iron. 5. Calcium. 6. Lipitor. 7. Aspirin. 8. Tylenol. ALLERGIES: LEVAQUIN, SULFA. PAST MEDICAL HISTORY: Congestive heart failure, type 2 diabetes mellitus, hypertension, COPD, end-stage renal disease on hemodialysis. PAST SURGICAL HISTORY: AV fistula for dialysis. FAMILY HISTORY: Mother of natural causes. Father of prostrate cancer. SOCIAL HISTORY: The patient is a former smoker. She lives with the family. Denies smoking, alcohol, illegal drug use. Vital Signs & Weight: Vital Signs (12 hours) Temp Pulse Resp BP BP Pulse Ox 04/27/20 11:45 97.9 F 78 14 150/74 H 100 04/27/20 09:06 82 147/70 H 04/27/20 08:00 100 04/27/20 07:05 98.1 F 82 14 147/70 H 100 04/27/20 04:32 98.0 F 81 16 137/77 100 Weight Weight 189 lb 9.561 oz I&O: 04/26/20 04/27/20 04/28/20 06:59 06:59 06:59 Intake Total 2200 2280 Balance 2200 2280 Additional Labs: Accuchecks 0104/27/20 04/27/20 11:48 06:11 00:22 POC Glucose 326 H 270 H 245 H 04/26/20 04/26/20 21:21 16:13 POC Glucose 161 H 388 H Labs and MAR reviewed by me Active Medications Generic Name Dose Route Start Last Admin Trade Name Freq PRN Reason Stop Dose Admin Aspirin 81 mg 04/25/20 09:00 04/27/20 09:07 Aspirin 81 Mg Enteric Coated Tablet PO 81 mg DAILY MAE Administration Atorvastatin Calcium 40 mg 04/25/20 21:00 04/26/20 21:26 Atorvastatin Calcium 40 Mg Tab PO 40 mg HS MAE Administration Carvedilol 50 mg 04/25/20 09:00 04/27/20 09:07 Carvedilol 25 Mg Tab PO 50 mg BID MAE Administration Clonidine 0.2 mg 04/25/20 09:00 04/27/20 09:06 Clonidine 0.2 Mg Tab PO 0.2 mg BID MAE Administration Epoetin Tong-epbx 7,500 unit 04/27/20 12:00 04/27/20 12:14 Epoetin Tong-Epbx (Esrd) 4,000 Unit/Ml Vial SC 7,500 unit Q7D MAE Administration Heparin Sodium (Porcine) 5,000 units 04/25/20 09:00 04/27/20 09:07 Heparin 5,000 Units/Ml Vial SC 5,000 units TID MAE Administration Hydralazine HCl 10 mg 04/25/20 16:21 04/25/20 17:04 Hydralazine 20 Mg/Ml Vial SLOW IVP 10 mg Q4H PRN Administration SBP GREATER THAN 160 Cefepime HCl 0.5 gm/ Sodium 100 mls @ 200 mls/hr 04/27/20 10:00 04/27/20 11:38 Chloride IVPB 100 mls Q24HR MAE Administration Insulin Human Lispro 0 units 04/26/20 15:49 04/27/20 12:16 Humalog 300 Units/3 Ml Vial SC 5 unit .MILD SLIDING SCALE PRN Administration Mild Correctional Scale Nifedipine 30 mg 04/25/20 09:00 04/27/20 09:06 Nifedipine Xl 30 Mg Tab PO 30 mg DAILY MAE Administration PHYSICAL EXAMINATION: GENERAL APPEARANCE: NAD. CVS: Regular rate and rhythm. CHEST: Clear. ABDOMEN: Soft. NECK: Supple. NEUROLOGICAL: Mental status, the patient is alert and oriented to person, place, and time. Speech is clear. Cranial nerves II through XII intact. Motor, muscle tone and bulk are normal. Moving all 4 extremities equally and symmetrically. Sensory intact. Cerebellar, finger-nose testing intact. Gait deferred due to patient's safety reason. DATA REVIEWED: I reviewed the labs which were significant and also the chest x- ray which shows bilateral infiltrates. Head CT is negative for acute intracranial pathology. CT angiogram of the head and neck is negative for hemodynamically significant stenosis. ASSESSMENT AND PLAN: Ms. Yonis Soni is a 64-year-old female, who was consulted because of an episode of syncope to rule out stroke versus seizures. We will arrange for EEG to rule out underlying cortical irritability. Head CT reviewed, which was negative for acute intracranial pathology. CT angiogram of the head and neck were negative for hemodynamically significant stenosis. Consider MRI to rule out acute intracranial pathology. 2D echocardiogram showed ejection fraction of 40% to 45%. Continue aspirin high-intensity statin for secondary stroke prevention. Neuro checks every 4 hours. Observe seizure precautions. Continue home medications. Monitor blood pressure and blood glucose. Continue medical management per primary team. We will continue to follow. Thank you for the consult. Plan discussed in detail with the patient, nursing staff and also with the primary attending, Dr. Kirby. Job ID: [id number] [facility] [address] [place]
[2020-04-28] MEDS: Cefepime 0.5 GM in Sodium Chloride 0.9% 100 ML IVPB SCH (16:05)
--- NOTE | 2020-04-28 18:52 | PDOC.HOSPP ---
- Subjective Encounter Date: 04/28/20 Encounter Time: 11:30 Subjective: Patient seen for follow-up for acute metabolic encephalopathy. She had an episode of altered mental status earlier. - Objective Vital Signs & Weight: Vital Signs (12 hours) Temp Pulse Pulse Resp Resp BP BP 04/28/20 15:09 92 16 156/85 H 04/28/20 13:27 92 183/98 H 04/28/20 12:45 92 183/98 H 04/28/20 07:45 04/28/20 07:26 97.1 F L 84 18 BP Pulse Ox Pulse Ox 04/28/20 15:09 100 04/28/20 13:27 04/28/20 12:45 04/28/20 07:45 99 04/28/20 07:26 149/78 H 99 Weight Weight 189 lb 9.561 oz I&O: 04/27/20 04/28/20 04/29/20 06:59 06:59 06:59 Intake Total 2280 1620 Balance 2280 1620 Result Diagrams: 04/28/20 06:11 04/28/20 06:11 Additional Labs: Accuchecks 04/28/20 04/28/20 04/28/20 16:02 12:43 10:45 POC Glucose 183 H 138 H 125 H 04/28/20 04/27/20 06:03 20:22 POC Glucose 219 H 173 H I reviewed patient's labs and MAR Hospitalist ROS - Review of Systems Cardiovascular: denies: chest pain, palpitations, orthopnea, paroxysmal noc. dyspnea, edema, light headedness Gastrointestinal: denies: nausea, vomiting, abdominal pain, diarrhea, constipation, melena, hematochezia - Medication Medications: Active Medications Generic Name Dose Route Start Last Admin Trade Name Freq PRN Reason Stop Dose Admin Acetaminophen 650 mg 04/25/20 08:21 04/27/20 21:26 Acetaminophen 325 Mg Tab PO 650 mg Q4H PRN Administration Headache/Fever/Mild Pain (1-3) Aspirin 81 mg 04/25/20 09:00 04/28/20 12:45 Aspirin 81 Mg Enteric Coated Tablet PO Not Given DAILY MAE Atorvastatin Calcium 40 mg 04/25/20 21:00 04/27/20 21:26 Atorvastatin Calcium 40 Mg Tab PO 40 mg HS MAE Administration Carvedilol 50 mg 04/25/20 09:00 04/28/20 12:45 Carvedilol 25 Mg Tab PO Not Given BID [facility] Clonidine 0.2 mg 04/25/20 09:00 04/28/20 12:45 Clonidine 0.2 Mg Tab PO Not Given BID [facility] Epoetin Tong-epbx 7,500 unit 04/27/20 12:00 04/27/20 12:14 Epoetin Tong-Epbx (Esrd) 4,000 Unit/Ml Vial SC 7,500 unit Q7D MAE Administration Heparin Sodium (Porcine) 5,000 units 04/25/20 09:00 04/28/20 15:00 Heparin 5,000 Units/Ml Vial SC Not Given TID [facility] Hydralazine HCl 10 mg 04/25/20 16:21 04/28/20 13:27 Hydralazine 20 Mg/Ml Vial SLOW IVP 10 mg Q4H PRN Administration SBP GREATER THAN 160 Insulin Glargine 40 units/ 0.4 mls @ 0 mls/hr 04/28/20 09:00 04/28/20 12:45 Miscellaneous Medication SC Not Given QAM [facility] Insulin Human Lispro 0 units 04/27/20 14:40 04/28/20 18:17 Humalog 300 Units/3 Ml Vial SC 2 unit .MODERATE SLIDING SC PRN Administration Moderate Correctional Scale Nifedipine 30 mg 04/25/20 09:00 04/28/20 12:45 Nifedipine Xl 30 Mg Tab PO Not Given DAILY MAE - Exam General Appearance: awake alert Eye: anicteric sclera ENT: normocephalic atraumatic Neck: supple Heart: RRR Respiratory: CTAB Gastrointestinal: soft Skin: no rashes Musculoskeletal: no muscle wasting Psychiatric: normal affect Hosp A/P - Plan - Assessment/Plan Acute metabolic encephalopathy Resolved. Etiology unclear. Continue to observe. No evidence of stroke. Pneumonia Continue vancomycin and cefepime. Preliminary blood cultures negative. Sepsis without septic shock Secondary to pneumonia. COVID-19 test is negative. Hypertensive emergency Resolved CHF Stable Elevation in troponin Secondary to ESRD. End-stage renal disease Nephrology following for dialysis Type 2 diabetes mellitus Blood sugars are high. Start Levemir 40 units daily, change insulin sliding scale to moderate. Hypertension Controlled and stable Hyperlipidemia Patient is on statin
[2020-04-28] MEDS: Atorvastatin Calcium 40 MG TAB PO SCH (20:48)
[2020-04-29 06:13] LABS: #Basophils 0.1 thou/uL (0.0-0.2); #Eosinphils 0.5 thou/uL (0.0-0.7); #Lymphocytes 2.5 thou/uL (1.20-3.40); #Monocytes 1.5 thou/uL (0.11-0.59); #Neutrophils 5.8 thou/uL (1.40-6.50); %Eosinophils 4.9 % (0.0-10.0); %Lymphocytes 24.3 % (21.0-51.0); %Monocytes 14.4 % (0.0-10.0); %Neutrophils 55.4 % (42.0-75.0); Hemoglobin 10.5 g/dL (12.0-16.0); Mean Corpuscular HGB CONC 33.3 g/dL (32.0-36.0); Mean Corpuscular Hemoglobin 31.5 pg (27.0-31.0); Mean Corpuscular Volume 94.8 fL (78.0-98.0); Mean Platelet Volume 10.6 fL (7.4-10.4); Platelet Count 203 thou/uL (130-400); RBC Distribution Width 13.6 % (11.5-14.5); Red Blood Cell (RBC) Count 3.33 mill/uL (4.20-5.40); White Blood Cell (WBC) Count 10.4 thou/uL (4.8-10.8)
[2020-04-29 06:40] LABS: Anion Gap 17 mmol/L (10-20); BUN (Urea Nitrogen) 25 mg/dL (9.8-20.1); Calc. Creatinine Clearance 13 mL/min (70-130); Calcium 9.2 mg/dL (7.8-10.44); Carbon Dioxide 23 mmol/L (23-31); Chloride 102 mmol/L (98-107); Glucose 153 mg/dL (80-115); Potassium 3.9 mmol/L (3.5-5.1); Sodium 138 mmol/L (136-145)
--- NOTE | 2020-04-29 07:17 | EKG ---
Test Reason : Blood Pressure : / mmHG Vent. Rate : 098 BPM Atrial Rate : 098 BPM P-R Int : 132 ms QRS Dur : 128 ms QT Int : 406 ms P-R-T Axes : 067 051 152 degrees QTc Int : 518 ms Normal sinus rhythm Right atrial enlargement Left bundle branch block Abnormal ECG When compared with ECG of 25-APR-2020 03:47, (Unconfirmed) T wave inversion now evident in Inferior leads T wave inversion more evident in Lateral leads Confirmed by DR. Velasquez CLARK ([id number]) on 04/29/2020 7:16:51 AM Referred By: FERNANDO Confirmed By:DR. Velasquez CLARK
--- NOTE | 2020-04-29 07:52 | PDOC.EEG ---
Neurology EEG Report - EEG Classification Date: 04/28/20 - Report Report: This EEG was performed using 24 channel [employer] video EEG machine with 24 disc electrodes. This was an extended 2 hours 5 minutes of inpatient video EEG recording. Digital analysis of the EEG was done for spike and seizure detection which revealed no abnormalities. Background: There is a nonsustained posterior background rhythm of 8-9 Hz. Hyperventilation: Not performed. Photic Stimulation: No significant response. Sleep: Drowsiness and sleep are observed. EEG Diagnosis: Occasional irregular theta activity seen during the recording. Nonsustained posterior background rhythm. Clinical Interpretation: This EEG is consistent with mild generalized nonspecific cerebral dysfunction.
[2020-04-29] MEDS: Insulin Glargine 40 UNITS in Pre-Filled Syringe 1 EACH SC SCH (08:35)
[2020-04-29] MEDS: Aspirin 81 mg Enteric Coated Tablet PO SCH (08:35)
[2020-04-29] MEDS: cloNIDine 0.2 MG TAB PO SCH ×2 (08:35→20:50)
[2020-04-29] MEDS: Heparin 5,000 UNITS/ML VIAL SC SCH ×3 (08:35→20:50)
[2020-04-29] MEDS: NIFEdipine XL 30 MG TAB PO SCH (08:35)
[2020-04-29] MEDS: Carvedilol 25 MG TAB PO SCH ×2 (08:35→20:50)
--- NOTE | 2020-04-29 09:26 | PRG ---
DATE OF SERVICE: 04/29/2020 SUBJECTIVE: Ms. Soni is a 64-year-old black female with ESRD and currently on maintenance hemodialysis. We are following her up for her hemodialysis regimen. She underwent dialysis yesterday. Also, of note was that the patient had some acute mental status change. CT scan of the head was done, which showed negative findings. Neurology consult has also been done. The issue is whether this patient may have had seizure ?. This morning, she is mentating better. She is fully awake and oriented. She faintly remembers what happened yesterday. No complaints of chest pain or shortness of breath. OBJECTIVE: VITAL SIGNS: Blood pressure 148/92, heart rate 65, respiratory rate 20, temperature 98.2, O2 saturation 99%. GENERAL: The patient is awake, alert, comfortable, not in distress. SKIN: Adequate turgor. HEENT: Pinkish conjunctivae. Anicteric sclerae. No neck mass. No carotid bruits. No JVD. CHEST: No deformities. LUNGS: Clear breath sounds. HEART: Normal sinus rhythm. No murmurs, no gallops, no rubs. ABDOMEN: Globular, soft, nontender. No masses. EXTREMITIES: No edema. No deformities. MEDICATIONS: Medications of April 29, 2020, reviewed. LABORATORY DATA: On April 29, 2020; white count 10.4, hemoglobin 10.5. Sodium 138, potassium 3.9, chloride 102, carbon dioxide 23, BUN 25, creatinine 6.2, glucose 153, calcium 9.2. ASSESSMENT AND PLAN: 1. ESRD, stable. We will continue current Tuesday, Tuesday, and Tuesday hemodialysis regimen. Tolerating said treatment. Fluid removal only as tolerated. 2. Metabolic encephalopathy - unclear if the patient may have had a seizure. She is mentating better today. Neurology has been consulted. The plan is to consider an EEG with this patient. 3. Anemia, continuing weekly Epogen with the patient. She is currently receiving Epogen at 7500 units subcu q.7 days. We will recheck CBC, basic metabolic in a.m. Job ID: [id number]
[2020-04-29] MEDS: HumaLOG 300 UNITS/3 ML VIAL SC PRN ×2 (11:34→17:30)
--- NOTE | 2020-04-29 13:34 | PDOC.NEUPN ---
- Subjective Encounter Date: 04/29/20 Subjective: Mrs. Soni is back to her baseline after 1 episode of altered mental mental status yesterday during dialysis - Objective Vital Signs & Weight: Vital Signs (12 hours) Temp Pulse Resp BP Pulse Ox 04/29/20 12:16 98.4 F 85 20 100 04/29/20 08:19 98.2 F 65 20 148/92 H 99 04/29/20 03:47 98.5 F 89 18 151/80 H 98 Weight Weight 189 lb 9.561 oz I&O: 04/28/20 04/29/20 04/30/20 06:59 06:59 06:59 Intake Total 1620 720 Balance 1620 720 Result Diagrams: 04/29/20 05:27 04/29/20 05:27 Additional Labs: Accuchecks 04/29/20 04/29/20 04/28/20 10:30 05:40 20:22 POC Glucose 251 H 148 H 165 H 04/28/20 04/28/20 16:02 14:06 POC Glucose 183 H 147 H Radiology Reviewed by me: Yes EKG Reviewed by me: Yes ROS - Review of Systems Constitutional: denies: fever, chills, sweats, weakness, malaise, other Eyes: denies: pain, vision change, conjunctivae inflammation, eyelid inflammation, redness, other ENT: denies: ear pain, ear discharge, nose pain, nose discharge, nose congestion, mouth pain, mouth swelling, throat pain, throat swelling, other Respiratory: denies: cough, dry, shortness of breath, hemoptysis, SOB with excertion, pleuritic pain, sputum, wheezing, other Genitourinary: denies: dysuria, frequency, incontinence, hematuria, retention, other Skin: denies: rash, lesions, ruthie, bruising, other Neurological: denies: weakness, numbness, incoordination, change in speech, confusion, seizures, other - Medication Medications: Active Medications Generic Name Dose Route Start Last Admin Trade Name Freq PRN Reason Stop Dose Admin Acetaminophen 650 mg 04/25/20 08:21 04/27/20 21:26 Acetaminophen 325 Mg Tab PO 650 mg Q4H PRN Administration Headache/Fever/Mild Pain (1-3) Aspirin 81 mg 04/25/20 09:00 04/29/20 08:35 Aspirin 81 Mg Enteric Coated Tablet PO 81 mg DAILY MAE Administration Atorvastatin Calcium 40 mg 04/25/20 21:00 04/28/20 20:48 Atorvastatin Calcium 40 Mg Tab PO 40 mg HS MAE Administration Carvedilol 50 mg 04/25/20 09:00 04/29/20 08:35 Carvedilol 25 Mg Tab PO 50 mg BID MAE Administration Clonidine 0.2 mg 04/25/20 09:00 04/29/20 08:35 Clonidine 0.2 Mg Tab PO 0.2 mg BID MAE Administration Epoetin Tong-epbx 7,500 unit 04/27/20 12:00 04/27/20 12:14 Epoetin Tong-Epbx (Esrd) 4,000 Unit/Ml Vial SC 7,500 unit Q7D MAE Administration Heparin Sodium (Porcine) 5,000 units 04/25/20 09:00 04/29/20 08:35 Heparin 5,000 Units/Ml Vial SC 5,000 units TID MAE Administration Hydralazine HCl 10 mg 04/25/20 16:21 04/28/20 13:27 Hydralazine 20 Mg/Ml Vial SLOW IVP 10 mg Q4H PRN Administration SBP GREATER THAN 160 Insulin Glargine 40 units/ 0.4 mls @ 0 mls/hr 04/28/20 09:00 04/29/20 08:35 Miscellaneous Medication SC 0.4 mls QAM MAE Administration Insulin Human Lispro 0 units 04/27/20 14:40 04/29/20 11:34 Humalog 300 Units/3 Ml Vial SC 6 unit .MODERATE SLIDING SC PRN Administration Moderate Correctional Scale Nifedipine 30 mg 04/25/20 09:00 04/29/20 08:35 Nifedipine Xl 30 Mg Tab PO 30 mg DAILY MAE Administration - Exam General Appearance: awake alert Eye: PERRL ENT: normocephalic atraumatic Neck: supple Respiratory: CTAB Cardiovascular: RRR Gastrointestinal: soft Extremities: no cyanosis Skin: normal turgor Neurological: CN's grossly intact, normal sensation to touch, no weakness, no focal deficits, no new deficit Musculoskeletal: normal tone, normal strength, no muscle wasting PSYCH: normal affect, normal behavior, A&O x 3 Results - Labs Result Diagrams: 04/29/20 05:27 04/29/20 05:27 Lab results: WBC 10.4 thou/uL (4.8-10.8) 04/29/20 05:27 Hgb 10.5 g/dL (12.0-16.0) L 04/29/20 05:27 Hct 31.6 % (36.0-47.0) L 04/29/20 05:27 MCV 94.8 fL (78.0-98.0) 04/29/20 05:27 Plt Count 203 thou/uL (130-400) 04/29/20 05:27 Neutrophils % 55.4 % (42.0-75.0) 04/29/20 05:27 Sodium 138 mmol/L (136-145) 04/29/20 05:27 Potassium 3.9 mmol/L (3.5-5.1) 04/29/20 05:27 Chloride 102 mmol/L (98-107) 04/29/20 05:27 Carbon Dioxide 23 mmol/L (23-31) 04/29/20 05:27 BUN 25 mg/dL (9.8-20.1) H 04/29/20 05:27 Creatinine 6.20 mg/dL (0.6-1.1) H 04/29/20 05:27 Glucose 153 mg/dL (80-115) H 04/29/20 05:27 Lactic Acid 1.4 mmol/L (0.5-2.2) 04/25/20 11:49 Calcium 9.2 mg/dL (7.8-10.44) 04/29/20 05:27 Total Bilirubin 0.4 mg/dL (0.2-1.2) 04/25/20 04:21 AST 29 U/L (5-34) 04/25/20 04:21 ALT 26 U/L (8-55) 04/25/20 04:21 Alkaline Phosphatase 65 U/L (40-110) 04/25/20 04:21 CK-MB (CK-2) 4.8 ng/mL (0-6.6) 04/25/20 08:54 Troponin I 0.181 ng/mL (< 0.028) H 04/25/20 11:49 B-Natriuretic Peptide 3361.0 pg/mL (0-100) H 04/25/20 04:21 Serum Total Protein 6.6 g/dL (5.8-8.1) 04/25/20 04:21 Albumin 3.1 g/dL (3.4-4.8) L 04/25/20 04:21 - Radiology Interpretation CT scan - head Additional Comment: Head CT negative for acute intracranial pathology PN A/P (1) AMS (altered mental status) Code(s): R41.82 - ALTERED MENTAL STATUS, UNSPECIFIED Status: Acute (2) Anemia, normocytic normochromic Code(s): D64.9 - ANEMIA, UNSPECIFIED Status: Chronic (3) DM type 2 (diabetes mellitus, type 2) Status: Chronic (4) Hypertension Code(s): I10 - ESSENTIAL (PRIMARY) HYPERTENSION Status: Chronic (5) Nonischemic cardiomyopathy Code(s): I42.9 - CARDIOMYOPATHY, UNSPECIFIED Status: Chronic - Plan Daily Plan: PT/OT, speech therapy, DVT proph w/SCDs Mrs. Soni is a 64-year-old female who was consulted because of an episode of altered mental status during dialysis. There was a concern about TIA versus seizure. Etiology unclear at this time Head CT reviewed which was negative for acute intracranial pathology. EEG reviewed which was negative for seizure activity. Consider MRI of the brain to rule out acute intracranial process. CTA of the head and neck did not reveal hemodynamically significant stenosis. 2D echo showed ejection fraction of 40 to 45%. No thrombus or PFO. Neurochecks every 4 hours. Continue home medications Continue aspirin and high intensity statin for secondary stroke prevention. Monitor blood pressure and blood glucose. Continue medical management per primary team. Strict control of blood pressure and blood glucose. PT/OT/speech. Plan discussed in detail with the patient.
--- NOTE | 2020-04-29 14:44 | PDOC.HOSPP ---
- Subjective Encounter Date: 04/29/20 Encounter Time: 11:00 Subjective: Patient seen in follow-up for acute metabolic encephalopathy. Patient is more alert today, answering questions. - Objective Vital Signs & Weight: Vital Signs (12 hours) Temp Pulse Resp BP Pulse Ox 04/29/20 12:16 98.4 F 85 20 100 04/29/20 08:19 98.2 F 65 20 148/92 H 99 04/29/20 03:47 98.5 F 89 18 151/80 H 98 Weight Weight 189 lb 9.561 oz I&O: 04/28/20 04/29/20 04/30/20 06:59 06:59 06:59 Intake Total 1620 720 Balance 1620 720 Result Diagrams: 04/29/20 05:27 04/29/20 05:27 Additional Labs: Accuchecks 04/29/20 04/29/20 04/28/20 10:30 05:40 20:22 POC Glucose 251 H 148 H 165 H 04/28/20 04/28/20 16:02 14:06 POC Glucose 183 H 147 H Labs and MAR reviewed by ma Hospitalist ROS - Review of Systems Cardiovascular: denies: chest pain, palpitations, orthopnea, paroxysmal noc. dyspnea, edema, light headedness Gastrointestinal: denies: nausea, vomiting, abdominal pain, diarrhea, constipation, melena, hematochezia - Medication Medications: Active Medications Generic Name Dose Route Start Last Admin Trade Name Freq PRN Reason Stop Dose Admin Acetaminophen 650 mg 04/25/20 08:21 04/27/20 21:26 Acetaminophen 325 Mg Tab PO 650 mg Q4H PRN Administration Headache/Fever/Mild Pain (1-3) Aspirin 81 mg 04/25/20 09:00 04/29/20 08:35 Aspirin 81 Mg Enteric Coated Tablet PO 81 mg DAILY MAE Administration Atorvastatin Calcium 40 mg 04/25/20 21:00 04/28/20 20:48 Atorvastatin Calcium 40 Mg Tab PO 40 mg HS MAE Administration Carvedilol 50 mg 04/25/20 09:00 04/29/20 08:35 Carvedilol 25 Mg Tab PO 50 mg BID MAE Administration Clonidine 0.2 mg 04/25/20 09:00 04/29/20 08:35 Clonidine 0.2 Mg Tab PO 0.2 mg BID MAE Administration Epoetin Tong-epbx 7,500 unit 04/27/20 12:00 04/27/20 12:14 Epoetin Tong-Epbx (Esrd) 4,000 Unit/Ml Vial SC 7,500 unit Q7D MAE Administration Heparin Sodium (Porcine) 5,000 units 04/25/20 09:00 04/29/20 08:35 Heparin 5,000 Units/Ml Vial SC 5,000 units TID MAE Administration Hydralazine HCl 10 mg 04/25/20 16:21 04/28/20 13:27 Hydralazine 20 Mg/Ml Vial SLOW IVP 10 mg Q4H PRN Administration SBP GREATER THAN 160 Insulin Glargine 40 units/ 0.4 mls @ 0 mls/hr 04/28/20 09:00 04/29/20 08:35 Miscellaneous Medication SC 0.4 mls QAM MAE Administration Insulin Human Lispro 0 units 04/27/20 14:40 04/29/20 11:34 Humalog 300 Units/3 Ml Vial SC 6 unit .MODERATE SLIDING SC PRN Administration Moderate Correctional Scale Nifedipine 30 mg 04/25/20 09:00 04/29/20 08:35 Nifedipine Xl 30 Mg Tab PO 30 mg DAILY MAE Administration Hospitalist Exam Vitals: Vital Signs (12 hours) Temp Pulse Resp BP Pulse Ox 04/29/20 12:16 98.4 F 85 20 100 04/29/20 08:19 98.2 F 65 20 148/92 H 99 04/29/20 03:47 98.5 F 89 18 151/80 H 98 Weight Weight 189 lb 9.561 oz General Appearance: awake alert Eye: anicteric sclera ENT: normocephalic atraumatic Neck: supple Heart: RRR Respiratory: CTAB Gastrointestinal: soft, non-tender Skin: no rashes Musculoskeletal: no muscle wasting Psychiatric: normal affect, normal behavior, oriented to person, oriented to place Hosp A/P - Plan - Assessment/Plan Acute metabolic encephalopathy Significantly improved. Appreciate neurology service input. Pneumonia Patient is on vancomycin and cefepime. Follow blood cultures. Sepsis without septic shock Secondary to pneumonia. COVID-19 test is negative. Hypertensive emergency Resolved CHF Stable End-stage renal disease Hemodialysis per nephrology service. Type 2 diabetes mellitus Blood sugars have improved. Continue Levemir and insulin sliding scale. Hypertension Controlled and stable Hyperlipidemia Patient is on statin
[2020-04-29] MEDS: Cefepime 0.5 GM in Sodium Chloride 0.9% 100 ML IVPB SCH (17:30)
[2020-04-29] MEDS: Atorvastatin Calcium 40 MG TAB PO SCH (20:50)
[2020-04-30 05:44] LABS: Eosinophils 6 % (0-10); Hemoglobin 10.2 g/dL (12.0-16.0); Lymphocytes 26 % (21-51); MDiff Complete? YES; Mean Corpuscular HGB CONC 33.2 g/dL (32.0-36.0); Mean Corpuscular Hemoglobin 31.4 pg (27.0-31.0); Mean Corpuscular Volume 94.8 fL (78.0-98.0); Mean Platelet Volume 9.1 fL (7.4-10.4); Metamyelocyte 1 % (0-0); Monocytes 23 % (0-10); Neutrophil 43 % (42-75); Platelet Count 217 thou/uL (130-400); Platelet Morphology Comment Appears Adequate; RBC Distribution Width 13.8 % (11.5-14.5); Red Blood Cell (RBC) Count 3.25 mill/uL (4.20-5.40); White Blood Cell (WBC) Count 12.1 thou/uL (4.8-10.8)
[2020-04-30 05:45] LABS: Anion Gap 18 mmol/L (10-20); BUN (Urea Nitrogen) 37 mg/dL (9.8-20.1); Calc. Creatinine Clearance 10 mL/min (70-130); Calcium 9.1 mg/dL (7.8-10.44); Carbon Dioxide 23 mmol/L (23-31); Chloride 103 mmol/L (98-107); Glucose 85 mg/dL (80-115); Potassium 3.5 mmol/L (3.5-5.1); Sodium 140 mmol/L (136-145)
--- NOTE | 2020-04-30 07:18 | PRG ---
DATE OF SERVICE: 04/30/2020 SUBJECTIVE: Ms. Soni is a 64-year-old black female with ESRD and followed up by the Renal Service for her maintenance hemodialysis. She is tolerating the dialysis. The patient had an episode of mental status change. Seizures were ruled out - EEG was said to be negative for seizure activity. CT scan of the head also showed no acute intracranial pathology. Neurology is following. She voices no new complaints today. She denies any chest pain or shortness of breath. I have scheduled her for regular dialysis today. The patient denies any chest pain or shortness of breath. OBJECTIVE: VITAL SIGNS: Blood pressure 122/70, heart rate 80, respiratory rate 16, temperature 98.7, O2 saturation 93%. GENERAL: The patient is awake, supine, comfortable, not in distress. SKIN: Adequate turgor. HEENT: She has pinkish conjunctivae. Anicteric sclerae. No neck mass. No carotid bruits. No JVD. CHEST: No deformities. LUNGS: Clear breath sounds. HEART: Normal sinus rhythm. No murmur. No gallops. No rubs. ABDOMEN: Globular, soft, nontender. No masses. EXTREMITIES: No edema. No deformities. MEDICATIONS: April 30, 2020, was reviewed. LABORATORY DATA: April 30, 2020, white count 12.1, hemoglobin 10.2, sodium 140, potassium 3.5, chloride 103, carbon dioxide 23, BUN 37, creatinine 7.84, calcium 9.1. ASSESSMENT AND PLAN: 1. End-stage renal disease, stable. We will continue current hemodialysis regimen. Fluid removal only as tolerated by the patient. No changes will be made with her current dialysis regimen. 2. Anemia, on weekly Epogen. 3. Mental status change. CT scan of the head was negative. EEG was also done, which showed no seizure activity. Neurology is following. 4. We will recheck CBC and basic metabolics in a.m. Job ID: [id number]
[2020-04-30] MEDS: Insulin Glargine 40 UNITS in Pre-Filled Syringe 1 EACH SC SCH ×2 (09:00→16:20)
[2020-04-30 09:24] LABS: Vancomycin, Random 15.2 ug/mL (See Comment)
[2020-04-30] MEDS ORDERED: Heparin 10,000 UNITS/ 10 ML VIAL ONE (09:46)
[2020-04-30] MEDS: Heparin 5,000 UNITS/ML VIAL SC SCH ×3 (10:57→20:02)
[2020-04-30] MEDS: NIFEdipine XL 30 MG TAB PO SCH (14:26)
[2020-04-30] MEDS: cloNIDine 0.2 MG TAB PO SCH ×2 (14:26→20:02)
[2020-04-30] MEDS: Aspirin 81 mg Enteric Coated Tablet PO SCH (14:27)
[2020-04-30] MEDS: Carvedilol 25 MG TAB PO SCH ×2 (14:27→20:01)
[2020-04-30 14:46] LABS: HBSAg Index 0.53 S/CO (0-0.99); Hep B Surf Ag Non-Reactive S/CO (NonReactive)
--- NOTE | 2020-04-30 14:53 | CT ---
CTA of the head with and without IV contrast and 3-D reformatted imaging. CTA of the neck with IV contrast and 3-D reformatted imaging. INDICATION: 64-year-old female with stroke alert, altered mental status, last seen normal at 1300 ankit rs COMPARISON: Noncontrast CT the brain dated 03/04/2020 and 04/28/2019 at 1:04 PM FINDINGS: CTA OF THE HEAD WITH AND WITHOUT CONTRAST: CTA OF THE BRAIN: Right ICA: Patent. Right MCA: Patent. Right PRESLEY: Patent. ACOM: Patent. Left ICA: Patent. Left MCA: Patent. Left PRESLEY: Patent. PCOMs: Patent. Vertebral arteries: Patent. Basilar Artery: Patent. motion picture equipment machinist: Patent. Incidentals: No acute infarct, hemorrhage or hydrocephalus is present. Septum pellucidum and third v entricle are midline. The skull and extra cranial soft tissues appear within normal limits. No abnormal enhancement is demonstrated. CTA OF THE NECK WITH CONTRAST: Right CCA: Patent. Right ICA: Patent. Right Subclavian: Patent. Right Vertebral Artery: Patent. Left CCA: Patent. Left ICA: Patent. Left Subclavian: Patent. Left Vertebral Artery: Patent. Aerodigestive tract: Clear. Parotids/Submandibular/Thyroid glands: There is tiny hypodensities within the thyroid gland. The par otid and submandibular glands are normal appearing. Lymph nodes: No pathologically enlarged lymph nodes. Lung Apices: There are small bilateral pleural effusions. There is calcified granuloma in the left u pper lobe. Bones: No acute osseous abnormality. Incidentals: There is a right IJ central venous catheter. There is small pericardial effusion IMPRESSION: 1. No hemodynamically significant stenosis, occlusion or aneurysmal formation. 2. No acute intracranial abnormality. 3. Bilateral pleural effusions and small pericardial effusion. 4. Findings called to Dr. Cervantes at 3:05 PM on April 28, 2020. Transcribed Date/Time: 04/30/2020 2:52 PM
--- NOTE | 2020-04-30 15:16 | MRI ---
Exam: Brain MRI without contrast HISTORY: Seizure. Patient came in unresponsive 2 days ago. Generalized weakness. COMPARISON: 03/05/2020 FINDINGS: Calvarial marrow signal intensity: Appropriate T1 signal Gradient echo sequence: No evidence of hemorrhage on the coronal gradient echo sequence Brain parenchyma: No mass, mass effect or midline shift. Brain volume, age-appropriate. Cortical mcdonald-white matter differentiation: Preserved Restricted diffusion: Central arterial flow voids are maintained. Absent restricted diffusion White matter signal intensities:Stable T2, FLAIR white matter hyperintensities due to chronic small v essel ischemic changes Sinuses: Mild mucosal thickening of the paranasal sinuses. IMPRESSION: 1. No acute intracranial process 2. No significant interval change. Stable chronic small vessel ischemic changes of the white matter. 3. Absent restricted diffusion. No acute infarct.
[2020-04-30] MEDS ORDERED: Insulin Glargine 10 UNITS in Pre-Filled Syringe 1 EACH SC SCH (16:15)
--- NOTE | 2020-04-30 17:24 | PDOC.HOSPP ---
- Subjective Encounter Date: 04/30/20 Encounter Time: 09:00 Subjective: Patient seen in follow-up for acute encephalopathy. She reports cough. She reports feeling better. - Objective Vital Signs & Weight: Vital Signs (12 hours) Temp Pulse Resp BP Pulse Ox 04/30/20 15:40 98.4 F 86 18 158/85 H 100 04/30/20 14:26 98.4 F 89 14 149/83 H 100 04/30/20 07:18 98.4 F 75 18 151/76 H 100 Weight Weight 189 lb 9.561 oz I&O: 04/29/20 04/30/20 05/01/20 06:59 06:59 06:59 Intake Total 720 1540 Balance 720 1540 Result Diagrams: 04/30/20 05:14 04/30/20 05:14 Additional Labs: Accuchecks 04/30/20 04/30/20 04/29/20 15:39 05:47 20:20 POC Glucose 143 H 87 137 H I reviewed patient's labs and MAR Hospitalist ROS - Review of Systems Respiratory: reports: cough, sputum. denies: dry, shortness of breath, hemoptysis, SOB with excertion, pleuritic pain, wheezing Cardiovascular: denies: chest pain, palpitations, orthopnea, paroxysmal noc. dyspnea, edema, light headedness - Medication Medications: Active Medications Generic Name Dose Route Start Last Admin Trade Name Freq PRN Reason Stop Dose Admin Acetaminophen 650 mg 04/25/20 08:21 04/27/20 21:26 Acetaminophen 325 Mg Tab PO 650 mg Q4H PRN Administration Headache/Fever/Mild Pain (1-3) Aspirin 81 mg 04/25/20 09:00 04/30/20 14:27 Aspirin 81 Mg Enteric Coated Tablet PO 81 mg DAILY MAE Administration Atorvastatin Calcium 40 mg 04/25/20 21:00 04/29/20 20:50 Atorvastatin Calcium 40 Mg Tab PO 40 mg HS MAE Administration Carvedilol 50 mg 04/25/20 09:00 04/30/20 14:27 Carvedilol 25 Mg Tab PO 50 mg BID MAE Administration Clonidine 0.2 mg 04/25/20 09:00 04/30/20 14:26 Clonidine 0.2 Mg Tab PO 0.2 mg BID MAE Administration Epoetin Tong-epbx 7,500 unit 04/27/20 12:00 04/27/20 12:14 Epoetin Tong-Epbx (Esrd) 4,000 Unit/Ml Vial SC 7,500 unit Q7D MAE Administration Heparin Sodium (Porcine) 5,000 units 04/25/20 09:00 04/30/20 14:27 Heparin 5,000 Units/Ml Vial SC 5,000 units TID MAE Administration Hydralazine HCl 10 mg 04/25/20 16:21 04/28/20 13:27 Hydralazine 20 Mg/Ml Vial SLOW IVP 10 mg Q4H PRN Administration SBP GREATER THAN 160 Cefepime HCl 0.5 gm/ Sodium 100 mls @ 200 mls/hr 04/29/20 17:00 04/29/20 17:30 Chloride IVPB 100 mls 1700 MAE Administration Insulin Human Lispro 0 units 04/27/20 14:40 04/29/20 17:30 Humalog 300 Units/3 Ml Vial SC 4 unit .MODERATE SLIDING SC PRN Administration Moderate Correctional Scale Nifedipine 30 mg 04/25/20 09:00 04/30/20 14:26 Nifedipine Xl 30 Mg Tab PO 30 mg DAILY MAE Administration Hospitalist Exam Vitals: Vital Signs (12 hours) Temp Pulse Resp BP Pulse Ox 04/30/20 15:40 98.4 F 86 18 158/85 H 100 04/30/20 14:26 98.4 F 89 14 149/83 H 100 04/30/20 07:18 98.4 F 75 18 151/76 H 100 Weight Weight 189 lb 9.561 oz General Appearance: awake alert Eye: PERRL, anicteric sclera ENT: normocephalic atraumatic Neck: supple Heart: RRR Respiratory: rhonchi Gastrointestinal: soft, non-tender Skin: no rashes Musculoskeletal: no muscle wasting Psychiatric: normal affect, normal behavior Hosp A/P - Plan - Assessment/Plan Acute metabolic encephalopathy Significantly improved. Neurology following. Pneumonia Continue vancomycin and cefepime. Follow blood cultures. Sepsis without septic shock Secondary to pneumonia. COVID-19 test is negative. Hypertensive emergency Resolved CHF Stable End-stage renal disease Service following Type 2 diabetes mellitus Blood sugars have improved. Decrease Levemir dose to 10 units daily. Hypertension Controlled and stable Hyperlipidemia Continue statin Patient needs therapy. Case management consulted for longterm facility.
[2020-04-30] MEDS: Cefepime 0.5 GM in Sodium Chloride 0.9% 100 ML IVPB SCH (17:59)
[2020-04-30] MEDS: Atorvastatin Calcium 40 MG TAB PO SCH (20:01)
[2020-04-30] MEDS: HumaLOG 300 UNITS/3 ML VIAL SC PRN (20:06)
[2020-05-01] MEDS: Acetaminophen 325 MG TAB PO PRN ×3 (04:34→17:44)
[2020-05-01 06:17] LABS: Anion Gap 14 mmol/L (10-20); BUN (Urea Nitrogen) 22 mg/dL (9.8-20.1); Calc. Creatinine Clearance 13 mL/min (70-130); Calcium 9.2 mg/dL (7.8-10.44); Carbon Dioxide 26 mmol/L (23-31); Chloride 104 mmol/L (98-107); Glucose 158 mg/dL (80-115); Potassium 3.9 mmol/L (3.5-5.1); Sodium 140 mmol/L (136-145)
[2020-05-01 06:18] LABS: Eosinophils 1 % (0-10); Hypochromia SLIGHT = 6-15 cells (100X) (0-5/hpf); Lymphocytes 23 % (21-51); MDiff Complete? YES; Mean Corpuscular HGB CONC 32.7 g/dL (32.0-36.0); Mean Corpuscular Hemoglobin 31.2 pg (27.0-31.0); Mean Corpuscular Volume 95.4 fL (78.0-98.0); Mean Platelet Volume 9.6 fL (7.4-10.4); Monocytes 16 % (0-10); Neutrophil 60 % (42-75); Platelet Count 241 thou/uL (130-400); Platelet Morphology Comment Appears Adequate; RBC Distribution Width 14.1 % (11.5-14.5); Red Blood Cell (RBC) Count 3.52 mill/uL (4.20-5.40); White Blood Cell (WBC) Count 11.1 thou/uL (4.8-10.8)
[2020-05-01] MEDS ORDERED: Insulin Glargine 10 UNITS in Pre-Filled Syringe 1 EACH SC SCH (09:00)
[2020-05-01] MEDS: cloNIDine 0.2 MG TAB PO SCH (09:40)
[2020-05-01] MEDS: Carvedilol 25 MG TAB PO SCH (09:40)
[2020-05-01] MEDS: Aspirin 81 mg Enteric Coated Tablet PO SCH (09:40)
[2020-05-01] MEDS: Heparin 5,000 UNITS/ML VIAL SC SCH ×2 (09:41→17:22)
[2020-05-01] MEDS ORDERED: Cyclobenzaprine 10 MG TAB PO SCH (09:45)
[2020-05-01] MEDS: NIFEdipine XL 30 MG TAB PO SCH (09:47)
--- NOTE | 2020-05-01 10:56 | ULT ---
EXAM: Right upper extremity venous Doppler HISTORY: Right upper extremity pain. FINDINGS: Grayscale, color-flow, Doppler evaluation, spectral analysis of the right upper extremity venous stru ctures is performed with 2-D imaging. Normal flow is demonstrated in the visualized right subclavian vein. The visualized right internal ju gular vein appears small in caliber, but flow and normal luminal compressibility is otherwise present. Normal luminal compressibility and flow is seen in the visualized right axillary and brachia l veins with normal luminal compressibility and flow also seen within the visualized right radial and ulnar veins. Portions of the right upper approximately basilic and cephalic veins at the level of the antecubital fossa are not visualized related to overlying bandages limiting evaluation. However, the visualized portions of the left upper extremity cephalic and basilic veins demonstrate normal flow. IMPRESSION: No evidence of a deep vein thrombosis in the visualized deep venous structures right upper extremity.
[2020-05-01 11:41] VITALS: TEMP 97.6
[2020-05-01] MEDS: HumaLOG 300 UNITS/3 ML VIAL SC PRN (12:20)
--- NOTE | 2020-05-01 14:17 | PDOC.DS.DS ---
Provider Date of Admission: 04/25/20 05:41 Date of Discharge: 05/01/20 Admitting Provider: Lenin Webster MD Consultations: Nephrology (Dr. Ernst), Neurology (Dr. Martinez) Primary Care Physician: [facility] Course Hospital Course: Discharge diagnosis: 1. Community-acquired pneumonia 2. Acute metabolic encephalopathy 3. Influenza test negative 4. Covid PCR test negative 5. Physical deconditioning Hospital course: Patient is a pleasant 64-year-old lady who was admitted to the hospital on April 25, 2020 for community-acquired pneumonia. Covid 19 and influenza test were negative. She was treated with intravenous antibiotics. She was seen by nephrology service for maintenance dialysis. 2D echocardiogram showed left ventricular ejection fraction of 40 to 45% and E/a flow reversal suggestive of diastolic dysfunction. On April 28 she had an episode of altered mental status. CT angiogram of the head did not show any acute infarct, hemorrhage or hydrocephalus. She was seen by neurology service. She had EEG, which was consistent with mild generalized nonspecific cerebral dysfunction. She reverted back to her baseline after episode of altered mental status during dialysis. MRI of the brain did not show any acute intracranial process. Patient was physically deconditioned. She was seen by therapy services. [facility]. Many thanks for allowing me to participate in your patient's care. Please feel free to contact me with any questions or concerns. Discharge destination: jail Total amount of time spent coordinating this discharge: 32 minutes Resuscitation Status: 04/25/20 08:21 Resuscitation Status Routine Co-Sign Provider: Resuscitation Status: FULL: Full Resuscitation Lab Results: 05/01/20 05:23 05/01/20 05:23 Abnormal Lab Results - Last 48 hrs 04/30/20 05:14: BUN 37 H, Creatinine 7.84 H 04/30/20 05:14: WBC 12.1 H, RBC 3.25 L, Hgb 10.2 L, Hct 30.8 L, MCH 31.4 H, Monocytes % (Manual) 23 H 05/01/20 05:23: BUN 22 H, Creatinine 6.00 H 05/01/20 05:23: WBC 11.1 H, RBC 3.52 L, Hgb 11.0 L, Hct 33.6 L, MCH 31.2 H, Monocytes % (Manual) 16 H Microbiology - Entire Visit 04/25/20 05:32 Venous blood - Right Hand Blood Culture - Final NO GROWTH IN 5 DAYS 04/25/20 05:32 Venous blood - Right Arm Blood Culture - Final NO GROWTH IN 5 DAYS 04/26/20 03:00 Sputum - Nares Respiratory Culture - Final Vitals: Vital Signs (12 hours) Temp Pulse Resp BP BP Pulse Ox 05/01/20 11:01 97.6 F 80 18 155/77 H 99 05/01/20 09:47 81 160/79 H 05/01/20 09:40 160/79 H 05/01/20 07:32 98.5 F 81 18 160/79 H 100 05/01/20 04:06 98.6 F 76 16 114/67 100 Weight Weight 189 lb 9.561 oz Physical Exam: The patient was seen and examined on the day of discharge. Patient denies chest pain or shortness of breath. Vital signs are stable. S1 and S2 are heard. Lungs are clear to auscultation bilaterally. Plan Prescriptions: Cefdinir [Omnicef] 300 mg PO BID #14 cap Doxycycline [Vibramycin] 100 mg PO BID #14 cap Home Medications: Medication Instructions Recorded Confirmed Type Acetaminophen [Tylenol Regular 650 mg PO Q6H PRN tab 04/24/19 04/25/20 Rx Strength] Ferrous Sulfate [Feosol] 325 mg PO BID- tab 04/24/19 04/25/20 Rx Insulin Aspart [Novolog] 0 unit SQ ASDIR PRN 09/12/19 04/25/20 History Aspirin [Ecotrin Low Strength] 81 mg PO DAILY #30 tab 10/31/19 04/25/20 Rx Calcium Acetate 667 mg PO TID- 03/04/20 04/25/20 History Carvedilol [Coreg] 50 mg PO BID 03/04/20 04/25/20 History NIFEdipine [Nifedipine ER] 30 mg PO DAILY 03/04/20 04/25/20 History cloNIDine [Catapres] 0.2 mg PO BID 03/04/20 04/25/20 History Atorvastatin Calcium [Lipitor] 40 mg PO HS #30 tab 03/05/20 04/25/20 Rx Cefdinir [Omnicef] 300 mg PO BID #14 cap 05/01/20 Rx Doxycycline [Vibramycin] 100 mg PO BID #14 cap 05/01/20 Rx Insulin Glargine [Lantus Vial] 13 units SC QAM vial 05/01/20 Rx Allergies: levofloxacin [From Levaquin] Allergy (Verified 03/04/20 23:21) Sulfa (Sulfonamide Antibiotics) Allergy (Verified 03/04/20 23:21) causes itching per pt Discharge Instructions:: SEEK REFERRAL TO A [employer] SERVICE TECHNICIAN THROUGH PRIMARY CARE PROVIDER'S OFFICE FOR BLOOD COUNT ABNORMALITIES. Activity:: Activity as Tolerated Nourishment:: Diabetic Diet, Heart Healthy Diet, Renal Diet Referrals: [facility] [Primary Care Provider] - 7 Days Disposition: HOME Quality CORE MEASURES:: N/A
[2020-05-01] MEDS: Cefepime 0.5 GM in Sodium Chloride 0.9% 100 ML IVPB SCH ×2 (17:16→17:27)
[2020-05-01 17:43] VITALS: BP 145/85
--- NOTE | 2020-05-02 05:20 | PRG ---
DATE OF SERVICE: 05/01/2020 SUBJECTIVE: Ms. Soni is a 64-year-old black female, with ESRD and currently on maintenance hemodialysis. We are following her up for her maintenance hemodialysis. She was initially admitted for pneumonia. She has also an episode of mental status change. Neurological workup has been negative, which included an MRI of the brain. This morning, she is complaining of some muscle spasm in the right upper extremity. No complaints of chest pain or shortness of breath. OBJECTIVE: VITAL SIGNS: Blood pressure is 160/79, heart rate 81, respiratory rate 18, temperature 98.5, O2 saturation 100%. GENERAL: The patient is awake, alert, comfortable, not in distress. SKIN: Adequate turgor. HEENT: She has pinkish conjunctivae. Anicteric sclerae. No neck mass. No carotid bruits. No JVD. CHEST: No deformities. LUNGS: Clear breath sounds. HEART: Normal sinus rhythm. No murmur. No gallops. No rubs. ABDOMEN: Globular, soft, nontender. No masses. EXTREMITIES: No edema. No deformities. MEDICATIONS: On May 01, 2020, was reviewed. LABORATORY DATA: On May 01, 2020, white count 11.1, hemoglobin 11. Sodium 140, potassium 3.9, chloride 104, carbon dioxide 26, BUN 22, creatinine 6, glucose 158, calcium 9.2. ASSESSMENT/PLAN: 1. Right upper extremity muscle spasm - Flexeril 10 mg tablet now. 2. End-stage renal disease, stable. No indication for any emergent hemodialysis. Continue Tuesday, Tuesday, and Tuesday dialysis regimen. The patient is noted to be euvolemic and potassium is within normal. 3. Mental status change, resolved. Neurological workup was negative. 4. Pneumonia, on IV antibiotics. Job ID: [id number]
== END 2020-05-01 18:15 | DRG 871 ==
LOC: SUATTDRO 03:31 → ERS 03:31 → SURG B 05:41
PROVIDERS: ADMIT Internal Medicine; ATTEND Internal Medicine
PROC: 5A1D70Z Performance of Urinary Filtration, Intermittent, Less than 6 Hours Per Day (ICD-10-PCS; principal; 2020-04-28)
PROC: 06HY33Z Insertion of Infusion Device into Lower Vein, Percutaneous Approach (ICD-10-PCS; 2020-04-28)
PROC: 8E0ZXY6 Isolation (ICD-10-PCS; 2020-04-28)
DX: A41.9 Sepsis, unspecified organism (principal); G93.41 Metabolic encephalopathy; N18.6 End stage renal disease; J15.9 Unspecified bacterial pneumonia; I13.2 Hypertensive heart and chronic kidney disease with heart failure and with stage 5 chronic kidney disease, or end stage renal disease; I16.1 Hypertensive emergency; I42.9 Cardiomyopathy, unspecified; E11.22 Type 2 diabetes mellitus with diabetic chronic kidney disease; I50.9 Heart failure, unspecified; J44.9 Chronic obstructive pulmonary disease, unspecified; E78.5 Hyperlipidemia, unspecified; D63.1 Anemia in chronic kidney disease; Z99.2 Dependence on renal dialysis; Z87.891 Personal history of nicotine dependence; Z88.1 Allergy status to other antibiotic agents; Z88.2 Allergy status to sulfonamides; Z79.899 Other long term (current) drug therapy; Z79.4 Long term (current) use of insulin
CPT/HCPCS: 0240U; 36415; 36416; 70450; 70496; 70498; 70551; 71045; 80048; 80053; 80202; 82553; 83605; 83880; 84484; 85025; 87040; 87070; 87205; 87340; 87635; 90935; 93005; 93010; 93306; 94760; 95712; 95816; 95819; 95957; 96365; 96375; G0257; J0360; J0692; J1644; J1815; J2001; J2060; J3370; J3490; Q5105; Q9967; U0003; U0005